=== PATIENT | male | born 1940 | race Caucasian/White ===

== ENCOUNTER 2020-04-11 04:26 | Inpatient (IN) ==
[2020-04-11] MEDS ORDERED: SODIUM CHLORIDE 0.9% 1000ML 1,000 ML IV ONE (04:39)
[2020-04-11] MEDS ORDERED: LORazepam 0.5 MG/1 ML VIAL IV STA (04:39)
[2020-04-11] MEDS ORDERED: DEXAMETHASONE SOD INJ 10 MG/ML VIAL IV ONE (04:39)
[2020-04-11] MEDS ORDERED: ACETAMINOPHEN 500 MG TAB PO STA (04:39)
--- NOTE | 2020-04-11 04:45 | Emergency Department Note ---
Impression & Plan COVID-19, Hypoxia, Acute anxiety ED Provider Note Name: DEMETRICE VO Age: 79 Sex: M Arrives Via: Ambulance Informant: Patient, EMS ED Provider: Mark Bill MD Chief Complaint: Shortness of breath Impression: Covid-19 Acute Hypoxia Acute Anxiety Medical Decision Making: A very anxious 79 yr old male with history COPD, CAD, Anxiety, HTN, DLP, GERD, CVA arrives for worsening shortness of breath overnight. Recently completed steroids for bronchitis and was doing well. Dyspneic, tachypneic on arrival. Vastly improved with Ativan IV and NC O2. He was given some IV fluids as dehydrated by examination. HR coming down and looking much better. No wheezing on exam so neb held off, though with high suspicious covid Decadron 6mg IV given early on. CXR consistent with viral inflammatory pattern. EKG Tachy though no ischemia and Trop negative. Sats easily came up and patient feeling better thus hold on CTA chest at this time. No indication for abx. COVID returned positive. Hospitalist consulted for further management. Prior Medical Record and Triage/Nursing Notes reviewed by Me Additional history obtained from chart Differentials:COVID, Reactive airway disease, pneumonia, pneumothorax, COPD, CHF, infections, cardiac ischemia, pulmonary embolism, musculoskeletal, gastrointestinal, as well as other pathologies. Vital Signs: reviewed and remarkable for hypoxia, tachy Interventions: saline lock, nss bolus 1 l IV, NC O2, Decadron 6mg IV Labs:Reviewed and remarkable for no significant abnormalities Imaging:X ray results are stated below per my interpretation: Chest: 1 view: Bilateral base infiltrative disease EKG:Per My Interpretation: Indication SHOB: Sinus tach 122 bpm, qtc 450. No Ectopy. No Ischemia. Compared to EKG 01/18/19 HR has increased Cardiac/Tele Monitoring: Cardiac Monitoring: An Order was placed for continuous cardiac monitoring. The monitor shows a rate of 108 with a sinus tach rhythm. Consults:Dr Nestor Oconnor Hospitalist Plan: Disposition: Hospitalization] Condition: Good History of Present Illness:79 yr old male arrives for evaluation of shortness of breath. Patient with long history COPD/Bronchitis issues and notes most recently having wheezing last week which resolved after a week of prednisone. Notes feeling well the last few days until this evening. Developed worsening shortness of breath throughout the evening. Notes feeling dyspnea but denies any wheezing. This is associated with fevers, chills, headache, body aches, and mild nausea. Denies vomiting abdominal pain, back pain, urinary/bowel symptoms, leg swelling, calf pain, rashes nor other symptoms. Nothing makes better nor worse. No medications prior to arrival. Arrives via EMS, was hypoxic at home and started on NC en route with improvement. ROS: See above HPI for pertinent positives & negatives. A total of 10 systems reviewed and were otherwise negative. Past Medical History:COPD, CAD, Anxiety, HTN, DLP, GERD, CVA Past Surgical History:CEA, Hernia Repair, heart cath Family History:CAD, Stroke Social History:Former smoker, lives alone, retired Home Medications:See Below Allergies:MOrphine Vitals:Blood Pressure: 172/91, Pulse 148, RR 26, T 37C, O2 88% on RA Physical Exam: GENERAL: Patient is anxious, dehydrated appearing and in mild distress. EYES: No scleral icterus, unremarkable pupils. ENT: Mucous membranes moist, no nasal congestion. NECK: No masses appreciated, nomeningismus, trachea is midline. RESPIRATORY: Tight though no wheezing, moderate dyspnea. CARDIOVASCULAR: Tachy.No murmurs, rubs, gallops appreciated. GASTROINTESTINAL: Abdomen soft, non-tender, no peritonitis.Bowel sounds positive.No masses appreciated. BACK: No midline tenderness, no CVA tenderness EXTREMITIES: Normal motion all extremities, no cyanosis, no edema. NEUROLOGIC: Alert and oriented, no acute motor or sensory deficits, no focal weakness, cranial nerves grossly intact. SKIN: No rash, no jaundice, no diaphoresis. PSYCH: Appropriate, anxious GCS: 15 ED Course: Times/Reassessments: Much improved though still requiring NC O2. Comfortable with hospitalization Mark Bill MD Past Med/Surg History Medical History (Updated 04/11/20 @ 07:56 by Hiwot Weiss DO) Aortic valve stenosis Benign hypertension Carotid artery stenosis Coronary artery disease involving coronary bypass graft Dyslipidemia Gastroesophageal reflux disease Ischemic stroke Surgical History History of carotid endarterectomy History of repair of inguinal hernia Hx of cardiac catheterization Family History Other Heart disease Stroke Social History Smoking Status: Never smoker Second Hand Exposure: No; Do You Dip or Chew Tobacco: No; Tobacco Cessation Education Requested by Patient: No Hx Alcohol Use: No Hx Substance Use: No Preferred Language: Romansh Communication Ability: Effective Feels Safe at Home: Yes Assistive Devices: None Allergies Allergies Allergy/AdvReac Type Severity Reaction Status Date / Time morphine AdvReac Severe HALLUCINATI Unverified 01/18/19 10:11 ONS Home Meds Home Medications Medication Instructions Recorded Confirmed albuterol sulfate [ProAir HFA] 2 puff INHALATION QID 01/18/19 04/11/20 aspirin 81 mg PO QAM 01/18/19 04/11/20 furosemide 20 mg PO QAM 01/18/19 04/11/20 lorazepam 0.5 mg PO BID PRN 01/18/19 04/11/20 metoprolol tartrate 25 mg PO Q12 01/18/19 04/11/20 nitroglycerin 0.4 mg SUBLINGUAL UD 01/18/19 04/11/20 omeprazole 40 mg PO BID 01/18/19 04/11/20 rosuvastatin [Crestor] 40 mg PO QAM 01/18/19 04/11/20 spironolactone 12.5 mg PO QAM 01/18/19 04/11/20 triamcinolone acetonide 1 applic TOPICAL BID 01/18/19 04/11/20 cyanocobalamin (vitamin B-12) 1,000 mcg PO DAILY 04/11/20 04/11/20 [Vitamin B-12] prednisone 40 mg PO DAILY PRN 04/11/20 04/11/20 umeclidinium-vilanterol [Anoro 1 ea INHALATION DAILY 04/11/20 04/11/20 Ellipta] Results & Data (ED) Vital Signs Vital Signs - 24 hr 04/11/20 04:22 04/11/20 04:30 04/11/20 04:31 Temperature 37 C Temperature Source Oral Pulse Rate 148 H 128 H 125 H Pulse Rate [Apical] Pulse Rate from SpO2 Sensor 129 H 124 H Pulse Rhythm Regular Pulse Strength Normal Respiratory Rate 26 H 29 H 31 H Respiratory Effort / Characteristics Non-Labored Respiratory Depth Normal Respiratory Pattern Regular Blood Pressure 172/91 H 172/91 H Blood Pressure [Right Arm] Blood Pressure Mean 118 118 Blood Pressure Mean [Right Arm] Pulse Oximetry 94 94 95 Oxygen Delivery Method Nasal Cannula Oxygen Flow Rate 2 Sepsis Recent Fever Within 48 Hours Yes Sepsis New/Unexplained Change in Mental Status No Sepsis Action Taken by Nursing Physician Notified 04/11/20 05:00 04/11/20 05:30 04/11/20 06:00 Temperature Temperature Source Pulse Rate 120 H 106 H 109 H Pulse Rate [Apical] Pulse Rate from SpO2 Sensor 119 H 107 H 110 H Pulse Rhythm Pulse Strength Respiratory Rate 28 H 41 H 37 H Respiratory Effort / Characteristics Respiratory Depth Respiratory Pattern Blood Pressure Blood Pressure [Right Arm] Blood Pressure Mean Blood Pressure Mean [Right Arm] Pulse Oximetry 95 94 96 Oxygen Delivery Method Oxygen Flow Rate Sepsis Recent Fever Within 48 Hours Sepsis New/Unexplained Change in Mental Status Sepsis Action Taken by Nursing 04/11/20 06:22 04/11/20 06:30 04/11/20 06:44 Temperature Temperature Source Pulse Rate 103 H 99 H Pulse Rate [Apical] 101 H Pulse Rate from SpO2 Sensor 102 H 100 H Pulse Rhythm Pulse Strength Respiratory Rate 24 23 26 H Respiratory Effort / Characteristics Non-Labored Spontaneous Short of Breath Respiratory Depth Normal Respiratory Pattern Regular Blood Pressure 122/59 L Blood Pressure [Right Arm] 122/59 L Blood Pressure Mean 80 Blood Pressure Mean [Right Arm] 80 Pulse Oximetry 94 92 91 Oxygen Delivery Method Room Air Oxygen Flow Rate 2 Sepsis Recent Fever Within 48 Hours Sepsis New/Unexplained Change in Mental Status Sepsis Action Taken by Nursing 04/11/20 07:00 04/11/20 07:30 Temperature Temperature Source Pulse Rate 97 H 101 H Pulse Rate [Apical] Pulse Rate from SpO2 Sensor 98 H 99 H Pulse Rhythm Pulse Strength Respiratory Rate 25 H 36 H Respiratory Effort / Characteristics Respiratory Depth Respiratory Pattern Blood Pressure Blood Pressure [Right Arm] Blood Pressure Mean Blood Pressure Mean [Right Arm] Pulse Oximetry 92 93 Oxygen Delivery Method Oxygen Flow Rate Sepsis Recent Fever Within 48 Hours Sepsis New/Unexplained Change in Mental Status Sepsis Action Taken by Nursing Laboratory Data Result diagrams: 04/11/20 05:17 04/11/20 07:17 Lab Results 04/11/20 04/11/20 04/11/20 Range/Units 05:17 05:17 05:17 WBC (4.8-10.8) K/uL RBC (4.7-6.1) M/uL Hgb (14.0-18.0) g/dL Hct (42-52) % MCV (80-100) fL MCH (25-34) pg MCHC (32-36) g/dL RDW Std Deviation (36.4-46.3) fL RDW Coeff of Stefano (11.5-14.5) % Plt Count (130-400) K/uL MPV (7.4-10.4) fL Immature Gran % (Auto) % Neut % (Auto) % Lymph % (Auto) % [place] % (Auto) % Eos % (Auto) % Baso % (Auto) % Neut # (Auto) (1.4-6.5) K/uL Lymph # (Auto) (1.2-3.4) K/uL [place] # (Auto) (0.11-0.59) K/uL Eos # (Auto) (0-0.5) K/uL Baso # (Auto) (0-0.2) K/uL Immature Gran # (Auto) (0.00-0.02) K/uL PT INR Sodium (136-145) mmol/L Potassium (3.5-5.1) mmol/L Chloride (98-107) mmol/L Carbon Dioxide (21-32) mmol/L Anion Gap (3-11) BUN (7-18) mg/dl Creatinine (0.6-1.4) mg/dl Est Cr Clr Drug Dosing ml/min Est GFR ( Amer) Est GFR (Non-Af Amer) BUN/Creatinine Ratio (10-20) Glucose (70-99) mg/dl Lactate 0.7 (0.4-2.0) mmol/L Calcium (8.5-10.1) mg/dl Magnesium (1.8-2.4) mg/dl Total Bilirubin (0.2-1) mg/dl Direct Bilirubin (0-0.2) mg/dl AST (15-37) U/L ALT (12-78) U/L Alkaline Phosphatase (45-117) U/L Troponin I (0-0.045) ng/ml C-Reactive Protein (0-0.29) mg/dl Total Protein (6.4-8.2) gm/dl Albumin (3.4-5.0) gm/dl Lipase (73-393) U/L Procalcitonin Cancelled COVID-19 Eval Order SARS-CoV-2 (PCR) (Negative) Influenza Type A (PCR) (Neg) Influenza Type B (PCR) (Neg) RSV (RT-PCR) (Neg) Blood Type Cancelled Antibody Screen Cancelled 04/11/20 04/11/20 04/11/20 Range/Units 05:17 05:17 05:17 WBC 10.29 (4.8-10.8) K/uL RBC 4.78 (4.7-6.1) M/uL Hgb 15.0 (14.0-18.0) g/dL Hct 44.2 (42-52) % MCV 92.5 (80-100) fL MCH 31.4 (25-34) pg MCHC 33.9 (32-36) g/dL RDW Std Deviation 46.3 (36.4-46.3) fL RDW Coeff of Stefano 13.6 (11.5-14.5) % Plt Count 154 (130-400) K/uL MPV 9.7 (7.4-10.4) fL Immature Gran % (Auto) 0.6 % Neut % (Auto) 79.9 % Lymph % (Auto) 9.6 % [place] % (Auto) 9.8 % Eos % (Auto) 0.0 % Baso % (Auto) 0.1 % Neut # (Auto) 8.22 H (1.4-6.5) K/uL Lymph # (Auto) 0.99 L (1.2-3.4) K/uL [place] # (Auto) 1.01 H (0.11-0.59) K/uL Eos # (Auto) 0.00 (0-0.5) K/uL Baso # (Auto) 0.01 (0-0.2) K/uL Immature Gran # (Auto) 0.06 H (0.00-0.02) K/uL PT Cancelled INR Cancelled Sodium 136 (136-145) mmol/L Potassium (3.5-5.1) mmol/L Chloride 105 (98-107) mmol/L Carbon Dioxide 27 (21-32) mmol/L Anion Gap 4.0 (3-11) BUN 12 (7-18) mg/dl Creatinine 1.03 (0.6-1.4) mg/dl Est Cr Clr Drug Dosing 58.1 ml/min Est GFR ( Amer) 80.8 Est GFR (Non-Af Amer) 69.7 BUN/Creatinine Ratio 11.2 (10-20) Glucose 87 (70-99) mg/dl Lactate (0.4-2.0) mmol/L Calcium 8.4 L (8.5-10.1) mg/dl Magnesium (1.8-2.4) mg/dl Total Bilirubin 0.6 (0.2-1) mg/dl Direct Bilirubin (0-0.2) mg/dl AST (15-37) U/L ALT 23 (12-78) U/L Alkaline Phosphatase 51 (45-117) U/L Troponin I < 0.015 (0-0.045) ng/ml C-Reactive Protein (0-0.29) mg/dl Total Protein 7.5 (6.4-8.2) gm/dl Albumin 3.3 L (3.4-5.0) gm/dl Lipase 101 (73-393) U/L Procalcitonin COVID-19 Eval Order SARS-CoV-2 (PCR) (Negative) Influenza Type A (PCR) (Neg) Influenza Type B (PCR) (Neg) RSV (RT-PCR) (Neg) Blood Type Antibody Screen 04/11/20 04/11/20 04/11/20 Range/Units 05:45 05:45 05:56 WBC (4.8-10.8) K/uL RBC (4.7-6.1) M/uL Hgb (14.0-18.0) g/dL Hct (42-52) % MCV (80-100) fL MCH (25-34) pg MCHC (32-36) g/dL RDW Std Deviation (36.4-46.3) fL RDW Coeff of Stefano (11.5-14.5) % Plt Count (130-400) K/uL MPV (7.4-10.4) fL Immature Gran % (Auto) % Neut % (Auto) % Lymph % (Auto) % [place] % (Auto) % Eos % (Auto) % Baso % (Auto) % Neut # (Auto) (1.4-6.5) K/uL Lymph # (Auto) (1.2-3.4) K/uL [place] # (Auto) (0.11-0.59) K/uL Eos # (Auto) (0-0.5) K/uL Baso # (Auto) (0-0.2) K/uL Immature Gran # (Auto) (0.00-0.02) K/uL PT INR Sodium (136-145) mmol/L Potassium (3.5-5.1) mmol/L Chloride (98-107) mmol/L Carbon Dioxide (21-32) mmol/L Anion Gap (3-11) BUN (7-18) mg/dl Creatinine (0.6-1.4) mg/dl Est Cr Clr Drug Dosing ml/min Est GFR ( Amer) Est GFR (Non-Af Amer) BUN/Creatinine Ratio (10-20) Glucose (70-99) mg/dl Lactate (0.4-2.0) mmol/L Calcium (8.5-10.1) mg/dl Magnesium (1.8-2.4) mg/dl Total Bilirubin (0.2-1) mg/dl Direct Bilirubin (0-0.2) mg/dl AST (15-37) U/L ALT (12-78) U/L Alkaline Phosphatase (45-117) U/L Troponin I (0-0.045) ng/ml C-Reactive Protein (0-0.29) mg/dl Total Protein (6.4-8.2) gm/dl Albumin (3.4-5.0) gm/dl Lipase (73-393) U/L Procalcitonin COVID-19 Eval Order CovFluRsv at [facility] SARS-CoV-2 (PCR) POSITIVE A* (Negative) Influenza Type A (PCR) Negative (Neg) Influenza Type B (PCR) Negative (Neg) RSV (RT-PCR) Negative (Neg) Blood Type A Positive Antibody Screen NEGATIVE 04/11/20 04/11/20 04/11/20 Range/Units 05:56 05:56 07:17 WBC (4.8-10.8) K/uL RBC (4.7-6.1) M/uL Hgb (14.0-18.0) g/dL Hct (42-52) % MCV (80-100) fL MCH (25-34) pg MCHC (32-36) g/dL RDW Std Deviation (36.4-46.3) fL RDW Coeff of Stefano (11.5-14.5) % Plt Count (130-400) K/uL MPV (7.4-10.4) fL Immature Gran % (Auto) % Neut % (Auto) % Lymph % (Auto) % [place] % (Auto) % Eos % (Auto) % Baso % (Auto) % Neut # (Auto) (1.4-6.5) K/uL Lymph # (Auto) (1.2-3.4) K/uL [place] # (Auto) (0.11-0.59) K/uL Eos # (Auto) (0-0.5) K/uL Baso # (Auto) (0-0.2) K/uL Immature Gran # (Auto) (0.00-0.02) K/uL PT 11.4 INR 1.1 Sodium (136-145) mmol/L Potassium 3.2 L (3.5-5.1) mmol/L Chloride (98-107) mmol/L Carbon Dioxide (21-32) mmol/L Anion Gap (3-11) BUN (7-18) mg/dl Creatinine (0.6-1.4) mg/dl Est Cr Clr Drug Dosing ml/min Est GFR ( Amer) Est GFR (Non-Af Amer) BUN/Creatinine Ratio (10-20) Glucose (70-99) mg/dl Lactate (0.4-2.0) mmol/L Calcium (8.5-10.1) mg/dl Magnesium 1.7 L (1.8-2.4) mg/dl Total Bilirubin (0.2-1) mg/dl Direct Bilirubin 0.1 (0-0.2) mg/dl AST 11 L (15-37) U/L ALT (12-78) U/L Alkaline Phosphatase (45-117) U/L Troponin I (0-0.045) ng/ml C-Reactive Protein (0-0.29) mg/dl Total Protein (6.4-8.2) gm/dl Albumin (3.4-5.0) gm/dl Lipase (73-393) U/L Procalcitonin < 0.05 COVID-19 Eval Order SARS-CoV-2 (PCR) (Negative) Influenza Type A (PCR) (Neg) Influenza Type B (PCR) (Neg) RSV (RT-PCR) (Neg) Blood Type Antibody Screen 04/11/20 Range/Units 07:17 WBC (4.8-10.8) K/uL RBC (4.7-6.1) M/uL Hgb (14.0-18.0) g/dL Hct (42-52) % MCV (80-100) fL MCH (25-34) pg MCHC (32-36) g/dL RDW Std Deviation (36.4-46.3) fL RDW Coeff of Stefano (11.5-14.5) % Plt Count (130-400) K/uL MPV (7.4-10.4) fL Immature Gran % (Auto) % Neut % (Auto) % Lymph % (Auto) % [place] % (Auto) % Eos % (Auto) % Baso % (Auto) % Neut # (Auto) (1.4-6.5) K/uL Lymph # (Auto) (1.2-3.4) K/uL [place] # (Auto) (0.11-0.59) K/uL Eos # (Auto) (0-0.5) K/uL Baso # (Auto) (0-0.2) K/uL Immature Gran # (Auto) (0.00-0.02) K/uL PT INR Sodium (136-145) mmol/L Potassium (3.5-5.1) mmol/L Chloride (98-107) mmol/L Carbon Dioxide (21-32) mmol/L Anion Gap (3-11) BUN (7-18) mg/dl Creatinine (0.6-1.4) mg/dl Est Cr Clr Drug Dosing ml/min Est GFR ( Amer) Est GFR (Non-Af Amer) BUN/Creatinine Ratio (10-20) Glucose (70-99) mg/dl Lactate (0.4-2.0) mmol/L Calcium (8.5-10.1) mg/dl Magnesium (1.8-2.4) mg/dl Total Bilirubin (0.2-1) mg/dl Direct Bilirubin (0-0.2) mg/dl AST (15-37) U/L ALT (12-78) U/L Alkaline Phosphatase (45-117) U/L Troponin I (0-0.045) ng/ml C-Reactive Protein 1.16 H (0-0.29) mg/dl Total Protein (6.4-8.2) gm/dl Albumin (3.4-5.0) gm/dl Lipase (73-393) U/L Procalcitonin COVID-19 Eval Order SARS-CoV-2 (PCR) (Negative) Influenza Type A (PCR) (Neg) Influenza Type B (PCR) (Neg) RSV (RT-PCR) (Neg) Blood Type Antibody Screen Administered Medications Magnesium Sulfate/Dextrose (Magnesium Sulfate / D5w) 1 gm in 100 mls @ 50 mls/hr IV Q2H ONE Stop: 04/11/20 12:59 Last Admin: 04/11/20 11:23 Dose: 50 mls/hr Documented by: [id number] Discontinued Medications Acetaminophen (Acetaminophen 500 Mg Tab) 1,000 mg PO NOW STA Stop: 04/11/20 04:40 Last Admin: 04/11/20 05:40 Dose: 1,000 mg Documented by: [id number] Dexamethasone (Dexamethasone Sod Inj 10 Mg/Ml Vial) 6 mg IV NOW ONE Stop: 04/11/20 04:40 Last Admin: 04/11/20 05:41 Dose: 6 mg Documented by: [id number] Lorazepam (Ativan) 0.5 mg in 1 mls @ 1 mls/min IV NOW STA Stop: 04/11/20 04:40 Last Admin: 04/11/20 05:41 Dose: 1 mls/min Documented by: [id number] Sodium Chloride (Nss 1000ml) 1,000 mls @ 999 mls/hr IV .Q1H1M ONE Stop: 04/11/20 05:39 Last Infusion: 04/11/20 06:42 Dose: 0 mls/hr Documented by: [id number] Admin: 04/11/20 05:41 Dose: 999 mls/hr Documented by: [id number] Magnesium Sulfate/Dextrose (Magnesium Sulfate / D5w) 1 gm in 100 mls @ 50 mls/hr IV Q2H ONE Stop: 04/11/20 10:59 Last Admin: 04/11/20 10:16 Dose: 50 mls/hr Documented by: [id number] Potassium Chloride (Potassium Chloride Crtab 20 Meq Tabcr) 40 meq PO NOW STA Stop: 04/11/20 09:01 Last Admin: 04/11/20 10:16 Dose: 40 meq Documented by: [id number] Discharge Plan Visit Data Chief Complaint: Shortness of Breath/Dyspnea Stated Complaint: SHORT OF BREATH ED Provider: Mark Bill Discharge Problem: COVID-19, Hypoxia, Acute anxiety Patient Disposition: Admitted As Inpatient Discharge Instructions Interventions: ED Discharge Assessment Last Done: 04/11/20 08:37
[2020-04-11 05:33] LABS: Basophils # (auto) 0.01 K/uL (0-0.2); Basophils % (auto) 0.1 %; Hematocrit (blood only) 44.2 % (42-52); Immature Granulocytes # (auto) 0.06 K/uL (0.00-0.02); Immature Granulocytes % (auto) 0.6 %; Lymphocytes # (auto) 0.99 K/uL (1.2-3.4); Lymphocytes % (auto) 9.6 %; Mean Corpuscular Hemoglobin 31.4 pg (25-34); Mean Corpuscular Hgb Conc 33.9 g/dL (32-36); Mean Corpuscular Volume 92.5 fL (80-100); Mean Platelet Volume 9.7 fL (7.4-10.4); Monocytes # (auto) 1.01 K/uL (0.11-0.59); Monocytes % (auto) 9.8 %; Neutrophils # (auto) 8.22 K/uL (1.4-6.5); Neutrophils % (auto) 79.9 %; Platelet Count 154 K/uL (130-400); RDW Coefficient of Variation 13.6 % (11.5-14.5); RDW Standard Deviation 46.3 fL (36.4-46.3); Red Blood Count 4.78 M/uL (4.7-6.1); White Blood Count 10.29 K/uL (4.8-10.8)
[2020-04-11 06:14] LABS: Alanine Aminotransferase 23 U/L (12-78); Albumin Level 3.3 gm/dl (3.4-5.0); Alkaline Phosphatase 51 U/L (45-117); BUN Creatinine Ratio 11.2 (10-20); Bilirubin,Total 0.6 mg/dl (0.2-1); Blood Urea Nitrogen 12 mg/dl (7-18); Calcium 8.4 mg/dl (8.5-10.1); Carbon Dioxide 27 mmol/L (21-32); Chloride 105 mmol/L (98-107); Creatinine Clr Calc Pharmacy 58.1 ml/min; Est GFR (African American) 80.8; Est GFR (Non-African American) 69.7; Glucose 87 mg/dl (70-99); Lipase 101 U/L (73-393); Sodium 136 mmol/L (136-145); Total Protein 7.5 gm/dl (6.4-8.2); Troponin I < 0.015 ng/ml (0-0.045)
[2020-04-11 06:24] LABS: INR 1.1 (0.9-1.1); Prothrombin Time 11.4 Seconds (9.0-12.0)
[2020-04-11 06:31] LABS: Influenza A virus by PCR Negative (Neg); Influenza B virus by PCR Negative (Neg); RSV by PCR Negative (Neg)
[2020-04-11 06:38] LABS: SARS CoV2 RNA(COVID-19) InHosp POSITIVE (Negative)
--- NOTE | 2020-04-11 07:57 | Electrocardiogram Report ---
Test Reason : Blood Pressure : / mmHG Vent. Rate : 122 BPM Atrial Rate : 122 BPM P-R Int : 158 ms QRS Dur : 080 ms QT Int : 316 ms P-R-T Axes : 068 -09 079 degrees QTc Int : 450 ms Poor data quality, interpretation may be adversely affected Sinus tachycardia Possible Septal infarct , age undetermined Nonspecific ST abnormality Abnormal ECG When compared with ECG of 18-JAN-2019 09:32, Vent. rate has increased BY 40 BPM Confirmed by Reagan Leal ([id number] on 04/11/2020 7:56:49 AM Referred By: REFERRED SELF Confirmed By:Reagan Leal
--- NOTE | 2020-04-11 08:02 | History & Physical Report ---
Date of Service April 11, 2020 Assessment & Plan (1) Pneumonia due to COVID-19 virus: Hypoxia present despite SOB improved. Appears euvolemic without crackles on exam. Not working to breathe at this time. Low threshold for diuretic, however, he appears very comfortable. For now cont with Decadron 6mg daily and will start remdesivir. I did discuss convalescent plasma with him, however, will hold off for now with the slight risk of transfusion reaction. CRP 1.16 and procal is negative. No antibiotics at this time. Patient is not septic. (2) Hypoxia: cont to supplement with oxygen as needed. (3) Alcohol use: Reports drinking 6 beers per day on average with last drink approximately two days ago. This may be playing a role in his current anxiety. AWSS scale ordered in addition to thiamine and folate daily (4) Anxiety: chronic, this is severe. Ativan prn (5) Coronary artery disease involving coronary bypass graft: chronic, stable. Denies chest pain at this time. Cont medical management of CAD including ASA, statin, BB. Followed by cardiology as outpatient. (6) Aortic valve stenosis: (7) Carotid artery stenosis: Cont current medical management. (8) DVT prophylaxis: Lovenox Full Code as discussed with patient on admission Dispo-to med/tele. I did speak with his sister, Naheed, per his request, and we reviewed the plan of care by phone. She verbalized understanding and agreement. Hiwot [facility] Present Illness Chief Complaint: chills, malaise, abnormal vitals Primary Care Provider: Piotr Wilson MD 79 yo M presented with worsening chills and malaise overnight. He also reports an elevation in heart rate to 114bpm and BP to 150s systolic which was concerning to him prompting ER evaluation. He reports feeling very worked up, describing what sounds like a panic attack at home earlier, giving him shortness of breath that was severe. He was given Ativan, which he reports improved his breathing significantly. He reports having bronchitis recently, specifically feeling the onset of wheezing, shortness of breath and coughing 1 week ago. He began his prednisone rescue pack that he has on hand for this type of thing and reports feeling better. This morning was when these other symptoms began. ROS reveals a headache that is now improved, a feeling of weakness in his stomach without diarrhea or blood in stool (he did vomit once this morning but he just finished his entire lunch without issue), he reports a temp of 100.4F. He denies any chest pain, and does report nasal congestion but no loss of taste. Allergies Allergy/AdvReac Type Severity Reaction Status Date / Time remdesivir Allergy Severe hypotension, Verified 04/12/20 15:55 diaphoretic morphine AdvReac Severe HALLUCINATI Verified 04/11/20 18:48 ONS Home Medications Medication Instructions Recorded Confirmed Type albuterol sulfate [ProAir HFA] 2 puff INHALATION QID 01/18/19 04/11/20 History aspirin 81 mg PO QAM 01/18/19 04/11/20 History furosemide 20 mg PO QAM 01/18/19 04/11/20 History lorazepam 0.5 mg PO BID PRN 01/18/19 04/11/20 History metoprolol tartrate 25 mg PO Q12 01/18/19 04/11/20 History nitroglycerin 0.4 mg SUBLINGUAL UD 01/18/19 04/11/20 History omeprazole 40 mg PO BID 01/18/19 04/11/20 History rosuvastatin [Crestor] 40 mg PO QAM 01/18/19 04/11/20 History spironolactone 12.5 mg PO QAM 01/18/19 04/11/20 History triamcinolone acetonide 1 applic TOPICAL BID 01/18/19 04/11/20 History cyanocobalamin (vitamin B-12) 1,000 mcg PO DAILY 04/11/20 04/11/20 History [Vitamin B-12] prednisone 40 mg PO DAILY PRN 04/11/20 04/11/20 History umeclidinium-vilanterol [Anoro 1 ea INHALATION DAILY 04/11/20 04/11/20 History Ellipta] Past Med/Surg History Medical History Aortic valve stenosis Benign hypertension Carotid artery stenosis Coronary artery disease involving coronary bypass graft Dyslipidemia Gastroesophageal reflux disease Ischemic stroke Surgical History History of carotid endarterectomy History of repair of inguinal hernia Hx of cardiac catheterization Family History Other Heart disease Stroke Social History Smoking Status: Former smoker Tobacco Type: Cigarettes Years Smoked: 25; Number of Years Since Quit: 5; Second Hand Exposure: No; Do You Dip or Chew Tobacco: No; Tobacco Cessation Education Requested by Patient: No Hx Alcohol Use: Yes (6 beers daily on average) Alcohol type: beer Hx Substance Use: No Preferred Language: Senegalese Communication Ability: Effective marital status: Feels Safe at Home: Yes Assistive Devices: None Review of Systems Review of Systems: All systems reviewed & are unremarkable except as noted in HPI & below Physical Exam Physical Exam: CONSTITUTIONAL: WNWD, vitals as above, generally well- appearing, slightly anxious EYES: pupils are round and equal bilaterally, normal conjunctivae, no scleral icterus ENT: external ear and nose normal, MMM RESPIRATORY: clear to auscultation bilaterally, no crackles, rales or wheezes, normal respiratory effort CARDIOVASCULAR: regular rate and rhythm, S1 and 2 heard without murmurs, gallops or rubs, no JVD, no peripheral edema GASTROINTESTINAL: soft, nontender, nondistended, no guarding MUSCULOSKELETAL: strength 5/5 throughout, head is normocephalic and atraumatic SKIN: warm and dry NEUROLOGIC: No facial palsy, no dysarthria. CN 2-12 grossly intact, no sensory deficit, normal cognition, normal speech, no gross focal deficits. PSYCHIATRIC: alert cooperative and oriented to person, place and time. Euthymic mood, makes good eye contact, language grossly intact, recent and remote memory grossly intact. Results & Data Results & Data ([facility]) Vital Signs (Past 12 Hours) Vital Signs Temp Pulse Pulse Resp BP BP Pulse Ox 04/11/20 06:22 101 H 24 122/59 L 94 04/11/20 04:22 37 C 148 H 26 H 172/91 H 94 Laboratory Results Short CBC 04/11/20 Range/Units 05:17 WBC 10.29 (4.8-10.8) K/uL Hgb 15.0 (14.0-18.0) g/dL Hct 44.2 (42-52) % Plt Count 154 (130-400) K/uL BMP 04/11/20 05:17 Sodium 136 Chloride 105 Carbon Dioxide 27 BUN 12 Creatinine 1.03 Glucose 87 Calcium 8.4 L Cardiac Enzymes 04/11/20 Range/Units 05:17 Troponin I < 0.015 (0-0.045) ng/ml Liver Function 04/11/20 Range/Units 05:17 Total Bilirubin 0.6 (0.2-1) mg/dl ALT 23 (12-78) U/L Alkaline Phosphatase 51 (45-117) U/L Albumin 3.3 L (3.4-5.0) gm/dl Diagnostic Findings [facility], [id number] XRay Report Patient: LASHAWN VOERAdmit Date: 04/11/20#: [id number]: [facility] ID:[id number]: Date: 1940[facility] Zip: [place], [place] [address]Rby: 79Location: EDSex: MRoom/Bed:Att Phy:Diagnosis: SHORT OF BREATHPri Phy: Piotr Wilson, III, MDService Date: 04/11/20Fam Phy:Interpreting Phy: Paco CernaAdmit Phy: Ordering Phy: Mark Bill M.D. cc: ~ XR chest 1V portable HISTORY: 79 years-old Male Shortness of breath acute shortness of breath COMPARISON: Chest and rib radiographs 10/04/2015, chest CT 10/19/2015. TECHNIQUE: Portable AP view of the chest FINDINGS: Cardiomediastinal and hilar silhouettes are within normal limits. Prior median sternotomy with cardiac valvular prosthesis. Mildly progressed interstitial coarsening without pneumothorax, large pleural effusion or lobar airspace consolidation. Emphysema. Degenerative changes of the shoulders and spine. IMPRESSION: Emphysema with mildly progressed reticular opacities. Findings may represent progressive fibrotic changes, pulmonary edema or interstitial pneumonitis. ACT 112: Negative or not required by law. The above report was generated using voice recognition software. It may contain grammatical, syntax or spelling errors. Electronically signed by: Jason Cerna M.D. 04/11/2020 8:04 AM Dictated: 04/11/20 0802Transcribed: 04/11/20 0802 Code Status & VTE Plan VTE Prophylaxis Plan VTE Prophylaxis will be ordered: Yes
--- NOTE | 2020-04-11 08:05 | XRay Report ---
XR chest 1V portable HISTORY: 79 years-old Male Shortness of breath acute shortness of breath COMPARISON: Chest and rib radiographs 10/04/2015, chest CT 10/19/2015. TECHNIQUE: Portable AP view of the chest FINDINGS: Cardiomediastinal and hilar silhouettes are within normal limits. Prior median sternotomy with cardia c valvular prosthesis. Mildly progressed interstitial coarsening without pneumothorax, large pleural effusion or lobar airspace consolidation. Emphysema. Degenerative changes of the shoulders and spine. IMPRESSION: Emphysema with mildly progressed reticular opacities. Findings may represent progressive fibrotic changes, pulmonary edema or interstitial pneumonitis. ACT 112: Negative or not required by law. The above report was generated using voice recognition software. It may contain grammatical, syntax o r spelling errors. Electronically signed by: Jason Cerna M.D. 04/11/2020 8:04 AM
[2020-04-11 08:15] LABS: Potassium 3.2 mmol/L (3.5-5.1)
[2020-04-11 08:20] LABS: Bilirubin Direct 0.1 mg/dl (0-0.2); Magnesium 1.7 mg/dl (1.8-2.4)
[2020-04-11] MEDS ORDERED: POTASSIUM CHLORIDE CRTAB 20 MEQ TABCR PO STA (09:00)
[2020-04-11] MEDS ORDERED: MAGNESIUM SULFATE / D5W 1 GM/100 ML BAG IV ONE ×2 (09:00→11:00)
[2020-04-11] MEDS ORDERED: ACETAMINOPHEN 325 MG TAB PO PRN (09:57)
[2020-04-11] MEDS ORDERED: ONDANSETRON INJ 2 MG/ML 2 ML VIAL IV PRN (09:57)
[2020-04-11 12:31] LABS: Appearance Urine Clear (Clear); Bilirubin Urine Negative (Negative); Blood Urine Negative (Negative); Color Urine Yellow; Glucose Urine UA 1+ (Negative); Ketones Urine Negative (Negative); Leukocyte Esterase Urine Negative (Negative); Nitrite Urine Negative (Negative); Protein Urine Negative (Negative); Urobilinogen Urine Negative (Negative); pH Urine 7.5 (4.5-7.5)
[2020-04-11] MEDS ORDERED: SODIUM CHLORIDE 0.65% NA SOLN 45 ML (OCEAN) PRN (12:49)
[2020-04-11] MEDS ORDERED: NITROGLYCERIN SL 0.4 MG/TAB TAB SL PRN (13:15)
[2020-04-11] MEDS ORDERED: REMDESIVIR 200 MG in SODIUM CHLORIDE 0.9% 210 ML IV ONE (13:30)
[2020-04-11] MEDS: ENOXAPARIN INJ 40 MG/0.4 ML SYR SQ SCH (15:09)
[2020-04-11] MEDS: FOLIC ACID 1 MG TAB PO SCH (15:10)
[2020-04-11] MEDS: THIAMINE HCL 100 MG in SYRINGE 9 ML IV SCH (15:12)
[2020-04-11] MEDS: LORazepam 0.5 MG TAB PO PRN (15:15)
[2020-04-11] MEDS ORDERED: SODIUM CHLORIDE 0.9% 10ML FLUSH IV SCH (15:30)
[2020-04-11] MEDS: ALBUTEROL HFA 8 GM INHALER INH SCH ×2 (16:15→19:08)
[2020-04-11] MEDS: LORazepam 1 MG/2 ML VIAL IV PRN (17:47)
[2020-04-11] MEDS: METOPROLOL TARTRATE 25 MG TAB PO SCH (20:11)
[2020-04-11] MEDS: PANTOprazole 40 MG TAB PO SCH (20:12)
[2020-04-12 05:40] LABS: Hematocrit (blood only) 44.2 % (42-52); Hemoglobin 14.9 g/dL (14.0-18.0); Mean Corpuscular Hemoglobin 31.2 pg (25-34); Mean Corpuscular Hgb Conc 33.7 g/dL (32-36); Mean Corpuscular Volume 92.5 fL (80-100); Mean Platelet Volume 9.7 fL (7.4-10.4); Platelet Count 124 K/uL (130-400); RDW Coefficient of Variation 13.4 % (11.5-14.5); RDW Standard Deviation 45.4 fL (36.4-46.3); Red Blood Count 4.78 M/uL (4.7-6.1); White Blood Count 9.09 K/uL (4.8-10.8)
[2020-04-12 06:46] LABS: BUN Creatinine Ratio 14.5 (10-20); C Reactive Protein 4.82 mg/dl (0-0.29); Calcium 8.2 mg/dl (8.5-10.1); Creatinine Clr Calc Pharmacy 49.1 ml/min; Est GFR (African American) 65.9; Est GFR (Non-African American) 56.8; Potassium 4.1 mmol/L (3.5-5.1)
[2020-04-12] MEDS: ALBUTEROL HFA 8 GM INHALER INH SCH ×4 (07:42→19:17)
[2020-04-12] MEDS: LORazepam 1 MG/2 ML VIAL IV PRN (08:04)
[2020-04-12] MEDS: UMECLIDINIUM/VILANTEROL 62.5/25MCG 7 PUFFS/INHALER INH SCH (08:04)
[2020-04-12] MEDS: dexAMETHasone 6 MG in SYRINGE 0 ML IV SCH (08:05)
[2020-04-12] MEDS: METOPROLOL TARTRATE 25 MG TAB PO SCH (08:05)
[2020-04-12] MEDS: SPIRONOLACTONE 12.5 MG TAB PO SCH (08:07)
[2020-04-12] MEDS: FOLIC ACID 1 MG TAB PO SCH (08:07)
[2020-04-12] MEDS: ASPIRIN 81 MG ECTAB PO SCH (08:07)
[2020-04-12] MEDS: FUROSEMIDE 20 MG TAB PO SCH (08:07)
[2020-04-12] MEDS: CYANOCOBALAMIN 500 MCG TABLET (VITAMIN B-12) PO SCH (08:07)
[2020-04-12] MEDS: ROSUVASTATIN CALCIUM 20 MG TAB PO SCH (08:08)
[2020-04-12] MEDS: PANTOprazole 40 MG TAB PO SCH ×2 (08:08→20:37)
[2020-04-12] MEDS: LORazepam 0.5 MG TAB PO PRN (10:42)
[2020-04-12] MEDS: THIAMINE HCL 100 MG in SYRINGE 9 ML IV SCH (10:42)
[2020-04-12] MEDS ORDERED: REMDESIVIR 100 MG in SODIUM CHLORIDE 0.9% 230 ML IV SCH (12:00)
[2020-04-12] MEDS: ENOXAPARIN INJ 40 MG/0.4 ML SYR SQ SCH (14:19)
[2020-04-12] MEDS: SODIUM CHLORIDE 0.9% 10ML FLUSH IV SCH (14:20)
[2020-04-12] MEDS ORDERED: SODIUM CHLORIDE 0.9% 1000ML 1,000 ML IV ONE (14:21)
[2020-04-12] MEDS ORDERED: EPINEPHrine ADULT AUTO-INJECT 0.3 MG SYR IM STA (14:21)
[2020-04-12] MEDS ORDERED: methylPREDNISolone 125 MG in SYRINGE 0 ML IV ONE (14:30)
[2020-04-12] MEDS ORDERED: FAMOTIDINE 20MG IV PUSH 20 MG/5 ML SYR IV ONE (14:30)
--- NOTE | 2020-04-12 14:45 | Hospitalist Progress Note ---
Date of Service April 12, 2020 Assessment & Plan (1) Hypersensitivity reaction: Hypersensitivity reaction due to remdesivir infusion including clinical hypotension, diaphoresis, and confusion. Some audible stridor also present. Patient improved once infusion was completed, however, out of concern for developing anaphylaxis or worsening hypersensitivity symptoms, he was administered 0.3mg epi IM immediately, followed by pepcid, additional steroids and an IVF bolus. Lasix held, Metoprolol and Ativan also were held to allow him to return to normal physiology appropriately without further delay or adverse medication effects. CXR is pending. Oxygen saturation is fine. (2) Pneumonia due to COVID-19 virus: Hypoxia persists. CRP trended up slightly. Cont decadron once daily. DC remdesivir. (3) Hypoxia: cont to supplement with oxygen as needed. (4) Alcohol use: Reports drinking 6 beers per day on average with last drink approximately two days ago. This may be playing a role in his current anxiety. AWSS scale ordered but currently holding any further ativan with recent acute HS reaction, in addition to thiamine and folate daily. If patient scores high on AWSS scale later today or if anxiety becomes severe, will have MD notified prior to giving medications. (5) Anxiety: plan as above. (6) Coronary artery disease involving coronary bypass graft: chronic, stable. Repeat EKG pending in light of recent events this afternoon. Cont medical management of CAD including ASA, statin, hold beta darion for now. Followed by cardiology as outpatient. (7) Aortic valve stenosis: (8) Carotid artery stenosis: Cont current medical management. (9) DVT prophylaxis: Lovenox Full Code as discussed with patient on admission Dispo-transfer to PCU level care with recent HS reaction with movement to ICU if patient exhibits further instability today, remain in COVID unit for the time being. will update his sister by phone of these events. Hiwot Weiss DO [facility] Admission and Anticipated Discharge Date Admission Date: April 11, 2020 Subjective 79 yo M presented w COVID pneumonia Started on remdesivir and decadron yesterday. Very anxious man with improvement in breathing initially with benzo use on admission with improvement, and he has a h/o heavy drinking (approx 6 beers daily) I evaluated the patient just after lunch and he was altered, diaphoretic, and hypotensive with a BP 80/35 on the monitor even when recycled. Nurse was at bedside with me and reported higher BPs just recently, and gave me report regarding events of the morning. Per her report and review of the record, he woke up around 0745 and was slightly flushed, tremulous, rachycardic and tachypneic with improvement after Ativan 1mg IV. He was oriented and after med administration he was able to sit up in bed and eat breakfast. At the same time (080) he was given his morning meds, Umeclidinium/Vilanterol, Dexamethasone 6mg IV, Metoprolol Tartrate 25mg PO, ASA 81mg PO, B12 1000mcg PO, Furosemide 20mg, and spironolactone 12.5mg, Folic acid 1mg, Crestor 40mg, Protonix 40mg. Around 10:40am he was given a small extra dose of lorazepam 0.5mg PO x 1 dose for some increased anxiety followed by scheduled albuterol and then his second remdesivir infusion at 12:42pm. He was getting the remdesivir infusion at the time of the hypotension, and the infusion was completed. Out of concern for possible developing anaphylaxis, he was given IM epi 0.3mg x 1, solumedrol 125mg (in addition to the steroids already given), pepcid 20 IV and a 1L bolus NSS. He was altered on reassessment with mental status improving. BP improved to around 118/52 with HR 72. He never exhibited any respiratory distress, however, I did hear audible stridor prior to administration of the epi. Temp remained normal and vitals signs remained within normal range for the next 30 minutes. IVF infusing. CXR pending. Review of Systems Review of Systems: Unobtainable due to cognitive status (confused) Physical Exam Physical Exam: CONSTITUTIONAL: WNWD, vitals as above, generally confused, diaphoretic. EYES: normal conjunctivae, no scleral icterus ENT: external ear and nose normal, MMM RESPIRATORY: normal respiratory effort, some audible stridor, very diminished breath sounds throughout lung shafer. CARDIOVASCULAR: regular rate and rhythm, S1 and 2 heard without murmurs, gallops or rubs, no JVD, no peripheral edema GASTROINTESTINAL: soft, nontender, nondistended, no guarding MUSCULOSKELETAL: generalized weakness, confused and currently unable to participate in exam. SKIN: warm and diaphoretic. NEUROLOGIC: confused, garbled speech PSYCHIATRIC: disoriented, awakens and orients to voice. Results & Data Results & Data ([facility]) Vital Signs (Past 12 Hours) Vital Signs Temp Pulse Pulse Resp BP Pulse Ox Pulse Ox 04/12/20 12:21 36.5 C 85 20 98/42 L 93 04/12/20 11:15 90 24 90 04/12/20 09:56 92 04/12/20 07:49 107 H 24 115/61 90 04/12/20 07:45 96 H 30 H 91 04/12/20 07:00 95 H 04/12/20 04:07 36.8 C 113 H 22 131/63 91 Laboratory Results Short CBC 04/12/20 Range/Units 04:57 WBC 9.09 (4.8-10.8) K/uL Hgb 14.9 (14.0-18.0) g/dL Hct 44.2 (42-52) % Plt Count 124 L (130-400) K/uL BMP 04/12/20 04:57 Sodium 135 L Potassium 4.1 D Chloride 104 Carbon Dioxide 26 BUN 18 Creatinine 1.22 Glucose 88 Calcium 8.2 L Medications Administered Current Inpatient Medications Acetaminophen (Acetaminophen 325 Mg Tab) 650 mg PO Q4H PRN PRN Reason: Pain or Fever Stop: 05/11/20 09:56 Albuterol (Albuterol Hfa 8 Gm Inhaler) 2 puffs INH QIDR [facility] Stop: 05/11/20 14:59 Last Admin: 04/12/20 11:10 Dose: 2 puffs Documented by: Aspirin (Aspirin 81 Mg Ectab) 81 mg PO QAM [facility] Stop: 05/12/20 08:59 Last Admin: 04/12/20 08:07 Dose: 81 mg Documented by: Cyanocobalamin (Cyanocobalamin 500 Mcg Tablet (Vitamin B-12)) 1,000 mcg PO DAILY [facility] Stop: 05/12/20 08:59 Last Admin: 04/12/20 08:07 Dose: 1,000 mcg Documented by: Enoxaparin Sodium (Enoxaparin Inj 40 Mg/0.4 Ml Syr) 40 mg SQ Q24H [facility] Stop: 05/11/20 13:59 Last Admin: 04/12/20 14:19 Dose: 40 mg Documented by: Folic Acid (Folic Acid 1 Mg Tab) [facility] [place] Stop: 05/11/20 13:59 Last Admin: 04/12/20 08:07 Dose: 1 mg Documented by: Furosemide (Furosemide 20 Mg Tab) [facility] [place] Stop: 05/12/20 08:59 Last Admin: 04/12/20 08:07 Dose: 20 mg Documented by: Remdesivir 100 mg/ Sodium (Chloride) 250 mls @ 250 mls/hr IV Q24H [facility]; Protocol Last Admin: 04/12/20 12:42 Dose: 250 mls/hr Documented by: Dexamethasone 6 mg/ Syringe 1.5 mls @ 1 mls/min IV DAILY@0900 [facility] Stop: 05/12/20 08:59 Last Admin: 04/12/20 08:05 Dose: 1 mls/min Documented by: Lorazepam (Ativan) 1 mg in 2 mls @ 2 mls/min IV ONE PRN; Protocol PRN Reason: EtoH Withdrawal AWSS 6-10 Stop: 05/11/20 13:16 Last Admin: 04/12/20 08:04 Dose: 2 mls/min Documented by: Thiamine HCl 100 mg/ Syringe 10 mls @ 2 mls/min IV [facility] Stop: 05/11/20 13:59 Last Admin: 04/12/20 10:42 Dose: 2 mls/min Documented by: Sodium Chloride (Nss 1000ml) 1,000 mls @ 999 mls/hr IV .Q1H1M ONE Stop: 04/12/20 15:21 Last Admin: 04/12/20 14:45 Dose: 999 mls/hr Documented by: Lorazepam (Lorazepam 0.5 Mg Tab) 0.5 mg PO BID PRN PRN Reason: Anxiety Stop: 05/11/20 13:11 Last Admin: 04/12/20 10:42 Dose: 0.5 mg Documented by: Metoprolol Tartrate (Metoprolol Tartrate 25 Mg Tab) 25 mg PO Q12 [facility] Stop: 05/11/20 20:59 Last Admin: 04/12/20 08:05 Dose: 25 mg Documented by: Nitroglycerin (Nitroglycerin Sl 0.4 Mg/Tab Tab) 0.4 mg SL UD PRN PRN Reason: CP Stop: 05/11/20 13:14 Ondansetron HCl (Ondansetron Inj 2 Mg/Ml 2 Ml Vial) 4 mg IV Q6H PRN PRN Reason: Nausea Stop: 05/11/20 09:56 Pantoprazole Sodium (Pantoprazole 40 Mg Tab) 40 mg PO BID [facility] Stop: 05/11/20 20:59 Last Admin: 04/12/20 08:08 Dose: 40 mg Documented by: Rosuvastatin Calcium (Rosuvastatin Calcium 20 Mg Tab) 40 mg PO QAM [facility] Stop: 05/12/20 08:59 Last Admin: 04/12/20 08:08 Dose: 40 mg Documented by: Sodium Chloride (Sodium Chloride 0.65% Na Soln 45 Ml ([place])) 2 sprays NA Q2H PRN PRN Reason: dry nares/congestion Stop: 05/11/20 12:48 Sodium Chloride (Sodium Chloride 0.9% 10ml Flush) 30 ml IV Q24H [facility] Stop: 04/15/20 13:01 Last Admin: 04/12/20 14:20 Dose: 30 ml Documented by: Spironolactone (Spironolactone 12.5 Mg Tab) 12.5 mg PO QAM [facility] Stop: 05/12/20 08:59 Last Admin: 04/12/20 08:07 Dose: 12.5 mg Documented by: Umeclidinium/Vilanterol (Umeclidinium/Vilanterol 62.5/25mcg 7 Puffs/Inhaler) 1 puffs INH DAILY [facility] Stop: 05/12/20 08:59 Last Admin: 04/12/20 08:04 Dose: 1 puffs Documented by:
--- NOTE | 2020-04-12 15:23 | XRay Report ---
SINGLE VIEW CHEST CLINICAL HISTORY: Hypersensitivity reaction. Covid. FINDINGS: An AP, portable, upright chest radiograph is compared to study dated 04/11/2020 and correlat ed with chest CT dated 10/19/2015. The examination is degraded by portable technique and apical lordoti c positioning. The patient is status post midline sternotomy. The heart is enlarged noting atheroscle rotic calcification of the thoracic aorta. The pulmonary vasculature is noncongested. Emphysema and c hronic interstitial thickening is similar to previous. No lobar consolidation or pleural effusion is identified. No pneumothorax is seen. The skeletal structures are osteopenic. The bony thorax is gross ly intact. IMPRESSION: 1. Cardiomegaly and emphysema. 2. No airspace consolidation or large pleural effusion is identified. 3. Interstitial thickening is unchanged. Correlate clinically for evidence of a nonspecific interstit ial pneumonitis. ACT 112: Negative or not required by law. Electronically signed by: J Luis Foreman M.D. 04/12/2020 3:21 PM
[2020-04-13 05:47] LABS: Hematocrit (blood only) 43.5 % (42-52); Hemoglobin 14.7 g/dL (14.0-18.0); Mean Corpuscular Hemoglobin 31.1 pg (25-34); Mean Corpuscular Hgb Conc 33.8 g/dL (32-36); Mean Corpuscular Volume 92.2 fL (80-100); Mean Platelet Volume 9.8 fL (7.4-10.4); Platelet Count 112 K/uL (130-400); RDW Coefficient of Variation 13.6 % (11.5-14.5); RDW Standard Deviation 46.1 fL (36.4-46.3); Red Blood Count 4.72 M/uL (4.7-6.1); White Blood Count 7.89 K/uL (4.8-10.8)
[2020-04-13 06:19] LABS: BUN Creatinine Ratio 20.8 (10-20); C Reactive Protein 4.93 mg/dl (0-0.29); Calcium 8.2 mg/dl (8.5-10.1); Creatinine Clr Calc Pharmacy 54.4 ml/min; Est GFR (African American) 74.7; Est GFR (Non-African American) 64.4
[2020-04-13] MEDS: ALBUTEROL HFA 8 GM INHALER INH SCH ×4 (07:20→19:19)
[2020-04-13] MEDS: THIAMINE HCL 100 MG in SYRINGE 9 ML IV SCH (08:12)
[2020-04-13] MEDS: dexAMETHasone 6 MG in SYRINGE 0 ML IV SCH (08:12)
[2020-04-13] MEDS: PANTOprazole 40 MG TAB PO SCH ×2 (08:13→21:28)
[2020-04-13] MEDS: ROSUVASTATIN CALCIUM 20 MG TAB PO SCH (08:14)
[2020-04-13] MEDS: UMECLIDINIUM/VILANTEROL 62.5/25MCG 7 PUFFS/INHALER INH SCH (08:14)
[2020-04-13] MEDS: CYANOCOBALAMIN 500 MCG TABLET (VITAMIN B-12) PO SCH (08:14)
[2020-04-13] MEDS: SPIRONOLACTONE 12.5 MG TAB PO SCH (08:14)
[2020-04-13] MEDS: FOLIC ACID 1 MG TAB PO SCH (08:15)
[2020-04-13] MEDS: ASPIRIN 81 MG ECTAB PO SCH (08:15)
--- NOTE | 2020-04-13 14:23 | Hospitalist Progress Note ---
Date of Service April 13, 2020 Assessment & Plan (1) Pneumonia due to COVID-19 virus: Hypoxia persists but he is improved. No worsening of pneumonia on CXR yesterday since admission. He is clinically improved and states his body aches have resolved and so has his headache. CRP trended up slightly which is likely related to the allergic reaction. Cont decadron once daily. DC remdesivir. (2) Hypoxia: cont to supplement with oxygen as needed. (3) Hypersensitivity reaction: Hypersensitivity reaction due to remdesivir infusion including clinical hypotension, diaphoresis, and confusion. Some audible stridor also present. Patient improved once infusion was completed and epi given. Clinically improved today. Will resume Lasix and metoprolol. Avoid remdesivir in the future. (4) Alcohol use: Possible withdrawal tremors vs anxiety at baseline. Lorazepam PO PRN with first dose tonight. (5) Anxiety: plan as above. (6) Coronary artery disease involving coronary bypass graft: chronic, stable. Cont medical management of CAD including ASA, statin, beta darion. Followed by cardiology as outpatient. (7) Aortic valve stenosis: (8) Carotid artery stenosis: Cont current medical management. (9) DVT prophylaxis: Lovenox Full Code as discussed with patient on admission Dispo-cont to monitor on telemetry but if stable tomorrow will plan to send to med/surg. Plan for home when off oxygen. Hiwot Weiss DO [facility] Hospitalist Admission and Anticipated Discharge Date Admission Date: April 11, 2020 Subjective cc: covid pneumonia Mr Blackwell is looking extremely well today after the events that took place yesterday He is oriented and mentating clearly and is able to recall that during his first infusion he also felt sick, similar to yesterday. He knew the epinephrine helped him yesterday and he reports feeling back to normal today He is eating and afebrile, with breathing improved Still anxious and slightly tremulous, which is intermittent per his report--he feels this may be a side effect from the steroid. Reporting some acid reflux. Review of Systems Review of Systems: All systems reviewed & are unremarkable except as noted in Subjective Physical Exam Physical Exam: CONSTITUTIONAL: WNWD, vitals as above, NAD, looks great today EYES: normal conjunctivae, no scleral icterus ENT: external ear and nose normal, MMM RESPIRATORY: normal respiratory effort, clear to auscultation except from some mild rhonchi at the right base. No wheezing heard on auscultation. CARDIOVASCULAR: regular rate and rhythm, S1 and 2 heard without murmurs, gallops or rubs, no JVD, no peripheral edema GASTROINTESTINAL: soft, nontender, nondistended, no guarding MUSCULOSKELETAL: 5/5 strength throughout, ambulatory. SKIN: warm and dry NEUROLOGIC: CN 2-12 grossly intact, no gross focal deficits. PSYCHIATRIC: alert and oriented x 3 . Results & Data Results & Data ([facility]) Vital Signs (Past 12 Hours) Vital Signs Temp Pulse Pulse Resp BP Pulse Ox Pulse Ox 04/13/20 12:02 36.4 C L 75 18 125/60 95 04/13/20 10:51 65 20 93 04/13/20 09:00 58 L 93 04/13/20 07:58 36.4 C L 78 20 102/47 L 95 04/13/20 07:20 55 L 20 94 04/13/20 03:36 36.8 C 59 L 19 106/48 L 96 Laboratory Results Short CBC 04/13/20 Range/Units 05:28 WBC 7.89 (4.8-10.8) K/uL Hgb 14.7 (14.0-18.0) g/dL Hct 43.5 (42-52) % Plt Count 112 L (130-400) K/uL BMP 04/13/20 05:28 Sodium 138 Potassium 4.0 Chloride 107 Carbon Dioxide 27 BUN 23 H Creatinine 1.10 Glucose 137 H Calcium 8.2 L Liver Function 04/13/20 Range/Units 05:28 AST 22 (15-37) U/L ALT 22 (12-78) U/L Medications Administered Current Inpatient Medications Acetaminophen (Acetaminophen 325 Mg Tab) 650 mg PO Q4H PRN PRN Reason: Pain or Fever Stop: 05/11/20 09:56 Albuterol (Albuterol Hfa 8 Gm Inhaler) 2 puffs INH QIDR [facility] Stop: 05/11/20 14:59 Last Admin: 04/13/20 10:50 Dose: 2 puffs Documented by: Aspirin (Aspirin 81 Mg Ectab) 81 mg PO QAM [facility] Stop: 05/12/20 08:59 Last Admin: 04/13/20 08:15 Dose: 81 mg Documented by: Cyanocobalamin (Cyanocobalamin 500 Mcg Tablet (Vitamin B-12)) 1,000 mcg PO DAILY [facility] Stop: 05/12/20 08:59 Last Admin: 04/13/20 08:14 Dose: 1,000 mcg Documented by: Enoxaparin Sodium (Enoxaparin Inj 40 Mg/0.4 Ml Syr) 40 mg SQ Q24H [facility] Stop: 05/11/20 13:59 Last Admin: 04/12/20 14:19 Dose: 40 mg Documented by: Folic Acid (Folic Acid 1 Mg Tab) [facility] [place]: 05/11/20 13:59 Last Admin: 04/13/20 08:15 Dose: 1 mg Documented by: Furosemide (Furosemide 20 Mg Tab) [facility] [place]: 05/12/20 08:59 Last Admin: 04/12/20 08:07 Dose: 20 mg Documented by: Dexamethasone 6 mg/ Syringe 1.5 mls @ 1 mls/min IV DAILY@0900 [facility] Stop: 05/12/20 08:59 Last Admin: 04/13/20 08:12 Dose: 1 mls/min Documented by: Lorazepam (Ativan) 1 mg in 2 mls @ 2 mls/min IV ONE PRN; Protocol PRN Reason: EtoH Withdrawal AWSS 6-10 Stop: 05/11/20 13:16 Last Admin: 04/12/20 08:04 Dose: 2 mls/min Documented by: Thiamine HCl 100 mg/ Syringe 10 mls @ 2 mls/min IV QAM [facility] Stop: 05/11/20 13:59 Last Admin: 04/13/20 08:12 Dose: 2 mls/min Documented by: Lorazepam (Lorazepam 0.5 Mg Tab) 0.5 mg PO BID PRN PRN Reason: Anxiety Stop: 05/11/20 13:11 Last Admin: 04/12/20 10:42 Dose: 0.5 mg Documented by: Metoprolol Tartrate (Metoprolol Tartrate 25 Mg Tab) 25 mg PO Q12 [facility] Stop: 05/11/20 20:59 Last Admin: 04/12/20 08:05 Dose: 25 mg Documented by: Nitroglycerin (Nitroglycerin Sl 0.4 Mg/Tab Tab) 0.4 mg SL UD PRN PRN Reason: CP Stop: 05/11/20 13:14 Ondansetron HCl (Ondansetron Inj 2 Mg/Ml 2 Ml Vial) 4 mg IV Q6H PRN PRN Reason: Nausea Stop: 05/11/20 09:56 Pantoprazole Sodium (Pantoprazole 40 Mg Tab) 40 mg PO BID [facility] Stop: 05/11/20 20:59 Last Admin: 04/13/20 08:13 Dose: 40 mg Documented by: Rosuvastatin Calcium (Rosuvastatin Calcium 20 Mg Tab) 40 mg PO QAM [facility] Stop: 05/12/20 08:59 Last Admin: 04/13/20 08:14 Dose: 40 mg Documented by: Sodium Chloride (Sodium Chloride 0.65% Na Soln 45 Ml ([place])) 2 sprays NA Q2H PRN PRN Reason: dry nares/congestion Stop: 05/11/20 12:48 Sodium Chloride (Sodium Chloride 0.9% 10ml Flush) 30 ml IV Q24H [facility] Stop: 04/15/20 13:01 Last Admin: 04/12/20 14:20 Dose: 30 ml Documented by: Spironolactone (Spironolactone 12.5 Mg Tab) 12.5 mg PO QAM [facility] Stop: 05/12/20 08:59 Last Admin: 04/13/20 08:14 Dose: 12.5 mg Documented by: Umeclidinium/Vilanterol (Umeclidinium/Vilanterol 62.5/25mcg 7 Puffs/Inhaler) 1 puffs INH DAILY [facility] Stop: 05/12/20 08:59 Last Admin: 04/13/20 08:14 Dose: 1 puffs Documented by:
[2020-04-13] MEDS: ENOXAPARIN INJ 40 MG/0.4 ML SYR SQ SCH (14:58)
[2020-04-13] MEDS: SODIUM CHLORIDE 0.9% 10ML FLUSH IV SCH (14:58)
[2020-04-13] MEDS ORDERED: LORazepam 0.5 MG TAB PO STA (18:30)
[2020-04-13] MEDS ORDERED: LORazepam 0.5 MG TAB PO PRN (18:31)
[2020-04-13] MEDS ORDERED: FAMOTIDINE 20MG IV PUSH 20 MG/5 ML SYR IV ONE (19:15)
[2020-04-13] MEDS: METOPROLOL TARTRATE 25 MG TAB PO SCH (21:29)
[2020-04-14] MEDS: ALBUTEROL HFA 8 GM INHALER INH SCH ×4 (07:25→19:32)
[2020-04-14] MEDS: UMECLIDINIUM/VILANTEROL 62.5/25MCG 7 PUFFS/INHALER INH SCH (08:10)
[2020-04-14] MEDS: FOLIC ACID 1 MG TAB PO SCH (08:11)
[2020-04-14] MEDS: THIAMINE HCL 100 MG in SYRINGE 9 ML IV SCH (08:11)
[2020-04-14] MEDS: ASPIRIN 81 MG ECTAB PO SCH (08:11)
[2020-04-14] MEDS: ROSUVASTATIN CALCIUM 20 MG TAB PO SCH (08:11)
[2020-04-14] MEDS: SPIRONOLACTONE 12.5 MG TAB PO SCH (08:11)
[2020-04-14] MEDS: FUROSEMIDE 20 MG TAB PO SCH (08:12)
[2020-04-14] MEDS: METOPROLOL TARTRATE 25 MG TAB PO SCH ×2 (08:12→21:20)
[2020-04-14] MEDS: CYANOCOBALAMIN 500 MCG TABLET (VITAMIN B-12) PO SCH (08:12)
[2020-04-14] MEDS: PANTOprazole 40 MG TAB PO SCH ×2 (08:13→20:46)
[2020-04-14] MEDS ORDERED: dexAMETHasone 6 MG in SYRINGE 0 ML PO SCH (09:00)
[2020-04-14] MEDS: ENOXAPARIN INJ 40 MG/0.4 ML SYR SQ SCH (12:54)
[2020-04-14] MEDS: SODIUM CHLORIDE 0.9% 10ML FLUSH IV SCH (12:55)
[2020-04-14] MEDS ORDERED: LORazepam 0.5 MG TAB PO STA (14:31)
--- NOTE | 2020-04-14 18:59 | Hospitalist Progress Note ---
Date of Service April 14, 2020 Assessment & Plan (1) Pneumonia due to COVID-19 virus: Hypoxia improved but present with exertion. Cramping in hands reported today is likely related to steroid use-stopping this now. Cont home diuretics and counseled him to avoid beer and excessive coffee which are both diuretics. Patient reports leg cramps at home. we also discussed the possible role crestor may be playing in this. DC recs placed on chart per his request. CRP trended up slightly which is likely related to the hypersensitivity reaction to remdesivir. (2) Hypoxia: cont to supplement with oxygen as needed. (3) Hand cramps: Ativan now, stop steroids. Avoid excessive diuretics including coffee and beer. (4) Hypersensitivity reaction: Hypersensitivity reaction due to remdesivir infusion including clinical hypotension, diaphoresis, and confusion. Some audible stridor also present. Patient improved once infusion was completed and epi given. Clinically improved and back to baseline. Cont Lasix and metoprolol. Avoid remdesivir in the future. (5) Alcohol use: Possible withdrawal tremors vs anxiety at baseline. Lorazepam PO PRN (6) Anxiety: plan as above. (7) Coronary artery disease involving coronary bypass graft: chronic, stable. Cont medical management of CAD including ASA, statin, beta darion. Followed by cardiology as outpatient. (8) Aortic valve stenosis: (9) Carotid artery stenosis: Cont current medical management. (10) DVT prophylaxis: Lovenox Full Code as discussed with patient on admission Dispo-transfer to med/surg. Likely to home in next 1-2 days, consider two step respiratory test prior to discharge. Hiwot Weiss DO [facility] Hospitalist Admission and Anticipated Discharge Date Admission Date: April 11, 2020 Subjective cc: covid pneumonia -patient reports Physical Exam Physical Exam: CONSTITUTIONAL: WNWD, vitals as above, NAD, looks great today EYES: normal conjunctivae, no scleral icterus ENT: external ear and nose normal, MMM RESPIRATORY: normal respiratory effort, clear to auscultation except from some mild rhonchi at the right base. No wheezing heard on auscultation. CARDIOVASCULAR: regular rate and rhythm, S1 and 2 heard without murmurs, gallops or rubs, no JVD, no peripheral edema GASTROINTESTINAL: soft, nontender, nondistended, no guarding MUSCULOSKELETAL: 5/5 strength throughout, ambulatory. SKIN: warm and dry NEUROLOGIC: CN 2-12 grossly intact, no gross focal deficits. PSYCHIATRIC: alert and oriented x 3 . Results & Data Results & Data ([facility]) Vital Signs (Past 12 Hours) Vital Signs Temp Pulse Pulse Pulse Resp BP Pulse Ox 04/14/20 16:33 36.4 C L 68 19 151/68 H 93 04/14/20 15:30 36.5 C 62 19 119/67 93 04/14/20 15:26 60 18 92 04/14/20 11:38 36.4 C L 68 25 H 106/58 L 90 04/14/20 11:12 62 18 91 04/14/20 09:00 70 04/14/20 07:49 36.5 C 65 25 H 120/55 L 90 04/14/20 07:26 66 18 96 Pulse Ox 04/14/20 16:33 04/14/20 15:30 04/14/20 15:26 04/14/20 11:38 04/14/20 11:12 04/14/20 09:00 92 04/14/20 07:49 04/14/20 07:26 Medications Administered Current Inpatient Medications Acetaminophen (Acetaminophen 325 Mg Tab) 650 mg PO Q4H PRN PRN Reason: Pain or Fever Stop: 05/11/20 09:56 Albuterol (Albuterol Hfa 8 Gm Inhaler) 2 puffs INH QIDR [facility] Stop: 05/11/20 14:59 Last Admin: 04/14/20 15:26 Dose: 2 puffs Documented by: Aspirin (Aspirin 81 Mg Ectab) 81 mg PO QAM [facility] Stop: 05/12/20 08:59 Last Admin: 04/14/20 08:11 Dose: 81 mg Documented by: Cyanocobalamin (Cyanocobalamin 500 Mcg Tablet (Vitamin B-12)) 1,000 mcg PO DAILY [facility] Stop: 05/12/20 08:59 Last Admin: 04/14/20 08:12 Dose: 1,000 mcg Documented by: Enoxaparin Sodium (Enoxaparin Inj 40 Mg/0.4 Ml Syr) 40 mg SQ Q24H [facility] Stop: 05/11/20 13:59 Last Admin: 04/14/20 12:54 Dose: 40 mg Documented by: Folic Acid (Folic Acid 1 Mg Tab) 1 mg PO QAM [facility] Stop: 05/11/20 13:59 Last Admin: 04/14/20 08:11 Dose: 1 mg Documented by: Furosemide (Furosemide 20 Mg Tab) [facility] [place] Stop: 05/12/20 08:59 Last Admin: 04/14/20 08:12 Dose: 20 mg Documented by: Thiamine HCl 100 mg/ Syringe 10 mls @ 2 mls/min [facility] [place] Stop: 05/11/20 13:59 Last Admin: 04/14/20 08:11 Dose: 2 mls/min Documented by: Lorazepam (Lorazepam 0.5 Mg Tab) 0.5 mg PO Q12H PRN PRN Reason: Anxiety Stop: 05/11/20 13:11 Metoprolol Tartrate (Metoprolol Tartrate 25 Mg Tab) 25 mg PO Q12 [facility] Stop: 05/11/20 20:59 Last Admin: 04/14/20 08:12 Dose: 25 mg Documented by: Nitroglycerin (Nitroglycerin Sl 0.4 Mg/Tab Tab) 0.4 mg SL UD PRN PRN Reason: CP Stop: 05/11/20 13:14 Ondansetron HCl (Ondansetron Inj 2 Mg/Ml 2 Ml Vial) 4 mg IV Q6H PRN PRN Reason: Nausea Stop: 05/11/20 09:56 Pantoprazole Sodium (Pantoprazole 40 Mg Tab) 40 mg PO BID [facility] Stop: 05/11/20 20:59 Last Admin: 04/14/20 08:13 Dose: 40 mg Documented by: Rosuvastatin Calcium (Rosuvastatin Calcium 20 Mg Tab) 40 mg PO [facility] Stop: 05/12/20 08:59 Last Admin: 04/14/20 08:11 Dose: 40 mg Documented by: Sodium Chloride (Sodium Chloride 0.65% Na Soln 45 Ml ([place])) 2 sprays NA Q2H PRN PRN Reason: dry nares/congestion Stop: 05/11/20 12:48 Sodium Chloride (Sodium Chloride 0.9% 10ml Flush) 30 ml IV Q24H [facility] Stop: 04/15/20 13:01 Last Admin: 04/14/20 12:55 Dose: Not Given Documented by: Spironolactone (Spironolactone 12.5 Mg Tab) 12.5 mg PO QAM [facility] Stop: 05/12/20 08:59 Last Admin: 04/14/20 08:11 Dose: 12.5 mg Documented by: Umeclidinium/Vilanterol (Umeclidinium/Vilanterol 62.5/25mcg 7 Puffs/Inhaler) 1 puffs INH DAILY [facility] Stop: 05/12/20 08:59 Last Admin: 04/14/20 08:10 Dose: 1 puffs Documented by:
[2020-04-15] MEDS: ALBUTEROL HFA 8 GM INHALER INH SCH ×3 (07:57→16:18)
[2020-04-15] MEDS: UMECLIDINIUM/VILANTEROL 62.5/25MCG 7 PUFFS/INHALER INH SCH (08:17)
[2020-04-15] MEDS: THIAMINE HCL 100 MG in SYRINGE 9 ML IV SCH (08:17)
[2020-04-15] MEDS: FUROSEMIDE 20 MG TAB PO SCH (08:18)
[2020-04-15] MEDS: ROSUVASTATIN CALCIUM 20 MG TAB PO SCH (08:18)
[2020-04-15] MEDS: SPIRONOLACTONE 12.5 MG TAB PO SCH (08:18)
[2020-04-15] MEDS: CYANOCOBALAMIN 500 MCG TABLET (VITAMIN B-12) PO SCH (08:19)
[2020-04-15] MEDS: FOLIC ACID 1 MG TAB PO SCH (08:19)
[2020-04-15] MEDS: PANTOprazole 40 MG TAB PO SCH (08:19)
[2020-04-15] MEDS: METOPROLOL TARTRATE 25 MG TAB PO SCH (08:20)
[2020-04-15] MEDS: ASPIRIN 81 MG ECTAB PO SCH (08:20)
[2020-04-15] MEDS: SODIUM CHLORIDE 0.9% 10ML FLUSH IV SCH (12:47)
[2020-04-15] MEDS: ENOXAPARIN INJ 40 MG/0.4 ML SYR SQ SCH (13:34)
--- NOTE | 2020-04-15 17:33 | Hospitalist Progress Note ---
Date of Service April 15, 2020 Assessment & Plan (1) Pneumonia due to COVID-19 virus: (2) Hypoxia: Hypoxia improved but present with exertion. Steroid was discontinued due to cramping in hands Remdesivir was discontinued due to hypersensitivity reaction He was wean from oxygen supplement 2 step exercise showed no oxygen supplement Saturated well on RA Clinically stable (3) Alcohol use: Possible withdrawal tremors vs anxiety at baseline. On Lorazepam PO PRN (4) Anxiety: chronic, this is severe. On Ativan prn Consider to start on a low dose SSRI for maintenance, will defer to his PCP (5) Coronary artery disease involving coronary bypass graft: chronic, stable. Continue ASA, statin, beta darion. Stable (6) Aortic valve stenosis: (7) Carotid artery stenosis: Cont current medical management. (8) DVT prophylaxis: On Lovenox CODE STATUS Full Code Disposition Will discharge home today Admission and Anticipated Discharge Date Admission Date: April 11, 2020 Subjective Pt was seen and examined for follow up of COVID 19 Lying in bed with no distress Pt said that his breathing is much better He had a 2 step done and did not require any oxygen Denies any chest pain, palpitation, SOB, dizziness and fever Physical Exam Physical Exam: General- No acute distress Head- atraumatic Eyes- PERRL, EOMI, ENT- oropharynx clear Neck- supple, no JVD Lungs- clear to auscultation Heart- regular rhythm; no murmur Abdomen- normal bowel sounds, soft, nontender Extremities- no calf tenderness Neuro- alert, oriented x 3; PERRL, EOMI; no facial palsy; no dysarthria Skin- warm & dry Results & Data Results & Data ([facility]) Vital Signs (Past 12 Hours) Vital Signs Temp Pulse Pulse Pulse Pulse Pulse Resp 04/15/20 17:23 36.7 C 62 78 18 04/15/20 16:32 78 18 04/15/20 16:29 85 79 76 04/15/20 15:21 36.7 C 72 18 04/15/20 11:39 63 16 04/15/20 08:01 67 16 04/15/20 07:01 36.5 C 60 18 04/15/20 06:23 36.4 C L 71 18 04/15/20 05:58 51 L Resp Resp Resp BP BP Pulse Ox Pulse Ox 04/15/20 17:23 147/85 H 115/58 L 90 04/15/20 16:32 90 04/15/20 16:29 18 18 18 89 L 04/15/20 15:21 115/58 L 90 04/15/20 11:39 92 04/15/20 08:01 95 04/15/20 07:01 132/69 94 04/15/20 06:23 147/85 H 96 04/15/20 05:58 94 Pulse Ox Pulse Ox 04/15/20 17:23 04/15/20 16:32 04/15/20 16:29 90 91 04/15/20 15:21 04/15/20 11:39 04/15/20 08:01 04/15/20 07:01 04/15/20 06:23 04/15/20 05:58
--- NOTE | 2020-04-17 09:37 | Discharge Summary ---
Date of Service April 15, 2020 Admission HPI Per Admitting Provider 79 yo M presented with worsening chills and malaise overnight. He also reports an elevation in heart rate to 114bpm and BP to 150s systolic which was concerning to him prompting ER evaluation. He reports feeling very worked up, describing what sounds like a panic attack at home earlier, giving him shortness of breath that was severe. He was given Ativan, which he reports improved his breathing significantly. He reports having bronchitis recently, specifically feeling the onset of wheezing, shortness of breath and coughing 1 week ago. He began his prednisone rescue pack that he has on hand for this type of thing and reports feeling better. This morning was when these other symptoms began. ROS reveals a headache that is now improved, a feeling of weakness in his stomach without diarrhea or blood in stool (he did vomit once this morning but he just finished his entire lunch without issue), he reports a temp of 100.4F. He denies any chest pain, and does report nasal congestion but no loss of taste. Admission Exam Per Admitting Provider CONSTITUTIONAL: WNWD, vitals as above, generally well-appearing, slightly anxious EYES: pupils are round and equal bilaterally, normal conjunctivae, no scleral icterus ENT: external ear and nose normal, MMM RESPIRATORY: clear to auscultation bilaterally, no crackles, rales or wheezes, normal respiratory effort CARDIOVASCULAR: regular rate and rhythm, S1 and 2 heard without murmurs, gallops or rubs, no JVD, no peripheral edema GASTROINTESTINAL: soft, nontender, nondistended, no guarding MUSCULOSKELETAL: strength 5/5 throughout, head is normocephalic and atraumatic SKIN: warm and dry NEUROLOGIC: No facial palsy, no dysarthria. CN 2-12 grossly intact, no sensory deficit, normal cognition, normal speech, no gross focal deficits. PSYCHIATRIC: alert cooperative and oriented to person, place and time. Euthymic mood, makes good eye contact, language grossly intact, recent and remote memory grossly intact. Principal Diagnosis Pneumonia due to COVID-19 virus Hypoxia Hand cramps Hypersensitivity reaction Alcohol use Anxiety Coronary artery disease involving coronary bypass graft: Aortic valve stenosis: Discharge Exam General- No acute distress Head- atraumatic Eyes- PERRL, EOMI, ENT- oropharynx clear Neck- supple, no JVD Lungs- clear to auscultation Heart- regular rhythm; no murmur Abdomen- normal bowel sounds, soft, nontender Extremities- no calf tenderness Neuro- alert, oriented x 3; PERRL, EOMI; no facial palsy; no dysarthria Skin- warm & dry Discharge Data Allergies Allergy/AdvReac Type Severity Reaction Status Date / Time remdesivir Allergy Severe hypotension, Verified 04/12/20 15:55 diaphoretic morphine AdvReac Severe HALLUCINATI Verified 04/11/20 18:48 ONS Consultations 04/11/20 09:57 Consult Case Management - Discharge Planning Routine Ordered Studies SINGLE VIEW CHEST CLINICAL HISTORY: Hypersensitivity reaction. Covid. FINDINGS: An AP, portable, upright chest radiograph is compared to study dated 04/11/2020 and correlated with chest CT dated 10/19/2015. The examination is degraded by portable technique and apical lordotic positioning. The patient is status post midline sternotomy. The heart is enlarged noting atherosclerotic calcification of the thoracic aorta. The pulmonary vasculature is noncongested. Emphysema and chronic interstitial thickening is similar to previous. No lobar consolidation or pleural effusion is identified. No pneumothorax is seen. The skeletal structures are osteopenic. The bony thorax is grossly intact. IMPRESSION: 1. Cardiomegaly and emphysema. 2. No airspace consolidation or large pleural effusion is identified. 3. Interstitial thickening is unchanged. Correlate clinically for evidence of a nonspecific interstitial pneumonitis. ACT 112: Negative or not required by law. Electronically signed by: J Luis Foreman M.D. 04/12/2020 3:21 PM Dictated: 04/12/20 1518Transcribed: 04/12/20 1518 XR chest 1V portable HISTORY: 79 years-old Male Shortness of breath acute shortness of breath COMPARISON: Chest and rib radiographs 10/04/2015, chest CT 10/19/2015. TECHNIQUE: Portable AP view of the chest FINDINGS: Cardiomediastinal and hilar silhouettes are within normal limits. Prior median sternotomy with cardiac valvular prosthesis. Mildly progressed interstitial coarsening without pneumothorax, large pleural effusion or lobar airspace consolidation. Emphysema. Degenerative changes of the shoulders and spine. IMPRESSION: Emphysema with mildly progressed reticular opacities. Findings may represent progressive fibrotic changes, pulmonary edema or interstitial pneumon itis. ACT 112: Negative or not required by law. The above report was generated using voice recognition software. It may contain grammatical, syntax or spelling errors. Electronically signed by: Jason Cerna M.D. 04/11/2020 8:04 AM Dictated: 04/11/20801Transcribed: 04/11/20801 Hospital Course (1) Pneumonia due to COVID-19 virus: (2) Hypoxia: Hypoxia improved but present with exertion. Steroid was discontinued due to cramping in hands Remdesivir was discontinued due to hypersensitivity reaction He was wean from oxygen supplement 2 step exercise showed no oxygen supplement Saturated well on RA Clinically stable (3) Alcohol use: Possible withdrawal tremors vs anxiety at baseline. On Lorazepam PO PRN (4) Anxiety: chronic, this is severe. On Ativan prn Consider to start on a low dose SSRI for maintenance, will defer to his PCP (5) Coronary artery disease involving coronary bypass graft: chronic, stable. Continue ASA, statin, beta darion. Stable (6) Aortic valve stenosis: (7) Carotid artery stenosis: Cont current medical management. (8) DVT prophylaxis: On Lovenox CODE STATUS Full Code Disposition Will discharge home today Total Time Total Time Spent Total Time Spent (In Minutes): 35 minutes Total Time Includes: Examination of the Patient, Discharge Planning, Medication Reconciliation, Communication With Other Providers and Other Discharge Plan Discharge Items Patient Disposition: Home - Home Health Services Reason For Visit: COVID PNEUMONIA Discharge Diagnosis: Pneumonia due to COVID-19 virus Hypoxia Hand cramps Hypersensitivity reaction Alcohol use Anxiety Coronary artery disease involving coronary bypass graft: Aortic valve stenosis: Activity: Resume your previous activity Non-emergency contact: Primary Care Provider Call non-emergency contact if: you have any medication questions and your temperature is above 101 Follow-up/Referrals: Piotr Wilson MD [Primary Care Provider] - Diet: Heart Healthy Addtl Attending Provider Instructions: Follow up with your primary care provider Dr. Wilson within 1 week (office will call for the appointment) Seek medical attention if shortness of breath reoccurs Fall precaution Continue to wear your mask Contact isolation for 10 days With respect to the cramping that you described at night, as we discussed in the hospital, you may want to explore the following options: 1. Reduce/stop drinking beer and coffee as these are diuretics that will dehydrate you. 2. Consider Lasix dose changes with your doctor as this is a diuretic that may dehydrate you. 3. Consider Crestor as a cause of your muscle cramps if they persist despite your behavioral changes above. Home Isolation COVID-19 Instructions The following information about Home Isolation is from the CDC Website: https://www.cdc.gov/coronavirus/2019-ncov/hcp/uuipqsjx-qxsvxyn-ssiicn.html Stay home except to get medical care People who are mildly ill with COVID-19 are able to isolate at home during their illness. You should restrict activities outside your home, except for getting medical care. Do not go to work, school, or public areas. Avoid using public transportation, ride-sharing, or taxis. Separate yourself from other people and animals in your home People: As much as possible, you should stay in a specific room and away from other people in your home. Also, you should use a separate bathroom, if available. Animals: You should restrict contact with pets and other animals while you are sick with COVID-19, just like you would around other people. Although there have not been reports of pets or other animals becoming sick with COVID-19, it is still recommended that people sick with COVID-19 limit contact with animals until more information is known about the virus. When possible, have another member of your household care for your animals while you are sick. If you are sick with COVID-19, avoid contact with your pet, including petting, snuggling, being kissed or licked, and sharing food. If you must care for your pet or be around animals while you are sick, wash your hands before and after you interact with pets and wear a face mask. Call ahead before visiting your doctor If you have a medical appointment, call the healthcare provider and tell them that you have or may have COVID-19. This will help the healthcare providers office take steps to keep other people from getting infected or exposed. Wear a face mask You should wear a face mask when you are around other people (e.g., sharing a room or vehicle) or pets and before you enter a healthcare providers office. If you are not able to wear a face mask (for example, because it causes trouble breathing), then people who live with you should not stay in the same room with you, or they should wear a face mask if they enter your room. Cover your coughs and sneezes Cover your mouth and nose with a tissue when you cough or sneeze. Throw used tissues in a lined trash can. Immediately wash your hands with soap and water for at least 20 seconds or, if soap and water are not available, clean your hands with an alcohol-based hand coil taper that contains at least 60% alcohol. Clean your hands often Wash your hands often with soap and water for at least 20 seconds, especially after blowing your nose, coughing, or sneezing; going to the bathroom; and before eating or preparing food. If soap and water are not readily available, use an alcohol-based hand coil taper with at least 60% alcohol, covering all surfaces of your hands and rubbing them together until they feel dry. Soap and water are the best option if hands are visibly dirty. Avoid touching your eyes, nose, and mouth with unwashed hands. Avoid sharing personal household items You should not share dishes, drinking glasses, cups, eating utensils, towels, or bedding with other people or pets in your home. After using these items, they should be washed thoroughly with soap and water. Clean all high-touch surfaces everyday High touch surfaces include counters, tabletops, doorknobs, bathroom fixtures, toilets, phones, keyboards, tablets, and bedside tables. Also, clean any surfaces that may have blood, stool, or body fluids on them. Use a household cleaning spray or wipe, according to the label instructions. Labels contain instructions for safe and effective use of the cleaning product including precautions you should take when applying the product, such as wearing gloves and making sure you have good ventilation during use of the product. Monitor your symptoms Seek prompt medical attention if your illness is worsening (e.g., difficulty breathing).Beforeseeking care, call your healthcare provider and tell them that you have, or are being evaluated for, COVID-19. Put on a face mask before you enter the facility. These steps will help the healthcare providers office to keep other people in the office or waiting room from getting infected or exposed. Ask your healthcare provider to call the local [facility] health department. Persons who are placed under active monitoring or facilitated self-monitoring should follow instructions provided by their local health department or occupational health professionals, as appropriate. When working with your local health department check their available hours. If you have a medical emergency and need to call 911, notify the dispatch personnel that you have, or are being evaluated for COVID-19. If possible, put on a face mask before emergency medical services arrive. Discontinuing home isolation Patients with confirmed COVID-19 should remain under home isolation precautions until the risk of secondary transmission to others is thought to be low. The decision to discontinue home isolation precautions should be made on a [id number] basis, in consultation with healthcare providers and state and local health departments. Coronavirus disease 2019 (COVID-19) is a virus that causes a respiratory illness. It is caused by a coronavirus called 2019 novel coronavirus (2019- nCoV). There are many types of coronavirus. Coronaviruses are a very common cause of bronchitis. They may sometimes cause lung infection(pneumonia). Symptoms can range from mild to severe respiratory illness. These viruses are also foundin some animals. COVID-19 was first found in people in [facility], in late 2018. In 2019, several cases of COVID-19 have been confirmed in the [place] Public health officials are working to find the source. How the virus spreads is not yet fully known. It may be spread through droplets of fluid that a person coughs or sneezes into the air. It may be spread if you touch a surface with virus on it, such as a handle or object, and then touch your mouth. What are the symptoms of COVID-19? Some people have no symptoms or mild symptoms. Symptoms may appear 2 to 14 days after contact with the virus. Symptoms can include: Fever Coughing Trouble breathing What are possible complications from COVID-19? In many cases, this virus can cause infection (pneumonia) in both lungs. In some cases, this can cause . How is COVID-19 diagnosed? Your healthcare provider will ask about your symptoms. He or she will also ask about your recent travel and contact with sick people. Testing for the virus is only done through the CDC. If yourhealthcare provider thinks you may have COVID- 19, he or she will work with your local health department and the CDC on testing. Follow all instructions from your healthcare provider. COVID-19 is diagnosed by: Nasal and throat swab. A cotton-tipped swab is wiped inside your nose or throat. This is done to check for viruses in your nasal mucus. Sputum culture. A small sample of mucus coughed from your lungs (sputum) is collected if you have a cough. It is checked for the virus. How is COVID-19 treated? There is currently no medicine to treat the virus. Treatment is done to help your body while it fights the virus. This is known as supportive care. Supportive care may include: Pain medicine. These include acetaminophen and ibuprofen. They are used to help ease pain and reduce fever. Bed rest. This helps your body fight the illness. For severe illness, you may need to stay in the hospital. Care during severe illness may include: IV (intravenous) fluids.These are given through a vein to help keep your body hydrated. Oxygen. Supplemental oxygen or ventilation with a breathing machine (ventilator) may be given. This is done to keep enough oxygen in your body. Are you at risk for COVID-19? If youve been to a place where people have been sick with this virus, you are at risk for infection. You are at risk if you: Recently traveled to an affected area Had contact with a sick person who recently traveled to this area Had contact with a person who was diagnosed with COVID-19 How can COVID-19 be prevented? There is no vaccine yet. The best prevention is to not have contact with the virus. The CDC advises that people should not travel to areas where there are COVID-19 outbreaks right now for any reason that is not urgent. To help prevent spreading the infection, wash your hands often, or use an alcohol-basedhand coil taper. If you are in an area with COVID-19: Wash your hands often. Or use an alcohol-based hand coil taper often. Only touch your eyes, nose, or mouth with clean hands. Dont have contact with people who are sick. Follow local instructions about being in public. For example, you may be told to not use public transport for a period of time. Stay away from markets that have live or animals. Wash your hands after touching any animals. Don't touch animals that may be sick. Dont share eating or drinking tools with sick people. Dont kiss someone who is sick. Clean surfaces often with disinfectant. If you were in an area with COVID-19 in the last 14 days: Call your healthcare provider. He or she can talk with local health staff to see what action may be needed. Follow all instructions from your provider. Take your temperature every morning and evening for at least 14 days. This is to check for fever. Keep a record of the readings. Keep watch for symptoms of the virus. Tell your provider right away if you have symptoms. If you were in an area with COVID-19 and have a fever or other symptoms: Dont panic. Keep in mind that other illnesses can cause similar symptoms. Stay away from work, school, and public places. Limit physical contact with family members. Don't kiss anyone or share eating or drinking utensils. Clean surfaces you touch with disinfectant. This is to help prevent the virus from spreading. Call your healthcare provider. Explain that you have been exposed to COVID-19 and have symptoms. Do this before going to any hospital. Wait for instructions. Keep in mind that healthcare staff may wear protective equipment such as masks, gowns, gloves, and eye protection. You may be put in a separate room. This is to prevent the possible virus from spreading. Tell the healthcare staff about recent travel. This includes local travel on public transport. Staff may need to find other people you have been in contact with. Follow all instructions the healthcare staff give you. If you have been diagnosed with COVID-19 Follow all instructions from your healthcare provider. Dont leave your home, except to get medical care. Call your healthcare providers office before going. They can prepare and give you instructions. This will help prevent the virus from spreading. Dont go to work, school, or public areas. Dont use public transport or taxis. Stay away from other people in your home. Have them wear face masks around you. Dont share household items or food. Wear a face mask if you can. This includes at home or in a medical facility. Cover your face with a tissue when you cough or sneeze. Throw the tissue away. Wash your hands. Wash your hands often. Caregivers should: Follow all instructions from healthcare staff. Wear a face mask and protective clothing as advised. Wash hands often. Keep track of the sick persons symptoms. Clean surfaces, fabrics, and laundry thoroughly. Keep other people away from the sick person. When to call your healthcare provider Call your healthcare provider: If youve recently traveled and have symptoms If you have been diagnosed with COVID-19 and your symptoms are worse To learn more To find out more about COVID-19, visit the CDC website at www.cdc.gov/coronavirus/2019-ncov/index.html. [employer]. [address] [place] [address], [place] [address]. All rights reserved. This information is not intended as a substitute for professional medical care. Always follow your healthcare professional's instructions. This information has been adapted from [employer] Pending Studies at Discharge: No Stand-Alone Forms: My [facility], Smoking Cessation Medications and DC Order Prescriptions: New guaifenesin 200 mg tablet 200 mg PO TID PRN (Reason: cough) 5 Days Qty: 15 RF: 0 folic acid 1 mg Tablet 1 mg PO QAM Qty: 30 RF: 0 Continued omeprazole 40 mg Capsule,Delayed Release(Dr/Ec) 40 mg PO BID RF: 0 aspirin 81 mg Tablet,Delayed Release (Dr/Ec) 81 mg PO QAM RF: 0 spironolactone 25 mg Tablet 12.5 mg PO QAM RF: 0 lorazepam 0.5 mg Tablet 0.5 mg PO BID PRN (Reason: Anxiety) RF: 0 nitroglycerin 0.4 mg Tablet, Sublingual 0.4 mg sublingual UD RF: 0 furosemide 20 mg Tablet 20 mg PO QAM RF: 0 albuterol sulfate [ProAir HFA] 90 mcg/actuation Hfa Aerosol Inhaler 2 puff INHALATION QID RF: 0 rosuvastatin [Crestor] 40 mg Tablet 40 mg PO QAM RF: 0 metoprolol tartrate 25 mg Tablet 25 mg PO Q12 RF: 0 triamcinolone acetonide 0.5 % Cream 1 applic TOPICAL BID RF: 0 Anoro Ellipta 62.5-25 mcg/actuation blister with device 1 ea INHALATION DAILY RF: 0 prednisone 20 mg Tablet 40 mg PO DAILY PRN (Reason: rescue kit) RF: 0 cyanocobalamin (vitamin B-12) [Vitamin B-12] 1,000 mcg Tablet 1,000 mcg PO DAILY RF: 0 Discharge Orders: Discharge Order (Routine); Ordered 04/15/20 Ordered By: Parish Morataya/Other Patient Handouts: Caring for Someone Who Has COVID-19 Admission Data Admit Date/Time: 04/11/20 09:57 Attending Provider: Parish Powell Admit Provider: Foss,Hiwot M. Primary Care Provider: Piotr Wilson Other Providers: Jacklyn,Home Health ; Hiwot Weiss Other Interventions: Discharge Summary Assessment (RN) Last Done: 04/15/20 17:23
== END 2020-04-15 18:02 | disposition home health service (06) | DRG 177 ==
LOC: ED 04:26 → 2E 07:42 → SUATTDRO 09:57 → 3E 04-14 14:32

== ENCOUNTER 2022-02-11 20:25 | Inpatient (IN) ==
[2022-02-11] MEDS ORDERED: cefTRIAXone SODIUM 2,000 MG/70 ML BAG IV STA (20:41)
[2022-02-11] MEDS ORDERED: methylPREDNISolone 125 MG/2 ML VIAL IV STA (20:41)
[2022-02-11] MEDS ORDERED: ALBUT/IPRATROP 3MG/0.5MG NEB 3 ML VIAL INH STA (20:41)
[2022-02-11] MEDS ORDERED: DOXYCYCLINE HYCLATE 100 MG in DEXTROSE 5% 100 ML IV STA (20:41)
[2022-02-11 20:59] LABS: Basophils # (auto) 0.05 K/uL (0-0.2); Basophils % (auto) 0.3 %; Eosinophils # (auto) 0.39 K/uL (0-0.50); Eosinophils % (auto) 2.5 %; Hematocrit (blood only) 46.9 % (40.1-51.0); Hemoglobin 15.6 g/dl (14.0-18.0); Immature Granulocytes # (auto) 0.08 K/uL (0.00-0.02); Immature Granulocytes % (auto) 0.5 %; Lymphocytes # (auto) 3.85 K/uL (1.2-3.4); Lymphocytes % (auto) 25.1 %; Mean Corpuscular Hemoglobin 30.1 pg (25.0-34.0); Mean Corpuscular Hgb Conc 33.3 g/dL (32.0-36.0); Mean Corpuscular Volume 90.4 fL (80.0-100.0); Mean Platelet Volume 8.9 fL (9.4-12.4); Monocytes # (auto) 1.56 K/uL (0.24-0.82); Monocytes % (auto) 10.2 %; Neutrophils # (auto) 9.38 K/uL (1.4-6.5); Neutrophils % (auto) 61.4 %; Platelet Count 178 K/uL (130-400); RDW Standard Deviation 42.8 fL (36.4-46.3); Red Blood Count 5.19 M/uL (4.63-6.08); White Blood Count 15.31 K/ul (4.8-10.8)
--- NOTE | 2022-02-11 21:12 | Emergency Department Note ---
Impression & Plan Dyspnea, Leukocytosis ED Provider Note INFORMANT: Patient ED PROVIDER(S): Piotr Orellana MD CHIEF COMPLAINT: Shortness of breath PLAN: Disposition: Admitted Condition: Good Outpatient prescription management: none Referral: None MEDICAL DECISION MAKING: Patient presented with worsening shortness of breath after being diagnosed with pneumonia. He had a productive cough. Patient was hypertensive and mildly tachycardic. He was afebrile. Chest x-ray ordered. Blood cultures, laboratory testing, EKG, and antibiotic treatment ordered. Patient was treated with a DuoNeb and Solu-Medrol. He was given IV Rocephin and doxycycline. The patient has a leukocytosis. Chemistry panel was unremarkable. Patient's ECG did not show any acute ischemia. Patient's chest x-ray did not reveal any obvious pneumonia. He was feeling somewhat better albeit was requiring some mild supplemental oxygen. CT of the chest was ordered. [facility] Patient was evaluated in the ER for further management. Triage Nursing notes reviewed and agree them. Vital Signs: reviewed and remarkable for hypertension and tachycardia Differential diagnosis: Reactive airway disease, pneumonia, pneumothorax, COPD, CHF, infections, cardiac ischemia, pulmonary embolism, musculoskeletal, gastrointestinal, as well as other pathologies. Diagnostics interpreted by me: ECG: Twelve-lead ECG reveals sinus tachycardia at 113 bpm. Left atrial enlargement present. Nonspecific ST abnormality. No ST elevation. Cardiac Monitoring: Cardiac monitoring ordered by me: The patient was placed on continuous cardiac monitoring and observed. It revealed a normal sinus rhythm at 120 beats per minute without ectopy or evidence of dysrhythmia. Imaging studies: Chest x-ray as noted above. CT pending. HPI: The patient is a 81 year old male who presents to the Emergency Room with complaints of shortness of breath. This started 2 weeks ago and is progressing over the last several days. The patient also notes the following associated symptoms, cough and congestion. The patient has been prescribed amoxicillin 11 days ago by PCP for relieving factors. Current pain is rated as 0/10. Patient notes breathing got worse and he felt his heart racing. He was more dyspneic and could not take it anymore. EMS was summoned. Pt denies LOC, headache, fevers, chills, diaphoresis, visual changes, neck pain, chest pain, nausea, vomiting, abdominal pain, back pain, melena, hematochezia, urinary symptoms, numbness, weakness, lymphadenopathy, rash, or other complaints. ROS: See above HPI for pertinent positives & negatives. A total of 10 systems reviewed and were otherwise negative. PAST MEDICAL HISTORY:See Below , CAD PAST SURGICAL HISTORY:See Below, CABG FAMILY HISTORY:See Below SOCIAL HISTORY:See Below, retired HOME MEDICATIONS:See Below ALLERGIES:See Below VITALS:See Below PHYSICAL EXAMINATION: GENERAL: Awake, alert, dyspneic mild-appearing, in no distress HENT: Normocephalic, atraumatic. Oropharynx unremarkable. EYES: Normal conjunctiva. Sclera non-icteric. NECK: Inspection normal. Non-tender. Supple. No nuchal rigidity. FROM. No masses. RESPIRATORY: Scattered rhonchi. No wheezes. No rales. Increased respiratory effort. CARDIAC: Borderline tachycardic rate. Normal rhythm. No murmurs. No rubs. Extremities warm and well perfused. Pulses equal. No JVD. GI: Soft, non-distended. No tenderness to palpation. No rebound or guarding. No masses. RECTAL: Deferred. MUSCULOSKELETAL: Atraumatic. Chest examination reveals no tenderness. The back is symmetrical on inspection without obvious abnormality. There is no CVA tenderness to palpation. No joint edema. LOWER EXTREMITIES: Calves are equal size bilaterally and non-tender. No edema. No discoloration. NEURO: Normal sensorium. No sensory or motor deficits noted. SKIN: No rash or jaundice noted. Piotr Orellana MD Past Med/Surg History Medical History Aortic valve stenosis Benign hypertension Carotid artery stenosis Coronary artery disease involving coronary bypass graft Dyslipidemia Gastroesophageal reflux disease Ischemic stroke Surgical History History of carotid endarterectomy History of repair of inguinal hernia Hx of cardiac catheterization Family History Other Heart disease Stroke Social History Smoking Status: Former smoker Tobacco Type: Cigarettes Second Hand Exposure: No; Hx Alcohol Use: Yes (6 beers daily on average) Alcohol type: beer Hx Substance Use: No Preferred Language: Palauan Communication Ability: Effective marital status: Feels Safe at Home: Yes Assistive Devices: Oxygen - Continuous Allergies Allergies Allergy/AdvReac Type Severity Reaction Status Date / Time remdesivir Allergy Severe hypotension, Verified 04/12/20 15:55 diaphoretic naproxen Allergy Unknown Unverified 02/11/22 22:57 morphine AdvReac Severe HALLUCINATI Verified 04/11/20 18:48 ONS Home Meds Home Medications Medication Instructions Recorded Confirmed albuterol sulfate 90 mcg/actuation 2 puff inhalation QID 01/18/19 02/11/22 aerosol inhaler (ProAir HFA) aspirin 81 mg tablet,delayed 81 mg PO QAM 01/18/19 02/11/22 release furosemide 20 mg tablet 20 mg PO QAM 01/18/19 02/11/22 metoprolol tartrate 25 mg tablet 25 mg PO Q12 01/18/19 02/11/22 nitroglycerin 0.4 mg sublingual 0.4 mg sublingual UD 01/18/19 02/11/22 tablet omeprazole 40 mg capsule,delayed 40 mg PO BID 01/18/19 02/11/22 release rosuvastatin 40 mg tablet (Crestor) 40 mg PO QAM 01/18/19 02/11/22 spironolactone 25 mg tablet 12.5 mg PO QAM 01/18/19 02/11/22 triamcinolone acetonide 0.5 % 1 applic topical BID 01/18/19 02/11/22 topical cream cyanocobalamin (vitamin B-12) 1,000 mcg PO DAILY 04/11/20 02/11/22 1,000 mcg tablet (Vitamin B-12) amoxicillin 500 mg capsule 500 mg PO TID 02/11/22 02/11/22 prednisone 10 mg tablet 0 mg PO .DAILY/UD 02/11/22 02/11/22 tiotropium bromide 2.5 2 puff inhalation QAM 02/11/22 02/11/22 mcg/actuation mist for inhalation (Spiriva Respimat) Results & Data (ED) Vital Signs Vital Signs - 24 hr 02/11/22 20:34 02/11/22 20:42 02/11/22 20:39 Temperature 36.6 C Temperature Source Oral Pulse Rate 120 H 113 H Pulse Rate from SpO2 Sensor 114 H Pulse Rhythm Regular Pulse Strength Normal Respiratory Rate 20 37 H Respiratory Effort / Characteristics Non-Labored Spontaneous Non-Labored Spontaneous Respiratory Depth Normal Normal Respiratory Pattern Regular Regular Blood Pressure 184/91 H Blood Pressure Mean 122 Blood Pressure Position Lying Pulse Oximetry 96 94 Oxygen Delivery Method Room Air Room Air Room Air Oxygen Flow Rate Sepsis Recent Fever Within 48 Hours No Sepsis New/Unexplained Change in Mental Status N/A Sepsis Action Taken by Nursing No Action Required 02/11/22 20:40 02/11/22 20:50 02/11/22 21:00 Temperature Temperature Source Pulse Rate 122 H 110 H 114 H Pulse Rate from SpO2 Sensor 111 H 113 H Pulse Rhythm Pulse Strength Respiratory Rate 27 H 37 H 23 Respiratory Effort / Characteristics Respiratory Depth Respiratory Pattern Blood Pressure Blood Pressure Mean Blood Pressure Position Pulse Oximetry 93 93 Oxygen Delivery Method Room Air Room Air Oxygen Flow Rate Sepsis Recent Fever Within 48 Hours Sepsis New/Unexplained Change in Mental Status Sepsis Action Taken by Nursing 02/11/22 21:10 02/11/22 21:20 02/11/22 21:30 Temperature Temperature Source Pulse Rate 105 H 117 H 118 H Pulse Rate from SpO2 Sensor 105 H 116 H 120 H Pulse Rhythm Pulse Strength Respiratory Rate 17 26 H 25 H Respiratory Effort / Characteristics Respiratory Depth Respiratory Pattern Blood Pressure Blood Pressure Mean Blood Pressure Position Pulse Oximetry 100 99 89 L Oxygen Delivery Method Room Air Room Air Room Air Oxygen Flow Rate Sepsis Recent Fever Within 48 Hours Sepsis New/Unexplained Change in Mental Status Sepsis Action Taken by Nursing 02/11/22 21:35 02/11/22 21:35 02/11/22 21:40 Temperature Temperature Source Pulse Rate 120 H 108 H Pulse Rate from SpO2 Sensor 121 H 107 H Pulse Rhythm Pulse Strength Respiratory Rate 34 H 15 Respiratory Effort / Characteristics Respiratory Depth Respiratory Pattern Blood Pressure 156/92 H Blood Pressure Mean 113 Blood Pressure Position Pulse Oximetry 89 L 90 Oxygen Delivery Method Room Air Nasal Cannula Oxygen Flow Rate 2 Sepsis Recent Fever Within 48 Hours Sepsis New/Unexplained Change in Mental Status Sepsis Action Taken by Nursing Laboratory Data Result diagrams: 02/11/22 20:44 02/11/22 20:44 Lab Results 02/11/22 02/11/22 02/11/22 Range/Units 20:44 20:44 20:48 WBC 15.31 H (4.8-10.8) K/ul RBC 5.19 (4.63-6.08) M/uL Hgb 15.6 (14.0-18.0) g/dl Hct 46.9 (40.1-51.0) % MCV 90.4 (80.0-100.0) fL MCH 30.1 (25.0-34.0) pg MCHC 33.3 (32.0-36.0) g/dL RDW Std Deviation 42.8 (36.4-46.3) fL RDW Coeff of Stefano 13.0 (11.5-14.5) % Plt Count 178 (130-400) K/uL MPV 8.9 L (9.4-12.4) fL Immature Gran % (Auto) 0.5 % Neut % (Auto) 61.4 % Lymph % (Auto) 25.1 % Sutton % (Auto) 10.2 % Eos % (Auto) 2.5 % Baso % (Auto) 0.3 % Neut # (Auto) 9.38 H (1.4-6.5) K/uL Lymph # (Auto) 3.85 H (1.2-3.4) K/uL Sutton # (Auto) 1.56 H (0.24-0.82) K/uL Eos # (Auto) 0.39 (0-0.50) K/uL Baso # (Auto) 0.05 (0-0.2) K/uL Immature Gran # (Auto) 0.08 H (0.00-0.02) K/uL Sodium 134 L (136-145) mmol/L Potassium 3.8 (3.5-5.1) mmol/L Chloride 99 (98-107) mmol/L Carbon Dioxide 26 (21-32) mmol/L Anion Gap 9 (3-11) BUN 14 (6-23) mg/dl Creatinine 1.15 (0.6-1.4) mg/dl Est Cr Clr Drug Dosing 50.4 ml/min Est GFR ( Amer) 69.8 ml/min Est GFR (Non-Af Amer) 60.2 ml/min BUN/Creatinine Ratio 12.2 (10-20) Glucose 89 (70-99(Fasting)) mg/dl Calcium 9.0 (8.5-10.1) mg/dl Total Bilirubin 0.6 (0.2-1.0) mg/dl AST 15 (13-39) U/L ALT 16 (7-52) U/L Alkaline Phosphatase 52 (34-104) U/L Troponin I High Sens 8.0 (0-20) pg/ml B-Natriuretic Peptide (0-100) pg/ml Total Protein 7.4 (6.0-8.3) gm/dl Albumin 4.0 (3.4-5.0) gm/dl Globulin 3.4 (2.5-4.0) gm/dl Albumin/Globulin Ratio 1.2 (0.9-2) Adenovirus (PCR) Not Detected (NotDetected) B. pertussis DNA (PCR) Not Detected (NotDetected) B.parapertussis DNA PCR Not Detected (NotDetected) C. pneumoniae DNA (PCR) Not Detected (NotDetected) Coronavirus OC43 (PCR) Not Detected (NotDetected) Coronavirus HKU1 (PCR) Not Detected (NotDetected) Coronavirus 229E (PCR) Not Detected (NotDetected) SARS-CoV-2 (PCR) Not Detected (NotDetected) Coronavirus NL63 (PCR) Not Detected (NotDetected) Human Metapneumovir PCR Not Detected (NotDetected) Influenza Type A (PCR) Not Detected (NotDetected) Influenza Type B (PCR) Not Detected (NotDetected) M. pneumoniae (PCR) Not Detected (NotDetected) Parainfluenza 1 (PCR) Not Detected (NotDetected) Parainfluenza 2 (PCR) Not Detected (NotDetected) Parainfluenza 3 (PCR) Not Detected (NotDetected) Parainfluenza 4 (PCR) Not Detected (NotDetected) RSV (PCR) Not Detected (NotDetected) Entero/Rhino (PCR) Not Detected (NotDetected) 02/11/22 Range/Units 21:21 WBC (4.8-10.8) K/ul RBC (4.63-6.08) M/uL Hgb (14.0-18.0) g/dl Hct (40.1-51.0) % MCV (80.0-100.0) fL MCH (25.0-34.0) pg MCHC (32.0-36.0) g/dL RDW Std Deviation (36.4-46.3) fL RDW Coeff of Stefano (11.5-14.5) % Plt Count (130-400) K/uL MPV (9.4-12.4) fL Immature Gran % (Auto) % Neut % (Auto) % Lymph % (Auto) % Sutton % (Auto) % Eos % (Auto) % Baso % (Auto) % Neut # (Auto) (1.4-6.5) K/uL Lymph # (Auto) (1.2-3.4) K/uL Sutton # (Auto) (0.24-0.82) K/uL Eos # (Auto) (0-0.50) K/uL Baso # (Auto) (0-0.2) K/uL Immature Gran # (Auto) (0.00-0.02) K/uL Sodium (136-145) mmol/L Potassium (3.5-5.1) mmol/L Chloride (98-107) mmol/L Carbon Dioxide (21-32) mmol/L Anion Gap (3-11) BUN (6-23) mg/dl Creatinine (0.6-1.4) mg/dl Est Cr Clr Drug Dosing ml/min Est GFR ( Amer) ml/min Est GFR (Non-Af Amer) ml/min BUN/Creatinine Ratio (10-20) Glucose (70-99(Fasting)) mg/dl Calcium (8.5-10.1) mg/dl Total Bilirubin (0.2-1.0) mg/dl AST (13-39) U/L ALT (7-52) U/L Alkaline Phosphatase (34-104) U/L Troponin I High Sens (0-20) pg/ml B-Natriuretic Peptide 36 (0-100) pg/ml Total Protein (6.0-8.3) gm/dl Albumin (3.4-5.0) gm/dl Globulin (2.5-4.0) gm/dl Albumin/Globulin Ratio (0.9-2) Adenovirus (PCR) (NotDetected) B. pertussis DNA (PCR) (NotDetected) B.parapertussis DNA PCR (NotDetected) C. pneumoniae DNA (PCR) (NotDetected) Coronavirus OC43 (PCR) (NotDetected) Coronavirus HKU1 (PCR) (NotDetected) Coronavirus 229E (PCR) (NotDetected) SARS-CoV-2 (PCR) (NotDetected) Coronavirus NL63 (PCR) (NotDetected) Human Metapneumovir PCR (NotDetected) Influenza Type A (PCR) (NotDetected) Influenza Type B (PCR) (NotDetected) M. pneumoniae (PCR) (NotDetected) Parainfluenza 1 (PCR) (NotDetected) Parainfluenza 2 (PCR) (NotDetected) Parainfluenza 3 (PCR) (NotDetected) Parainfluenza 4 (PCR) (NotDetected) RSV (PCR) (NotDetected) Entero/Rhino (PCR) (NotDetected) Administered Medications Discontinued Medications Albuterol (Albut/Ipratrop 3mg/0.5mg Neb 3 Ml Vial) 3 ml INH NOW STA Stop: 02/11/22 20:42 Last Admin: 02/11/22 21:00 Dose: 3 ml Documented By: [id number] Ceftriaxone Sodium (Rocephin) 2,000 mg in 70 mls @ 140 mls/hr IV NOW STA Stop: 02/11/22 21:10 Last Infusion: 02/11/22 21:38 Dose: 0 mls/hr Documented By: [id number] Admin: 02/11/22 21:00 Dose: 140 mls/hr Documented By: [id number] Doxycycline Hyclate 100 mg/ (Dextrose) 110 mls @ 50 mls/hr IV NOW STA Stop: 02/11/22 22:52 Last Admin: 02/11/22 21:58 Dose: 50 mls/hr Documented By: [id number] Ioversol (Optiray 320 500ml) 110 ml IV ONCE ONE Stop: 02/11/22 22:51 Last Admin: 02/11/22 22:50 Dose: 110 ml Documented By: [email or web address] Methylprednisolone (Methylprednisolone 125 Mg/2 Ml Vial) 125 mg IV NOW STA Stop: 02/11/22 20:42 Last Admin: 02/11/22 21:00 Dose: 125 mg Documented By: [id number] Imaging Data Radiologist's Impression: Chest X-Ray 02/11/22 20:41 XR chest 1V portable HISTORY: 81 years-old Male Dyspnea acute shortness of breath COMPARISON: Chest radiograph 04/12/2020 TECHNIQUE: AP view of the chest FINDINGS: The cardiomediastinal and hilar silhouettes are within normal limits. Prior median sternotomy. Emphysema. No pneumothorax, pleural effusion, airspace con solidation or overt pulmonary edema. Surgical clips of the neck. Degenerative changes of the shoulders and spine. IMPRESSION: No acute process. ACT 112: Negative or not required by law. The above report was generated using voice recognition software. It may contain grammatical, syntax or spelling errors. Electronically signed by: Paco Cerna M.D. 02/11/2022 9:33 PM Discharge Plan Visit Data Chief Complaint: Shortness of Breath/Dyspnea Stated Complaint: SHORTNESS OF BREATH/ANXIETY ED Provider: Piotr Orellana Discharge Problem: Dyspnea, Leukocytosis Forms Stand Alone Forms: [facility] [place] Prescriptions Prescriptions: No Action omeprazole 40 mg Capsule,Delayed Release(Dr/Ec) 40 mg PO BID Rx Instructions: Take 1 capsule by mouth twice a day, 30 minutes to 1 hour before breakfast and supper. aspirin 81 mg Tablet,Delayed Release (Dr/Ec) 81 mg PO QAM spironolactone 25 mg Tablet 12.5 mg PO QAM nitroglycerin 0.4 mg Tablet, Sublingual 0.4 mg sublingual UD Rx Instructions: One tablet under tongue if needed for chest pain. May repeat 3 times. If chest pain continues, call 911. furosemide 20 mg Tablet 20 mg PO QAM albuterol sulfate [ProAir HFA] 90 mcg/actuation Hfa Aerosol Inhaler 2 puff INHALATION QID Rx Instructions: ONCE FEELING BETTER, USE NEEDED. rosuvastatin [Crestor] 40 mg Tablet 40 mg PO QAM metoprolol tartrate 25 mg Tablet 25 mg PO Q12 triamcinolone acetonide 0.5 % Cream 1 applic TOPICAL BID cyanocobalamin (vitamin B-12) [Vitamin B-12] 1,000 mcg Tablet 1,000 mcg PO DAILY prednisone 10 mg tablet 0 mg PO .DAILY/UD Rx Instructions: BEGIN 01/31/22 : TAKE 5 TABS X TWO DAYS, THEN, TAKE 4 TABS X TWO DAYS, THEN, TAKE 3 TABS X TWO DAYS, THEN, TAKE 2 TABS X TWO DAYS, THEN , TAKE 1 TAB X TWO DAYS. amoxicillin 500 mg capsule 500 mg PO TID Rx Instructions: BEGIN 01/31/22 X 10 DAYS. Spiriva Respimat 2.5 mcg/actuation mist 2 puff INHALATION QAM Referrals Referrals: Piotr Wilson MD [Primary Care Provider] -
--- NOTE | 2022-02-11 21:35 | XRay Report ---
XR chest 1V portable HISTORY: 81 years-old Male Dyspnea acute shortness of breath COMPARISON: Chest radiograph 04/12/2020 TECHNIQUE: AP view of the chest FINDINGS: The cardiomediastinal and hilar silhouettes are within normal limits. Prior median sternotomy. Emphys emelina. No pneumothorax, pleural effusion, airspace consolidation or overt pulmonary edema. Surgical cli ps of the neck. Degenerative changes of the shoulders and spine. IMPRESSION: No acute process. ACT 112: Negative or not required by law. The above report was generated using voice recognition software. It may contain grammatical, syntax o r spelling errors. Electronically signed by: Paco Cerna M.D. 02/11/2022 9:33 PM
[2022-02-11 21:52] LABS: Adenovirus PCR Not Detected (NotDetected); Bordetella parapertussis PCR Not Detected (NotDetected); Bordetella pertussis PCR Not Detected (NotDetected); Chlamydia pneumoniae PCR Not Detected (NotDetected); Coronavirus 229E PCR Not Detected (NotDetected); Coronavirus CoV-2 (COVID19)PCR Not Detected (NotDetected); Coronavirus HKU1 PCR Not Detected (NotDetected); Coronavirus NL63 PCR Not Detected (NotDetected); Coronavirus OC43PCR Not Detected (NotDetected); Human Metapneumovirus PCR Not Detected (NotDetected); Influenza A PCR Not Detected (NotDetected); Influenza B PCR Not Detected (NotDetected); Mycoplasma pneumoniae PCR Not Detected (NotDetected); Parainfluenza Virus 1 PCR Not Detected (NotDetected); Parainfluenza Virus 2 PCR Not Detected (NotDetected); Parainfluenza Virus 3 PCR Not Detected (NotDetected); Parainfluenza Virus 4 PCR Not Detected (NotDetected); Respiratory Syncytial VirusPCR Not Detected (NotDetected); Rhinovirus/Enterovirus PCR Not Detected (NotDetected)
[2022-02-11 21:54] LABS: Albumin Globulin Ratio 1.2 (0.9-2); BUN Creatinine Ratio 12.2 (10-20); Bilirubin,Total 0.6 mg/dl (0.2-1.0); Creatinine Clr Calc Pharmacy 50.4 ml/min; Est GFR (African American) 69.8 ml/min; Est GFR (Non-African American) 60.2 ml/min; Globulin 3.4 gm/dl (2.5-4.0); Potassium 3.8 mmol/L (3.5-5.1); Total Protein 7.4 gm/dl (6.0-8.3)
[2022-02-11] MEDS ORDERED: OPTIRAY 320 500ml IV ONE (22:50)
--- NOTE | 2022-02-11 23:16 | CT Scan Report ---
CT angio chest PE protocol CT DOSE: 562.33 mGy.cm HISTORY: 81 years-old Male with SOB, hypoxia. Acute shortness of breath TECHNIQUE: Multiple CTA images of the chest were obtained after the intravenous administration of 110 ml Optiray. Coronal and sagittal MIPS were obtained from the axial data set and were submitted for review. All measurements were obtained according to NASCET criteria. A dose lowering technique was u tilized adhering to the principles of ALARA. COMPARISON: Chest radiograph of same day, chest CT 10/19/2015 FINDINGS: CTA: Heart is upper limits of normal in size. No pericardial effusion. Extensive coronary artery calcifica tions with prior median sternotomy and CABG. Atherosclerosis of the thoracic aorta. 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 Unremarkable pulmonary artery. No pulm onary emboli are identified. CT CHEST: No thyroid nodule identified. Borderline enlarged subcarinal and hilar lymph nodes measuring up to 10 mm appear stable and are likely benign. No pneumothorax, pleural effusion or overt pulmonary edema. Moderate pulmonary emphysema with bronchial wall thickening. Subsegmental bibasilar atelectasis. Mild bibasilar mucous plugging with scattered subsegmental tree-in-bud nodules. Decreased transverse dime nsion of the trachea (saber sheath morphology) with tracheobronchial secretions. 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 Cholelithiasis. Un remarkable soft tissues. No acute fracture. Healed chronic rib fractures are noted bilaterally. IMPRESSION: 1. No pulmonary emboli are identified. 2. Emphysema with bronchitis, tracheobronchial secretions and bibasilar mucous plugging. Correlate cl inically to exclude aspiration. 3. Subsegmental bibasilar tree-in-bud nodules are compatible with a mild infectious or inflammatory b ronchiolitis. ACT 112: Negative or not required by law. The above report was generated using voice recognition software. It may contain grammatical, syntax o r spelling errors. Electronically signed by: Paco Cerna M.D. 02/11/2022 11:14 PM
[2022-02-11 23:49] LABS: Appearance Urine Clear (Clear); Bilirubin Urine Negative (Negative); Blood Urine Negative (Negative); Color Urine Yellow; Glucose Urine UA Negative (Negative); Ketones Urine Negative (Negative); Leukocyte Esterase Urine Negative (Negative); Nitrite Urine Negative (Negative); Protein Urine Negative (Negative); Specific Gravity Urine 1.017 (1.000-1.030); Urobilinogen Urine Negative (Negative); pH Urine 6.5 (4.5-7.5)
--- NOTE | 2022-02-12 03:29 | History and Physical Report ---
DATE OF ADMISSION: 02/11/2022. CHIEF COMPLAINT: Shortness of breath. HISTORY OF PRESENT ILLNESS: This is a 81-year-old male with past medical history significant for hyperlipidemia, history of moderate COPD, history of pleural effusion in the past, history of lung nodule, history of CAD, status post CABG, hypertension, history of CVA, moderate aortic valve stenosis, GERD, BPH, history of left common carotid occlusion, status post left carotid endarterectomy in 2004 in [place], history of abdominal aortic aneurysm 3.4 cm, low back pain, presents with ongoing cough and shortness of breath. The patient says for the last 2-2.5 weeks, he was having cough with whitish phlegm and short of breath. He took his rescue prednisone couple of times, but that has not helped and also his PCP prescribed amoxicillin for pneumonia. He finished the amoxicillin a couple of days ago, but his symptoms are not getting better. He still shortness of breath and also cough is getting worse with whitish phlegm. So, he came here. Respiratory BioFire panel is negative. CT of the chest was done, there is no PE, but showed some bronchitis and bronchial secretions and bibasilar mucus plugging and correlates clinically to exclude aspiration and also subsegmental bibasilar tree-in-bud nodules compatible with mild infectious or inflammatory bronchiolitis. The patient is currently resting comfortably, saturating okay on 3 liters oxygen, has some headache, no blurred visions, no earache. Has runny nose in the morning, he thought from his sinuses, sore throat from coughing. He had chest pain when he came in, but that got resolved, he attributes it to his anxiety. No nausea or vomiting. Has abdominal pain from his coughing. Today his stool was dark but attributes to Pepto Bismol which he took last night. No burning micturition. No swelling in the legs. Ambulating okay at home. ALLERGIES: REMDESIVIR, NAPROXEN, MORPHINE. PAST MEDICAL HISTORY: As mentioned above. PAST SURGICAL HISTORY: CABG, hemorrhoidectomy, insertion of intra-aortic balloon assist device, inguinal hernia repair, thromboendarterectomy. MEDICATIONS: The patient is on albuterol 2 puffs inhalation q.i.d., aspirin 81 mg p.o. a.m., vitamin B12 1000 mcg p.o. daily, cyclobenzaprine 10 mg p.o. b.i.d. p.r.n., Lasix 20 mg p.o. daily, metoprolol tartrate 25 mg p.o. b.i.d., nitroglycerin 0.4 mg sublingual p.r.n., omeprazole 40 mg p.o. b.i.d., Crestor 40 mg p.o. daily, spironolactone 12.5 mg p.o. a.m., Spiriva Respimat 2 puffs inhalation q.a.m., triamcinolone topical b.i.d. FAMILY HISTORY: Significant for father has heart disorder; sister has heart disorder, lung disorder and migraines and osteoporosis; maternal grandmother has stroke. SOCIAL HISTORY: Former smoker, quit in 2014, smoked 1/2 pack a day for 1 yr as per epic,. Drinks about 1-3 beers every day, but did not drink for the last 2 weeks since he got sick. No drug use. REVIEW OF SYSTEMS: As per HPI. Rest of the review of systems is negative. PHYSICAL EXAMINATION: GENERAL: The patient is of moderate build, not in acute distress. VITAL SIGNS: Temperature 36.6, pulse 107, respiratory rate 23, blood pressure 146/72, oxygen 92% on 3 L. HEENT: Pupils equal, round and reactive to light. Oral mucosa moist. NECK: No JVD or neck masses. CARDIOVASCULAR: S1 and S2 heard. Regular rate and rhythm. No murmur, no gallop. RESPIRATORY SYSTEM: Normal AP diameter. No accessory muscle use. Bilateral rhonchi heard. ABDOMEN: Soft, bowel sounds present, nontender, no distention. CENTRAL NERVOUS SYSTEM: Cranial nerves II through XII grossly intact, nonfocal. EXTREMITIES: No edema, no erythema. LABORATORY DATA: WBC 15, hemoglobin 15.6, hematocrit 46.9, platelets 178. Sodium 134, potassium 3.8, chloride 99, bicarb 26, BUN 14, creatinine 1.1, serum glucose 89, calcium 9, total bilirubin 0.6, AST 15, ALT 16, alkaline phosphatase 52. Troponin I high sensitivity 8.0. BNP 36. Urinalysis negative. Respiratory BioFire panel negative. IMAGING DATA: Chest x-ray, no acute process. CT of the chest showing no pulmonary emboli, bibasilar mucus plugging, possible to exclude aspiration, subsegmental bibasilar tree-in-bud nodules are compatible with mild infectious or inflammatory bronchiolitis. EKG: Sinus tachycardia at a rate of 113, possible left atrial enlargement, nonspecific ST abnormalities. No significant change was found. ASSESSMENT AND PLAN: This is a 81-year-old male, presents with shortness of breath. 1. Shortness of breath: Most likely secondary to pneumonia and COPD exacerbation, failed outpatient treatment. We will place on IV Solu-Medrol 40 t.i.d., IV Zosyn, and IV doxycycline. Speech evaluation for possible any aspiration. Nebs around the clock and p.r.n. Continue home inhalers. Closely monitor in the [employer] tele. 2. History of coronary artery disease, status post coronary artery bypass graft: Continue his home medication of metoprolol, aspirin, Crestor. 3. History of moderate aortic stenosis: Monitor for any volume overload. Continue his home diuretics of Lasix and spironolactone. 4. Hyperlipidemia: On statin. 5. History of cerebrovascular accident: On statin and aspirin. 6. Gastroesophageal reflux disease: On omeprazole. 7. History of BPH: Monitor for any urinary retention. 8. Deep venous thrombosis prophylaxis: Lovenox. DISPOSITION: Closely monitor in the [employer] tele. PT/OT prior to discharge. Social service to help with discharge planning. Job ID: [id number] [facility]ALTHBrittany
[2022-02-12] MEDS ORDERED: POLYETHYLENE (MIRALAX) 17 GM PACK PO PRN (03:30)
[2022-02-12] MEDS ORDERED: SODIUM CHLORIDE 0.9% 1000ML 1,000 ML IV SCH (03:30)
[2022-02-12] MEDS ORDERED: NITROGLYCERIN SL 0.4 MG/TAB TAB SL PRN (03:30)
[2022-02-12] MEDS ORDERED: NITROGLYCERIN SL 0.4 MG/TAB TAB SL SCH (03:30)
[2022-02-12] MEDS ORDERED: LEVALBUTEROL HCL 1.25 MG/3 ML NEB NEB PRN (03:30)
[2022-02-12] MEDS ORDERED: ACETAMINOPHEN 325 MG TAB PO PRN (03:30)
[2022-02-12] MEDS ORDERED: ALBUTEROL HFA 8 GM INHALER INH PRN (04:24)
[2022-02-12] MEDS: PIPERACILLIN/TAZOBACTAM 3.375 GM in DEXTROSE 5% 100 ML IV SCH ×2 (04:55→12:22)
[2022-02-12] MEDS: methylPREDNISolone 40 MG in SYRINGE 0 ML IV SCH ×3 (05:01→21:46)
[2022-02-12] MEDS: CYCLOBENZAPRINE HCL 10 MG TAB PO PRN ×2 (05:05→17:54)
[2022-02-12 05:44] LABS: Basophils # (auto) 0.02 K/uL (0-0.2); Basophils % (auto) 0.2 %; Hematocrit (blood only) 45.5 % (40.1-51.0); Hemoglobin 15.4 g/dl (14.0-18.0); Immature Granulocytes # (auto) 0.04 K/uL (0.00-0.02); Immature Granulocytes % (auto) 0.3 %; Lymphocytes % (auto) 12.8 %; Mean Corpuscular Hemoglobin 29.8 pg (25.0-34.0); Mean Corpuscular Hgb Conc 33.8 g/dL (32.0-36.0); Mean Corpuscular Volume 88.2 fL (80.0-100.0); Mean Platelet Volume 9.1 fL (9.4-12.4); Monocytes # (auto) 0.14 K/uL (0.24-0.82); Monocytes % (auto) 1.2 %; Neutrophils % (auto) 85.5 %; Platelet Count 189 K/uL (130-400); RDW Standard Deviation 42.3 fL (36.4-46.3); Red Blood Count 5.16 M/uL (4.63-6.08)
[2022-02-12 06:08] LABS: BUN Creatinine Ratio 12.6 (10-20); Calcium 8.9 mg/dl (8.5-10.1); Creatinine Clr Calc Pharmacy 56.3 ml/min; Est GFR (African American) 79.7 ml/min; Est GFR (Non-African American) 68.8 ml/min; Magnesium 1.9 mg/dl (1.7-2.4)
[2022-02-12 06:10] LABS: Troponin I High Sensitivity 10.6 pg/ml (0-20)
[2022-02-12] MEDS ORDERED: ALBUTEROL HFA 8 GM INHALER INH SCH (07:00)
[2022-02-12] MEDS: LEVALBUTEROL 1.25MG/0.5ML NEB INH SCH ×4 (07:01→20:29)
[2022-02-12] MEDS: IPRATROPIUM BROMIDE NEB SOLN 0.02% 2.5 ML VIAL INH SCH ×4 (07:01→20:29)
--- NOTE | 2022-02-12 07:08 | Electrocardiogram Report ---
Test Reason : Blood Pressure : / mmHG Vent. Rate : 113 BPM Atrial Rate : 113 BPM P-R Int : 162 ms QRS Dur : 082 ms QT Int : 318 ms P-R-T Axes : 070 -06 073 degrees QTc Int : 436 ms Sinus tachycardia Possible Left atrial enlargement Nonspecific ST abnormality Abnormal ECG When compared with ECG of 11-APR-2020 04:33, No significant change was found Confirmed by Alex Jurado ([id number]) on 02/12/2022 7:07:48 AM Referred By: REFERRED SELF Confirmed By:Walt Jurado
[2022-02-12] MEDS: ENOXAPARIN INJ 40 MG/0.4 ML SYR SQ SCH (07:57)
[2022-02-12] MEDS: UMECLIDINIUM BROMIDE 62.5MCG/BLISTER 7 PUFFS/INHALER INH SCH (07:57)
[2022-02-12] MEDS: ASPIRIN 81 MG ECTAB PO SCH (07:59)
[2022-02-12] MEDS: CYANOCOBALAMIN (B-12) 500 MCG TABLET PO SCH (07:59)
[2022-02-12] MEDS: TRIAMCINOLONE ACET 0.5% CR 15 GM TUBE TOP SCH ×2 (07:59→19:58)
[2022-02-12] MEDS: ROSUVASTATIN CALCIUM 20 MG TAB PO SCH (07:59)
[2022-02-12] MEDS: PANTOprazole 40 MG TAB PO SCH ×2 (07:59→16:46)
[2022-02-12] MEDS: SPIRONOLACTONE 12.5 MG TAB PO SCH (07:59)
[2022-02-12] MEDS: METOPROLOL TARTRATE 25 MG TAB PO SCH ×2 (07:59→20:05)
[2022-02-12] MEDS: FUROSEMIDE 20 MG TAB PO SCH (08:00)
[2022-02-12] MEDS ORDERED: DOXYCYCLINE HYCLATE 100 MG in DEXTROSE 5% 100 ML IV SCH (09:00)
[2022-02-12] MEDS ORDERED: XOPENEX/ATROVENT 1.25mg/0.5MG NEB COMBO NEB SCH (09:00)
--- NOTE | 2022-02-12 11:51 | Hospitalist Progress Note ---
Date of Service February 12, 2022 Assessment & Plan (1) Hypoxia: Plan: Likely secondary to COPD exacerbation with mucous plugging. Continue IV steroids, antibiotics and home inhalers. Continue scheduled nebulized bronchodilators. Per speech evaluation the patient has an aspiration risk but was not overtly aspirating with swallowing. He continues with an easy to chew diet adding extra sauce and gravy to his meal trays. There is no evidence of overt pneumonia. Will de-escalate antibiotics and continue to monitor. (2) COPD exacerbation: Plan: Plan as above. (3) CAD (coronary artery disease): Plan: Chronic, stable. Patient had some chest pain initially but attributed to anxiety. EKG revealed lateral ST changes that were present on prior EKG. Highly sensitive troponin was trended x3 and was negative. Clinical picture is not consistent with ischemia. (4) Aortic stenosis: Plan: Moderate seen on last ech o which was Jan 2022. Monitor for any fluid overload. (5) H/O: CVA (cerebrovascular accident): Plan: chronic, stable. Cont medical management. (6) DVT prophylaxis: Plan: Lovenox Full Code Dispo-to home when improved. Hiwot Weiss DO [facility] Hospitalist Admission and Anticipated Discharge Date Admission Date: February 12, 2022 Subjective 81-year-old man with a history of COPD presents with ongoing cough and shortness of breath after failing a prednisone and amoxicillin course. Respiratory bio fire panel was negative. CT of the chest revealed no PE but revealed some bronchitis and mucous plugging. Today patient reports feeling improved. Reports feeling there is less mucous plugging. He is still on oxygen and typically not requiring oxygen supplementation at baseline. Reports some abdominal soreness from coughing excessively but this is improved. Denies any chest pain. He is eating and has no GI symptoms. Review of Systems Review of Systems: All systems reviewed negative except as indicated above. Physical Exam Physical Exam: CONSTITUTIONAL: WNWD, vitals as above, generally well- appearing, NAD EYES: normal conjunctivae, no scleral icterus ENT: external ear and nose normal, MMM NECK: trachea midline RESPIRATORY: clear to auscultation bilaterally, no crackles, rales or wheezes, normal respiratory effort CARDIOVASCULAR: regular rate and rhythm, S1 and 2 heard without murmurs, gallops or rubs, no JVD, no peripheral edema CHEST: inspection of chest was normal GASTROINTESTINAL: soft, nontender, ND, no guarding MUSCULOSKELETAL: strength 5/5 throughout, head is normocephalic and atraumatic SKIN: warm and dry NEUROLOGIC: CN 2-12 grossly intact, no sensory deficit, normal cognition, normal speech, no tremor PSYCHIATRIC: alert cooperative and oriented to person, place and time. Euthymic mood, makes good eye contact, language grossly intact, recent and remote memory grossly intact. Results & Data Results & Data ([facility]) Vital Signs (Past 12 Hours) Vital Signs Temp Pulse Pulse Resp BP BP Pulse Ox 02/12/22 11:38 87 18 98 02/12/22 07:00 02/12/22 08:15 36.3 C L 116 H 18 146/71 H 94 02/12/22 07:01 111 H 20 93 02/12/22 03:28 112 H 02/12/22 04:02 02/12/22 04:02 36.5 C 105 H 22 132/67 96 02/12/22 03:58 36.5 C 105 H 18 132/67 96 02/12/22 03:30 36.5 C 116 H 22 149/67 H 94 02/12/22 03:30 02/12/22 02:00 102 H 25 H 137/78 94 02/12/22 01:00 101 H 24 135/69 93 02/12/22 00:00 107 H 23 146/73 H 92 02/12/22 00:22 92 02/11/22 23:54 90 Pulse Ox O2 Del Method O2 Del Method O2 Flow Rate O2 Flow Rate 02/12/22 11:38 Nasal Cannula 2 02/12/22 07:00 Nasal Cannula 3 02/12/22 08:15 Nasal Cannula 2 02/12/22 07:01 Nasal Cannula 2 02/12/22 03:28 02/12/22 04:02 Nasal Cannula 3 02/12/22 04:02 Nasal Cannula 3 02/12/22 03:58 Nasal Cannula 3 02/12/22 03:30 Nasal Cannula 3 02/12/22 03:30 94 Nasal Cannula 3 02/12/22 02:00 Nasal Cannula 3 02/12/22 01:00 Nasal Cannula 3 02/12/22 00:00 Nasal Cannula 3 02/12/22 00:22 Room Air 3 02/11/22 23:54 Room Air 2 Laboratory Results Short CBC 02/11/22 02/12/22 Range/Units 20:44 05:27 WBC 15.31 H 11.70 H (4.8-10.8) K/ul Hgb 15.6 15.4 (14.0-18.0) g/dl Hct 46.9 45.5 (40.1-51.0) % Plt Count 178 189 (130-400) K/uL BMP 02/11/22 02/12/22 20:44 05:27 Sodium 134 L 136 Potassium 3.8 4.0 Chloride 99 102 Carbon Dioxide 26 26 BUN 14 13 Creatinine 1.15 1.03 Glucose 89 201 H Calcium 9.0 8.9 Liver Function 02/11/22 Range/Units 20:44 Total Bilirubin 0.6 (0.2-1.0) mg/dl AST 15 (13-39) U/L ALT 16 (7-52) U/L Alkaline Phosphatase 52 (34-104) U/L Albumin 4.0 (3.4-5.0) gm/dl Urine 02/11/22 Range/Units 23:20 Urine Color Yellow Urine Appearance Clear (Clear) Urine pH 6.5 (4.5-7.5) Ur Specific [place] 1.017 (1.000-1.030) Urine Protein Negative (Negative) Urine Glucose (UA) Negative (Negative) Medications Administered Current Inpatient Medications Acetaminophen (Acetaminophen 325 Mg Tab) 650 mg PO Q4H PRN PRN Reason: Pain or Fever Stop: 03/14/22 03:29 Last Admin: 02/12/22 07:56 Dose: 650 mg Albuterol (Albuterol Hfa 8 Gm Inhaler) 2 puffs INH QIDR PRN PRN Reason: Shortness Of Breath Or Wheezin Stop: 03/14/22 06:59 Aspirin (Aspirin 81 Mg Ectab) 81 mg PO QAM [place] Stop: 03/14/22 08:59 Last Admin: 02/12/22 07:59 Dose: 81 mg Cyanocobalamin (Cyanocobalamin (B-12) 500 Mcg Tablet) 1,000 mcg PO DAILY [place] Stop: 03/14/22 08:59 Last Admin: 02/12/22 07:59 Dose: 1,000 mcg Cyclobenzaprine HCl (Cyclobenzaprine Hcl 10 Mg Tab) 10 mg PO BID PRN PRN Reason: Spasms Stop: 12/26/22 03:29 Last Admin: 02/12/22 05:05 Dose: 10 mg Enoxaparin Sodium (Enoxaparin Inj 40 Mg/0.4 Ml Syr) 40 mg SQ Q24H [place] Stop: 03/14/22 08:59 Last Admin: 02/12/22 07:57 Dose: 40 mg Furosemide (Furosemide 20 Mg Tab) 20 mg PO QAM [place] Stop: 03/14/22 08:59 Last Admin: 02/12/22 08:00 Dose: 20 mg Guaifenesin (Guaifenesin 600 Mg Tabcr) 1,200 mg PO Q12 [place] Stop: 03/14/22 11:14 Piperacillin Sod/Tazobactam (Sod 3.375 gm/ Dextrose) 115 mls @ 28.75 mls/hr IV Q8H [facility]; Protocol Stop: 02/19/22 04:59 Last Infusion: 02/12/22 08:55 Dose: Infused Doxycycline Hyclate 100 mg/ (Dextrose) 110 mls @ 50 mls/hr IV BID@0900,1900 [facility]; Protocol Stop: 02/19/22 08:59 Last Infusion: 02/12/22 11:37 Dose: Infused Methylprednisolone 40 mg/ (Syringe) 0.64 mls @ 1.5 mls/min IV Q8H [facility] Stop: 03/14/22 05:59 Last Admin: 02/12/22 05:01 Dose: 1.5 mls/min Ipratropium [place] (Ipratropium [place] Neb Soln 0.02% 2.5 Ml Vial) 0.5 mg INH QIDR [place] Stop: 03/14/22 06:59 Last Admin: 02/12/22 11:38 Dose: 0.5 mg Levalbuterol HCl (Levalbuterol 1.25mg/0.5ml Neb) 1.25 mg INH QIDR [place] Stop: 03/14/22 06:59 Last Admin: 02/12/22 11:38 Dose: 1.25 mg Levalbuterol HCl (Levalbuterol Hcl 1.25 Mg/3 Ml Neb) 1.25 mg NEB Q2H PRN; Protocol PRN Reason: Shortness Of Breath Or Wheezing Stop: 03/14/22 03:29 Metoprolol Tartrate (Metoprolol Tartrate 25 Mg Tab) 25 mg PO Q12 [place] Stop: 03/14/22 08:59 Last Admin: 02/12/22 07:59 Dose: 25 mg Nitroglycerin (Nitroglycerin Sl 0.4 Mg/Tab Tab) 0.4 mg SL UD PRN PRN Reason: Chest Pain Stop: 03/14/22 03:29 Pantoprazole Sodium (Pantoprazole 40 Mg Tab) 40 mg PO BID@0730,1630 [facility] Stop: 03/14/22 07:29 Last Admin: 02/12/22 07:59 Dose: 40 mg Polyethylene Glycol (Polyethylene (Miralax) 17 Gm Pack) 17 gm PO DAILY PRN PRN Reason: Constipation Stop: 03/14/22 03:29 Rosuvastatin Calcium (Rosuvastatin Calcium 20 Mg Tab) 40 mg PO QAM [facility] Stop: 03/14/22 08:59 Last Admin: 02/12/22 07:59 Dose: 40 mg Spironolactone (Spironolactone 12.5 Mg Tab) 12.5 mg PO QAM [facility] Stop: 03/14/22 08:59 Last Admin: 02/12/22 07:59 Dose: 12.5 mg Triamcinolone Acetonide (Triamcinolone Acet 0.5% Cr 15 Gm Tube) 1 appln TOP BID [facility] Stop: 03/14/22 08:59 Last Admin: 02/12/22 07:59 Dose: Not Given Umeclidinium [place] (Umeclidinium [place] 62.5mcg/Blister 7 Puffs/Inhaler) 1 puffs INH QAM [facility] Stop: 03/14/22 08:59 Last Admin: 02/12/22 07:57 Dose: 1 puffs
[2022-02-12] MEDS: guaiFENesin 600 MG TABCR PO SCH ×2 (12:17→20:05)
[2022-02-12] MEDS: cefTRIAXone SODIUM 2,000 MG in DEXTROSE 5% 50 ML IV SCH (14:58)
[2022-02-13] MEDS: methylPREDNISolone 40 MG in SYRINGE 0 ML IV SCH (05:09)
[2022-02-13 06:00] LABS: Hematocrit (blood only) 44.3 % (40.1-51.0); Mean Corpuscular Hemoglobin 29.8 pg (25.0-34.0); Mean Corpuscular Hgb Conc 33.9 g/dL (32.0-36.0); Mean Corpuscular Volume 88.1 fL (80.0-100.0); Platelet Count 198 K/uL (130-400); RDW Coefficient of Variation 13.2 % (11.5-14.5); RDW Standard Deviation 42.8 fL (36.4-46.3); Red Blood Count 5.03 M/uL (4.63-6.08); White Blood Count 20.83 K/ul (4.8-10.8)
[2022-02-13 06:24] LABS: BUN Creatinine Ratio 15.7 (10-20); Calcium 9.3 mg/dl (8.5-10.1); Creatinine Clr Calc Pharmacy 53.7 ml/min; Est GFR (African American) 75.3 ml/min; Est GFR (Non-African American) 64.9 ml/min; Potassium 4.4 mmol/L (3.5-5.1)
[2022-02-13] MEDS: LEVALBUTEROL 1.25MG/0.5ML NEB INH SCH (07:20)
[2022-02-13] MEDS: IPRATROPIUM BROMIDE NEB SOLN 0.02% 2.5 ML VIAL INH SCH (07:20)
[2022-02-13] MEDS ORDERED: IPRATROPIUM BROMIDE NEB SOLN 0.02% 2.5 ML VIAL INH PRN (09:18)
[2022-02-13] MEDS ORDERED: LEVALBUTEROL 1.25MG/0.5ML NEB INH PRN (09:18)
[2022-02-13] MEDS: TRIAMCINOLONE ACET 0.5% CR 15 GM TUBE TOP SCH ×2 (09:23→20:33)
[2022-02-13] MEDS: METOPROLOL TARTRATE 25 MG TAB PO SCH ×2 (09:25→20:32)
[2022-02-13] MEDS: ASPIRIN 81 MG ECTAB PO SCH (09:26)
[2022-02-13] MEDS: guaiFENesin 600 MG TABCR PO SCH ×2 (09:26→20:33)
[2022-02-13] MEDS: SPIRONOLACTONE 12.5 MG TAB PO SCH (09:27)
[2022-02-13] MEDS: CYANOCOBALAMIN (B-12) 500 MCG TABLET PO SCH (09:27)
[2022-02-13] MEDS: PANTOprazole 40 MG TAB PO SCH ×2 (09:27→16:22)
[2022-02-13] MEDS: ROSUVASTATIN CALCIUM 20 MG TAB PO SCH (09:27)
[2022-02-13] MEDS: ENOXAPARIN INJ 40 MG/0.4 ML SYR SQ SCH (09:28)
[2022-02-13] MEDS: FUROSEMIDE 20 MG TAB PO SCH (09:28)
[2022-02-13] MEDS: UMECLIDINIUM BROMIDE 62.5MCG/BLISTER 7 PUFFS/INHALER INH SCH (09:29)
[2022-02-13] MEDS: predniSONE 20 MG TAB PO SCH (10:55)
[2022-02-13] MEDS: cefTRIAXone SODIUM 2,000 MG in DEXTROSE 5% 50 ML IV SCH (15:18)
--- NOTE | 2022-02-13 17:56 | Hospitalist Progress Note ---
Date of Service February 13, 2022 Assessment & Plan (1) Hypoxia: Plan: Likely secondary to COPD exacerbation with mucous plugging. Now hypoxia has resolved. Continue IV steroids, antibiotics and home inhalers. Continue scheduled nebulized bronchodilators. Per speech evaluation the patient has an aspiration risk but was not overtly aspirating with swallowing. He continues with an easy to chew diet adding extra sauce and gravy to his meal trays. There is no evidence of overt pneumonia. Cont prednisone and Rocephin. (2) COPD exacerbation: Plan: Plan as above. (3) CAD (coronary artery disease): Plan: Chronic, stable. Patient had some chest pain initially but attributed to anxiety. EKG revealed lateral ST changes that were present on prior EKG. Highly sensitive troponin was trended x3 and was negative. Clinical picture is not consistent with ischemia. (4) Aortic stenosis: Plan: Moderate seen on last echo which was Jan 2022. Monitor for any fluid overload. (5) H/O: CVA (cerebrovascular accident): Plan: chronic, stable. Cont medical management. (6) DVT prophylaxis: Plan: Lovenox Full Code Dispo-to home when improved. Hiwot Weiss DO [facility] Hospitalist Admission and Anticipated Discharge Date Admission Date: February 12, 2022 Subjective 81-year-old man with a history of COPD presents with ongoing cough and shortness of breath after failing a prednisone and amoxicillin course. Respiratory bio fire panel was negative. CT of the chest revealed no PE but revealed some bronchitis and mucous plugging. Continues to feel well today wheezing improved cough improved afebrile Review of Systems Review of Systems: All systems reviewed negative except as indicated above. Physical Exam Physical Exam: CONSTITUTIONAL: WNWD, vitals as above, generally well- appearing, NAD EYES: normal conjunctivae, no scleral icterus ENT: external ear and nose normal, MMM NECK: trachea midline RESPIRATORY: clear to auscultation bilaterally, no crackles, rales or wheezes, normal respiratory effort CARDIOVASCULAR: regular rate and rhythm, S1 and 2 heard without murmurs, gallops or rubs, no JVD, no peripheral edema CHEST: inspection of chest was normal GASTROINTESTINAL: soft, nontender, ND, no guarding MUSCULOSKELETAL: strength 5/5 throughout, head is normocephalic and atraumatic SKIN: warm and dry NEUROLOGIC: CN 2-12 grossly intact, no sensory deficit, normal cognition, krishna l speech, no tremor PSYCHIATRIC: alert cooperative and oriented to person, place and time. Euthymic mood, makes good eye contact, language grossly intact, recent and remote memory grossly intact. Results & Data Results & Data ([facility]) Vital Signs (Past 12 Hours) Vital Signs Temp Pulse Pulse Resp BP BP Pulse Ox 02/13/22 16:24 36.4 C L 94 H 16 151/70 H 91 02/13/22 11:36 36.3 C L 74 20 109/63 94 02/13/22 07:44 36.5 C 79 18 124/60 92 02/13/22 07:30 65 O2 Del Method 02/13/22 16:24 Room Air 02/13/22 11:36 Room Air 02/13/22 07:44 Room Air 02/13/22 07:30 Laboratory Results Short CBC 02/13/22 Range/Units 05:33 WBC 20.83 H (4.8-10.8) K/ul Hgb 15.0 (14.0-18.0) g/dl Hct 44.3 (40.1-51.0) % Plt Count 198 (130-400) K/uL BMP 02/13/22 05:33 Sodium 137 Potassium 4.4 Chloride 105 Carbon Dioxide 26 BUN 17 Creatinine 1.08 Glucose 138 H Calcium 9.3 Medications Administered Current Inpatient Medications Acetaminophen (Acetaminophen 325 Mg Tab) 650 mg PO Q4H PRN PRN Reason: Pain or Fever Stop: 03/14/22 03:29 Last Admin: 02/12/22 07:56 Dose: 650 mg Albuterol (Albuterol Hfa 8 Gm Inhaler) 2 puffs INH QIDR PRN PRN Reason: Shortness Of Breath Or Wheezin Stop: 03/14/22 06:59 Aspirin (Aspirin 81 Mg Ectab) 81 mg PO QAM [facility] Stop: 03/14/22 08:59 Last Admin: 02/13/22 09:26 Dose: 81 mg Cyanocobalamin (Cyanocobalamin (B-12) 500 Mcg Tablet) 1,000 mcg PO DAILY [facility] Stop: 03/14/22 08:59 Last Admin: 02/13/22 09:27 Dose: 1,000 mcg Cyclobenzaprine HCl (Cyclobenzaprine Hcl 10 Mg Tab) 10 mg PO BID PRN PRN Reason: Spasms Stop: 03/14/22 03:29 Last Admin: 02/12/22 17:54 Dose: 10 mg Enoxaparin Sodium (Enoxaparin Inj 40 Mg/0.4 Ml Syr) 40 mg SQ Q24H [facility] Stop: 03/14/22 08:59 Last Admin: 02/13/22 09:28 Dose: 40 mg Furosemide (Furosemide 20 Mg Tab) 20 mg PO QAM [facility] Stop: 03/14/22 08:59 Last Admin: 02/13/22 09:28 Dose: 20 mg Guaifenesin (Guaifenesin 600 Mg Tabcr) 1,200 mg PO Q12 [facility] Stop: 03/14/22 11:14 Last Admin: 02/13/22 09:26 Dose: 1,200 mg Ceftriaxone Sodium 2,000 mg/ (Dextrose) 70 mls @ 100 mls/hr IV Q24H [facility]; Protocol Stop: 02/19/22 13:59 Last Infusion: 02/13/22 15:48 Dose: Infused Ipratropium [place] (Ipratropium [place] Neb Soln 0.02% 2.5 Ml Vial) 0.5 mg INH QIDR PRN PRN Reason: SOB/wheezing Stop: 03/14/22 06:59 Levalbuterol HCl (Levalbuterol 1.25mg/0.5ml Neb) 1.25 mg INH QIDR PRN PRN Reason: SOB/wheezing Stop: 03/14/22 06:59 Metoprolol Tartrate (Metoprolol Tartrate 25 Mg Tab) 25 mg PO Q12 [facility] Stop: 03/14/22 08:59 Last Admin: 02/13/22 09:25 Dose: 25 mg Nitroglycerin (Nitroglycerin Sl 0.4 Mg/Tab Tab) 0.4 mg SL UD PRN PRN Reason: Chest Pain Stop: 03/14/22 03:29 Pantoprazole Sodium (Pantoprazole 40 Mg Tab) 40 mg PO BID@0730,1630 [facility] Stop: 03/14/22 07:29 Last Admin: 02/13/22 16:22 Dose: 40 mg Polyethylene Glycol (Polyethylene (Miralax) 17 Gm Pack) 17 gm PO DAILY PRN PRN Reason: Constipation Stop: 03/14/22 03:29 Prednisone (Prednisone 20 Mg Tab) 40 mg PO DAILY [facility] Stop: 03/15/22 09:29 Last Admin: 02/13/22 10:55 Dose: 40 mg Rosuvastatin Calcium (Rosuvastatin Calcium 20 Mg Tab) 40 mg PO QAM [facility] Stop: 03/14/22 08:59 Last Admin: 02/13/22 09:27 Dose: 40 mg Spironolactone (Spironolactone 12.5 Mg Tab) 12.5 mg PO QAM [facility] Stop: 03/14/22 08:59 Last Admin: 02/13/22 09:27 Dose: 12.5 mg Triamcinolone Acetonide (Triamcinolone Acet 0.5% Cr 15 Gm Tube) 1 appln TOP BID [facility] Stop: 03/14/22 08:59 Last Admin: 02/13/22 09:23 Dose: 1 appln Umeclidinium [place] (Umeclidinium [place] 62.5mcg/Blister 7 Puffs/Inhaler) 1 puffs INH QAM [facility] Stop: 03/14/22 08:59 Last Admin: 02/13/22 09:29 Dose: 1 puffs
[2022-02-14] MEDS: SPIRONOLACTONE 12.5 MG TAB PO SCH (07:51)
[2022-02-14] MEDS: METOPROLOL TARTRATE 25 MG TAB PO SCH (07:51)
[2022-02-14] MEDS: FUROSEMIDE 20 MG TAB PO SCH (07:51)
[2022-02-14] MEDS: guaiFENesin 600 MG TABCR PO SCH (07:51)
[2022-02-14] MEDS: ASPIRIN 81 MG ECTAB PO SCH (07:52)
[2022-02-14] MEDS: CYANOCOBALAMIN (B-12) 500 MCG TABLET PO SCH (07:53)
[2022-02-14] MEDS: predniSONE 20 MG TAB PO SCH (07:53)
[2022-02-14] MEDS: ENOXAPARIN INJ 40 MG/0.4 ML SYR SQ SCH (07:53)
[2022-02-14] MEDS: TRIAMCINOLONE ACET 0.5% CR 15 GM TUBE TOP SCH (07:53)
[2022-02-14] MEDS: ROSUVASTATIN CALCIUM 20 MG TAB PO SCH (07:53)
[2022-02-14] MEDS: PANTOprazole 40 MG TAB PO SCH (07:53)
[2022-02-14] MEDS: UMECLIDINIUM BROMIDE 62.5MCG/BLISTER 7 PUFFS/INHALER INH SCH (07:54)
[2022-02-14 10:24] LABS: Basophils # (auto) 0.01 K/uL (0-0.2); Basophils % (auto) 0.1 %; Hematocrit (blood only) 46.1 % (40.1-51.0); Hemoglobin 15.1 g/dl (14.0-18.0); Immature Granulocytes % (auto) 0.6 %; Lymphocytes # (auto) 1.29 K/uL (1.2-3.4); Lymphocytes % (auto) 7.8 %; Mean Corpuscular Hgb Conc 32.8 g/dL (32.0-36.0); Mean Corpuscular Volume 91.7 fL (80.0-100.0); Monocytes # (auto) 1.23 K/uL (0.24-0.82); Monocytes % (auto) 7.5 %; Neutrophils # (auto) 13.86 K/uL (1.4-6.5); Platelet Count 210 K/uL (130-400); RDW Coefficient of Variation 13.4 % (11.5-14.5); RDW Standard Deviation 45.4 fL (36.4-46.3); Red Blood Count 5.03 M/uL (4.63-6.08); White Blood Count 16.49 K/ul (4.8-10.8)
[2022-02-14 10:43] LABS: BUN Creatinine Ratio 17.7 (10-20); Calcium 9.1 mg/dl (8.5-10.1); Creatinine Clr Calc Pharmacy 46.7 ml/min; Est GFR (African American) 63.7 ml/min; Est GFR (Non-African American) 54.9 ml/min
--- NOTE | 2022-02-14 13:00 | Discharge Summary ---
Discharge Summary Date of Service February 14, 2022 Notes For Next Care Provider 3 additional days of Augmentin and steroids were given at discharge. Medication Changes From Visit Augmentin 875 BID x 3 days Prednisone 40mg daily x 3 days Admission HPI Per Admitting Provider HISTORY OF PRESENT ILLNESS: This is a 81-year-old male with past medical history significant for hyperlipidemia, history of moderate COPD, history of pleural effusion in the past, history of lung nodule, history of CAD, status post CABG, hypertension, history of CVA, moderate aortic valve stenosis, GERD, BPH, history of left common carotid occlusion, status post left carotid endarterectomy in 2004 in [place], history of abdominal aortic aneurysm 3.4 cm, low back pain, presents with ongoing cough and shortness of breath. The patient says for the last 2-2.5 weeks, he was having cough with whitish phlegm and short of breath. He took his rescue prednisone couple of times, but that has not helped and also his PCP prescribed amoxicillin for pneumonia. He finished the amoxicillin a couple of days ago, but his symptoms are not getting better. He still shortness of breath and also cough is getting worse with whitish phlegm. So, he came here. Respiratory BioFire panel is negative. CT of the chest was done, there is no PE, but showed some bronchitis and bronchial secretions and bibasilar mucus plugging and correlates clinically to exclude aspiration and also subsegmental bibasilar tree-in-bud nodules compatible with mild infectious or inflammatory bronchiolitis. The patient is currently resting comfortably, saturating okay on 3 liters oxygen, has some headache, no blurred visions, no earache. Has runny nose in the morning, he thought from his sinuses, sore throat from coughing. He had chest pain when he came in, but that got resolved, he attributes it to his anxiety. No nausea or vomiting. Has abdominal pain from his coughing. Today his stool was dark but attributes to Pepto Bismol which he took last night. No burning micturition. No swelling in the legs. Ambulating okay at home. Admission Exam Per Admitting Provider PHYSICAL EXAMINATION: GENERAL: The patient is of moderate build, not in acute distress. VITAL SIGNS: Temperature 36.6, pulse 107, respiratory rate 23, blood pressure 146/72, oxygen 92% on 3 L. HEENT: Pupils equal, round and reactive to light. Oral mucosa moist. NECK: No JVD or neck masses. CARDIOVASCULAR: S1 and S2 heard. Regular rate and rhythm. No murmur, no gallop. RESPIRATORY SYSTEM: Normal AP diameter. No accessory muscle use. Bilateral rhonchi heard. ABDOMEN: Soft, bowel sounds present, nontender, no distention. CENTRAL NERVOUS SYSTEM: Cranial nerves II through XII grossly intact, nonfocal. EXTREMITIES: No edema, no erythema. Principal Dx & Hospital Course #1 = Principal Diagnosis (1) Hypoxia: (2) COPD exacerbation: (3) CAD (coronary artery disease): (4) Aortic stenosis: Plan 81-year-old man with a history of COPD presents with 2-1/2 weeks of cough that was productive and not responsive to rescue course of prednisone as outpatient. He also had been prescribed amoxicillin for pneumonia outpatient and finished course prior to arrival. Respiratory bio fire panel was performed and negative. CT of the chest was performed with no evidence of PE but did show some bronchitis and bronchial secretions with bibasilar mucous plugging. There was also subsegmental bibasilar tree-in-bud nodules compatible with mild infectious or inflammatory bronchiolitis. He was placed on oxygen supplementation and started on IV Solu-Medrol, IV Zosyn and IV doxycycline. Speech pathology was consulted and saw him on 02/12. There was no overt signs or symptoms of aspiration observed on bedside swallow. There was no wet vocal quality noted. The patient is very aware of his capabilities and was already doing most of the diet modifications the speech pathologist would have suggested. He is at risk for aspiration if he develops a muscle spasm while eating or drinking however there is nothing to be done to prevent this. He did agree to have extra sauce and gravy added to his meal trays. He continued on easy to chew diet and aspiration precautions. He was given scheduled nebulized bronchodilators and wheezing continued to improve. Antibiotics and steroids were de-escalated and ultimately he came off the oxygen around 02/13. At time of discharge he remained afebrile and hemodynamically stable and breathing well at baseline of oxygen. Symptoms were significantly improved. He was sent home with close primary care follow-up recommended. Discharge Exam CONSTITUTIONAL: WNWD, vitals as above, generally well-appearing, NAD EYES: normal conjunctivae, no scleral icterus ENT: external ear and nose normal, MMM NECK: trachea midline RESPIRATORY: very scant wheezing at the base on the left, but mostly clear to auscultation, normal respiratory effort CARDIOVASCULAR: regular rate and rhythm, S1 and 2 heard without murmurs, gallops or rubs, no JVD, no peripheral edema CHEST: inspection of chest was normal GASTROINTESTINAL: soft, nontender, ND, no guarding MUSCULOSKELETAL: strength 5/5 throughout, head is normocephalic and atraumatic SKIN: warm and dry NEUROLOGIC: CN 2-12 grossly intact, no sensory deficit, normal cognition, normal speech, no tremor PSYCHIATRIC: alert cooperative and oriented to person, place and time. Euthymic mood, makes good eye contact, language grossly intact, recent and remote memory grossly intact. Updated Medication List Medication Instructions Recorded Confirmed Type albuterol sulfate 90 mcg/actuation 2 puff inhalation QID 01/18/19 02/11/22 History aerosol inhaler (ProAir HFA) aspirin 81 mg tablet,delayed 81 mg PO QAM 01/18/19 02/11/22 History release furosemide 20 mg tablet 20 mg PO QAM 01/18/19 02/11/22 History metoprolol tartrate 25 mg tablet 25 mg PO Q12 01/18/19 02/11/22 History nitroglycerin 0.4 mg sublingual 0.4 mg sublingual UD 01/18/19 02/11/22 History tablet omeprazole 40 mg capsule,delayed 40 mg PO BID 01/18/19 02/11/22 History release rosuvastatin 40 mg tablet (Crestor) 40 mg PO QAM 01/18/19 02/11/22 History spironolactone 25 mg tablet 12.5 mg PO QAM 01/18/19 02/11/22 History triamcinolone acetonide 0.5 % 1 applic topical BID 01/18/19 02/11/22 History topical cream cyanocobalamin (vitamin B-12) 1,000 mcg PO DAILY 04/11/20 02/11/22 History 1,000 mcg tablet (Vitamin B-12) cyclobenzaprine 10 mg tablet 10 mg PO BID PRN Spasms 02/11/22 02/11/22 History tiotropium bromide 2.5 2 puff inhalation QAM 02/11/22 02/11/22 History mcg/actuation mist for inhalation (Spiriva Respimat) amoxicillin 875 mg-potassium 1 tab PO BID #6 tabs 02/14/22 Rx clavulanate 125 mg tablet prednisone 20 mg tablet 40 mg PO DAILY #6 tabs 02/14/22 Rx Hospital Stay Data Consultations 02/11/22 22:12 ED Decision to Admit Stat Diagnostic Imagining Performed 02/11/22 22:09 CT angio chest PE protocol Stat Pending Results Patient Have Any Pending Studies at Discharge: No Discharge Instructions Given to Patient (Per Discharging Provider) Please take all medications as instructed on discharge list below. Please follow-up with your primary care provider at the date and time above to touch base and ensure you are still feeling well after returning home. Please continue with an additional three days of steroids (prednisone) and antibiotics (augmentin). Please continue with daily Spiriva inhaler and use albuterol only as needed for shortness of breath or wheezing. It was a pleasure taking care of you! Please call if you have any questions or problems. You can reach a [facility] hospitalist on duty at [facility] 24 hours a day by calling [phone]. Take care of yourself. Hiwot Weiss, [facility] Center[facility] Total Time Total Time Spent Total Time Spent (In Minutes): 60
[2022-02-14] MEDS: cefTRIAXone SODIUM 2,000 MG in DEXTROSE 5% 50 ML IV SCH (13:34)
== END 2022-02-14 14:19 | disposition home or self-care (01) | DRG 192 ==
LOC: ED 20:25 → 2N 02-12 01:22

== ENCOUNTER 2023-03-01 23:11 | Inpatient (IN) ==
--- NOTE | 2023-03-01 23:14 | Emergency Department Note ---
Impression & Plan Non-ST elevation UT (NSTEMI), PNA (pneumonia) ED Provider Note Provider: Kit Sabillon MD DATE OF SERVICE: 03/01/2023 CHIEF COMPLAINT: Tachycardia, chest pain HISTORY OF PRESENT ILLNESS: Patient is a 82-year-old gentleman history of CAD status post CABG, COPD, CVA, aortic valve stenosis, BPH presenting here today via ambulance from his home. Reports he had some respiratory symptoms and believes he had bronchitis and talked with his doctors office today. They given prescription for prednisone and took the first dose earlier. Utilize his albuterol nebulizer and felt golf ball inspector his face developed chest pain and an elevated heart rate. EMS noted to be hypertensive and tachycardic upon arrival. Tenderness and central chest pain resolved with administration of nitroglycerin and aspirin. EMS noted some diffuse ST depressions. Patient denies any nausea or abdominal pain. Denies any chest pain at this time. States he feels little dizzy earlier but not anymore. Denies any new leg swelling. No trauma. PAST MEDICAL HISTORY: As noted above MEDICATIONS: Reviewed home medications SOCIAL HISTORY: Former smoker, lives by himself PHYSICAL EXAM: GENERAL: alert and oriented in no acute distress on stretcher Head: normocephalic and atraumatic EYES: No injection, discharge or icterus. EOMI. NECK: Trachea midline. ENT: Mucous membranes pink and moist. LUNGS: Airway patent. No retractions. Breath sounds clear with good air entry bilaterally. HEART: Regular tachycardic rate and rhythm. No chest wall tenderness ABDOMEN: Soft and non-tender, without guarding or rebound. SKIN: Acyanotic, warm, dry, without rashes EXTREMITIES: Without tenderness with trace bilateral lower leg edema. NEUROLOGICAL: No focal deficits. No aphasia. No facial droop or slurred speech. EK bpm sinus tachycardia. Artifact but no PVC. No clear acute ST segment elevation with some diffuse inferior and lateral ST depression. QTc 468. Compared to previous from February 11, 2022, more prominent lateral ST depression today. CONTINUOUS CARDIAC MONITORING: was ordered and showed a heart rate of 90s-120s bpm in sinus tachycardia to normal sinus rhythm 1 view chest x-ray per interpretation: No significant cardiomegaly or free air. Sternal wires noted. No pneumothorax. No significant pulmonary edema with what appears to be possible development of right basilar infiltrate. Patient's laboratory studies and imaging reviewed. Differential includes Cardiac ischemia, aortic dissection, pulmonary embolism, pneumothorax, pneumonia, pericarditis, myocarditis, esophageal rupture, GERD, cholecystitis, pancreatitis, musculoskeletal, as well as other pathologies. IMPRESSION/MEDICAL DECISION MAKING: Given his rapid improvement with nitroglycerin and use of steroid and nebulizer wonder if the adrenergic effect of these medications prompted an arrhythmia and the tachycardia and his symptoms. Appears to be on metoprolol from records and with some tachycardia this time given a small bit of extra IV metoprolol. Chest x-ray and COVID test send basic blood work sent. Chest pain-free at this point but does have some EKG findings. Question little bit of demand ischemia versus ACS. Doubt dissection at this time given his resolution of pain. Benign abdomen on exam. Not hypoxic here. Low suspicion for PE given his improvement rapidly. X-ray questions may be a small amount of pneumonia. Does have a leukocytosis of 19 although did start steroids. No anemia. No significant lecture light abnormality or signs of renal dysfunction. Troponin returns elevated 148. Did already receive aspirin. Will start on heparin drip given this. Not having active chest pain will bring in for further cardiac evaluation as well as treatment of possible pneumonia. Ceftriaxone and doxycycline administered. Discussed with the hospitalist team as well as the patient was in agreement. DIAGNOSIS: NSTEMI, right lower lobe pneumonia DISPOSITION: Hospitalist will evaluate Patient was agreeable with this plan. Critical Care I have personally spent 33 minutes of critical care time in the direct management of this patient. This includes bedside care, interpretation of diagnostic studies, and testing, discussion with consultants, patient, and other required patient management activities. These 33 minutes is in excess of all separately billable procedures. Past Med/Surg History Medical History (Updated 03/02/23 @ 00:32 by Kit Sabillon M.D.) Hypoxia BPH (benign prostatic hyperplasia) H/O: CVA (cerebrovascular accident) Aortic stenosis CAD (coronary artery disease) Hypersensitivity reaction Hypoxia Anxiety Alcohol use Pneumonia due to COVID-19 virus Hypoxia COVID-19 Ischemic stroke Gastroesophageal reflux disease Dyslipidemia Coronary artery disease involving coronary bypass graft Carotid artery stenosis Benign hypertension Aortic valve stenosis Surgical History Hx of cardiac catheterization History of carotid endarterectomy History of repair of inguinal hernia Family History Other Heart disease Stroke Social History Smoking Status: Never smoker Tobacco Type: Cigarettes Second Hand Exposure: No; Do You Dip or Chew Tobacco: No; Hx Alcohol Use: Yes Alcohol type: beer Hx Substance Use: No Preferred Language: Turkmen Communication Ability: Effective Non Morse Intercept Technician Required: No Beliefs That Will Affect Care: None marital status: Current Living Situation: Alone Feels Safe at Home: Yes Assistive Devices: None Allergies Allergies Allergy/AdvReac Type Severity Reaction Status Date / Time remdesivir Allergy Severe hypotension, Verified 03/02/23 00:57 diaphoretic naproxen Allergy Unknown Unverified 03/02/23 00:57 morphine AdvReac Severe HALLUCINATI Verified 03/02/23 00:57 ONS Home Meds Home Medications Medication Instructions Recorded Confirmed albuterol sulfate 90 mcg/actuation 2 puff inhalation QID PRN 01/18/19 03/02/23 aerosol inhaler (ProAir HFA) Shortness Of Breath Or Wheezing aspirin 81 mg tablet,delayed 81 mg PO QAM 01/18/19 03/02/23 release furosemide 20 mg tablet 20 mg PO QAM 01/18/19 03/02/23 metoprolol tartrate 25 mg tablet 25 mg PO Q12 01/18/19 03/02/23 nitroglycerin 0.4 mg sublingual 0.4 mg sublingual UD 01/18/19 03/02/23 tablet omeprazole 40 mg capsule,delayed 40 mg PO DAILY 01/18/19 03/02/23 release rosuvastatin 40 mg tablet (Crestor) 40 mg PO QAM 01/18/19 03/02/23 spironolactone 25 mg tablet 12.5 mg PO QAM 01/18/19 03/02/23 triamcinolone acetonide 0.5 % 1 applic topical BID PRN flare ups 01/18/19 03/02/23 topical cream cyanocobalamin (vitamin B-12) 1,000 mcg PO DAILY 04/11/20 03/02/23 1,000 mcg tablet (Vitamin B-12) cyclobenzaprine 10 mg tablet 5 mg PO BID PRN Spasms 02/11/22 03/02/23 tiotropium bromide 2.5 2 puff inhalation QAM 02/11/22 03/02/23 mcg/actuation mist for inhalation (Spiriva Respimat) ascorbic acid (vitamin C) 500 mg 500 mg PO DAILY 03/02/23 03/02/23 tablet (Vitamin C) levalbuterol HCl 1.25 mg/3 mL 1.25 mg inhalation .Q6HR PRN 03/02/23 03/02/23 solution for nebulization Shortness Of Breath Or Wheezing levalbuterol tartrate 45 1 puff inhalation Q4 PRN Shortness 03/02/23 03/02/23 mcg/actuation aerosol inhaler Of Breath Or Wheezing (Xopenex HFA) prednisone 10 mg tablet 10 mg PO .TAPER DIRECTED 03/02/23 03/02/23 Results & Data (ED) Vital Signs Vital Signs - 24 hr 03/01/23 23:16 03/01/23 23:16 03/01/23 23:20 Temperature 36.4 C L 36.4 C L Temperature Source Oral Oral Pulse Rate 114 H Pulse Rate [Right Finger] 99 H Respiratory Rate 20 29 H Blood Pressure 154/95 H Blood Pressure [Right Arm] 157/94 H Blood Pressure Mean 114 Blood Pressure Mean [Right Arm] 115 Pulse Oximetry 92 94 Oxygen Delivery Method Room Air Room Air Room Air Sepsis Recent Fever Within 48 Hours No Sepsis New/Unexplained Change in Mental Status No Sepsis Action Taken by Nursing No Action Required 03/01/23 23:20 03/01/23 23:21 03/01/23 23:34 Temperature Temperature Source Pulse Rate 114 H 107 H Pulse Rate [Right Finger] Respiratory Rate Blood Pressure 114/88 Blood Pressure [Right Arm] Blood Pressure Mean Blood Pressure Mean [Right Arm] Pulse Oximetry 94 Oxygen Delivery Method Room Air Sepsis Recent Fever Within 48 Hours Sepsis New/Unexplained Change in Mental Status Sepsis Action Taken by Nursing 03/02/23 00:06 Temperature Temperature Source Pulse Rate 97 H Pulse Rate [Right Finger] Respiratory Rate Blood Pressure 124/73 Blood Pressure [Right Arm] Blood Pressure Mean Blood Pressure Mean [Right Arm] Pulse Oximetry Oxygen Delivery Method Sepsis Recent Fever Within 48 Hours Sepsis New/Unexplained Change in Mental Status Sepsis Action Taken by Nursing Laboratory Data 03/01/23 22:23 03/01/23 22:23 Lab Results 03/01/23 03/01/23 03/02/23 Range/Units 22:23 22:25 00:52 WBC 19.40 H (4.8-10.8) K/ul RBC 4.97 (4.70-6.10) M/uL Hgb 14.4 (14.0-18.0) g/dl Hct 43.8 (42.0-52.0) % MCV 88.1 (80.0-100.0) fL MCH 29.0 (25.0-34.0) pg MCHC 32.9 (32.0-36.0) g/dL RDW Std Deviation 45.6 (36.4-46.3) fL RDW Coeff of Stefano 14.1 (11.5-14.5) % Plt Count 268 (130-400) K/uL MPV 9.5 (9.4-12.4) fL Immature Gran % (Auto) 1.0 % Neut % (Auto) 72.4 % Lymph % (Auto) 15.9 % [place] % (Auto) 10.4 % Eos % (Auto) 0.0 % Baso % (Auto) 0.3 % Neut # (Auto) 14.06 H (1.40-6.50) K/uL Lymph # (Auto) 3.08 (1.20-3.40) K/uL [place] # (Auto) 2.01 H (0.11-0.59) K/uL Eos # (Auto) 0.00 (0.00-0.50) K/uL Baso # (Auto) 0.05 (0.00-0.20) K/uL Immature Gran # (Auto) 0.20 (0.01-0.20) K/uL PT 11.1 (9.0-12.0) Seconds INR 1.0 (0.9-1.1) Sodium 137 (136-145) mmol/L Potassium 3.6 (3.5-5.1) mmol/L Chloride 104 (98-107) mmol/L Carbon Dioxide 23 (21-32) mmol/L Anion Gap 10 (3-11) BUN 13 (6-23) mg/dl Creatinine 1.06 (0.6-1.4) mg/dl Est Cr Clr Drug Dosing 53.8 ml/min Est GFR ( Amer) 76.4 ml/min Est GFR (Non-Af Amer) 66.0 ml/min BUN/Creatinine Ratio 12.3 (10-20) Glucose 193 H (70-99(Fasting)) mg/dl Lactate 2.1 H* (0.4-2.0) mmol/L Calcium 9.2 (8.6-10.3) mg/dl Magnesium 1.7 (1.7-2.4) mg/dl Total Bilirubin 0.4 (0.2-1.0) mg/dl AST 20 (13-39) U/L ALT 13 (7-52) U/L Alkaline Phosphatase 55 (34-104) U/L Troponin I High Sens 148.3 H* (0-20) pg/ml Total Protein 7.1 (6.0-8.3) gm/dl Albumin 4.1 (3.4-5.0) gm/dl Globulin 3.0 (2.5-4.0) gm/dl Albumin/Globulin Ratio 1.4 (0.9-2) Lipase 19 (11-82) U/L TSH 0.247 L (0.300-4.500) uIu/ml Free T4 0.86 (0.61-1.60) ng/dl SARS-CoV-2, RNA, NAAT NEGATIVE (NEGATIVE) Administered Medications Heparin Sodium/Dextrose (Heparin Sodium/Dextrose) 25,000 units in 500 mls @ 18 mls/hr IV .Q24H [facility]; Protocol Stop: 04/01/23 00:44 Last Admin: 03/02/23 01:33 Dose: 900 units/hr, 18 mls/hr Documented By: ASHOK Co-signed By: LUCY Potassium Chloride/Sodium Chloride (Normal Saline W/20 Meq Kcl) 20 meq in 1,000 mls @ 60 mls/hr IV .[id number] STA; Protocol Stop: 03/02/23 17:23 Last Admin: 03/02/23 01:32 Dose: 60 mls/hr Documented By: ASHOK Discontinued Medications Doxycycline Hyclate (Doxycycline Hyclate 100 Mg Cap) 100 mg PO NOW STA Stop: 03/02/23 00:27 Last Admin: 03/02/23 01:33 Dose: 100 mg Documented By: ASHOK Heparin Sodium (Porcine) (Heparin Sod (Porcine) 1000 Unit/Ml) 1 units IV NOW ONE Stop: 03/02/23 00:43 Last Admin: 03/02/23 01:35 Dose: 4,000 units Documented By: ASHOK Co-signed By: LUCY Heparin Sodium/Dextrose (Heparin Iv Adult Wt-Based Low-Dose W/ Initial Bolus Protocol) 1 each IV NOW STA; Protocol Stop: 03/02/23 00:27 Last Admin: 03/02/23 01:35 Dose: 1 each Documented By: ASHOK Ceftriaxone Sodium (Rocephin) 2,000 mg in 50 mls @ 100 mls/hr IV NOW STA Stop: 03/02/23 00:55 Last Admin: 03/02/23 01:33 Dose: 100 mls/hr Documented By: ASHOK Metoprolol Tartrate (Metoprolol Tartrate 1 Mg/Ml Vial) 5 mg IV NOW STA Stop: 03/01/23 23:25 Last Admin: 03/01/23 23:34 Dose: 5 mg Documented By: ASHOK Discharge Plan Visit Data Chief Complaint: Chest Pain Stated Complaint: Chest Pain, Tachycardia ED Provider: Kit Sabillon Discharge Problem: Non-ST elevation [place] (NSTEMI), PNA (pneumonia) Patient Disposition: Being Evaluated by Hospitalist Forms Stand Alone Forms: My [facility] Prescriptions Prescriptions: No Action omeprazole 40 mg Capsule,Delayed Release(Dr/Ec) 40 mg PO DAILY Rx Instructions: Take 1 capsule by mouth twice a day, 30 minutes to 1 hour before breakfast and supper. aspirin 81 mg Tablet,Delayed Release (Dr/Ec) 81 mg PO QAM spironolactone 25 mg Tablet 12.5 mg PO QAM nitroglycerin 0.4 mg Tablet, Sublingual 0.4 mg sublingual UD Rx Instructions: One tablet under tongue if needed for chest pain. May repeat 3 times. If chest pain continues, call 911. furosemide 20 mg Tablet 20 mg PO QAM albuterol sulfate [ProAir HFA] 90 mcg/actuation Hfa Aerosol Inhaler 2 puff INHALATION QID PRN (Reason: Shortness Of Breath Or Wheezing) rosuvastatin [Crestor] 40 mg Tablet 40 mg PO QAM metoprolol tartrate 25 mg Tablet 25 mg PO Q12 triamcinolone acetonide 0.5 % Cream 1 applic TOPICAL BID PRN (Reason: flare ups) cyanocobalamin (vitamin B-12) [Vitamin B-12] 1,000 mcg Tablet 1,000 mcg PO DAILY prednisone 10 mg tablet 10 mg PO .TAPER DIRECTED Rx Instructions: start 03/01/2023, Take 5 tabs for 3 days, 4 tabs for 3 days, 3 tabs for 3 days , 2 tabs for 3 days, 1 tab for 3 days. levalbuterol HCl 1.25 mg/3 mL solution for nebulization 1.25 mg INHALATION .Q6HR PRN (Reason: Shortness Of Breath Or Wheezing) levalbuterol tartrate [Xopenex HFA] 45 mcg/actuation Hfa Aerosol Inhaler 1 puff INHALATION Q4 PRN (Reason: Shortness Of Breath Or Wheezing) ascorbic acid (vitamin C) [Vitamin C] 500 mg Tablet 500 mg PO DAILY Spiriva Respimat 2.5 mcg/actuation mist 2 puff INHALATION QAM cyclobenzaprine 10 mg tablet 5 mg PO BID PRN (Reason: Spasms) Referrals Referrals: Piotr Wilson MD [Primary Care Provider] - Discharge Problem: PNA (pneumonia) Qualifiers: Pneumonia type: due to unspecified organism Laterality: right
[2023-03-01] MEDS ORDERED: METOPROLOL TARTRATE 1 MG/ML VIAL IV STA (23:24)
[2023-03-01 23:55] LABS: Basophils # (auto) 0.05 K/uL (0.00-0.20); Basophils % (auto) 0.3 %; Hematocrit (blood only) 43.8 % (42.0-52.0); Hemoglobin 14.4 g/dl (14.0-18.0); Lymphocytes # (auto) 3.08 K/uL (1.20-3.40); Lymphocytes % (auto) 15.9 %; Mean Corpuscular Hgb Conc 32.9 g/dL (32.0-36.0); Mean Corpuscular Volume 88.1 fL (80.0-100.0); Mean Platelet Volume 9.5 fL (9.4-12.4); Monocytes # (auto) 2.01 K/uL (0.11-0.59); Monocytes % (auto) 10.4 %; Neutrophils # (auto) 14.06 K/uL (1.40-6.50); Neutrophils % (auto) 72.4 %; Platelet Count 268 K/uL (130-400); RDW Coefficient of Variation 14.1 % (11.5-14.5); RDW Standard Deviation 45.6 fL (36.4-46.3); Red Blood Count 4.97 M/uL (4.70-6.10)
[2023-03-02 00:06] LABS: Albumin Globulin Ratio 1.4 (0.9-2); Albumin Level 4.1 gm/dl (3.4-5.0); BUN Creatinine Ratio 12.3 (10-20); Bilirubin,Total 0.4 mg/dl (0.2-1.0); Calcium 9.2 mg/dl (8.6-10.3); Creatinine Clr Calc Pharmacy 53.8 ml/min; Est GFR (African American) 76.4 ml/min; Magnesium 1.7 mg/dl (1.7-2.4); Potassium 3.6 mmol/L (3.5-5.1); Total Protein 7.1 gm/dl (6.0-8.3)
[2023-03-02 00:21] LABS: Prothrombin Time 11.1 Seconds (9.0-12.0)
[2023-03-02 00:23] LABS: Thyroid Stimulating Hormone 0.247 uIu/ml (0.300-4.500); Troponin I High Sensitivity 148.3 pg/ml (0-20)
[2023-03-02] MEDS ORDERED: Heparin IV Adult Wt-Based Low-Dose w/ INITIAL Bolus Protocol IV STA (00:26)
[2023-03-02] MEDS ORDERED: DOXYCYCLINE HYCLATE 100 MG CAP PO STA (00:26)
[2023-03-02] MEDS ORDERED: cefTRIAXone SODIUM 2,000 MG/50 ML BAG IV STA (00:26)
[2023-03-02] MEDS ORDERED: HEPARIN SOD (PORCINE) 1000 UNIT/ML IV ONE (00:42)
[2023-03-02] MEDS ORDERED: NSS + 20MEQ KCL 20 MEQ/1,000 ML BAG IV STA (00:44)
[2023-03-02] MEDS ORDERED: HEPARIN SODIUM/DEXTROSE 25,000 UNITS/500 ML BAG IV SCH (00:45)
[2023-03-02 01:00] LABS: T4 Free Thyroxine 0.86 ng/dl (0.61-1.60)
[2023-03-02] MEDS ORDERED: AMPICILLIN/SULBACTAM SOD 3,000 MG in SODIUM CHLOR 0.9% MINI-B 100 ML IV STA (01:31)
--- NOTE | 2023-03-02 01:32 | History & Physical Report ---
Date of Service March 02, 2023 Assessment & Plan (1) Non-ST elevation [place] (NSTEMI): Plan: Chest pain similar to heart attack plus troponin elevation Possibly secondary to elevated BP and heart rate following home neb administration for COPD exacerbation hx CAD status post CABG Severe sepsis SIRS plus lactic acidosis secondary to possible aspiration pneumonitis resulting in recurrent COPD exacerbation valvular heart disease (moderate , mild AR/MR, TTE 2021) hx CVA PVD status post surgery hx AAA, stable measurement at 3.6 cm on outpatient ultrasound this year hyperlipidemia, on statin Rx GERD, stable on regimen Steroid-induced hyperglycemia likely prediabetes, hemoglobin A1c noted to be 5.8 in 2012 past tobacco abuse PCU Continue patient's home aspirin, beta-darion, statin Rx for CAD prevention Continue IV heparin initiated at the ER Follow troponin TTE, Cardiology consult re: NSTEMI N.p.o. until patient seen by cardiology in anticipation of ischemic workup CS, Unasyn followed by Augmentin Follow lactic acid response to IVF ((Guideline recommended 30 cc/kg BW fluid bolus administration over 3 hours precluded by patient's valvular heart disease.) Aspiration precautions, [employer] eval Nebs RTC (Xopenex preferred over albuterol given tachycardia noted upon arrival at the ER), prednisone course Update hemoglobin A1c DVT prophylaxis with IV heparin Full code Text document was generated using [employer] voice recognition software. It may contain grammatical or spelling errors. Kindly contact undersigned for clarification of any documentation item in question. History of Present Illness Chief Complaint: Chest pain Primary Care Provider: Piotr Wilson MD History obtained from patient and records. Medical history significant for CAD status post CABG, valvular heart disease (moderate , mild AR/MR, TTE 2021), CVA, PVD status post surgery, AAA, hypertension, hyperlipidemia, COPD, GERD, past tobacco abuse. Last confinement January 2022 for COPD exacerbation. 3 weeks ago patient noted bronchitis symptoms at home which improved with home prednisone. Yesterday, patient noted recurrent cough symptoms productive of thick sputum associated with shortness of breath. Patient admits to occasional cough/choking symptoms with water/food intake. Patient took first dose of home prednisone rescue medication. Neb treatment done at home when shortness of breath and wheezing symptoms did not respond to inhaler use. Patient later noted left-sided chest heaviness and sweatiness after breathing treatment. Symptoms somewhat similar to 'heart attack' from years ago. Patient denies fluid retention. EMS called to patient's home following PCPs advice. SBP noted to be 180s, heart rate 120s. Improved chest pain with aspirin and nitroglycerin administration. IV heparin initiated at the ER. 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 Allergies Allergy/AdvReac Type Severity Reaction Status Date / Time remdesivir Allergy Severe hypotension, Verified 03/02/23 00:57 diaphoretic naproxen Allergy Unknown Unverified 03/02/23 00:57 morphine AdvReac Severe HALLUCINATI Verified 03/02/23 00:57 ONS Home Medications Medication Instructions Recorded Confirmed Type albuterol sulfate 90 mcg/actuation 2 puff inhalation QID PRN 01/18/19 03/02/23 History aerosol inhaler (ProAir HFA) Shortness Of Breath Or Wheezing aspirin 81 mg tablet,delayed 81 mg PO QAM 01/18/19 03/02/23 History release furosemide 20 mg tablet 20 mg PO QAM 01/18/19 03/02/23 History metoprolol tartrate 25 mg tablet 25 mg PO Q12 01/18/19 03/02/23 History nitroglycerin 0.4 mg sublingual 0.4 mg sublingual UD 01/18/19 03/02/23 History tablet omeprazole 40 mg capsule,delayed 40 mg PO DAILY 01/18/19 03/02/23 History release rosuvastatin 40 mg tablet (Crestor) 40 mg PO QAM 01/18/19 03/02/23 History spironolactone 25 mg tablet 12.5 mg PO QAM 01/18/19 03/02/23 History triamcinolone acetonide 0.5 % 1 applic topical BID PRN flare ups 01/18/19 03/02/23 History topical cream cyanocobalamin (vitamin B-12) 1,000 mcg PO DAILY 04/11/20 03/02/23 History 1,000 mcg tablet (Vitamin B-12) cyclobenzaprine 10 mg tablet 5 mg PO BID PRN Spasms 02/11/22 03/02/23 History tiotropium bromide 2.5 2 puff inhalation QAM 02/11/22 03/02/23 History mcg/actuation mist for inhalation (Spiriva Respimat) ascorbic acid (vitamin C) 500 mg 500 mg PO DAILY 03/02/23 03/02/23 History tablet (Vitamin C) levalbuterol HCl 1.25 mg/3 mL 1.25 mg inhalation .Q6HR PRN 03/02/23 03/02/23 History solution for nebulization Shortness Of Breath Or Wheezing levalbuterol tartrate 45 1 puff inhalation Q4 PRN Shortness 03/02/23 03/02/23 History mcg/actuation aerosol inhaler Of Breath Or Wheezing (Xopenex HFA) prednisone 10 mg tablet 10 mg PO .TAPER DIRECTED 03/02/23 03/02/23 History Past Med/Surg History Medical History (Updated 03/02/23 @ 07:43 by KAYLA Marques) Hypoxia BPH (benign prostatic hyperplasia) H/O: CVA (cerebrovascular accident) Aortic stenosis CAD (coronary artery disease) Hypersensitivity reaction Hypoxia Anxiety Alcohol use Pneumonia due to COVID-19 virus Hypoxia COVID-19 Ischemic stroke Gastroesophageal reflux disease Dyslipidemia Coronary artery disease involving coronary bypass graft Carotid artery stenosis Benign hypertension Aortic valve stenosis Surgical History Hx of cardiac catheterization History of carotid endarterectomy History of repair of inguinal hernia Family History Other Heart disease Stroke Social History Smoking Status: Never smoker Tobacco Type: Cigarettes Second Hand Exposure: No; Do You Dip or Chew Tobacco: No; Hx Alcohol Use: Yes Alcohol type: beer Hx Substance Use: No Preferred Language: Italian Communication Ability: Effective 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 Required: No Beliefs That Will Affect Care: None marital status: Current Living Situation: Alone Other Information That Helps Us Care for You: No Feels Safe at Home: Yes Safety Concerns: Feels Safe At This Time Assistive Devices: None Review of Systems Review of Systems: As per HPI, all other systems reviewed and negative Physical Exam Physical Exam: GENERAL: Slightly anxious, minimal respiratory distress SKIN: Normal color, warm HEENT: Alopecia, bespectacled, [place] palpebral conjunctivae, no ptosis, dry buccal mucosa NECK : Supple, no tenderness CHEST : Decreased breath sounds, no tenderness HEART : RRR, systolic murmur ABDOMEN: Some distention, nontender EXTREMITIES : No LE swelling/tenderness, no other conspicuous deformities noted NEUROLOGIC : Coherent, no facial asymmetry, no other gross focality Results & Data Results & Data Vital Signs (Past 12 Hours) Vital Signs Temp Pulse Pulse Resp BP BP Pulse Ox 03/02/23 00:06 97 H 124/73 03/01/23 23:34 107 H 114/88 03/01/23 23:21 114 H 03/01/23 23:20 94 03/01/23 23:20 36.4 C L 114 H 29 H 154/95 H 94 03/01/23 23:16 36.4 C L 99 H 20 157/94 H 92 03/01/23 23:16 O2 Del Method 03/02/23 00:06 03/01/23 23:34 03/01/23 23:21 03/01/23 23:20 Room Air 03/01/23 23:20 Room Air 03/01/23 23:16 Room Air 03/01/23 23:16 Room Air Laboratory Results Laboratory Results WBC 19.40 K/ul (4.8-10.8) H 03/01/23 22: RBC 4.97 M/uL (4.70-6.10) 03/01/23 22: Hgb 14.4 g/dl (14.0-18.0) 03/01/23 22: Hct 43.8 % (42.0-52.0) 03/01/23 22: MCV 88.1 fL (80.0-100.0) 03/01/23 22: MCH 29.0 pg (25.0-34.0) 03/01/23 22: MCHC 32.9 g/dL (32.0-36.0) 03/01/23 22: RDW Std Deviation 45.6 fL (36.4-46.3) 03/01/23: RDW Coeff of Stefano 14.1 % (11.5-14.5) 03/01/23: Plt Count 268 K/uL (130-400) 03/01/23 22: MPV 9.5 fL (9.4-12.4) 03/01/23 22: Immature Gran % (Auto) 1.0 % 03/01/23 22: Neut % (Auto) 72.4 % 03/01/23 22: Lymph % (Auto) 15.9 % 03/01/23 22: [place] % (Auto) 10.4 % 03/01/23 22: Eos % (Auto) 0.0 % 03/01/23 22: Baso % (Auto) 0.3 % 03/01/23: Neut # (Auto) 14.06 K/uL (1.40-6.50) H 03/01/23: Lymph # (Auto) 3.08 K/uL (1.20-3.40) 03/01/23 22: [place] # (Auto) 2.01 K/uL (0.11-0.59) H 03/01/23 22: Eos # (Auto) 0.00 K/uL (0.00-0.50) 03/01/23 22: Baso # (Auto) 0.05 K/uL (0.00-0.20) 03/01/23 22: Immature Gran # (Auto) 0.20 K/uL (0.01-0.20) 03/01/23: PT 11.1 Seconds (9.0-12.0) 03/01/23: INR 1.0 (0.9-1.1) 03/01/23: Sodium 137 mmol/L (136-145) 03/01/23 22: Potassium 3.6 mmol/L (3.5-5.1) 03/01/23: Chloride 104 mmol/L (98-107) 03/01/23: Carbon Dioxide 23 mmol/L (21-32) 03/01/23 22: Anion Gap 10 (3-11) 03/01/23 22: BUN 13 mg/dl (6-23) 03/01/23: Creatinine 1.06 mg/dl (0.6-1.4) 03/01/23: Est Cr Clr Drug Dosing 53.8 ml/min 03/01/23 22: Est GFR ( Amer) 76.4 ml/min 03/01/23 22: Est GFR (Non-Af Amer) 66.0 ml/min 03/01/23 22: BUN/Creatinine Ratio 12.3 (10-20) 03/01/23 22: Glucose 193 mg/dl (70-99(Fasting)) H 03/01/23 22: Lactate 2.1 mmol/L (0.4-2.0) H* 03/02/23 00:52 Calcium 9.2 mg/dl (8.6-10.3) 03/01/23 22: Magnesium 1.7 mg/dl (1.7-2.4) 03/01/23: Total Bilirubin 0.4 mg/dl (0.2-1.0) 03/01/23 22: AST 20 U/L (13-39) 03/01/23 22: ALT 13 U/L (7-52) 03/01/23 22: Alkaline Phosphatase 55 U/L (34-104) 03/01/23 22: Troponin I High Sens 148.3 pg/ml (0-20) H* 03/01/23 22: Total Protein 7.1 gm/dl (6.0-8.3) 03/01/23 22: Albumin 4.1 gm/dl (3.4-5.0) 03/01/23 22: Globulin 3.0 gm/dl (2.5-4.0) 03/01/23: Albumin/Globulin Ratio 1.4 (0.9-2) 03/01/23: Lipase 19 U/L (11-82) 03/01/23 22: TSH 0.247 uIu/ml (0.300-4.500) L 03/01/23: Free T4 0.86 ng/dl (0.61-1.60) 03/01/23 22: SARS-CoV-2, RNA, NAAT NEGATIVE (NEGATIVE) 03/01/23 22:25 Diagnostic Findings Chest x-ray as per my interpretation atelectasis EKG as per my interpretation : Rate 110, sinus tachycardia, LAD, LAFB, septal infarct, ST depression anterolateral leads
[2023-03-02] MEDS ORDERED: MoRPHine SULFATE 2 MG/ML CARP IV PRN (01:39)
[2023-03-02] MEDS ORDERED: PROMETHAZINE HCL 6.25 MG in SODIUM CHLORIDE 0.9% 50 ML IV PRN (01:39)
[2023-03-02] MEDS ORDERED: oxyCODONE HCL IR 5 MG TAB (IMMEDIATE RELEASE) PO PRN (01:39)
[2023-03-02] MEDS ORDERED: LORazepam 0.5 MG TAB PO PRN (01:39)
[2023-03-02 01:53] LABS: Partial Thromboplastin Ratio 0.9; Partial Thromboplastin Time 26 Seconds (21-31)
[2023-03-02] MEDS: MAGNESIUM SULFATE / D5W 1 GM/100 ML BAG IV SCH ×2 (02:32→04:16)
[2023-03-02] MEDS ORDERED: ACETAMINOPHEN 325 MG TAB PO PRN (03:55)
[2023-03-02] MEDS ORDERED: HYDROmorphone INJ 0.5 MG/0.5 ML SYR IV PRN (05:43)
[2023-03-02 06:07] LABS: Hematocrit (blood only) 38.9 % (42.0-52.0); Hemoglobin 13.1 g/dl (14.0-18.0); Mean Corpuscular Hemoglobin 29.2 pg (25.0-34.0); Mean Corpuscular Hgb Conc 33.7 g/dL (32.0-36.0); Mean Corpuscular Volume 86.6 fL (80.0-100.0); Mean Platelet Volume 9.4 fL (9.4-12.4); Platelet Count 231 K/uL (130-400); RDW Coefficient of Variation 14.1 % (11.5-14.5); Red Blood Count 4.49 M/uL (4.70-6.10)
[2023-03-02 06:10] LABS: BUN Creatinine Ratio 12.6 (10-20); Calcium 8.6 mg/dl (8.6-10.3); Chol HDL Ratio 2.2 (0-5); Est GFR (African American) 87.3 ml/min; Est GFR (Non-African American) 75.3 ml/min; Potassium 3.6 mmol/L (3.5-5.1)
[2023-03-02 06:20] LABS: Troponin I High Sensitivity 6221.5 pg/ml (0-20)
[2023-03-02 06:40] LABS: Basophils # (auto) 0.06 K/uL (0.00-0.20); Basophils % (auto) 0.3 %; Eosinophils # (auto) 0.01 K/uL (0.00-0.50); Immature Granulocytes # (auto) 0.15 K/uL (0.01-0.20); Immature Granulocytes % (auto) 0.7 %; Lymphocytes % (auto) 26.6 %; Monocytes # (auto) 2.11 K/uL (0.11-0.59); Monocytes % (auto) 10.4 %; Neutrophils # (auto) 12.57 K/uL (1.40-6.50); Polychromasia 1+
[2023-03-02] MEDS ORDERED: XOPENEX/ATROVENT 1.25mg/0.5MG NEB COMBO NEB SCH (07:00)
--- NOTE | 2023-03-02 07:30 | Cardiology Consultation ---
Date of Consultation March 02, 2023 Assessment & Plan (1) CAD (coronary artery disease): (2) Non-ST elevation MT (NSTEMI): (3) PNA (pneumonia): (4) Aortic stenosis: Plan IMPRESSION: 82-year-old male with past medical history of coronary disease status post CABG in 2012 presented to [facility] emergency department with acute onset of chest pain and shortness of breath. EKG with more prominent ST depression in inferior and lateral leads. Troponins elevated up to 6000. Symptom resolution with aspirin and sublingual nitroglycerin. Also found to have mild right lower lobe pneumonia and started on antibiotics. PLAN: Case discussed with Dr. Walker. Please see physician attestation for further plan of care. Supervising Physician Co-Signing Physician Notes Attending Staff: Pt seen and evaluated with [facility] staff Concur with observations and plans 82 yo man presenting with chest pain + dyspnea Dx: NSTEMI * Productive cough * Possible COPD * Neb + steroid * Developed left-sided chest pain/tightness * Dyspnea + Diaphoresis * Reminiscent of previous MT * EMS activated * HTN + Tachcardia @ scene - treated with SL NTG with improvement * EKG: Lateral ST segment depressions; J point elevation in V1-V2 (leads with Q waves) * IV Heparin * WBC 20; Hb 13, plts 230, Lactate 2.1 - improved * Tn 148 - 1600 - 6200 * CXR - possible RLL PNA? - started on ABX for CAP (reviewed, infiltrate was not prominent) Cardiac HX: * CABG x 2 (CHAVARRIA to LAD , SVG to OM - 2012) * - moderate * CVA - R Carotid Occlusion, S/P Left Carotid Endarterectomy (2004) * AAA (3.4 cm) * Hyperlipidemia * Smoker (FORMER); + COPD Plans: * Plans for Coronary Angiography * Creat 0.95; Plts 231 * Continue ASA 81 mg po per day * Continue Heparin IV * Continue Lipitor 40 mg po per day * LDL 54 * Continue Lopressor 25 mg po BID * LVEF 65% (01/2022) * ECHO - results pending * SBP near goal (130 mmHg) * K+ goal 4.5-5 * KDUR 40 meq po X 1 * Mag Goal >2 * Pt is NPO Magno Walker History of Present Illness Reason for Consultation: NSTEMI Requesting Physician: Elvin hospitalist Attending Physician: Carla Scherer MD History of Present Illness 82-year-old male who initially presented to [facility] emergency department due to chest pain and shortness of breath. Yesterday morning patient was noting a worsening productive cough and shortness of breath. He took prednisone and did a neb treatment but the shortness of breath continued. He later developed a left-sided chest heaviness and became diaphoretic after the breathing treatment. EMS was summoned. On arrival blood pressure systolics were in the 180s and heart rates were elevated in the 120s. He was treated with aspirin and sublingual nitroglycerin with improvement in symptoms. In the emergency department EKG showed sinus tachycardia, [address] and T wave abnormalities in inferior lateral leads. Diffuse ST depression noted in inferior and lateral leads, more prominent than prior EKGs. IV heparin was initiated. Lab work showed a leukocytosis with a white count of 20 (possibly due to recent steroid use), hemoglobin mildly low at 13.1. Platelets 231. Electrolytes within normal limits. Renal function stable. Lactate was initially elevated at 2.1, improved to 0.8. High-sensitivity troponins increased (148.3>>1636.7>>6221.5). Questionable right lower lobe pneumonia on CXR, started on antibiotics. At home, from a cardiac standpoint, patient normally maintains on: Metoprolol tartrate 25 mg twice daily Spironolactone 12.5 mg daily Furosemide 20 mg daily Rosuvastatin 40 mg daily Aspirin 81 mg daily Last echocardiogram dated 01/2022 showed a preserved LV systolic function (55 to 59%), no wall motion abnormalities, and moderate aortic stenosis, gradient stable compared to prior echoes. Echo this admission pending. Primary outpatient associate director financial aid: Dr. Bennett Problem list: 1. Chronic coronary heart disease status post CABG x2 with CHAVARRIA to LAD SVG to the circumflex at [facility] 12/04/2012 2. Moderate aortic valve stenosis 3. 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 Asymptomatic 3.4 centimeter abdominal aortic aneurysm 5. Dyslipidemia 6. COPD, former smoker ,with history of bronchitis episodes 7. Low back pain, sciatica Allergies Allergy/AdvReac Type Severity Reaction Status Date / Time remdesivir Allergy Severe hypotension, Verified 03/02/23 00:57 diaphoretic naproxen Allergy Unknown Unverified 03/02/23 00:57 morphine AdvReac Severe HALLUCINATI Verified 03/02/23 00:57 ONS Home Medications Medication Instructions Recorded Confirmed Type albuterol sulfate 90 mcg/actuation 2 puff inhalation QID PRN 01/18/19 03/02/23 History aerosol inhaler (ProAir HFA) Shortness Of Breath Or Wheezing aspirin 81 mg tablet,delayed 81 mg PO QAM 01/18/19 03/02/23 History release furosemide 20 mg tablet 20 mg PO QAM 01/18/19 03/02/23 History metoprolol tartrate 25 mg tablet 25 mg PO Q12 01/18/19 03/02/23 History nitroglycerin 0.4 mg sublingual 0.4 mg sublingual UD 01/18/19 03/02/23 History tablet omeprazole 40 mg capsule,delayed 40 mg PO DAILY 01/18/19 03/02/23 History release rosuvastatin 40 mg tablet (Crestor) 40 mg PO QAM 01/18/19 03/02/23 History spironolactone 25 mg tablet 12.5 mg PO QAM 01/18/19 03/02/23 History triamcinolone acetonide 0.5 % 1 applic topical BID PRN flare ups 01/18/19 03/02/23 History topical cream cyanocobalamin (vitamin B-12) 1,000 mcg PO DAILY 04/11/20 03/02/23 History 1,000 mcg tablet (Vitamin B-12) cyclobenzaprine 10 mg tablet 5 mg PO BID PRN Spasms 02/11/22 03/02/23 History tiotropium bromide 2.5 2 puff inhalation QAM 02/11/22 03/02/23 History mcg/actuation mist for inhalation (Spiriva Respimat) ascorbic acid (vitamin C) 500 mg 500 mg PO DAILY 03/02/23 03/02/23 History tablet (Vitamin C) levalbuterol HCl 1.25 mg/3 mL 1.25 mg inhalation .Q6HR PRN 03/02/23 03/02/23 History solution for nebulization Shortness Of Breath Or Wheezing levalbuterol tartrate 45 1 puff inhalation Q4 PRN Shortness 03/02/23 03/02/23 History mcg/actuation aerosol inhaler Of Breath Or Wheezing (Xopenex HFA) prednisone 10 mg tablet 10 mg PO .TAPER DIRECTED 03/02/23 03/02/23 History Patient History Medical History (Updated 03/02/23 @ 07:43 by KAYLA Marques) Hypoxia BPH (benign prostatic hyperplasia) H/O: CVA (cerebrovascular accident) Aortic stenosis CAD (coronary artery disease) Hypersensitivity reaction Hypoxia Anxiety Alcohol use Pneumonia due to COVID-19 virus Hypoxia COVID-19 Ischemic stroke Gastroesophageal reflux disease Dyslipidemia Coronary artery disease involving coronary bypass graft Carotid artery stenosis Benign hypertension Aortic valve stenosis Surgical History Hx of cardiac catheterization History of carotid endarterectomy History of repair of inguinal hernia Family History Other Heart disease Stroke Social History Smoking Status: Never smoker Tobacco Type: Cigarettes Second Hand Exposure: No; Do You Dip or Chew Tobacco: No; Hx Alcohol Use: Yes Alcohol type: beer Hx Substance Use: No Preferred Language: Divehi Communication Ability: Effective Range Master Required: No Beliefs That Will Affect Care: None marital status: Current Living Situation: Alone Other Information That Helps Us Care for You: No Feels Safe at Home: Yes Safety Concerns: Feels Safe At This Time Assistive Devices: None Review of Systems Review of Systems: All systems reviewed & are unremarkable except as noted in HPI & below Physical Exam Physical Exam: Slightly overweight Left CEA Scar No elevation in JVP Sternotomy S1S2 2/6 Systolic murmur CTA B 2/2 Radial Pulse on Right 2/2 Femoral Pulse on Right - no bruit No c/c/e Warm and perfusing Results & Data Vital Signs (Past 12 Hours) Vital Signs Temp Pulse Pulse Resp BP BP Pulse Ox 03/02/23 04:22 03/02/23 04:12 144/75 H 03/02/23 03:58 36.3 C L 82 18 173/71 H 96 03/02/23 03:54 75 03/02/23 03:40 36.3 C L 82 18 173/71 H 96 03/02/23 02:30 87 26 H 128/76 96 03/02/23 02:00 88 19 135/71 95 03/02/23 01:00 95 H 17 139/81 95 03/02/23 00:31 100 H 20 136/59 L 95 03/02/23 00:06 97 H 124/73 03/02/23 00:00 100 H 28 H 99/53 L 94 03/01/23 23:34 107 H 114/88 03/01/23 23:21 114 H 03/01/23 23:20 94 03/01/23 23:20 36.4 C L 114 H 29 H 154/95 H 94 03/01/23 23:19 115 H 25 H 154/95 H 94 03/01/23 23:19 36.5 C 115 H 19 154/95 H 95 03/01/23 23:16 36.4 C L 99 H 20 157/94 H 92 03/01/23 23:16 O2 Del Method 03/02/23 04:22 Room Air 03/02/23 04:12 03/02/23 03:58 Room Air 03/02/23 03:54 03/02/23 03:40 Room Air 03/02/23 02:30 03/02/23 02:00 03/02/23 01:00 03/02/23 00:31 03/02/23 00:06 03/02/23 00:00 03/01/23 23:34 03/01/23 23:21 03/01/23 23:20 Room Air 03/01/23 23:20 Room Air 03/01/23 23:19 03/01/23 23:19 Room Air 03/01/23 23:16 Room Air 03/01/23 23:16 Room Air Laboratory Results Cardiac Enzymes 03/01/23 03/02/23 03/02/23 Range/Units 22:23 00:55 05:41 AST 20 (13-39) U/L Troponin I High Sens 148.3 H* 1636.7 H* D 6221.5 H* D (0-20) pg/ml Coagulation 03/01/23 03/02/23 Range/Units 22:23 00:55 PT 11.1 (9.0-12.0) Seconds APTT 26 (21-31) Seconds Lipids 03/02/23 Range/Units 05:41 Triglycerides 52 (0-150) mg/dl Cholesterol 119 (0-200) mg/dl HDL Cholesterol 55 mg/dl Cholesterol/HDL Ratio 2.2 (0-5) CBC 03/01/23 03/02/23 Range/Units 22:23 05:41 WBC 19.40 H 20.30 H (4.8-10.8) K/ul RBC 4.97 4.49 L (4.70-6.10) M/uL Hgb 14.4 13.1 L (14.0-18.0) g/dl Hct 43.8 38.9 L (42.0-52.0) % Plt Count 268 231 (130-400) K/uL Neut # (Auto) 14.06 H 12.57 H (1.40-6.50) K/uL Lymph # (Auto) 3.08 5.40 H (1.20-3.40) K/uL [place] # (Auto) 2.01 H 2.11 H (0.11-0.59) K/uL Eos # (Auto) 0.00 0.01 (0.00-0.50) K/uL Baso # (Auto) 0.05 0.06 (0.00-0.20) K/uL Comprehensive Metabolic Panel 03/01/23 03/02/23 Range/Units 22:23 05:41 Sodium 137 139 (136-145) mmol/L Potassium 3.6 3.6 (3.5-5.1) mmol/L Chloride 104 107 (98-107) mmol/L Carbon Dioxide 23 25 (21-32) mmol/L BUN 13 12 (6-23) mg/dl Creatinine 1.06 0.95 (0.6-1.4) mg/dl Glucose 193 H 118 H (70-99(Fasting)) mg/dl Calcium 9.2 8.6 (8.6-10.3) mg/dl AST 20 (13-39) U/L ALT 13 (7-52) U/L Alkaline Phosphatase 55 (34-104) U/L Total Protein 7.1 (6.0-8.3) gm/dl Albumin 4.1 (3.4-5.0) gm/dl Intake and Output 03/01/23 03/02/23 03/02/23 22:59 06:59 14:59 Intake Total 350 / 350 102.9 / 102.9 Output Total 900 / 900 Balance -550 / -550 102.9 / 102.9 Intake: IV 350 / 350 102.9 / 102.9 Ampicillin/Sulbactam Sod 3,000 100 / 100 mg In Sodium Chlor 0.9% Mini-B 100 ml @ 200 mls/hr IV NOW STA Rx#:[id number] Heparin Sodium/Dextrose 25,000 102.9 / 102.9 units In 500 ml @ 900 UNITS/HR 18 mls/hr IV .Q24H [facility] Rx#: [id number] Magnesium Sulfate / D5w 1 gm In 200 / 200 100 ml @ 50 mls/hr IV Q2H [facility] Rx#:[id number] cefTRIAXone SODIUM 2,000 mg In 50 / 50 50 ml @ 100 mls/hr IV NOW STA Rx#:[id number] Output: Urine 900 / 900 Other: Weight 78 kg Weight Measurement Method Built in [facility] Diagnostic Findings Outpatient Echo 01/2022 The examination is adequate to evaluate the referral indication. The qualitative LV ejection fraction is 55-59% (normal). The LV wall thickness is normal. The left ventricular wall motion is normal. The left atrium is mildly enlarged (35-41 ml/m^2). The aortic valve is moderately calcified. Moderate aortic valve stenosis is present. Mild aortic valve regurgitation is present. Mild mitral regurgitation is present. Compared to prior study dated 02/01/2021, no significant change noted. Medications Administered Current Inpatient Medications Acetaminophen (Acetaminophen 325 Mg Tab) 650 mg PO Q4H PRN PRN Reason: Pain or Fever Stop: 04/01/23 03:54 Amoxicillin/Clavulanate Potassium (Amoxicillin/Clavulanate 875 Mg Tab) 1 tab PO BIDM [facility]; Protocol Stop: 03/09/23 16:59 Aspirin (Aspirin 81 Mg Ectab) 81 mg PO QAM [facility] Stop: 04/01/23 08:59 Cyanocobalamin (Cyanocobalamin (B-12) 500 Mcg Tablet) 1,000 mcg PO DAILY [facility] Stop: 04/01/23 08:59 Hydromorphone HCl (Hydromorphone Inj 0.5 Mg/0.5 Ml Syr) 0.25 mg IV Q4H PRN PRN Reason: Pain Stop: 03/16/23 05:42 Heparin Sodium/Dextrose (Heparin Sodium/Dextrose) 25,000 units in 500 mls @ 18 mls/hr IV .Q24H [facility]; Protocol Stop: 04/01/23 00:44 Last Titration: 03/02/23 07:16 Dose: 900 units/hr, 18 mls/hr Potassium Chloride/Sodium Chloride (Normal Saline W/20 Meq Kcl) 20 meq in 1,000 mls @ 60 mls/hr IV .[id number] [facility]; Protocol Stop: 03/02/23 17:23 Last Admin: 03/02/23 01:32 Dose: 60 mls/hr Promethazine HCl 6.25 mg/ (Sodium Chloride) 50.25 mls @ 201 mls/hr IV Q6H PRN PRN Reason: Nausea And Vomiting Stop: 04/01/23 01:38 Influenza Virus Vaccine (Influenza Vaccine High-Dose (Hd-Iiv4) Pf 65+ 0.7ml Syr) 0.7 ml IM .ONCE ONE Stop: 03/02/23 09:01 Ipratropium [place] (Ipratropium [place] Neb Soln 0.02% 2.5 Ml Vial) 0.5 mg INH Q6R [facility] Stop: 04/01/23 06:59 Last Admin: 03/02/23 07:55 Dose: Not Given Levalbuterol HCl (Levalbuterol 1.25 Mg/3 Ml Neb) 1.25 mg NEB Q6R [facility] Stop: 04/01/23 06:59 Last Admin: 03/02/23 07:56 Dose: Not Given Lorazepam (Lorazepam 0.5 Mg Tab) 0.25 mg PO TID PRN PRN Reason: Anxiety Stop: 04/01/23 01:38 Metoprolol Tartrate (Metoprolol Tartrate 25 Mg Tab) 25 mg PO Q12 [facility] Stop: 04/01/23 08:59 Oxycodone HCl (Oxycodone Hcl Ir 5 Mg Tab (Immediate Release)) 5 mg PO Q4H PRN PRN Reason: Pain Stop: 03/16/23 01:38 Pantoprazole Sodium (Pantoprazole 40 Mg Tab) 40 mg PO DAILY [facility] Stop: 04/01/23 08:59 Potassium Chloride (Potassium Chloride Crtab 20 Meq Tabcr) 40 meq PO NOW STA Stop: 03/02/23 08:38 Prednisone (Prednisone 20 Mg Tab) 20 mg PO DAILY [facility] Stop: 03/06/23 08:59 Rosuvastatin Calcium (Rosuvastatin Calcium 20 Mg Tab) 40 mg PO QAM [facility] Stop: 04/01/23 08:59 Umeclidinium [place] (Umeclidinium [place] 62.5mcg/Blister 7 Puffs/Inhaler) 1 puffs INH QAM [facility] Stop: 04/01/23 08:59 (1) CAD (coronary artery disease) Associated angina: with unspecified form of angina Coronary Disease- Associated Artery/Lesion type: [place] artery [place] vs. transplanted heart: [place] heart Qualified Code(s): I25.119 - Atherosclerotic heart disease of [place] coronary artery with unspecified angina pectoris (3) PNA (pneumonia) Laterality: right Lung location: lower lobe of lung Pneumonia type: due to unspecified organism Qualified Code(s): J18.9 - Pneumonia, unspecified organism (4) Aortic stenosis Cardiac valve disease etiology: nonrheumatic Qualified Code(s): I35.0 - Nonrheumatic aortic (valve) stenosis
[2023-03-02 07:44] LABS: Estimated Average Glucose 137 mg/dl; Hemoglobin A1C 6.4 % (4.5-5.6)
[2023-03-02] MEDS: IPRATROPIUM BROMIDE NEB SOLN 0.02% 2.5 ML VIAL INH SCH ×3 (07:55→19:31)
[2023-03-02] MEDS: LEVALBUTEROL 1.25 MG/3 ML NEB NEB SCH ×3 (07:56→19:31)
[2023-03-02 08:25] LABS: ANTI-Xa, UFH(UnfractionatedHep 0.58 IU/ml (0.3-0.7)
--- NOTE | 2023-03-02 08:29 | XRay Report ---
XR chest 1V portable HISTORY: 82 years-old Male Chest pain, nonspecific COMPARISON: 02/11/2022 TECHNIQUE: AP view of the chest FINDINGS: The cardiomediastinal and hilar silhouettes are within normal limits. Prior median sternotomy. Emphys emelina. No pneumothorax, pleural effusion, airspace consolidation or overt pulmonary edema. Left upper a bdominal embolization coils. Surgical clips of the neck. Degenerative changes of the shoulders and sp ine. IMPRESSION: Emphysema without acute process. ACT 112: Negative or not required by law. The above report was generated using voice recognition software. It may contain grammatical, syntax o r spelling errors. Electronically signed by: Paco Cerna M.D. 03/02/2023 8:28 AM
[2023-03-02] MEDS ORDERED: POTASSIUM CHLORIDE CRTAB 20 MEQ TABCR PO STA (08:37)
--- NOTE | 2023-03-02 08:38 | Communication Note ---
Date of Service: March 02, 2023 Pt seen in the AM before his cath. Stated that his symptoms of pressure had resolved at that time and was feeling much better. On exam noted surgical scar on chest, notes Hx of prior "open heart surgery". Later after cath notified pt wanted to eat. For further details, see H &P from the same date.
[2023-03-02] MEDS: UMECLIDINIUM BROMIDE 62.5MCG/BLISTER 7 PUFFS/INHALER INH SCH (08:54)
[2023-03-02] MEDS: METOPROLOL TARTRATE 25 MG TAB PO SCH ×2 (08:56→20:32)
[2023-03-02] MEDS: PANTOprazole 40 MG TAB PO SCH (08:56)
[2023-03-02] MEDS: predniSONE 20 MG TAB PO SCH (08:57)
[2023-03-02] MEDS: ROSUVASTATIN CALCIUM 20 MG TAB PO SCH (08:57)
[2023-03-02] MEDS: ASPIRIN 81 MG ECTAB PO SCH (08:58)
[2023-03-02] MEDS: CYANOCOBALAMIN (B-12) 500 MCG TABLET PO SCH (08:58)
[2023-03-02] MEDS ORDERED: INFLUENZA VACCINE HIGH-DOSE (HD-IIV4) PF 65+ 0.7mL SYR IM ONE (09:00)
--- NOTE | 2023-03-02 09:06 | Electrocardiogram Report ---
Test Reason : Blood Pressure : / mmHG Vent. Rate : 110 BPM Atrial Rate : 110 BPM P-R Int : 172 ms QRS Dur : 082 ms QT Int : 346 ms P-R-T Axes : 068 003 088 degrees QTc Int : 468 ms Sinus tachycardia Left atrial enlargement Old Septal infarct Abnormal ECG When compared with ECG of 11-FEB-2022 20:30, Criteria for Septal infarct is now Present T wave inversion now evident in Anterolateral leads Confirmed by Paras Candelaria ([id number]) on 03/02/2023 9:05:40 AM Referred By: REFERRED SELF Confirmed By:Paras Candelaria
--- OUTSIDE RECORDS SUMMARY | 2023-03-02 10:58 | External Medical Summary | Summary of Care ---
Author Name Unknown Organization [facility] Address [address] [place] [address] Phone [phone] Care Team Providers Care Radiation Protection Engineer Name Role Phone Katie NEVAREZ MD, John E Primary Care Provider [phone] Reason for Visit * Reason Comments Medication Refill Encounter Details Date Type Department Care Team (Late st Contact Info) Description 01/13/2023 Refill Family Practice [facility] [address] [place] [address] Juan Mcqueen III, MD [address] [place] [address] Allergies Active Allergy Reactions Criticality Noted Date Comments Morphine And Related Nausea/vomiting,Oth er (Please comment) 12/31/2012 Hallucinations Naproxen 02/19/2019 Remdesivir 05/12/2020 Shortness of breath, hallucinations, confusion. Had to have epi-pen administered. documented as of this encounter (statuses as of 01/13/2023) Medications Medication Sig Dispensed Refills Start Date End Date Status ASPIRIN 81 MG PO TABSIndications:Car otid artery stenosis, infarct within 8 weeks 1 TABLET DAILY 30 0 06/13/2007 Active Cyanocobalamin 1000 MCG Oral Tablet (CYANOCOBALAMIN) Take 1 Tab by mouth daily. 100 Tab 3 01/23/2020 Active Spacer/Aero-Holding Chambers DeviceIndications:C OPD exacerbation (HCC) Use with inhaler. 1 Each 0 01/31/2022 Active OptiChamber [place] USE WITH INHALER 1 Each 0 01/31/2022 3 Active Triamcinolone Acetonide 0.5 % External Cream (Aristocort) Apply topically to affected area 2 times a day. 15 g 1 04/19/2022 Active Vitamin C 500 MG Oral Capsule Take 1 Tablet by mouth every evening. 0 05/09/2022 Active Zinc 50 MG Oral Capsule Take 1 Capsule by mouth in the morning. 0 05/09/2022 Active Compressor NebulizerIndication s:COPD, group C, by GOLD 2017 classification ([facility]),COPD exacerbation ([facility]) Inhale via nebulizer. Use as directed along with Tubing and mouth piece. Dx code : J44.9 and J44.1 1 Each 1 05/09/2022 Active Cyclobenzaprine HCl 10 MG Oral Tablet (Flexeril) Take 1/2 a Tablet by mouth in the morning and 1/2 a Tablet before bedtime. 40 Tablet 0 05/17/2022 Active Doxycycline Hyclate 100 MG Oral Capsule Take one capsule by mouth twice daily 20 Capsule 0 05/24/2022 Active Omeprazole 40 MG Oral Capsule Delayed Release (PriLOSEC)Indicatio ns:GERD (gastroesophageal reflux disease) TAKE ONE CAPSULE BY MOUTH EVERY DAY 30 MINUTES TO 1 HOUR BEFORE BREAKFAST 100 Capsule 3 08/03/2022 4 Active Rosuvastatin Calcium 40 MG Oral Tablet (Crestor)Indication s:Dyslipidemia, goal LDL below 70 TAKE ONE TABLET BY MOUTH EVERY DAY 100 Tablet 3 06/14/2022 4 Active Metoprolol Tartrate 25 MG Oral Tablet (Lopressor)Indicati ons:HTN, goal below 140/90 TAKE ONE TABLET BY MOUTH EVERY 12 HOURS 200 Tablet 3 11/25/2021 3 Active Furosemide 20 MG Oral Tablet (Lasix)Indications: HTN, goal below 140/90 TAKE ONE TABLET BY MOUTH DAILY 100 Tablet 3 09/26/2022 4 Active Levalbuterol Tartrate 45 MCG/ACT Inhalation Aerosol (Xopenex HFA)Indications:DIRECTOR OF 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 45 g 12 10/19/2022 Active Spiriva Respimat 2.5 MCG/ACT Inhalation Aerosol Solution (Tiotropium [place] Monohydrate) Inhale 2 Puffs by mouth in the morning. 4 g 11 10/19/2022 Active Levalbuterol HCl 1.25 MG/3ML Inhalation Nebulization SolutionIndications :COPD exacerbation (HCC) Inhale 3 mL via nebulizer every 6 hours as needed for Wheezing or Shortness of Breath. 450 mL 0 11/03/2022 Active predniSONE 10 MG Oral Tablet (Deltasone)Indicati ons:COPD exacerbation (HCC) Take 5 tabs for 3 days, 4 tabs for 3 days, 3 tabs for 3 days, 2 tabs for 3 days 1 tab for 3 days 45 Tablet 0 01/03/2023 Active Nitroglycerin 0.4 MG Sublingual Tablet Sublingual (Nitrostat)Indicati ons:Other chest pain dissolve 1 tablet under tongue if needed for chest pain. May repeat 3 times. If chest pain continues, call [phone] 25 Tablet 0 01/02/2023 Active Spironolactone 25 MG Oral Tablet (Aldactone) TAKE ONE - HALF TABLET BY MOUTH EVERY DAY 50 Tablet 2 01/13/2023 Active Spironolactone 25 MG Oral Tablet (Aldactone) TAKE ONE - HALF TABLET BY MOUTH EVERY DAY 45 Tablet 2 03/24/2022 3 Discontinue d(Refill) documented as of this encounter (statuses as of 01/13/2023) Active Problems Problem Noted Date Diagnosed Date Arterial occlusive disease 07/20/2022 Carotid stenosis, non-symptomatic, bilateral 05/2022 COPD, group C, by GOLD 2017 classification 05/02 Overview: Per COPD GOLD Classification Gastroesophageal reflux disease without esophagi tis 01/22/2020 Benign prostatic hyperplasia with urinary obstru ction 02/01/2016 Overview: ICD-10 update of inactive term AAA (abdominal aortic aneurysm) 01/06/2016 Overview: 10/08/15 ct abd and pelvis Aortic valve stenosis 01/29/2015 Incidental lung nodule 08/12/2014 Unspecified pleural effusion 08/06/2014 Atherosclerosis of hoh co ronary artery of hoh heart without angina pectoris 04/04/2013 Dyslipidemia, goal LDL below 70 01/18/2013 Aortocoronary bypass status 01/07/2013 Cerebrovascular disease, arteriosclerotic, post- stroke 09/04/2008 Overview: Added per CVA protocol #8 HTN, goal below 140/90 Overview: seems resolved documented as of this encounter (statuses as of 01/13/2023) Resolved Problems Problem Noted Date Diagnosed Date Resolved Date Anxiety state 03/02/2018 10/14/2020 COPD, moderate 03/02/2018 05/04/2022 Overview: Per COPD GOLD Classification Tobacco abuse 01/29/2015 02/01/2016 Pleural effusion 01/18/2013 08/06/2014 Left main coronary artery disease 12/09/2012 01/07/2019 Postoperative anemia due to acute blood loss 3 04/04/2013 Tobacco use disorder 11/28/2012 016 Abnormal nuclear stress test 11/21/2012 03/02/2018 Angina pectoris 11/21/2012 01/18/2013 Moderate aortic valve stenosis 11/21/2012 01/29/2015 Dyslipidemia, goal LDL below 100 11/16/2012 01/18/2013 Carotid artery stenosis with cerebral infarction over 8 weeks ago 10/16/2008 06/28/2016 Overview: Modified per acute carotid stenosis protocol #10. CVA presented then anotehr CVA during carotidendarterectomyu CAROTID STENOSIS, INFARCT OVER 8 WKS 09/04/2008 10/16/2008 Overview: Modified per acute carotid stenosis protocol #10. CVA presented then anotehr CVA during carotidendarterectomyu Carotid artery stenosis, inf arct within 8 weeks 09/04/2008 Overview: Modified per acute carotid stenosis protocol #10 Tobacco use disorder 011 documented as of this encounter (statuses as of 01/13/2023) Immunizations Name Administration Dates Next Due COVID-19 mRNA, LNP-s, No Pre serve, 2-Dose Series ([employer]) 03/16/2021,07/21/2020,06/24/2020,06/02 HIB PRP-OMP, 3 dose (Pedvax) 10/14/2015 Haemophilius B (HIB), unspecified 10/14/2015 Meningococcal Conjugate Vacc ine (Menactra/Menveo) 10/14/2015 Meningococcal MCV4P Conjugat e Vaccine (Menactra) 10/14/2015 Pneumococcal Conjugate Vacc, 13 Valent (Prevnar) 10/14/2015 Pneumococcal Polysaccharide PPV23 (Pneumovax) 12/13/2012 SEASONAL INFLUENZA, PF, 6 M & Above, IM , (FLULAVAL or FLUZONE) 11/29/2017,01/17/2017 Season Influenza, Quad, PF, Adjuvanted, 65+ Yrs, IM (FLUAD) 12/09/2019 Seasonal Influenza, Quadriva lent Hd (Fluzone Hd) 01/26/2021 Seasonal Influenza, Quadriva lent, No Preserve, IM 02/01/2016 Seasonal Influenza, Split, I IV3, With Preserve, Inj 01/24/2014,12/13/2012,12/08/2010,04/06,12/23/2008 Seasonal Influenza, Trivalen t, Adjuvanted, 65+ yrs 01/17/2019 TDAP (age 10 and older)(Boostrix) 11/13/2012 Zoster Vaccine Recombinant (Shingrix) 08/20/2020 ,05/15/2020 documented as of this encounter Social History Tobacco Use Types Packs/Day Years Used Date Smoking Tobacco: Former Cigarettes 0.5 1 Q uit: 09/04/2014 Smokeless Tobacco: Former Alcohol Use Standard Drinks/Week Comments Yes 23 (1 standard drink = 0.6 oz pu re alcohol) daily 3 beers PHQ-2 Answer Date Recorded PHQ Adult Total Score 3 02/19/2021 Sex and Gender Information Value Date Recorded Sex Assigned at Not on file Gender Identity Not on file Sexual Orientation Not on file Job Start Date Occupation Industry Not on file Not on file Not on file documented as of this encounter Functional Status Functional Status Response Date of Assess ment Are you deaf or do you have serious difficulty h earing? No 10/08/2015 Are you blind or do you have serious difficulty seeing, even when wearing glasses? Yes 10/08/2015 Do you have serious difficul ty walking or climbing stairs? (5 years old or older) No 10/08/2015 Do you have difficulty dress ing or bathing? (5 years old or older) No 10/08/2015 Because of a physical, menta l, or emotional condition, do you have difficulty doing errands alone such as visiting a doctor s office or shopping? (15 years old or older) No 10/08/19 16 Cognitive Status Response Date of Assessm ent Because of a physical, menta l, or emotional condition, do you have serious difficulty concentrating, remembering, or making decisions? (5 years old or older No 10/08/2015 documented as of this encounter Miscellaneous Notes * Telephone Encounter - Jess Foster [facility] - 01/13/2023 9:18 AM EDTSigned Prescriptions: Disp Refills Spironolactone 25 MG Oral Tablet ([place]act[place]*50 Tab*2 Sig: TAKE ONE - HALF TABLET BY MOUTH EVERY DAYAuthorizing Provider: JUAN MCQUEEN III User: JESS FOSTER documented in this encounter Plan of Treatment Upcoming Encounters Date Type Department Care Team (Late st Contact Info) Description 01/18/2023 9:30 AM EDT Cardiac Studies Cardiac Studies, [facility] [address] [place] [id number] 02/03/2023 9:30 AM EST Office Visit Cardiology, [facility] [address] [place] [address] Osmin Bennett DO [address] [place] [address] 05/17/2023 10:00 AM EST Office Visit Family Practice [facility] [address] [place] [address] Juan Mcqueen III, MD [address] [place] [address] Health Maintenance Due Date Last Done Comments Alpha-1 Antitrypsin 1958 Depression Screening 02/19/2022 02/19/2021 DTaP,Tdap,and Td Vaccines (2 - Td or Tdap) 11/13/2022 11/13/2012 COVID-19 Vaccine ( - season) 2022 03/16/2021, 07/21/2020, 06/24/2020, Additional history exists Influenza Vaccine (FLU shot) (#1) 2022 01/26/2021, 12/09/2019, 01/17/2019, Additional history exists GFR 05/25/2023 05/24/2022, 09/18, 10/14/2020, Additional history exists O2 ASSESSMENT COMPLETED IN PAST YEAR FOR COPD 08/04/2023 08/03/2022 Albumin/Creatinine Ratio 10/14/2024 10/14/2021 MENINGOCOCCAL (MENACTRA/MENVEO) Aged Out 10/14/2015, 10/14/2015 No longer eligibl e based on patient's age to complete this topic Pneumococcal Vaccine: 65+ Years Completed 10/14/2015, 12/13/2012 Zoster Vaccines Completed 08/20/2020, 05/15/2020 GARDASIL-HPV IMMUNIZATION SERIES Aged Out No longer eligible based on patient's age to complete this topic Hepatitis B Aged Out No longer eligi ble based on patient's age to complete this topic documented as of this encounter Medical Devices Implanted Type Area Chancery Clerk Device Identifier Shelf Expiration Date Model / Serial / Lot Graft Marker Coronary - [id number] Implanted:Qty: 1 on 12/04/2012 at OR [facility] N/A: Aorta VM CARDIO VASCULAR 12/16/2014 [id number] / / [id number] [employer] Micronester Embolization Coil Implanted:Qty: 2 on 10/09/2015 by Diego Muir MD at RADIOLOGY [facility] 08/03/2020 [employer] MICRONESTER EMBOLIZATION COIL / [id number] / [id number] Description:[employer] Roberto roNester Embolization Coil [id number] documented as of this encounter Advance Directives Latest Code Status on File Code Status Date Activated Date Inactivated Comments Full Code 10/08/2015 11:08 PM 10/14/2015 9:01 PM Question Answer Comments Discussion of Advance Direct josiah occurred with: Not Discussed Does the patient have a Living Will? No Does the patient have Health Care Power of Tabulating Supervisor? No Code Status History Code Status Date Activated Date Inactivated Comments Full Code 12/04/2012 8:03 PM 12/09/2012 6:57 PM This order reflects the patients wishes and were consensually agreed upon. Full Code 11/28/2012 8:36 PM 12/04/2012 8:01 PM This order reflects the patients wishes and were consensually agreed upon. Question Answer Comments Discussion of Advance Directives occurred with: Patient Does the patient have a Living Will? No Does the patient have Health Care Power of Tabulating Supervisor? No Care Teams Radiation Protection Engineer Relationship Specialty Start Date End Date Shelby GERI, Juan Agarwal MD [address] [place] [address] PCP - General Family Medicine 12/04/17 documented as of this encounter
--- OUTSIDE RECORDS SUMMARY | 2023-03-02 10:58 | External Medical Summary | Summary of Care ---
Author Name Unknown Organization [facility] Address [address] [place] [address] Phone [phone] Care Team Providers Care Internet Network Specialist Name Role Phone Katie NEVAREZ MD, John E Primary Care Provider [phone] Reason for Visit * Reason Onset Date Comments Medication Refill 10/06/2022 Encounter Details Date Type Department Care Team Description 10/06/2022 Refill Family [facility] [address] [place] [address] Juan Mcqueen III, MD 200 [facility] [place] [address] COPD exacerbation (HCC) Allergies Active Allergy Reactions Severity Noted Date Comments Morphine And Related Nausea/vomiting,Oth er (Please comment) 12/31/2012 Hallucinations Naproxen 02/19/2019 Remdesivir 05/12/2020 Shortness of breath, hallucinations, confusion. Had to have epi-pen administered. documented as of this encounter (statuses as of 11/03/2022) Medications Medication Sig Dispensed Refills Start Date End Date Status ASPIRIN 81 MG PO TABSIndications:Ca rotid artery stenosis, infarct within 8 weeks 1 TABLET DAILY 30 0 8 Active Cyanocobalamin 1000 MCG Oral Tablet (CYANOCOBALAMIN) Take 1 Tab by mouth daily. 100 Tab 3 0 Active Nitroglycerin 0.4 MG Sublingual Tablet Sublingual (Nitrostat)Indicat ions:Other chest pain One tablet under tongue if needed for chest pain. May repeat 3 times. If chest pain continues, call 911 10 Tab 2 1 Active Spacer/Aero-Holdin g Chambers DeviceIndications: COPD exacerbation (HCC) Use with inhaler. 1 Each 0 2 Active OptiChamber [place] USE WITH INHALER 1 Each 0 2 02/01/20 23 Active Triamcinolone Acetonide 0.5 % External Cream (Aristocort) Apply topically to affected area 2 times a day. 15 g 1 3 Active Vitamin C 500 MG Oral Capsule Take 1 Tablet by mouth every evening. 0 3 Active Zinc 50 MG Oral Capsule Take 1 Capsule by mouth in the morning. 0 3 Active Compressor NebulizerIndicatio ns:COPD, group C, by GOLD 2017 classification (HCC),COPD exacerbation (HCC) Inhale via nebulizer. Use as directed along with Tubing and mouth piece. Dx code : J44.9 and J44.1 1 Each 1 3 Active Cyclobenzaprine HCl 10 MG Oral Tablet (Flexeril) Take 1/2 a Tablet by mouth in the morning and 1/2 a Tablet before bedtime. 40 Tablet 0 3 Active Doxycycline Hyclate 100 MG Oral Capsule Take one capsule by mouth twice daily 20 Capsule 0 3 Active Omeprazole 40 MG Oral Capsule Delayed Release (PriLOSEC)Indicati ons:GERD (gastroesophageal reflux disease) TAKE ONE CAPSULE BY MOUTH EVERY DAY 30 MINUTES TO 1 HOUR BEFORE BREAKFAST 100 Capsule 3 3 08/03/19 24 Active Rosuvastatin Calcium 40 MG Oral Tablet (Crestor)Indicatio ns:Dyslipidemia, goal LDL below 70 TAKE ONE TABLET BY MOUTH EVERY DAY 100 Tablet 3 3 06/14/19 24 Active Spironolactone 25 MG Oral Tablet (Aldactone) TAKE ONE - HALF TABLET BY MOUTH EVERY DAY 45 Tablet 2 3 03/24/19 24 Active Metoprolol Tartrate 25 MG Oral Tablet (Lopressor)Indicat ions:HTN, goal below 140/90 TAKE ONE TABLET BY MOUTH EVERY 12 HOURS 200 Tablet 3 2 01/27/20 23 Active Furosemide 20 MG Oral Tablet (Lasix)Indications :HTN, goal below 140/90 TAKE ONE TABLET BY MOUTH DAILY 100 Tablet 3 3 09/26/19 24 Active Levalbuterol HCl 1.25 MG/3ML Inhalation Nebulization SolutionIndication s:COPD exacerbation (HCC) Inhale 3 mL via nebulizer every 6 hours as needed for Wheezing or Shortness of Breath. 450 mL 0 3 Active Levalbuterol Tartrate 45 MCG/ACT Inhalation Aerosol (Xopenex Hfa)Indications:[place] PD exacerbation (HCC) Inhale 1 Puff by mouth every 4 hours as needed for Wheezing. 15 g 12 2 10/20/19 23 Discontinued(Ref ill) Stiolto Respimat 2.5-2.5 MCG/ACT Inhalation Aerosol Solution (Tiotropium-Olodat kaden) Inhale 2 Puffs by mouth in the morning. 4 g 6 3 10/20/19 23 Discontinued Levalbuterol HCl 1.25 MG/3ML Inhalation Nebulization SolutionIndication s:COPD exacerbation (HCC) Inhale 3 mL via nebulizer every 6 hours as needed for Wheezing or Shortness of Breath. 100 mL 5 3 10/07/19 23 Discontinued(Ref ill) Tiotropium [place] Monohydrate 2.5 MCG/ACT Inhalation Aerosol Solution (Spiriva Respimat)Indicatio ns:COPD exacerbation (HCC) INHALE 2 PUFFS BY MOUTH DAILY IN THE MORNING 12 g 3 2 10/20/19 23 Discontinued Levalbuterol HCl 1.25 MG/3ML Inhalation Nebulization SolutionIndication s:COPD exacerbation (HCC) Inhale 3 mL via nebulizer every 6 hours as needed for Wheezing or Shortness of Breath. 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 02/01/2016 Overview: ICD-10 update of inactive term AAA (abdominal aortic aneurysm) 01/06/20 16 Overview: 10/08/15 ct abd and pelvis Aortic valve stenosis 01/29/2015 Incidental lung nodule 08/12/2014 Unspecified pleural effusion 08/06/2014 Atherosclerosis of [place] co ronary artery of [place] heart without angina pectoris 04/04/2013 Dyslipidemia, goal LDL below 70 01/19/20 13 Aortocoronary bypass status 01/07/2013 Cerebrovascular disease, arterioscleroti c, post-stroke 09/04/2008 Overview: Added per CVA protocol #8 HTN, goal below 140/90 Overview: seems resolved documented as of this encounter (statuses as of 11/03/2022) Resolved Problems Problem Noted Date Resolved Date Anxiety state 03/02/2018 10/14/2020 COPD, moderate 03/02/2018 05/04/2022 Overview: Per COPD GOLD Classification Tobacco abuse 01/29/2015 02/01/2016 Pleural effusion 01/18/2013 08/06/2014 Left main coronary artery disease 12/09/2012 01/07/2019 Postoperative anemia due to acute blood loss 04/04/2013 Tobacco use disorder 11/28/2012 02/01/2016 Abnormal nuclear stress test 11/21/2012 Angina pectoris 11/21/2012 01/18/2013 Moderate aortic valve stenosis 11/21/2012 1 03/31/2014 Dyslipidemia, goal LDL below 100 11/16/2012 01/18/2013 Carotid artery stenosis with cerebral infarction over 8 weeks ago 10/16/2008 06/28/2016 Overview: Modified per acute carotid stenosis protocol #10. CVA presented then anotehr CVA during carotidendarterectomyu CAROTID STENOSIS, INFARCT OVER 8 WKS 09/04/2008 10/16/2008 Overview: Modified per acute carotid stenosis protocol #10. CVA presented then anotehr CVA during carotidendarterectomyu Carotid artery stenosis, infarct within 8 weeks 09/04/2008 Overview: Modified per acute carotid stenosis protocol #10 Tobacco use disorder 08/18/2010 documented as of this encounter (statuses as of 11/03/2022) Immunizations Name Administration Dates Next Due COVID-19 mRNA, LNP-s, No Pre serve, 2-Dose Series (Pfizer) 03/16/2021,07/21/2020,06/24/2020,06/02 HIB 3 dose (Pedvax) 10/14/2015 Haemophilus B (HIB) 10/14/2015 Meningococcal Conjugate Vacc ine (Menactra/Menveo) 10/14/2015 Meningococcal MCV4P Conjugat e Vaccine (Menactra) 10/14/2015 Pneumococcal Conjugate Vacc, 13 Valent (Prevnar) 10/14/2015 Pneumococcal Polysaccharide PPV23 (Pneumovax) 12/13/2012 Seasonal Influenza, Quadriva lent Hd (Fluzone Hd) 01/26/2021 Seasonal Influenza, Quadriva lent, No Preserve, 6 Mons & Above, IM 11/29/2017,01/17/2017 Seasonal Influenza, Quadriva lent, No Preserve, Adjuvanted, 65+ Yrs, IM 12/09/2019 Seasonal Influenza, Quadriva lent, No Preserve, IM [...] oz pu re alcohol) daily 3 beers Sex Assigned at Date Recorded Not on file Job Start Date Occupation [...] encounter Miscellaneous Notes * Telephone Encounter - John Kumar RP - 11/03/2022 1:38 PM EDTSigned Prescriptions: Disp Refills Levalbuterol HCl 1.25 MG/3ML Inhalation Ne*450 mL 0 Sig: Inhale 3 mL via nebulizer every 6 hours as needed for Wheezing or Shortness of Breath.Authorizing Provider:JUAN MCQUEEN III User: JOHN KUMAR * Addendum Note - John Kumar RPh - 11/03/2022 1:38 PM EDTAddended by: JOHN KUMAR on: 11/03/2022 01:38 PM Modules accepted: Orders * Telephone Encounter - John Kumar RP - 11/03/2022 1:27 PM EDT Per adherence tracker patient only uses 1 box every other month. Reissued balance of refills on current medication order(s) as a 90 day script. Thank You, John Jose R, Pharm-D Clinical Pharmacist [facility] ([facility]) (Formerly Telepharmacy) [phone] 11/03/2022, 1:37 PM * Addendum Note - JOSEFINA Xiong - 11/03/2022 1:15 PM EDTAddended by: SOPHY WHITING on: 11/03/2022 01:15 PM Modules accepted: Orders * Telephone Encounter - JOSEFINA Xiong - 11/03/2022 1:14 PM EDT Pharmacy is requesting a 90-day supply, pre-edited RXs as such. Please review and approve if appropriate. Pending Prescriptions: Disp Refills Levalbuterol HCl 1.25 MG/3ML Inhalation N*1080 mL1 Sig: Inhale 3 mL via nebulizer every 6 hours as needed for Wheezing or Shortness of Breath. Signed Prescriptions: Disp Refills Levalbuterol HCl 1.25 MG/3ML Inhalation Ne*100 mL 5 Sig: Inhale 3 mL via nebulizer every 6 hours as needed for Wheezing or Shortness of Breath. Authorizing Provider: JUAN MCQUEEN III Ordering User: ARAMIS VINSON Last Visit: 06/01/2022 (in office), 04/21/2020 (telemedicine) 05/17/2023 If no future appointments scheduled, and last appointment is greater than a year ago, please schedule patient for an appointment Last date the medication was ordered: 10/07 Patient Phone Numbers Labs: Lab Results Component Value Date/Time CREAT 1.2 05/24/2022 09:34 AM CREAT 1.03 04/11/2020 12:00 AM CREAT 1.1 01/22/2020 10:57 AM POTASSIUM 4.2 05/24/2022 09:34 AM POTASSIUM 3.2 (A) 04/11/2020 12:00 AM POTASSIUM 4.2 01/22/2020 10:57 AM TSH 0.90 11/01/2021 01:10 PM TSH 2.00 12/02/2012 05:53 AM LDLCALC 85 05/24/2022 09:34 AM LDLCALC 93 02/02/2016 09:09 AM LDLDIRECT 77 10/14/2021 10:58 AM LDLDIRECT 59 01/22/2020 10:57 AM ALT 17 05/24/2022 09:34 AM ALT 12 02/02/2016 09:09 AM HGBA1C 5.8 11/29/2012 12:43 PM * [facility] 2:22 PM EDTSigned Prescriptions: Disp Refills Levalbuterol HCl 1.25 MG/3ML Inhalation Ne*100 mL 5 Sig: Inhale 3 mL via nebulizer every 6 hours as needed for Wheezing or Shortness of Breath. Authorizing Provider: JUAN MCQUEEN III User: ARAMIS VINSON * Telephone Encounter - [place] Doe [facility] [place]/06/2022 11:27 AM EDT Did you pend patient's preferred pharmacy and medication before forwarding?yes [facility] Pending Prescriptions: Disp Refills Levalbuterol HCl 1.25 MG/3ML Inhalation N*100 mL 5 Sig: Inhale 3 mL via nebulizer every 6 hours as needed for Wheezing or Shortness of Breath. Last Visit: 06/01/2022 (in office), 04/21/2020 (telemedicine) Next Visit: 10/19/2022 If no future appointments scheduled, and last appointment is greater than a year ago, please schedule patient for a follow-up appointment Last date the medication was ordered: 05/24/22 Is this request for a controlled substance?No Urine Drug Screen: Results for orders placed or performed during the hospital encounter of 10/08/15 TOX SCREEN, URINE, W/ CONFIRMATION Result Value Amphetamine NEGATIVE Barbiturates NEGATIVE Benzodiazepines NEGATIVE Cannabinoids NEGATIVE Cocaine Metabolite NEGATIVE Morphine / Codeine NEGATIVE METHADONE METABOLITE NEGATIVE OXYCODONE POSITIVE (A) TOX COMMENT THE ABOVE SCREENING RESULTS ARE PRESUMPTIVE AND CAN ONLY BE USED FOR MEDICAL PURPOSES. POSITIVE RESULTS REFLEX TO CONFIRMATORY TESTING. Cutoff Concentration Patient Phone Numbers Labs: Lab Results Component Value Date/Time CREAT 1.2 05/24/2022 09:34 AM CREAT 1.03 04/11/2020 12:00 AM CREAT 1.1 01/22/2020 10:57 AM POTASSIUM 4.2 05/24/2022 09:34 AM POTASSIUM 3.2 (A) 04/11/2020 12:00 AM POTASSIUM 4.2 01/22/2020 10:57 AM TSH 0.90 11/01/2021 01:10 PM TSH 2.00 12/02/2012 05:53 AM LDLCALC 85 05/24/2022 09:34 AM LDLCALC 93 02/02/2016 09:09 AM LDLDIRECT 77 10/14/2021 10:58 AM LDLDIRECT 59 01/22/2020 10:57 AM ALT 17 05/24/2022 09:34 AM ALT 12 02/02/2016 09:09 AM HGBA1C 5.8 11/29/2012 12:43 PM documented in this encounter Plan of Treatment Upcoming Encounters Date Type Specialty Care Team Description 01/18/2023 Cardiac Studies Cardiac Studies 02/03/2023 Office Visit Cardiology Osmin Bennett, [address] [place] [address] 05/17/2023 Office Visit Family Medicine [facility]Juan [facility] [address] [facility] [address] Health Maintenance Due Date Last Done Comments Alpha-1 Antitrypsin 1958 COVID-19 Vaccine (5 - Pfizer series) 05/11/2021 03/16/2021, 07/21/2020, 06/24/2020, Additional history exists Depression Screening, Annual for Pts 12 and Over 02/19/2022 02/19/2021 DTaP,Tdap,and Td Vaccines (2 - Td or Tdap) 11/13/2022 11/13/2012 Influenza Vaccine (FLU shot) (#1) 2022 01/26/2021, [...] this encounter Medical Devices Implanted Type Area Wet Pan Mixer Device Identifier Shelf Expiration Date Model / Serial / Lot Graft Marker Coronary - [id number] Implanted:Qty: 1 on 12/04/2012 [place] [facility] [place]A: Aorta VM CARDIO VASCULAR 12/16/2014 [id number] / / [id number] [employer] Micronester Embolization Coil Implanted:Qty: 2 on 10/09/2015 by Diego Muir MD at [place] [facility] [place] 08/03/2020 [employer] MICRONESTER EMBOLIZATION COIL / [id number] Description:[employer] Roberto roNester Embolization Coil [id number] documented as of this encounter Visit Diagnoses Diagnosis COPD exacerbation (HCC) Obstructive chronic bronchitis with exacerbation documented in this encounter Advance Directives Latest Code Status on File Code Status Date Activated Date Inactivated Comments Full Code 10/08/2015 11:08 PM 10/14/2015 9:01 PM Question Answer Comments Discussion of Advance Direct josiah occurred with: Not Discussed Does the patient have a Living Will? No Does the patient have Health Care Power of Plumbing Foreman? No Code Status History Code Status Date [...] the patient have Health Care Power of Plumbing Foreman? No Care Teams Internet Network Specialist Relationship Specialty Start Date End Date Juan Mcqueen III, MD [address] [facility] [place] [address] PCP - General Family Medicine 12/04/17 documented as of this encounter
--- OUTSIDE RECORDS SUMMARY | 2023-03-02 10:58 | External Medical Summary | Summary of Care ---
Author Name Unknown Organization [facility] Address [address] [place] [address] Phone [phone] Care Team Providers Care Tire Trimmer Hand Name Role Phone Katie NEVAREZ MD, John E Primary Care Provider [phone] Reason for Visit * Reason Comments Medication Refill Encounter Details Date Type Department Care Team (Late st Contact Info) Description 03/01/2023 Refill Family Practice [facility] [address] [place] [address] Piotr Wilson III, MD [address] [place] [address] COPD exacerbation (HCC) Allergies Active Allergy Reactions Criticality Noted Date Comments Morphine And Related Nausea/vomiting,Oth er (Please comment) 12/31/2012 Hallucinations Naproxen 02/19/2019 Remdesivir 05/12/2020 Shortness of breath, hallucinations, confusion. Had to have epi-pen administered. documented as of this encounter (statuses as of 03/01/2023) Medications Medication Sig Dispensed Refills Start Date End Date Status ASPIRIN 81 MG PO TABSIndications:Car otid artery stenosis, infarct within 8 weeks 1 TABLET DAILY 30 0 06/13/2007 Active Cyanocobalamin 1000 MCG Oral Tablet (CYANOCOBALAMIN) Take 1 Tab by mouth daily. 100 Tab 3 01/23/2020 Active Spacer/Aero-Holding Chambers DeviceIndications:C OPD exacerbation (HCC) Use with inhaler. 1 Each 0 01/31/2022 Active Triamcinolone Acetonide 0.5 % External Cream (Aristocort) Apply topically to affected area 2 times a day. 15 g 1 04/19/2022 Active Vitamin C 500 MG Oral Capsule Take 1 Tablet by mouth every evening. 0 05/09/2022 Active Zinc 50 MG Oral Capsule Take 1 Capsule by mouth in the morning. 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 45 g 12 10/19/2022 Active Spiriva Respimat 2.5 MCG/ACT Inhalation Aerosol Solution (Tiotropium [place] Monohydrate) Inhale 2 Puffs by mouth in the morning. 4 g 11 10/19/2022 Active Levalbuterol HCl 1.25 MG/3ML Inhalation Nebulization SolutionIndications :COPD exacerbation (HCC) Inhale 3 mL via nebulizer every 6 hours as needed for Wheezing or Shortness of Breath. 450 mL 0 11/03/2022 Active Nitroglycerin 0.4 MG Sublingual Tablet Sublingual (Nitrostat)Indicati ons:Other chest pain dissolve 1 tablet under tongue if needed for chest pain. May repeat 3 times. If chest pain continues, call [phone] Tablet 0 01/02/2023 Active Spironolactone 25 MG Oral Tablet (Aldactone) TAKE ONE - HALF TABLET BY MOUTH EVERY DAY 50 Tablet 2 01/13/2023 Active Metoprolol Tartrate 25 MG Oral Tablet (Lopressor)Indicati ons:HTN, goal below 140/90 TAKE ONE TABLET BY MOUTH EVERY 12 HOURS 200 Tablet 3 01/18/2023 4 Active predniSONE 10 MG Oral Tablet (Deltasone)Indicati ons:COPD exacerbation (HCC) Take 5 tablets by mouth for 3 days, 4 tabs for 3 days, 3 tabs for 3 days, 2 tabs for 3 days 1 tab for 3 days 45 Tablet 3 03/01/2023 Active predniSONE 10 MG Oral Tablet (Deltasone)Indicati ons:COPD exacerbation (HCC) Take 5 tabs for 3 days, 4 tabs for 3 days, 3 tabs for 3 days, 2 tabs for 3 days 1 tab for 3 days 45 Tablet 0 01/03/2023 3 Discontinue d(Refill) documented as of this encounter (statuses as of 03/01/2023) Active Problems Problem Noted Date Diagnosed Date [...] 08/12/2014 Unspecified pleural effusion 08/06/2014 Atherosclerosis of [place] co ronary artery of [place] heart without angina pectoris 04/04/2013 Dyslipidemia, goal LDL below 70 01/18/2013 Aortocoronary bypass status 01/07/2013 Cerebrovascular disease, arteriosclerotic, post- stroke 09/04/2008 Overview: Added per CVA protocol #8 HTN, goal below 140/90 Overview: seems resolved documented as of this encounter (statuses as of 03/01/2023) Resolved Problems Problem Noted Date Diagnosed Date [...] as of this encounter (statuses as of 03/01/2023) Immunizations Name Administration Dates Next Due COVID-19 mRNA, LNP-s, No Pre serve, 2-Dose Series (Pfizer) 03/16/2021,07/21/2020,06/24/2020,06/02 HIB PRP-OMP, 3 dose (Pedvax) 10/14/2015 Haemophilius B (HIB), unspecified 10/14/2015 Meningococcal Conjugate Vacc ine (Menactra/Menveo) 10/14/2015 Meningococcal MCV4P Conjugat e Vaccine (Menactra) 10/14/2015 Pneumococcal Conjugate Vacc, 13 Valent (Prevnar) 10/14/2015 Pneumococcal Polysaccharide PPV23 (Pneumovax) 12/13/2012 Season Influenza, Quad, PF, Adjuvanted, 65+ Yrs, IM (FLUAD) 12/09/2019 Seasonal Influenza, PF, 6 M & above, IM , (FluLaval or Fluzone) 11/29/2017,01/17/2017 Seasonal Influenza, Quadriva lent Hd (Fluzone Hd) [...] or making decisions? (5 years old or older) No 10/08/2015 documented as of this encounter Miscellaneous Notes * Telephone Encounter - Lexis Veliz PA-C - 03/01/2023 2:13 PM ESTSigned Prescriptions: Disp Refills predniSONE 10 MG Oral Tablet (Deltasone) 45 Tab*3 Sig: Take 5 tabs for 3 days, 4 tabs for 3 days, 3 tabs for 3 days, 2 tabs for 3 days 1 tab for 3 daysAuthorizing Provider: LEXIS VELIZ * Telephone Encounter - Lexis Veliz PA-C - 03/01/2023 2:13 PM ESTSigned Prescriptions: Disp Refills predniSONE 10 MG Oral Tablet (Deltasone) 45 Tab*3 Sig: Take 5 tabs for 3 days, 4 tabs for 3 days, 3 tabs for 3 days, 2 tabs for 3 days 1 tab for 3 daysAuthorizing Provider: LEXIS VELIZ * Telephone Encounter - Lexis Veliz PA-C - 03/01/2023 2:13 PM ESTSigned Prescriptions: Disp Refills predniSONE 10 MG Oral Tablet (Deltasone) 45 Tab*3 Sig: Take 5 tabs for 3 days, 4 tabs for 3 days, 3 tabs for 3 days, 2 tabs for 3 days 1 tab for 3 days Authorizing Provider: LEXIS VELIZ * Telephone Encounter - Charlene Prakash [facility] - 03/01/2023 2:13 PM EST Pending Prescriptions: Disp Refills predniSONE 10 MG Oral Tablet (Deltasone) 45 Tab*3 Sig: Take 5 tabs for 3 days, 4 tabs for 3 days, 3 tabs for 3 days, 2 tabs for 3 days 1 tab for 3 days * Telephone Encounter - Corinna Oliva CPhT - 03/01/2023 12:07 PM EST Patient calling to check on status of Prednisone 10 MG. Caller can be reached at [phone]. Thank you, Corinna Oliva, Sewer Pipe Sorter I Centralized Clinical Pharmacy Services (Formerly Telepharmacy) 03/01/2023, 12:07 PM * Telephone Encounter - Jeanette Abraham CMA - 03/01/2023 9:53 AM ESTPending Prescriptions: Disp Refills predniSONE 10 MG Oral Tablet (Deltasone) 45 Tab*0 Sig: Take 5 tabs for 3 days, 4 tabs for 3 days, 3 tabs for 3 days, 2 tabs for 3 days 1 tab for 3 days * Telephone Encounter - Kristen Hicks LPN - 03/01/2023 9:39 AM ESTPending Prescriptions: Disp Refills predniSONE 10 MG Oral Tablet (Deltasone) 45 Tab*0 Sig: Take 5 tabs for 3 days, 4 tabs for 3 days, 3 tabs for 3 days, 2 tabs for 3 days 1 tab for 3 days * Telephone Encounter - Mini Beyer, manager sharepoint - 03/01/2023 9:12 AM EST Pt requesting HIGH PRIORITY due to pt needs to start this medicine. Pt is using neb every 6 hours for his wheezing Pt wants to know if he can take 2 tablets of mucinex as his mucus if thick Pt has a history of bronchitis Did you pend patient's preferred pharmacy and medication before forwarding?yes Pharmacy: [facility] Pending Prescriptions: Disp Refills predniSONE 10 MG Oral Tablet (Deltasone) 45 Tab*0 Sig: Take 5 tabs for 3 days, 4 tabs for 3 days, 3 tabs for 3 days, 2 tabs for 3 days 1 tab for 3 days Last Visit: 10/19/2022 (in office), 04/21/2020 (telemedicine) Next Visit: 05/17/2023 If no future appointments scheduled, and last appointment is greater than a year ago, please schedule patient for a follow-up appointment Last date the medication was ordered: 01/03/2023 Is this request for a controlled substance?No [...] CONFIRMATORY TESTING. Cutoff Concentration Patient Phone Numbers [employer] [phone] Labs: Lab Results Component Value Date/Time CREAT [...] Care Team (Late st Contact Info) Description 03/14/2023 8:30 AM EST Cardiac Studies Cardiac Studies, [facility] [address] [place] [address] 03/24/2023 8:30 AM EST Office Visit Cardiology, [facility] [address] [place] [address] Osmin Bennett, [address] [place] [address] 05/17/2023 10:00 AM EST Office Visit Family Practice [facility] Suzanne Rizzo [address] [place] [address] Piotr Wilson III, MD [address] [facility] [place] [address] Health Maintenance Due Date Last Done Comments Alpha-1 Antitrypsin 1958 Depression Screening 02/19/2022 02/19/2021 DTaP,Tdap,and Td Vaccines (2 - Td or Tdap) 11/13/2022 11/13/2012 COVID-19 Vaccine (2022- season) 2022 03/16/2021, 07/21/2020, 06/24/2020, Additional history [...] this encounter Medical Devices Implanted Type Area Roller Shop Utility Worker Device Identifier Shelf Expiration Date Model / Serial / Lot Graft Marker Coronary - [id number] [place]ed:[place] 1 [place] 12[place]04/[place] [facility] [place]A: Aorta VM CARDIO VASCULAR 12/16/2014 [id number] / / [id number] [employer] Micronester Embolization Coil Implanted:Qty: 2 on 10/09/2015 [place] Muir [place] [facility] [place] ALMA ARMSTRONGA L MICRONESTER EMBOLIZATION COIL / [id number] Description:[employer] Roberto roNester Embolization Coil [id number] documented as of this encounter Visit Diagnoses [...] the patient have Health Care Power of Field Services Manager? No Code Status History Code Status Date [...] the patient have Health Care Power of Field Services Manager? No Care Teams Tire Trimmer Hand Relationship Specialty Start Date End Date Piotr Wilson III, MD [address] [facility] [place] [address] PCP - General Family Medicine 12/04/17 documented as of this encounter
--- OUTSIDE RECORDS SUMMARY | 2023-03-02 10:58 | External Medical Summary | Summary of Care ---
Author Name Unknown Organization [facility] Address [address] [facility] [place] [address] Phone [phone] Care Team Providers Care Correctional Maintenance Technician Name Role Phone Katie NEVAREZ MD, Piotr Agarwal Primary Care Provider [phone] Reason for Referral * Precert (Within 10 days (routine)) - Authorized Specialty Diagnoses / Procedures Referred By John bernabe Referred To Contact Cardiac Studies Diagnoses Nonrheumatic aortic valve stenosis Procedures ECHO, COMPLETE (2D), TRANS-THORACIC Osmin Bennett DO [address] [place] [address] Referral ID Status Reason Start Date Expiration Date V isits Requested Visits Authorized [id number] Authorized Precert 01/18/2023 999 999 Reason for Visit * Reason Onset Date Comments Order Request 01/17/2023 Encounter Details Date Type Department Care Team (Late st Contact Info) Description 01/17/2023 Telephone Cardiology, [facility] [address] [place] [address] Osmin Bennett DO [address] [place] [address] Order Request Allergies Active Allergy Reactions Criticality Noted Date Comments Morphine And Related Nausea/vomiting,Oth er (Please comment) 12/31/2012 Hallucinations Naproxen 02/19/2019 Remdesivir 05/12/2020 Shortness of breath, hallucinations, confusion. Had to have epi-pen administered. documented as of this encounter (statuses as of 01/20/2023) Medications Medication Sig Dispensed Refills Start Date End Date Status ASPIRIN 81 MG PO TABSIndications:Pro tid artery stenosis, infarct within 8 weeks 1 TABLET DAILY 30 0 06/13/2007 Active Cyanocobalamin 1000 MCG Oral Tablet (CYANOCOBALAMIN) Take 1 Tab by mouth daily. 100 Tab 3 01/23/2020 Active Spacer/Aero-Holding Chambers DeviceIndications:[place] PD exacerbation (HCC) Use with inhaler. 1 Each 0 01/31/2022 Active OptiChamber [place] USE WITH INHALER 1 Each 0 01/31/2022 01/31/2023 Active Triamcinolone Acetonide 0.5 % External Cream (Aristocort) Apply topically to affected area 2 times a day. 15 g 1 04/19/2022 Active Vitamin C 500 MG Oral Capsule Take 1 Tablet by mouth every evening. 0 05/09/2022 Active Zinc 50 MG Oral Capsule Take 1 Capsule by mouth in the morning. 0 05/09/2022 Active Compressor NebulizerIndications :COPD, group C, by GOLD 2017 classification ([facility]),COPD exacerbation ([facility]) Inhale via nebulizer. Use as directed along [...] Omeprazole 40 MG Oral Capsule Delayed Release (PriLOSEC)Indication s:GERD (gastroesophageal reflux disease) TAKE ONE CAPSULE BY MOUTH EVERY DAY 30 MINUTES TO 1 HOUR BEFORE BREAKFAST 100 Capsule 3 08/03/2022 08/03/2023 Active Rosuvastatin Calcium 40 MG Oral Tablet (Crestor)Indications :Dyslipidemia, goal LDL below 70 TAKE ONE TABLET BY MOUTH EVERY DAY 100 Tablet 3 06/14/2022 06/14/2023 Active Furosemide 20 MG Oral Tablet (Lasix)Indications:H TN, goal below 140/90 TAKE ONE TABLET BY MOUTH DAILY 100 Tablet 3 09/26/2022 09/26/2023 Active Levalbuterol Tartrate 45 MCG/ACT Inhalation Aerosol (Xopenex HFA)Indications:COPD exacerbation (HCC) Inhale 1 Puff by mouth every 4 hours as needed for Wheezing. 45 g 12 10/19/2022 Active Spiriva Respimat 2.5 MCG/ACT Inhalation Aerosol Solution (Tiotropium [place] Monohydrate) Inhale 2 Puffs by mouth in the morning. 4 g 11 10/19/2022 Active Levalbuterol HCl 1.25 MG/3ML Inhalation Nebulization SolutionIndications: COPD exacerbation (HCC) Inhale 3 mL via nebulizer every 6 hours as needed for Wheezing or Shortness of Breath. 450 mL 0 11/03/2022 Active predniSONE 10 MG Oral Tablet (Deltasone)Indicatio ns:COPD exacerbation (HCC) Take 5 tabs for 3 days, 4 tabs for 3 days, 3 tabs for 3 days, 2 tabs for 3 days 1 tab for 3 days 45 Tablet 0 01/03/2023 Active Nitroglycerin 0.4 MG Sublingual Tablet Sublingual (Nitrostat)Indicatio ns:Other chest pain dissolve 1 tablet under tongue if needed for chest pain. May repeat 3 times. If chest pain continues, call 911 25 Tablet 0 01/02/2023 Active Spironolactone 25 MG Oral Tablet (Aldactone) TAKE ONE - HALF TABLET BY MOUTH EVERY DAY 50 Tablet 2 01/13/2023 Active documented as of this encounter (statuses as of 01/20/2023) Active Problems Problem Noted Date Diagnosed Date [...] 08/12/2014 Unspecified pleural effusion 08/06/2014 Atherosclerosis of [place] co ronary artery of [place] heart without angina pectoris 04/04/2013 Dyslipidemia, goal LDL below 70 01/18/2013 Aortocoronary bypass status 01/07/2013 Cerebrovascular disease, arteriosclerotic, post- stroke 09/04/2008 Overview: Added per CVA protocol #8 HTN, goal below 140/90 Overview: seems resolved documented as of this encounter (statuses as of 01/20/2023) Resolved Problems Problem Noted Date Diagnosed Date [...] as of this encounter (statuses as of 01/20/2023) Immunizations Name Administration Dates Next Due COVID-19 mRNA, LNP-s, No Pre serve, 2-Dose Series (Polantis) 03/16/2021,07/21/2020,06/24/2020,06/02 HIB PRP-OMP, 3 dose (Pedvax) 10/14/2015 [...] encounter Miscellaneous Notes * Telephone Encounter - Yadira Avelar OSA - 01/20/2023 9:14 AM EDT Pt rescheduled for 03/22/23. * Telephone Encounter - Osmin Bennett DO - 01/17/2023 4:48 PM EDT No order for echocardiogram provided. Scheduling, please help patient rescheduled for after he recovers from his current flu virus. Osmin Bennett DO * Telephone Encounter - Annmarie Doe OSA - 01/17/2023 11:19 AM EDT Patient called in today he has the flu and was scheduled to have ECHO tomorrow 01/18 and needed to reschedule next available was for 03/14 patient is currently scheduled for. A new order needs placed due to being after expiring date. Please advise Thank you DEX Bur[place]on documented in this encounter Plan of Treatment Upcoming Encounters Date Type Department Care Team (Late st Contact Info) Description 03/14/2023 8:30 AM EST Cardiac Studies Cardiac Studies, [facility] [address] [facility] [place] [address] 03/22/2023 10:00 AM EST Office Visit Cardiology, [facility] [address] [place] [address] Osmin Bennett DO [address] [place] [address] 05/17/2023 10:00 AM EST Office Visit Family Practice [facility] [address] [facility] [place] [address] Piotr Wilson III, MD [address] [facility] [place] [address] Scheduled Orders Name Type Priority Associated Diagnoses Orde r Schedule ECHO, COMPLETE (2D), TRANS-THORACIC Echocardiology Routine Nonrheumatic aortic valve stenosis Expected: 01/18/2023 (Approximate), Expires: 01/18/2024 Health Maintenance Due Date Last Done Comments [...] this encounter Medical Devices Implanted Type Area Truck Terminal Manager Device Identifier Shelf Expiration Date Model / Serial / Lot Graft Marker Coronary - [id number] [place] [facility] [place] Aorta VM CARDIO VASCULAR 12/16/2014 [id number] / / [id number] [employer] Micronester Embolization Coil Implanted:Qty: 2 on 10/09/2015 [place] Mu[place] [facility] [place] [employer] MEDICA L MICRONESTER EMBOLIZATION COIL / [id number] / [id number] Description:[employer] Roberto roNester Embolization Coil [id number] documented as of this encounter Visit Diagnoses Diagnosis Nonrheumatic aortic valve stenosis- Primary Aortic valve disorders documented in this encounter Advance Directives Latest Code Status on File Code Status Date Activated Date Inactivated Comments Full Code 10/08/2015 11:08 PM 10/14/2015 9:01 PM Question Answer Comments Discussion of Advance Direct josiah occurred with: Not Discussed Does the patient have a Living Will? No Does the patient have Health Care Power of Filtering Machine Tender? No Code Status History Code Status Date [...] the patient have Health Care Power of Filtering Machine Tender? No Care Teams Correctional Maintenance Technician Relationship Specialty Start Date End Date Piotr Wilson III, MD [address] [facility] [place] [address] PCP - General Family Medicine 12/04/17 documented as of this encounter
--- OUTSIDE RECORDS SUMMARY | 2023-03-02 10:58 | External Medical Summary | Summary of Care ---
Author Name Unknown Organization [facility] Address [address] [place] [address] Phone [phone] Care Team Providers Care Rock Lather Name Role Phone Katie NEVAREZ MD, John E Primary Care Provider [phone] Encounter Details Date Type Department Care Team Description 01/02/2023 Telephone Family [facility] [place] [address] [place] [address] Piotr Wilson III, MD [address] [facility] [place] [address] Allergies Active Allergy Reactions Severity Noted Date Comments Morphine And Related Nausea/vomiting,Oth er (Please comment) 12/31/2012 Hallucinations Naproxen 02/19/2019 Remdesivir 05/12/2020 Shortness of breath, hallucinations, confusion. Had to have epi-pen administered. documented as of this encounter (statuses as of 01/02/2023) Medications Medication Sig Dispensed Refills Start Date [...] DAY 100 Tablet 3 06/14/2022 4 Active Spironolactone 25 MG Oral Tablet (Aldactone) TAKE ONE - HALF TABLET BY MOUTH EVERY DAY 45 Tablet 2 03/24/2022 4 Active Metoprolol Tartrate 25 MG Oral Tablet (Lopressor)Indicati ons:HTN, goal below 140/90 TAKE ONE TABLET BY MOUTH EVERY 12 HOURS 200 Tablet 3 11/25/2021 3 Active Furosemide 20 MG Oral Tablet (Lasix)Indications: HTN, goal below 140/90 TAKE ONE TABLET BY MOUTH DAILY 100 Tablet 3 09/26/2022 4 Active Levalbuterol Tartrate 45 MCG/ACT Inhalation Aerosol (Xopenex HFA)Indications: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 45 g 12 10/19/2022 Active Spiriva Respimat 2.5 MCG/ACT Inhalation Aerosol Solution (Tiotropium [place] Monohydrate) Inhale 2 Puffs by mouth in [...] call 911 25 Tablet 0 01/02/2023 Active Nitroglycerin 0.4 MG Sublingual Tablet Sublingual (Nitrostat)Indicati ons:Other chest pain One tablet under tongue if needed for chest pain. May repeat 3 times. If chest pain continues, call 911 10 Tab 2 05/13/2020 Discontinue d(Refill) documented as of this encounter (statuses as of 01/02/2023) Active Problems Problem Noted Date Arterial occlusive [...] 08/12/2014 Unspecified pleural effusion 08/06/2014 Atherosclerosis of [place] co ronary artery of [place] heart without angina pectoris 04/04/2013 Dyslipidemia, goal LDL below 70 01/19/20 13 Aortocoronary bypass status 01/07/2013 Cerebrovascular disease, arterioscleroti c, post-stroke 09/04/2008 Overview: Added per CVA protocol #8 HTN, goal below 140/90 Overview: seems resolved documented as of this encounter (statuses as of 01/02/2023) Resolved Problems Problem Noted Date Resolved Date [...] as of this encounter (statuses as of 01/02/2023) Immunizations Name Administration Dates Next Due COVID-19 [...] No 10/08/2015 documented as of this encounter Plan of Treatment Upcoming Encounters Date Type Specialty Care Team Description 01/18/2023 Cardiac Studies Cardiac Studies 02/03/2023 Office Visit Cardiology Osmin Bennett, DO [address] [place] [address] 05/17/2023 Office Visit Family Medicine Piotr Wilson III, MD [address] [facility] [place] [address] Health Maintenance Due Date Last Done Comments [...] this encounter Medical Devices Implanted Type Area Power Screwdriver Operator Device Identifier Shelf Expiration Date Model / Serial / Lot Graft Marker Coronary - [id number] [place]planted:Q[place] 1 [place] 12[place]04[place] [facility] [place] Aorta VM CARDIO VASCULAR 12/16/2014 [id number] / / [id number] [employer] Micronester Embolization Coil Implanted:Qty: 2 on 10/09/2015 by [place] Muir [place] [facility] [place] [employer] L MICRONESTER EMBOLIZATION COIL / [id number] / [id number] Description:[employer] Roberto roNester Embolization Coil [id number] documented as of this encounter Visit Diagnoses Diagnosis Other chest pain documented in this encounter Advance Directives Latest Code Status on File Code Status Date Activated Date Inactivated Comments Full Code 10/08/2015 11:08 PM 10/14/2015 9:01 PM Question Answer Comments Discussion of Advance Direct josiah occurred with: Not Discussed Does the patient have a Living Will? No Does the patient have Health Care Power of Manager Field? No Code Status History Code Status Date [...] the patient have Health Care Power of Manager Field? No Care Teams Rock Lather Relationship Specialty Start Date End Date Piotr Wilson III, MD [address] [place] [address] PCP - General Family Medicine 12/04/17 documented as of this encounter
--- OUTSIDE RECORDS SUMMARY | 2023-03-02 10:58 | External Medical Summary | Summary of Care ---
Author Name Unknown Organization [facility] Address [address] [place] [address] Phone [phone] Care Team Providers Care Skiver Blockers Name Role Phone Katie NEVAREZ MD, John E Primary Care Provider [phone] Reason for Visit * Reason Comments Medication Refill Encounter Details Date Type Department Care Team (Late st Contact Info) Description 01/18/2023 Refill Family Practice [facility] 200 [facility] [place] [address] Juan Mcqueen III, MD [address] [place] [address] HTN, goal below 140/90 Allergies Active Allergy Reactions Criticality Noted Date Comments Morphine And Related Nausea/vomiting,Oth er (Please comment) 12/31/2012 Hallucinations Naproxen 02/19/2019 Remdesivir 05/12/2020 Shortness of breath, hallucinations, confusion. Had to have epi-pen administered. 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 45 g 12 10/19/2022 Active Spiriva Respimat 2.5 MCG/ACT Inhalation Aerosol Solution (Tiotropium [place] Monohydrate) Inhale 2 Puffs by mouth in [...] HOURS 200 Tablet 3 01/18/2023 4 Active Metoprolol Tartrate 25 MG Oral Tablet (Lopressor)Indicati ons:HTN, goal below 140/90 TAKE ONE TABLET BY MOUTH EVERY 12 HOURS 200 Tablet 3 11/25/2021 3 Discontinue d(Refill) documented as of this encounter (statuses as of 01/18/2023) Active Problems Problem Noted Date Diagnosed Date [...] 08/12/2014 Unspecified pleural effusion 08/06/2014 Atherosclerosis of [place] co ronary artery of [place] heart without angina pectoris 04/04/2013 Dyslipidemia, goal LDL below 70 01/18/2013 Aortocoronary bypass status 01/07/2013 Cerebrovascular disease, arteriosclerotic, post- stroke 09/04/2008 Overview: Added per CVA protocol #8 HTN, goal below 140/90 Overview: seems resolved documented as of this encounter (statuses as of 01/18/2023) Resolved Problems Problem Noted Date Diagnosed Date [...] as of this encounter (statuses as of 01/18/2023) Immunizations Name Administration Dates Next Due COVID-19 mRNA, LNP-s, No Pre serve, 2-Dose Series (Everyday.me) 03/16/2021,07/21/2020,06/24/2020,06/02 HIB PRP-OMP, 3 dose (Pedvax) 10/14/2015 [...] encounter Miscellaneous Notes * Telephone Encounter - Chari Crum RP - 01/18/2023 2:29 PM EDTSigned Prescriptions: Disp Refills Metoprolol Tartrate 25 MG Oral Tablet (Lop*200 Ta*3 Sig: TAKE ONE TABLET BY MOUTH EVERY 12 HOURSAuthorizing Provider: JUAN MCQUEEN III User: CHARI CRUM documented in this encounter Plan of Treatment Upcoming Encounters Date Type Department Care Team (Late st Contact Info) Description 03/14/2023 8:30 AM EST Cardiac Studies Cardiac Studies, [facility] [address] [place] [address] 03/22/2023 10:00 AM EST Telemedicine Cardiology, [facility] [address] [facility] [place] [address] Osmin Bennett DO [address] [place] [address] 05/17/2023 10:00 AM EST Office Visit Family Practice [facility] [address] [facility] [place] [address] Juan Mcqueen III, MD [address] [facility] [place] [address] Health Maintenance Due Date Last Done Comments [...] this encounter Medical Devices Implanted Type Area Tube Winder Device Identifier Shelf Expiration Date Model / Serial / Lot Graft Marker Coronary - [id number] Implanted:Qty: 1 on 12/04/2012 [place] [facility] [place]A: Aorta VM CARDIO VASCULAR 12/16/2014 [id number] / / [id number] [employer] Micronester Embolization Coil Implanted:Qty: 2 on 10/09/2015 by Diego Muir MD at [place] [facility] [place]2020 [employer] MICRONESTER EMBOLIZATION COIL / [id number] / [id number] Description:[employer] Roberto roNester Embolization Coil [id number] documented as of this encounter Visit Diagnoses Diagnosis HTN, goal below 140/90 Unspecified essential hypertension documented in this encounter Advance Directives Latest Code Status on File Code Status Date Activated Date Inactivated Comments Full Code 10/08/2015 11:08 PM 10/14/2015 9:01 PM Question Answer Comments Discussion of Advance Direct josiah occurred with: Not Discussed Does the patient have a Living Will? No Does the patient have Health Care Power of Rug Setter [place]? No Code Status History Code Status Date [...] the patient have Health Care Power of Rug Setter [place]? No Care Teams Skiver Blockers Relationship Specialty Start Date End Date Juan Mcqueen III, MD [address] [place] [address] PCP - General Family Medicine 12/04/17 documented as of this encounter
--- OUTSIDE RECORDS SUMMARY | 2023-03-02 10:58 | External Medical Summary | Summary of Care ---
Author Name Unknown Organization [facility] Address [address] [place] [address] Phone [phone] Care Team Providers Care Rn Family Practice Name Role Phone Katie NEVAREZ MD, John E Primary Care Provider [phone] Reason for Visit * Reason Comments Medication Refill Encounter Details Date Type Department Care Team Description 01/02/2023 Refill Family Practice [facility] [place] [address] [place] [address] Juan Mcqueen III, MD [address] [place] [address] COPD exacerbation (HCC) Allergies Active Allergy Reactions Severity Noted Date Comments Morphine And Related Nausea/vomiting,Oth er (Please comment) 12/31/2012 Hallucinations Naproxen 02/19/2019 Remdesivir 05/12/2020 Shortness of breath, hallucinations, confusion. Had to have epi-pen administered. documented as of this encounter (statuses as of 01/03/2023) Medications Medication Sig Dispensed Refills Start Date [...] :COPD, group C, by GOLD 2017 classification (HCC),COPD [...] DAY 100 Tablet 3 06/14/2022 06/14/2023 Active Spironolactone 25 MG Oral Tablet (Aldactone) TAKE ONE - HALF TABLET BY MOUTH EVERY DAY 45 Tablet 2 03/24/2022 03/24/2023 Active Metoprolol Tartrate 25 MG Oral Tablet (Lopressor)Indicatio ns:HTN, goal below 140/90 TAKE ONE TABLET BY MOUTH EVERY 12 HOURS 200 Tablet 3 11/25/2021 01/26/2023 Active Furosemide 20 MG Oral Tablet (Lasix)Indications:H TN, goal below 140/90 TAKE ONE TABLET BY MOUTH DAILY 100 Tablet 3 09/26/2022 09/26/2023 Active Levalbuterol Tartrate 45 MCG/ACT Inhalation Aerosol (Xopenex HFA)Indications:COPD exacerbation (HCC) Inhale 1 Puff by mouth every 4 hours as needed for Wheezing. 45 g 12 10/19/2022 Active Spiriva Respimat 2.5 MCG/ACT Inhalation Aerosol Solution (Tiotropium [employer] Monohydrate) Inhale 2 Puffs by mouth in [...] call 911 25 Tablet 0 01/02/2023 Active documented as of this encounter (statuses as of 01/03/2023) Active Problems Problem Noted Date Arterial occlusive [...] 08/12/2014 Unspecified pleural effusion 08/06/2014 Atherosclerosis of [place] co ronary artery of [place] heart without angina pectoris 04/04/2013 Dyslipidemia, goal LDL below 70 01/19/20 13 Aortocoronary bypass status 01/07/2013 Cerebrovascular disease, arterioscleroti c, post-stroke 09/04/2008 Overview: Added per CVA protocol #8 HTN, goal below 140/90 Overview: seems resolved documented as of this encounter (statuses as of 01/03/2023) Resolved Problems Problem Noted Date Resolved Date [...] as of this encounter (statuses as of 01/03/2023) Immunizations Name Administration Dates Next Due COVID-19 [...] encounter Miscellaneous Notes * Telephone Encounter - Juan Mcqueen III, MD - 01/03/2023 9:03 AM EDTSigned Prescriptions: Disp Refills predniSONE 10 MG Oral Tablet (Deltasone) 45 Tab*0 Sig: Take 5 tabs for 3 days, 4 tabs for 3 days, 3 tabs for 3 days, 2 tabs for 3 days 1 tab for 3 days Authorizing Provider: JUAN MCQUEEN III * Telephone Encounter - Meron Rain LPN - 01/03/2023 8:09 AM EDTPending Prescriptions: Disp Refills predniSONE 10 MG Oral Tablet (Deltasone) 45 Tab*0 Sig: Take 5 tabs for 3 days, 4 tabs for 3 days, 3 tabs for 3 days, 2 tabs for 3 days 1 tab for 3 days * Telephone Encounter - Meron Rain LPN - 01/03/2023 8:08 AM EDT Pending Prescriptions: Disp Refills predniSONE 10 MG Oral Tablet (Deltasone) 45 Tab*0 Sig: Take 5 tabs for 3 days, 4 tabs for 3 days, 3 tabs for 3 days, 2 tabs for 3 days 1 tab for 3 days Last Visit: 10/19/2022 (in office), 04/21/2020 (telemedicine) Next Visit: 05/17/2023 Last date the medication was ordered: 05/10/22 Patient Active Problem List Diagnosis Code HTN, goal below 140/90 I10 Cerebrovascular disease, arteriosclerotic, post-stroke I67.2, Z86.73 Aortocoronary bypass status Z95.1 Dyslipidemia, goal LDL below 70 E78.5 Atherosclerosis of [place] coronary artery of [place] heart without angina pectoris I25.10 Unspecified pleural effusion J90 Incidental lung nodule R91.1 Aortic valve stenosis I35.0 AAA (abdominal aortic aneurysm) ([facility]) I71.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 N40.1, N13.8 Gastroesophageal reflux disease without esophagitis K21.9 COPD, group C, by GOLD 2017 classification ([facility]) J44.9 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 Carotid stenosis, non-symptomatic, bilateral I65.23 Labs: Lab Results Component Value Date/Time CREATININE - [facility] 1.2 05/24/2022 09:34 AM CREATININE - [facility] 1.1 01/22/2020 10:57 AM CREATININE, RANDOM URINE - [facility] 53 10/14/2021 11:00 AM CREATININE-OUTSIDE LAB 1.03 04/11/2020 12:00 AM Lab Results Component Value Date/Time POTASSIUM - [facility] 4.2 05/24/2022 09:34 AM POTASSIUM - [facility] 4.2 01/22/2020 10:57 AM POTASSIUM POCT - [facility] 4.0 12/04/2012 07:13 PM POTASSIUM, WHOLE BLOOD - [facility] 3.7 12/05/2012 02:20 AM POTASSIUM-OUTSIDE LAB 3.2 (A) 04/11/2020 12:00 AM Lab Results Component Value Date/Time TSH - [facility] 0.90 11/01/2021 01:10 PM TSH - [facility] 2.00 12/02/2012 05:53 AM Lab Results Component Value Date/Time LDL CHOLESTEROL (CALCULATED) - [facility] 85 05/24/2022 09:34 AM LDL CHOLESTEROL (CALCULATED) - [facility] 93 02/02/2016 09:09 AM LDL CHOLESTEROL (CALCULATED) - [facility] 79 01/22/2014 09:00 AM LDL CHOLESTEROL (DIRECT MEASURE) - [facility] 77 10/14/2021 10:58 AM LDL CHOLESTEROL (DIRECT MEASURE) - [facility] 59 01/22/2020 10:57 AM LDL CHOLESTEROL (DIRECT MEASURE) - [facility] 60 01/10/2019 09:23 AM Lab Results Component Value Date/Time ALT - [facility] 17 05/24/2022 09:34 AM ALT - [facility] 12 02/02/2016 09:09 AM ALT-OUTSIDE LAB 64 10/19/2015 12:00 AM Hemoglobin AIC Results: Lab Results Component Value Date/Time HEMOGLOBIN A1C - [facility] 5.8 11/29/2012 12:43 PM HEMOGLOBIN A1C - [facility] 6.0 11/28/2012 08:59 PM documented in this encounter Plan of Treatment Upcoming Encounters Date Type Specialty Care Team Description 01/18/2023 Cardiac Studies Cardiac Studies 02/03/2023 Office Visit Cardiology Osmin Bennett, DO [address] [place] [address] 05/17/2023 Office Visit [facility] [place] [facility] [address] Health Maintenance Due Date Last Done Comments [...] this encounter Medical Devices Implanted Type Area Sprinkler Fitter Helper Device Identifier Shelf Expiration Date Model / Serial / Lot Graft Marker Coronary - [id number] Implanted:Qty: 1 on 12/04/2012 at OR [facility] [place] N/A: Aorta VM CARDIO VASCULAR 12/16/2014 [id number] / / [id number] [employer] Micronester Embolization Coil Implanted:Qty: 2 on 10/09/2015 by Diego Muir MD at RADIOLOGY [facility] [place] 08/03/2020 [employer] MICRONESTER EMBOLIZATION COIL / [id number] / [id number] Description:[employer] Roberto roNester Embolization Coil [id number] documented as of this encounter Visit Diagnoses [...] the patient have Health Care Power of Insurance Processor? No Code Status History Code Status Date [...] the patient have Health Care Power of Insurance Processor? No Care Teams Rn Family Practice Relationship Specialty Start Date End Date Juan Mcqueen III, MD [address] [facility] [place] [address] PCP - General Family Medicine 12/04/17 documented as of this encounter
--- OUTSIDE RECORDS SUMMARY | 2023-03-02 10:59 | External Medical Summary | Summary of Care ---
Author Name Unknown Organization [facility] Address [address] [place] [address] Phone [phone] Care Team Providers Care Drywall Taper Name Role Phone Katie NEVAREZ MD, John E Primary Care Provider [phone] Reason for Visit * Reason Onset Date Comments Medication Pre-auth 05/17/2022 Cyclobenzapr ine HCl 10 MG Oral Tablet (Flexeril) Encounter Details Date Type Department Care Team Description 05/17/2022 Telephone [facility] [address] [place] [address] Piotr Wilson III, MD [address] [place] [address] Medication Pre-auth (Cyclobenzaprine HCl 1... Allergies Active Allergy Reactions Severity Noted Date Comments Morphine And Related Nausea/vomiting,Oth er (Please comment) 12/31/2012 Hallucinations Naproxen 02/19/2019 Remdesivir 05/12/2020 Shortness of breath, hallucinations, confusion. Had to have epi-pen administered. documented as of this encounter (statuses as of 09/09/2022) Medications Medication Sig Dispensed Refills Start Date End Date Status ASPIRIN 81 MG PO TABSIndications:Carot id artery stenosis, infarct within 8 weeks 1 TABLET DAILY 30 0 06/13/2007 Active Cyanocobalamin 1000 MCG Oral Tablet (CYANOCOBALAMIN) Take 1 Tab by mouth daily. 100 Tab 3 01/23/2020 Active Nitroglycerin 0.4 MG Sublingual Tablet Sublingual (Nitrostat)Indication s:Other chest pain One tablet under tongue if needed for chest pain. May repeat 3 times. 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 1 Each 0 01/31/2022 Active Spiriva Respimat 2.5 MCG/ACT Inhalation Aerosol Solution (Tiotropium [place] Monohydrate)Indicatio ns:COPD exacerbation (HCC) Inhale 2 Puffs by mouth in the morning. 12 g 3 02/18/2022 Active OptiChamber [place] USE WITH INHALER 1 Each 0 01/31/2022 01/31/2023 Active Levalbuterol Tartrate 45 MCG/ACT Inhalation Aerosol (Xopenex Hfa)Indications:COPD exacerbation (HCC) Inhale 1 Puff by mouth every 4 hours as needed for Wheezing. 15 g 12 02/21/2022 Active Spironolactone 25 MG Oral Tablet (Aldactone) TAKE 1/2 TABLET BY MOUTH ONCE DAILY 45 Tablet 2 03/24/2022 Active Triamcinolone Acetonide 0.5 % External Cream (Aristocort) Apply topically to affected area 2 times a day. 15 g 1 04/19/2022 Active Vitamin C 500 MG Oral Capsule Take 1 Tablet by mouth every evening. 0 05/09/2022 Active Zinc 50 MG Oral Capsule Take 1 Capsule by mouth in the morning. 0 05/09/2022 Active Compressor NebulizerIndications: COPD, group C, by GOLD 2017 classification ([facility]),COPD exacerbation (HCC) Inhale via nebulizer. Use as directed along with Tubing and mouth piece. Dx code : J44.9 and J44.1 1 Each 1 05/09/2022 Active Cyclobenzaprine HCl 10 MG Oral Tablet (Flexeril) Take 1/2 a Tablet by mouth in the morning and 1/2 a Tablet before bedtime. 40 Tablet 0 05/17/2022 Active documented as of this encounter (statuses as of 09/09/2022) Active Problems Problem Noted Date Arterial occlusive [...] 08/12/2014 Unspecified pleural effusion 08/06/2014 Atherosclerosis of [place] co ronary artery of [place] heart without angina pectoris 04/04/2013 Dyslipidemia, goal LDL below 70 01/19/20 13 Aortocoronary bypass status 01/07/2013 Cerebrovascular disease, arterioscleroti c, post-stroke 09/04/2008 Overview: Added per CVA protocol #8 HTN, goal below 140/90 Overview: seems resolved documented as of this encounter (statuses as of 09/09/2022) Resolved Problems Problem Noted Date Resolved Date [...] as of this encounter (statuses as of 09/09/2022) Immunizations Name Administration Dates Next Due COVID-19 [...] encounter Miscellaneous Notes * Telephone Encounter - JOSEFINA Steward - 05/17/2022 10:52 AM EST Patients insurance would like to inform the office that Cyclobenzaprine HCl 10 MG Oral Tablet (Flexeril) is not requiring review because Medication is on formulary and does not require review. Pharmacy processed on 05/17/2022 and future claims approve. Thank you, Shelia Denis CPhT [facility] [place] [facility] 05/17/2022,10:52 AM documented in this encounter Plan of Treatment Upcoming Encounters Date Type Specialty Care Team Description 10/19/2022 Office Visit Family Medicine [place] III, Piotr Agarwal MD [address] [facility] [place] [address] 10/19/2022 Procedure Only Endoscopy Fanny Castaneda, DO [address] [place] [address] 01/18/2023 Cardiac Studies Cardiac Studies 02/03/2023 Office Visit Cardiology Osmin Bennett, DO [address] [place] [address] Health Maintenance Due Date Last Done Comments Alpha-1 Antitrypsin 1958 COVID-19 Vaccine (5 - Pfizer series) 05/11/2021 03/16/2021, 07/21/2020, 06/24/2020, Additional history exists Depression Screening, Annual for Pts 12 and Over 02/19/2022 02/19/2021 DTaP,Tdap,and Td Vaccines (2 - Td or Tdap) 11/13/2022 11/13/2012 Influenza Vaccine (FLU shot) (Season Ended) 2022 01/26/2021, 12/09/2019, 01/17/2019, Additional history exists GFR 05/25/2023 05/24/2022, 09/18, 10/14/2020, Additional history exists AAA MONITORING; CT OR US YEARLY 06/24/2023 06/23/2022, 06/14/2021, 06/10/2020, Additional history exists AAA ULTRASOUND YEARLY 06/24/2023 06/23/2022 , 06/14/2021, 06/10/2020, Additional history exists O2 ASSESSMENT COMPLETED IN PAST YEAR FOR COPD 08/04/2023 08/03/2022 Albumin/Creatinine Ratio 10/14/2024 10/14/2021 Hepatitis C Screening Completed 07/02/2008 MENINGOCOCCAL (MENACTRA/MENVEO) Aged Out 10/14/2015, 10/14/2015 No [...] this encounter Medical Devices Implanted Type Area Chip Bin Conveyor Tender Device Identifier Shelf Expiration Date Model / Serial / Lot Graft Marker Coronary - [id number] [place]planted:Q[place] 1 [place] 12[place]04[place] [facility] [place]A: Aorta VM CARDIO VASCULAR 12/16/2014 [id number] / / [id number] [employer] Micronester Embolization Coil Implanted:Qty: 2 on 10/09/2015 [place] Muir [place] [facility] [place]/03/2020 [employer] MICRONESTER EMBOLIZATION COIL / [id number] / [id number] Description:[employer] Roberto roNester Embolization Coil [id number] documented as of this encounter Additional Health Concerns Infection Onset Date Last Indicated Resolved Time Human Metapneumovirus 05/09/2022 05/09/20222022 12:20 AM EDT documented as of this encounter Advance Directives Latest Code Status on File Code Status Date Activated Date Inactivated Comments Full Code 10/08/2015 11:08 PM 10/14/2015 9:01 PM Question Answer Comments Discussion of Advance Direct josiah occurred with: Not Discussed Does the patient have a Living Will? No Does the patient have Health Care Power of Typewriter Aligner? No Code Status History Code Status Date [...] the patient have Health Care Power of Typewriter Aligner? No Care Teams Drywall Taper Relationship Specialty Start Date End Date Piotr Wilson III, MD [address] [place] [address] PCP - General Family Medicine 12/04/17 documented as of this encounter
--- OUTSIDE RECORDS SUMMARY | 2023-03-02 10:59 | External Medical Summary | Summary of Care ---
Author Name Unknown Organization [facility] Address [address] [place] [address] Phone [phone] Care Team Providers Care Grain Inspector Name Role Phone Katie NEVAREZ MD, Piotr Agarwal Primary Care Provider [phone] Reason for Visit * Reason Comments Re-Check Encounter Details Date Type Department Care Team Description 10/19/2022 Office Visit Family [facility] [place] [address] [facility] [place] [address] Piotr Wilson III, MD [address] [facility] [place] [address] COPD, group C, by GOLD 2017 classification ([facility])*; HTN, goal below 140/90; Cerebrovascular disease, arteriosclerotic, post-stroke; COPD exacerbation ([facility]) Allergies Active Allergy Reactions Severity Noted Date Comments Morphine And Related Nausea/vomiting,Oth er (Please comment) 12/31/2012 Hallucinations Naproxen 02/19/2019 Remdesivir 05/12/2020 Shortness of breath, hallucinations, confusion. Had to have epi-pen administered. documented as of this encounter (statuses as of 10/19/2022) Medications Medication Sig Dispensed Refills Start Date [...] ns:COPD, group C, by GOLD 2017 classification ([facility]),COPD exacerbation (HCC) Inhale via nebulizer. Use as [...] Shortness of Breath. 100 mL 5 3 Active Spiriva Respimat 2.5 MCG/ACT Inhalation Aerosol Solution (Tiotropium [place] Monohydrate) Inhale 2 Puffs by mouth in the morning. 4 g 11 3 Active Levalbuterol Tartrate 45 MCG/ACT Inhalation Aerosol (Xopenex HFA)Indications:CO PD exacerbation (HCC) Inhale 1 Puff by mouth every 4 hours as needed for Wheezing. 45 g 12 3 Active Levalbuterol Tartrate 45 MCG/ACT Inhalation Aerosol (Xopenex Hfa)Indications:CO PD exacerbation (HCC) Inhale 1 Puff by mouth every 4 hours as needed for Wheezing. 15 g 12 2 10/20/19 23 Discontinued(Ref ill) Stiolto Respimat 2.5-2.5 MCG/ACT Inhalation Aerosol Solution (Tiotropium-Olodat kaden) Inhale 2 Puffs by mouth in the morning. 4 g 6 3 10/20/19 23 Discontinued Tiotropium [place] Monohydrate 2.5 MCG/ACT Inhalation Aerosol Solution (Spiriva Respimat)Indicatio ns:COPD exacerbation (HCC) INHALE 2 PUFFS BY MOUTH DAILY IN THE MORNING 12 g 3 2 10/20/19 23 Discontinued documented as of this encounter (statuses as of 10/19/2022) Active Problems Problem Noted Date Arterial occlusive [...] 08/12/2014 Unspecified pleural effusion 08/06/2014 Atherosclerosis of [place] co ronary artery of [place] heart without angina pectoris 04/04/2013 Dyslipidemia, goal LDL below 70 01/19/20 13 Aortocoronary bypass status 01/07/2013 Cerebrovascular disease, arterioscleroti c, post-stroke 09/04/2008 Overview: Added per CVA protocol #8 HTN, goal below 140/90 Overview: seems resolved documented as of this encounter (statuses as of 10/19/2022) Resolved Problems Problem Noted Date Resolved Date [...] as of this encounter (statuses as of 10/19/2022) Immunizations Name Administration Dates Next Due COVID-19 [...] 1 Q uit: 09/04/2014 Smokeless Tobacco: Former Tobacco Cessation:Counseling Given: Not Answered Alcohol Use Standard Drinks/Week Comments Yes 21 (1 standard drink = 0.6 oz pu re alcohol) daily 3 beers Sex Assigned at Date Recorded Not on file Job Start Date Occupation Industry Not on file Not on file Not on file documented as of this encounter Last Filed Vital Signs Vital Sign Reading Time Taken Comments Blood Pressure 113/50 10/19/2022 9:35 AM EDT Pulse 60 10/19/2022 9:35 AM EDT Temperature 35.7 C (96.2 F) 10/19/2022 9:35 AM ED T Respiratory Rate 16 10/19/2022 9:35 AM EDT Oxygen Saturation - - Inhaled Oxygen Concentration - - Weight 76.7 kg (169 lb) 10/19/2022 9:35 AM EDT Height - - Body Mass Index 26.06 08/03/2022 8:35 AM EDT documented in this encounter Functional Status Functional Status Response [...] No 10/08/2015 documented as of this encounter Progress Notes * Piotr Wilson III, MD - 10/19/2022 10:11 AM EDT Subjective: Sim Bain is a 82 year old male. Chief Complaint Patient presents with Re-Check HPI: Follow-up COPD hypertension aortic aneurysm had ultrasound aorta 3.6 cm back in the spring currently up at [facility] a lot his sister has a brain tumor ultimately he feels after rehab he will be taking care of her had issues with Stiolto is back on Spiriva needs Xopenex inhalers from mail order pharmacy no bleeding urine or bowels does have some swelling of his right lower extremity but better on compression stockings no current fever or chills PMH: Patient Active Problem List Diagnosis Code HTN, goal below 140/90 I10 Cerebrovascular disease, arteriosclerotic, post-stroke I67.2, Z86.73 Aortocoronary bypass status Z95.1 Dyslipidemia, goal LDL below 70 E78.5 Atherosclerosis of [place] coronary artery of [place] heart without angina pectoris I25.10 Unspecified pleural effusion J90 Incidental lung nodule R91.1 Aortic valve stenosis I35.0 AAA (abdominal aortic aneurysm) ([facility]) I71.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 N40.1, N13.8 Gastroesophageal reflux disease without esophagitis K21.9 COPD, group C, by GOLD 2017 classification ([facility]) J44.9 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 Carotid stenosis, non-symptomatic, bilateral I65.23 Current Outpatient Medications Medication Sig Dispense Refill ASPIRIN 81 MG PO TABS 1 TABLET DAILY 30 0 Cyanocobalamin 1000 MCG Oral Tablet (CYANOCOBALAMIN) Take 1 Tab by mouth daily. 100 Tab 3 Nitroglycerin 0.4 MG Sublingual Tablet Sublingual (Nitrostat) One tablet under tongue if neededfor chest pain. May repeat 3 times. If chest pain continues, call 911 10 Tab 2 Spacer/Aero-Holding Chambers Device Use with inhaler. 1 Each 0 OptiChamber K[place] USE WITH INHALER 1 Each 0 Triamcinolone Acetonide 0.5 % External Cream (Aristocort) Apply topically to affected area 2 times a day. 15 g 1 Vitamin C 500 MG Oral Capsule Take 1 Tablet by mouth every evening. Zinc 50 MG Oral Capsule Take 1 Capsule by mouth in the morning. Compressor Nebulizer Inhale via nebulizer. Use as directed along with Tubing and mouth piece. Dx code : J44.9 and J44.1 1 Each 1 Cyclobenzaprine HCl 10 MG Oral Tablet (Flexeril) Take 1/2 a Tablet by mouth in the morning and 1/2 a Tablet before bedtime. 40 Tablet 0 Doxycycline Hyclate 100 MG Oral Capsule Take one capsule by mouth twice daily 20 Capsule 0 Omeprazole 40 MG Oral Capsule Delayed Release (PriLOSEC) TAKE ONE CAPSULE BY MOUTH EVERY DAY 30MINUTES TO 1 HOUR BEFORE BREAKFAST 100 Capsule 3 Rosuvastatin Calcium 40 MG Oral Tablet (Crestor) TAKE ONE TABLET BY MOUTH EVERY DAY 100 Tablet 3 Spironolactone 25 MG Oral Tablet (Aldactone) TAKE ONE - HALF TABLET BY MOUTH EVERY DAY 45 Tablet 2 Metoprolol Tartrate 25 MG Oral Tablet (Lopressor) TAKE ONE TABLET BY MOUTH EVERY 12 HOURS 200 Tablet 3 Furosemide 20 MG Oral Tablet (Lasix) TAKE ONE TABLET BY MOUTH DAILY 100 Tablet 3 Levalbuterol HCl 1.25 MG/3ML Inhalation Nebulization Solution Inhale 3 mL via nebulizer every 6hours as needed for Wheezing or Shortness of Breath. 100 mL 5 Spiriva Respimat 2.5 MCG/ACT Inhalation Aerosol Solution (Tiotropium [place] Monohydrate) Inhale 2 Puffs by mouth in the morning. 4 g 11 Levalbuterol Tartrate 45 MCG/ACT Inhalation Aerosol (Xopenex HFA) Inhale 1 Puff by mouth every 4 hours as needed for Wheezing. 45 g 12 No current facility-administered medications for this visit. Review of patient's allergies indicates: Allergen Reactions Morphine And Related Nausea/vomiting and Other (Please comment) Hallucinations Naproxen Remdesivir Shortness of breath, hallucinations, confusion. Had to have epi-pen administered. Past Medical History: Diagnosis Date Carotid artery stenosis, infarct within 8 weeks 2004 CVA presented then another CVA during carotid endarterectomyu Cerebrovascular event, ill-defined, within last 8 weeks 2004 Coronary atherosclerosis of [place] coronary artery 50% of one vessel. Esophageal reflux GERD (gastroesophageal reflux disease) 11/28/2012 HTN, goal below 140/90 seems resolved Left main coronary artery disease 12/09/2012 Sprain and strain of other specified sites of shoulder and upper arm Past Surgical History: Procedure Laterality Date CABG, ARTERIAL, SINGLE 12/04/2012 CORONARY ARTERY BYPASS GRAFT USING ARTERY 1 GRAFT performed by Hola Powell MD at OR [facility] HEMORRHOIDECTOMY,EXTERNAL, 2 + COLUMNS Hemorrhoidectomy INSERT IA PERCUT DEVICE 12/04/2012 INSERT INTRA AORTIC BALLOON ASSIST DEVICE PERCUTANEOUS performed by Osmin Castillo MD at CARDIAC LABS [facility] REPAIR INITIAL INGUINAL HERNIA REDUCIBLE AGE 5 OR MORE Inguianl hernia Repair, age 5+ yr THROMBOENDARECTOMY W/PATCH,NECK INCISION 2004 Objective: The patient is a 82 year old male BP 113/50 | Pulse 60 | Temp 35.7 C (96.2 F) | Resp 16 | Wt 76.7 kg (169 lb) | BMI 26.06 kg/m | BSA 1.91 m General: alert, healthy and no distress Eye Exam: PERRLA, extraocular movements intact, conjunctiva are pink and non- injected, sclera clear Oropharynx: no exudate, no erythema, lips, buccal mucosa, and tongue normal and mucous membranes are moist Heart: regular rate & rhythm, no murmur and no gallops Lungs: lungs clear to auscultation, no rhonchi rales rubs wheezes Extremities: no edema, no clubbing, no cyanosis ASSESSMENT: J44.9 COPD, group C, by GOLD 2017 classification ([facility]) (primary encounter diagnosis) I10 HTN, goal below 140/90 I67.2,Z86.73 Cerebrovascular disease, arteriosclerotic, post-stroke J44.1 COPD exacerbation ([facility]) PLAN: Refill Xopenex inhalers continue other meds call if problems last comprehensive CBC lipids reviewed Follow up in 6 month(s). Piotr Wilson III, MD documented in this encounter Plan of Treatment Upcoming Encounters Date Type Specialty Care Team Description 01/18/2023 Cardiac Studies Cardiac Studies 02/03/2023 Office Visit Cardiology Osmin Bennett DO [address] [place] [address] 05/17/2023 Office Visit Family Medicine Piotr Wilson III, MD [address] [facility] [place] [address] Health Maintenance Due Date Last Done Comments [...] this encounter Medical Devices Implanted Type Area Solar Photovoltaic Crew Lead Device Identifier Shelf Expiration Date Model / Serial / Lot Graft Marker Coronary - [id number] Implanted:Qty: 1 on 12/04/[address] [facility] N/A: Aorta VM CARDIO VASCULAR 12/16/2014 [id number] / / [id number] [employer] Micronester Embolization Coil Implanted:Qty: 2 on 10/09/2015 by Dieog Muir MD at RADIOLOGY [facility] 08/03/2020 [employer] MEDICA L MICRONESTER EMBOLIZATION COIL / [id number] / [id number] Description:[employer] Roberto roNester Embolization Coil [id number] documented as of this encounter Visit Diagnoses Diagnosis COPD, group C, by GOLD 2017 classification (HCC)- Primary HTN, goal below 140/90 Unspecified essential hypertension Cerebrovascular disease, arteriosclerotic, post-stroke Cerebral atherosclerosis COPD exacerbation (HCC) Obstructive chronic bronchitis with exacerbation documented in this encounter Advance Directives Latest Code Status on File Code Status Date Activated Date Inactivated Comments Full Code 10/08/2015 11:08 PM 10/14/2015 9:01 PM Question Answer Comments Discussion of Advance Direct josiah occurred with: Not Discussed Does the patient have a Living Will? No Does the patient have Health Care Power of Sql Database Programmer? No Code Status History Code Status Date [...] the patient have Health Care Power of Sql Database Programmer? No Care Teams Grain Inspector Relationship Specialty Start Date End Date Platte III, Piotr E, MD [address] [facility] [place] [address] PCP - General Family Medicine 12/04/17 documented as of this encounter"
--- OUTSIDE RECORDS SUMMARY | 2023-03-02 10:59 | External Medical Summary | Summary of Care ---
Author Name Unknown Organization [facility] Address [address] [place] [address] Phone [phone] Care Team Providers Care Portable Track Line Marker Name Role Phone Katie NEVAREZ MD, John E Primary Care Provider [phone] Reason for Visit * Reason Onset Date Comments Medication Refill 10/06/2022 Encounter Details Date Type Department Care Team Description 10/06/2022 Refill Family [facility] [address] [place] [address] Juan Mcqueen III, MD [address] [place] [address] COPD exacerbation (HCC) Allergies Active Allergy Reactions [...] of Breath. 100 mL 5 3 Active Levalbuterol Tartrate 45 MCG/ACT Inhalation [...] 5 3 10/07/19 23 Discontinued(Ref ill) Tiotropium [place] Monohydrate 2.5 MCG/ACT Inhalation Aerosol Solution (Spiriva [...] 08/12/2014 Unspecified pleural effusion 08/06/2014 Atherosclerosis of [place] co ronary artery of knik heart without angina pectoris 04/04/2013 Dyslipidemia, goal [...] mRNA, LNP-s, No Pre serve, 2-Dose Series (Xuba) 03/16/2021,07/21/2020,06/24/2020,06/02 HIB 3 dose (Pedvax) 10/14/2015 Haemophilus [...] as of this encounter Miscellaneous Notes * Addendum Note - JOSEFINA Xiong - [...] 12:43 PM * Telephone Encounter - Aramis Vinson [facility] - 10/07/2022 2:22 PM EDTSigned Prescriptions: Disp Refills Levalbuterol HCl 1.25 MG/3ML Inhalation Ne*100 mL 5 Sig: Inhale 3 mL via nebulizer every 6 hours as needed for Wheezing or Shortness of Breath. Authorizing Provider: JUAN MCQUEEN III Ordering User: ARAMIS VINSON * Telephone Encounter - Cinthya Doe [facility] - 10/06/2022 11:27 AM EDT Did you pend patient's preferred pharmacy and medication before forwarding?yes Pharmacy: [facility] Pending Prescriptions: Disp Refills [...] Osmin Bennett, [address] [place] [address] 05/17/2023 Office Visit Family Medicine Nolan IIIJuan MD [address] [place] [address] Health Maintenance Due Date Last Done Comments [...] this encounter Medical Devices Implanted Type Area Php Developer Device Identifier Shelf Expiration Date Model / Serial / Lot Graft Marker Coronary - [id number] Implanted:Qty: 1 on 12/04/2012 at OR [facility] N/A: Aorta VM CARDIO VASCULAR 12/16/2014 [id number] / / [id number] [employer] Medical Micronester Embolization Coil Implanted:Qty: 2 on 10/09/2015 by Diego Muir MD at RADIOLOGY [facility] 08/03/2020 [employer] MED[employer] MICRONESTER EMBOLIZATION COIL / [id number] / [id number] Description:[employer] Roberto roNester Embolization Coil [id number] documented as of this encounter Visit Diagnoses [...] the patient have Health Care Power of Grey Inspector? No Code Status History Code Status Date [...] the patient have Health Care Power of Grey Inspector? No Care Teams Portable Track Line Marker Relationship Specialty Start Date End Date Juan Mcqueen III, MD [address] [place] [address] PCP - General Family Medicine 12/04/17 documented as of this encounter
--- OUTSIDE RECORDS SUMMARY | 2023-03-02 10:59 | External Medical Summary | Summary of Care ---
Author Name Unknown Organization [facility] Address [address] [place] [address] Phone [phone] Care Team Providers Care Stitcher Set Up Operator Automatic Name Role Phone Katie NEVAREZ MD, Piotr Agarwal Primary Care Provider [phone] Reason for Visit * Reason Comments Medication Refill Encounter Details Date Type Department Care Team Description 09/25/2022 Refill Cardiology, [facility] [address] [place], [place] [id number] Almas Richards, Marvin Blanca, HTN, goal below 140/90 Allergies Active Allergy Reactions Severity Noted Date Comments Morphine And Related Nausea/vomiting,Oth er (Please comment) 12/31/2012 Hallucinations Naproxen 02/19/2019 Remdesivir 05/12/2020 Shortness of breath, hallucinations, confusion. Had to have epi-pen administered. documented as of this encounter (statuses as of 09/26/2022) Medications Medication Sig Dispensed Refills Start Date End Date Status ASPIRIN 81 MG PO TABSIndications:Pro tid artery stenosis, infarct within 8 weeks 1 TABLET DAILY 30 0 06/13/2007 Active Cyanocobalamin 1000 MCG Oral Tablet (CYANOCOBALAMIN) Take 1 Tab by mouth daily. 100 Tab 3 01/23/2020 Active Nitroglycerin 0.4 MG Sublingual Tablet Sublingual (Nitrostat)Indicatio ns:Other chest pain One tablet under tongue if needed for chest pain. May repeat 3 times. If chest pain continues, call 911 10 Tab 2 05/13/2020 Active Spacer/Aero-Holding Chambers DeviceIndications:CO PD exacerbation (HCC) Use with inhaler. 1 Each 0 01/31/2022 Active OptiChamber [place] USE WITH INHALER 1 Each 0 01/31/2022 3 Active Levalbuterol Tartrate 45 MCG/ACT Inhalation Aerosol (Xopenex Hfa)Indications:COPD exacerbation (HCC) Inhale 1 Puff by mouth every 4 hours as needed for Wheezing. 15 g 12 02/21/2022 Active Triamcinolone Acetonide 0.5 % External Cream [...] twice daily 20 Capsule 0 05/24/2022 Active Additional Information Patient not taking.Reported on 07/20/2022 Stiolto Respimat 2.5-2.5 MCG/ACT Inhalation Aerosol Solution (Tiotropium-Olodater ol) Inhale 2 Puffs by mouth in the morning. 4 g 6 05/24/2022 Active Additional Information Patient not taking.Reported on 07/20/2022 Levalbuterol HCl 1.25 MG/3ML Inhalation Nebulization SolutionIndications: COPD exacerbation (HCC) Inhale 3 mL via nebulizer every 6 hours as needed for Wheezing or Shortness of Breath. 100 mL 5 05/24/2022 Active Omeprazole 40 MG Oral Capsule [...] DAY 45 Tablet 2 03/24/2022 4 Active Tiotropium [place] Monohydrate 2.5 MCG/ACT Inhalation Aerosol Solution (Spiriva Respimat)Indications :COPD exacerbation (HCC) INHALE 2 PUFFS BY MOUTH DAILY IN THE MORNING 12 g 3 02/18/2022 3 Active Metoprolol Tartrate 25 MG Oral Tablet (Lopressor)Indicatio ns:HTN, goal below 140/90 TAKE ONE TABLET BY MOUTH EVERY 12 HOURS 200 Tablet 3 11/25/2021 3 Active Furosemide 20 MG Oral Tablet (Lasix)Indications:H TN, goal below 140/90 TAKE ONE TABLET BY MOUTH DAILY 100 Tablet 3 09/26/2022 4 Active documented as of this encounter (statuses as of 09/26/2022) Active Problems Problem Noted Date Arterial occlusive [...] 08/12/2014 Unspecified pleural effusion 08/06/2014 Atherosclerosis of [place] co ronary artery of [place] heart without angina pectoris 04/04/2013 Dyslipidemia, goal LDL below 70 01/19/20 13 Aortocoronary bypass status 01/07/2013 Cerebrovascular disease, arterioscleroti c, post-stroke 09/04/2008 Overview: Added per CVA protocol #8 HTN, goal below 140/90 Overview: seems resolved documented as of this encounter (statuses as of 09/26/2022) Resolved Problems Problem Noted Date Resolved Date [...] as of this encounter (statuses as of 09/26/2022) Immunizations Name Administration Dates Next Due COVID-19 [...] encounter Miscellaneous Notes * Telephone Encounter - Yasmin Moore DO - 09/26/2022 12:56 PM EDTSigned Prescriptions: Disp Refills Furosemide 20 MG Oral Tablet (Lasix) 100 Ta*3 Sig: TAKE ONE TABLET BY MOUTH DAILY Authorizing Provider: YASMIN MOORE * Telephone Encounter - Danielle Bobby CMA - 09/26/2022 8:58 AM EDTPending Prescriptions: Disp Refills Furosemide 20 MG Oral Tablet (Lasix) 100 Ta*3 Sig: TAKE ONE TABLET BY MOUTH DAILY * Telephone Encounter - Danielle Bobby CMA - 09/26/2022 8:57 AM EDT Did you pend patient's preferred pharmacy and medication before forwarding?yes Pharmacy: [facility] Pending Prescriptions: Disp Refills Furosemide 20 MG Oral Tablet (Lasix) 100 Ta*3 Sig: TAKE ONE TABLET BY MOUTH DAILY Last Visit: 01/24/2022 (in office), 02/26/2020 (telemedicine) Next Visit: 02/03/2023 If no future appointments scheduled, and last appointment is greater than a year ago, please schedule patient for a follow-up appointment Last date the medication was ordered: Is this request for a controlled substance?No [...] Team Description 10/19/2022 Office Visit Family Medicine KatiePiotr moon III, MD [address] [place] [address] 10/19/2022 Procedure Only Endoscopy Fanny Castaneda, DO [address] [place] [address] 01/18/2023 Cardiac Studies Cardiac Studies 02/03/2023 Office Visit Cardiology Yasmin Moore, DO [address] [place] [address] Health Maintenance Due Date Last Done Comments [...] this encounter Medical Devices Implanted Type Area Reed Dipper Device Identifier Shelf Expiration Date Model / Serial / Lot Graft Marker Coronary - [id number] Implanted:Qty[place] 1 on 12/04/2012 [place] [facility] [place]A: Aorta VM CARDIO VASCULAR 12/16/2014 [id number] / / [id number] [employer] Micronester Embolization Coil Implanted:Qty: 2 on 10/09/2015 by Diego Muir [place] [facility] [place]/03/2020 [employer] MEDICA L MICRONESTER EMBOLIZATION COIL / [id number] / [id number] Description:[employer] Roberto roNester Embolization Coil [id number] documented as of this encounter Visit Diagnoses [...] the patient have Health Care Power of Fried Cake Maker? No Code Status History Code Status Date [...] the patient have Health Care Power of Fried Cake Maker? No Care Teams Stitcher Set Up Operator Automatic Relationship Specialty Start Date End Date Piotr Wilson III, MD [address] [place] [address], [place] [address] PCP - General Family Medicine 12/04/17 documented as of this encounter
--- OUTSIDE RECORDS SUMMARY | 2023-03-02 10:59 | External Medical Summary | Summary of Care ---
Author Name Unknown Organization [facility] Address [address] [place] [address] Phone [phone] Care Team Providers Care Rug Dyer Helper Name Role Phone Katie NEVAREZ MD, John E Primary Care Provider [phone] Reason for Visit * Reason Onset Date Comments Medication Refill 10/06/2022 Encounter Details Date Type Department Care Team Description 10/06/2022 Refill Family [facility] [address] [facility] [place] [address] Juan Mcqueen III, MD [address] [place] [address] COPD exacerbation (HCC) Allergies Active Allergy Reactions Severity Noted Date Comments Morphine And Related Nausea/vomiting,Oth er (Please comment) 12/31/2012 Hallucinations Naproxen 02/19/2019 Remdesivir 05/12/2020 Shortness of breath, hallucinations, confusion. Had to have epi-pen administered. documented as of this encounter (statuses as of 10/10/2022) Medications Medication Sig Dispensed Refills Start Date [...] 10 Tab 2 05/13/2020 Active Spacer/Aero-Holding Chambers DeviceIndications:C OPD exacerbation (HCC) Use with inhaler. 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 4 g 6 05/24/2022 Active Additional Information Patient not taking.Reported on 07/20/2022 Omeprazole 40 MG Oral Capsule Delayed Release (PriLOSEC)Indicatio ns:GERD (gastroesophageal reflux disease) TAKE ONE CAPSULE BY MOUTH EVERY DAY 30 MINUTES TO 1 HOUR BEFORE BREAKFAST 100 Capsule 3 08/03/2022 08/03/19 24 Active Rosuvastatin Calcium 40 MG Oral Tablet (Crestor)Indication s:Dyslipidemia, goal LDL below 70 TAKE ONE TABLET BY MOUTH EVERY DAY 100 Tablet 3 06/14/2022 06/14/19 24 Active Spironolactone 25 MG Oral Tablet (Aldactone) TAKE ONE - HALF TABLET BY MOUTH EVERY DAY 45 Tablet 2 03/24/2022 03/24/19 24 Active Tiotropium [place] Monohydrate 2.5 MCG/ACT Inhalation Aerosol Solution (Spiriva Respimat)Indication s:COPD exacerbation (HCC) INHALE 2 PUFFS BY MOUTH DAILY IN THE MORNING 12 g 3 02/18/2022 02/19/20 23 Active Metoprolol Tartrate 25 MG Oral Tablet (Lopressor)Indicati ons:HTN, goal below 140/90 TAKE ONE TABLET BY MOUTH EVERY 12 HOURS 200 Tablet 3 11/25/2021 01/07/20 23 Active Furosemide 20 MG Oral Tablet (Lasix)Indications: HTN, goal below 140/90 TAKE ONE TABLET BY MOUTH DAILY 100 Tablet 3 09/26/2022 09/26/19 24 Active Levalbuterol HCl 1.25 MG/3ML Inhalation Nebulization SolutionIndications :COPD exacerbation (HCC) Inhale 3 mL via nebulizer every 6 hours as needed for Wheezing or Shortness of Breath. 100 mL 5 10/07/2022 Active Levalbuterol HCl 1.25 MG/3ML Inhalation Nebulization SolutionIndications :COPD exacerbation (HCC) Inhale 3 mL via nebulizer every 6 hours as needed for Wheezing or Shortness of Breath. 100 mL 5 05/24/2022 10/07/19 23 Discontinu ed(Refill) documented as of this encounter (statuses as of 10/10/2022) Active Problems Problem Noted Date Arterial occlusive [...] 08/12/2014 Unspecified pleural effusion 08/06/2014 Atherosclerosis of [place] ronary artery of [place] heart without angina pectoris 04/04/2013 Dyslipidemia, goal LDL below 70 01/19/20 13 Aortocoronary bypass status 01/07/2013 Cerebrovascular disease, arterioscleroti c, post-stroke 09/04/2008 Overview: Added per CVA protocol #8 HTN, goal below 140/90 Overview: seems resolved documented as of this encounter (statuses as of 10/10/2022) Resolved Problems Problem Noted Date Resolved Date [...] as of this encounter (statuses as of 10/10/2022) Immunizations Name Administration Dates Next Due COVID-19 mRNA, LNP-s, No Pre serve, 2-Dose Series ([place]) 03/16/2021,07/21/2020,06/24/2020,06/02 HIB 3 dose (Pedvax) 10/14/2015 Haemophilus [...] encounter Miscellaneous Notes * Telephone Encounter - Aramis Vinson [facility] - 10/07/2022 2:22 PM EDTSigned Prescriptions: Disp Refills Levalbuterol HCl 1.25 MG/3ML Inhalation Ne*100 mL 5 Sig: Inhale 3 mL via nebulizer every 6 hours as needed for Wheezing or Shortness of Breath. Authorizing Provider: JUAN MCQUEEN III User: ARAMIS VINSON * Telephone Encounter - Cinthya Doe [facility] - 10/06/2022 11:27 AM EDT Did you pend patient's preferred pharmacy and medication before forwarding?yes Pharmacy: [facility] Pending Prescriptions: Disp Refills [...] Team Description 10/19/2022 Office Visit Family Medicine [facility] [address] [facility] [address] 01/18/2023 Cardiac Studies Cardiac Studies 02/03/2023 Office Visit Cardiology Osmin Bennett, DO [address] [place] [address] Health Maintenance Due Date Last Done Comments [...] this encounter Medical Devices Implanted Type Area Photograph Developer Device Identifier Shelf Expiration Date Model / Serial / Lot Graft Marker Coronary - [id number] Implanted:Qty: 1 on 12/04/2012 at [place] [facility] [place] N/A: Aorta VM CARDIO VASCULAR 12/16/2014 [id number] / / [id number] [employer] Micronester Embolization Coil Implanted:Qty: 2 on 10/09/2015 by Diego Muir MD at RADIOLOGY [facility] [place] 08/03/2020 [employer] MICRONESTER EMBOLIZATION COIL / [id number] / [id number] Description:DataEmail Group Medical Roberto roNester Embolization Coil [id number] documented as of this encounter Visit Diagnoses [...] the patient have Health Care Power of Child Care Development Specialist? No Code Status History Code Status Date [...] the patient have Health Care Power of Child Care Development Specialist? No Care Teams Rug Dyer Helper Relationship Specialty Start Date End Date Juan Mcqueen III, MD [address] [place] [id number] PCP - General Family Medicine 12/04/17 documented as of this encounter
[2023-03-02] MEDS ORDERED: niCARdipine HCL INJ 2.5 MG/ML 10 ML AMP ONE (12:58)
[2023-03-02] MEDS ORDERED: HEPARIN (PORCINE) 1000 UNIT/ML 10 ML (CATH LAB USE ONLY) ONE (12:58)
[2023-03-02] MEDS ORDERED: fentaNYL citrate PF 100 MCG/2 ML VIAL ONE (12:58)
[2023-03-02] MEDS ORDERED: NITROGLYCERIN/D5W 100MCG/ML 20ML SYR ONE (12:59)
[2023-03-02] MEDS ORDERED: MIDAZOLAM HCL 1 MG/ML 2ML VIAL ONE (12:59)
[2023-03-02] MEDS ORDERED: diphenhydrAMINE 50 MG/ML VIAL ONE (13:07)
[2023-03-02] MEDS ORDERED: OPTIRAY 350 ONE (13:25)
--- NOTE | 2023-03-02 13:46 | Pre Anesthesia Assessment ---
Date of Service March 02, 2023 Pre Sedation Assessment Vital Signs Temp Pulse Pulse Resp BP BP Pulse Ox 03/02/23 13:35 64 18 137/62 97 03/02/23 12:41 65 18 152/63 H 96 03/02/23 11:21 36.6 C 58 L 18 107/50 L 93 03/02/23 08:31 70 03/02/23 08:24 36.9 C 70 19 130/66 93 03/02/23 04:22 03/02/23 04:12 144/75 H 03/02/23 03:58 36.3 C L 82 18 173/71 H 96 03/02/23 03:54 75 03/02/23 03:40 36.3 C L 82 18 173/71 H 96 03/02/23 02:30 87 26 H 128/76 96 03/02/23 02:00 88 19 135/71 95 03/02/23 01:00 95 H 17 139/81 95 03/02/23 00:31 100 H 20 136/59 L 95 03/02/23 00:06 97 H 124/73 03/02/23 00:00 100 H 28 H 99/53 L 94 03/01/23 23:34 107 H 114/88 03/01/23 23:21 114 H 03/01/23 23:20 94 03/01/23 23:20 36.4 C L 114 H 29 H 154/95 H 94 03/01/23 23:19 115 H 25 H 154/95 H 94 03/01/23 23:19 36.5 C 115 H 19 154/95 H 95 03/01/23 23:16 36.4 C L 99 H 20 157/94 H 92 03/01/23 23:16 O2 Del Method 03/02/23 13:35 Room Air 03/02/23 12:41 Room Air 03/02/23 11:21 Room Air 03/02/23 08:31 03/02/23 08:24 Room Air 03/02/23 04:22 Room Air 03/02/23 04:12 03/02/23 03:58 Room Air 03/02/23 03:54 03/02/23 03:40 Room Air 03/02/23 02:30 03/02/23 02:00 03/02/23 01:00 03/02/23 00:31 03/02/23 00:06 03/02/23 00:00 03/01/23 23:34 03/01/23 23:21 03/01/23 23:20 Room Air 03/01/23 23:20 Room Air 03/01/23 23:19 03/01/23 23:19 Room Air 03/01/23 23:16 Room Air 03/01/23 23:16 Room Air Cardiovascular Additional Comments: Regular rate and rhythm, harsh grade 3 out of 6 systolic murmur, S4 gallop no edema Respiratory normal respiratory effort, lungs clear to auscultation (Fair air movement) Pre-Sedation Airway Assessment Smoking Status: Never smoker Mallampati 3 ASA 3 Notes The planned sedation has been discussed with the patient. Informed Consent was obtained. I have identified the patient, determined the appropriateness of sedation and have assessed the patient immediately prior to the procedure. All medicine(s) and interventions are by my order.
--- NOTE | 2023-03-02 13:49 | Post Anesthesia Assessment ---
Date of Service March 02, 2023 Post Sedation Assessment Vital Signs Temp Pulse Pulse Resp BP BP Pulse Ox 03/02/23 13:35 64 18 137/62 97 03/02/23 12:41 65 18 152/63 H 96 03/02/23 11:21 36.6 C 58 L 18 107/50 L 93 03/02/23 08:31 70 03/02/23 08:24 36.9 C 70 19 130/66 93 03/02/23 04:22 03/02/23 04:12 144/75 H 03/02/23 03:58 36.3 C L 82 18 173/71 H 96 03/02/23 03:54 75 03/02/23 03:40 36.3 C L 82 18 173/71 H 96 03/02/23 02:30 87 26 H 128/76 96 03/02/23 02:00 88 19 135/71 95 03/02/23 01:00 95 H 17 139/81 95 03/02/23 00:31 100 H 20 136/59 L 95 03/02/23 00:06 97 H 124/73 03/02/23 00:00 100 H 28 H 99/53 L 94 03/01/23 23:34 107 H 114/88 03/01/23 23:21 114 H 03/01/23 23:20 94 03/01/23 23:20 36.4 C L 114 H 29 H 154/95 H 94 03/01/23 23:19 115 H 25 H 154/95 H 94 03/01/23 23:19 36.5 C 115 H 19 154/95 H 95 03/01/23 23:16 36.4 C L 99 H 20 157/94 H 92 03/01/23 23:16 O2 Del Method 03/02/23 13:35 Room Air 03/02/23 12:41 Room Air 03/02/23 11:21 Room Air 03/02/23 08:31 03/02/23 08:24 Room Air 03/02/23 04:22 Room Air 03/02/23 04:12 03/02/23 03:58 Room Air 03/02/23 03:54 03/02/23 03:40 Room Air 03/02/23 02:30 03/02/23 02:00 03/02/23 01:00 03/02/23 00:31 03/02/23 00:06 03/02/23 00:00 03/01/23 23:34 03/01/23 23:21 03/01/23 23:20 Room Air 03/01/23 23:20 Room Air 03/01/23 23:19 03/01/23 23:19 Room Air 03/01/23 23:16 Room Air 03/01/23 23:16 Room Air Recovery Score Activity: Moves 4 extremities Respiration: Deep Breath/Cough Circulation: +/-20% PreAnes Value Consciousness: Fully Awake Oxygen Saturation: > 92% On Room Air Post Anesthesia Score: 10 Discharge Sedation Level of Care: Fast Track Phase II Post Sedation Plan On clinical assessment, the patient appears to have tolerated the sedation without complications. Patient is recovering as anticipated. Patient will continue to be monitored by nursing and may be discharged when sedation discharge criteria are met per below protocol. Upon Completions of procedure up to 15 minutes continue every 5 minute vital signs and the P.A.R. score; then discharge to a Phase I or Fast Track to Phase II per the following guidelines: * Discharge Patient to appropriate Phase II area if PAR is 8 or greater or return to pre- procedure baseline. The post - procedure orders will be as directed. * If PAR score is less than 8 or not return to pre-procedure baseline then patient will follow Phase I monitoring till PAR is reached for Phase II. The Phase I may be done in procedure room or may call to secure a Phase I area. * If naloxone or flumazenil are used for reversal, hold in Phase I for continued monitoring from when last reversal dose was given for a minimum of 60 minutes or longer pending the nurse and/or physician discretion of patient condition before discharge to Phase II. Please call the Sedation Physician to re-evaluate and complete post-note for discharge to Phase II area. Do NOT discharge from procedure sedation or Phase 1 until post- sedation evaluation note is complete by procedure /sedation MD Sedation Discharge Instructions to be given to the patient at discharge to home. [facility] Procedure Codes (Charges) Indication for Procedure Indication for procedure: Non-ST elevation MA History of CABG Sedation/Anesthesia Procedure 1: Sedation/Anesthesia: 03775 Mod Sedation by the same physician;Init15 Min Child Age 5 & Up (Initial 15 minutes, start 1308) Total Sedation Time (minutes): 23 Procedure 2: Sedation/Anesthesia: 40685 Mod Sedation by the same physician; Ea [id number] Minutes (Additional 8 min, stop 1331) Total Sedation Time (minutes): 23
--- NOTE | 2023-03-02 14:21 | Cardiac Catheterization ---
[facility] Data: Engineering Drafter Cardiac Status Clinical evaluation leading to the procedure CAD Presenation: Non STEMI Anginal Classification: CCS III Heart Failure: No Cardiogenic Shock within 24 Hours: No Cardiac Arrest within 24 Hours: No Coronary Anatomy Dominant: Right Left Main (% Stenosis): Mid (100%) LAD (% Stenosis): Proximal (50 to 60%), Mid (50 to 60%) and Distal (40 to 50%) D1 (% Stenosis): Normal Circumflex (% Stenosis): Ostial (70%), Proximal (Mild), Mid (40 to 50%) and Distal (Mild) OM1 (% Stenosis): Normal OM2 (% Stenosis): Normal L PL1 (% Stenosis): Normal RCA (% Stenosis): Proximal (100%) R PDA (% Stenosis): Normal (Fills left to right collaterals) R PL1 (% Stenosis): Normal (Fills left to right collaterals) Ramus (% Stenosis): Normal Grafts - LAD (%): Normal Grafts - Circumflex (%): Normal Diagnostic Physicians Name: Osmin Singleton MD, PhD Closure Device Percutaneous Entry Location: Femoral Closure Device: Angio-Seal Recommendations: Medical Therapy and/or Counseling Cardiac Cath Procedure Full Procedure Date March 02, 2023 Pre-Procedure Diagnosis Pre-Procedure Diagnosis: Non STEMI AUC Score AUC Score: 07 Post-Procedure Diagnosis Post-Procedure Diagnosis: Severe CAD Procedure(s) Performed Procedure(s) Performed: Coronary Angiography, Ultrasound Guided Vascular Access and Bypass Graft Angiography Belt Cutter Osmni Singleton MD, PhD Estimated Blood Loss Estimated Blood Loss: 5 mL Medication(s) Medication(s): Diphenhydramine, Fentanyl, Lidocaine 1% and Versed Summary of Findings Brief description: Patient was brought to the cardiac catheterization suite where he was shaved and prepped in a sterile fashion. Sedated using IV Versed, Benadryl, and fentanyl. Soft tissues of the right groin were anesthetized using 10 mL of 1% Xylocaine. Using ultrasound for guidance (image saved), the right femoral artery was accessed and a 5 [place] femoral artery sheath was placed. All catheters were advanced and exchanged over a 0.035 J-tip wire. Left coronary angiography in orthogonal views with a 5 [place] JL 4 diagnostic catheter. Right coronary angiography in orthogonal views with a 5 [place] JR4 diagnostic catheter. SVG graft angiography was performed with a 5 [place] JR4 diagnostic catheter. PORSCHE graft angiography was performed with a 5 [place] JR4 diagnostic catheter. Diagnostic catheters were removed. Limited right femoral artery angiography was performed to evaluate for closure. Findings were favorable, therefore, the right femoral artery sheath was exchanged for a 6 [place] Angio-Seal closure device. This was deployed in the recommended fashion. We obtained immediate hemostasis and the patient remained hemodynamically stable. He was returned to the recovery area. This ended the case. Coronary and bypass graft angiography: [id number]. 100% occluded in the mid to distal vessel. GJT-[id number]-[id number] and probably dominant. 100% occluded in the proximal to mid v essel. There are several small RV marginal branches and some faint collateralization to the inferior myocardium as well as branching to the atria. [place]RIA to LAD graft-large caliber and widely patent graft. Distal anastomosis on the early distal LAD. Provides antegrade flow to the distal LAD and septal branches. This vessel has diffuse mild disease with up to 40 to 50% focal stenosis. The graft also provides retrograde flow up the mid and proximal LAD. There are several large septal branches and a diagonal branch at the same level where there is proximal competitive flow. The proximal and mid LAD have diffuse moderate disease with 50 to 60% stenosis. SVG to OM graft-this is a large caliber and widely patent graft. Distal anastomosis on the proximal OM 2 branch. Provides antegrade flow down the OM 2 which itself is large and branching. It has no more than mild luminal irregularities. There is retrograde flow into the AV groove circumflex providing significant flow to the entire circumflex, a small OM1, a large PLB, a very large atrial branch which collateralizes to the distal RCA and its RPDA and RPL B. There is additional flow to the most proximal portion of the circumflex which has a 70% focal stenosis but does allow flow into a large ramus branch. The ramus has mild luminal irregularities and there is some competitive flow into what is probably the proximal LAD. The [place] mid AV groove circumflex has diffuse disease of up to 50% stenosis. Summary: 1. Widely patent prior grafts. 2. Severe chenega vessel coronary disease as described. Disease is unchanged on direct comparison with prior catheterization except the left main is now 100% occluded. This does not appear new/acute. 3. There are no lesions suitable/appropriate for PCI. 4. 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 Hemodynamics Rest Ao:: 116/65 mmHg Final Ao: 114/75 mmHg LV: Not performed Recommendations Recommendations: Medical Therapy and/or Counseling Radiation Exposure (mGy) 465 mGy, fluoroscopy time 3.6 minutes Contrast (mls) 80 mL Anesthesia 2 mg Versed, 50 mcg fentanyl, and 25 mg Benadryl IV. Start 1308, end 1331 Procedural Complication(s) None Disposition Recovery Room\PACU I attest to the content of the Intraoperative Record and any orders documented therein. Any exceptions are noted below. [facility] [place] Card Cath Procedure Codes Cardiac Catheterization Procedure 1: Cardiovascular Cath Procedures: 14161 Coronaries and Grafts/IM (venous & atrial) Therapeutic Services & Ancillary Procedure 1: Cardiovascular Tx and Anc Procedures: 98427 Ultrasonic Guidance Vascular Access Moderate Sedation Procedure 1: Sedation/Anesthesia: 97663 Mod Sedation by the same physician;Init15 Min Child Age 5 & Up (Initial 15 min, start 1308) Procedure 2: Sedation/Anesthesia: 79039 Mod Sedation by the same physician; Ea [id number] Minutes (Additional 8 min, end 1331) PG Care Time/CCT Total # of Minutes Spent Total Time Spent with Patient: Total time spent is greater than 50% in coordination of care (as documented) at patient's floor/unit and/or counseling patient:
[2023-03-02] MEDS: AMOXICILLIN/CLAVULANATE 875 MG TAB PO SCH (16:13)
[2023-03-03] MEDS: LEVALBUTEROL 1.25 MG/3 ML NEB NEB SCH ×2 (01:24→07:27)
[2023-03-03] MEDS: IPRATROPIUM BROMIDE NEB SOLN 0.02% 2.5 ML VIAL INH SCH ×2 (01:24→07:27)
[2023-03-03 06:36] LABS: Hematocrit (blood only) 40.8 % (42.0-52.0); Hemoglobin 13.4 g/dl (14.0-18.0); Mean Corpuscular Hemoglobin 29.3 pg (25.0-34.0); Mean Corpuscular Hgb Conc 32.8 g/dL (32.0-36.0); Mean Corpuscular Volume 89.1 fL (80.0-100.0); Mean Platelet Volume 9.4 fL (9.4-12.4); Platelet Count 193 K/uL (130-400); RDW Coefficient of Variation 14.6 % (11.5-14.5); RDW Standard Deviation 47.4 fL (36.4-46.3); Red Blood Count 4.58 M/uL (4.70-6.10); White Blood Count 14.28 K/ul (4.8-10.8)
[2023-03-03 07:10] LABS: Albumin Globulin Ratio 1.4 (0.9-2); Albumin Level 3.5 gm/dl (3.4-5.0); BUN Creatinine Ratio 12.4 (10-20); Bilirubin,Total 0.3 mg/dl (0.2-1.0); Calcium 8.7 mg/dl (8.6-10.3); Est GFR (African American) 93.6 ml/min; Est GFR (Non-African American) 80.8 ml/min; Globulin 2.5 gm/dl (2.5-4.0); Magnesium 2.1 mg/dl (1.7-2.4); Phosphorus 3.5 mg/dl (2.5-4.9); Potassium 4.1 mmol/L (3.5-5.1)
[2023-03-03 07:14] LABS: Basophils # (auto) 0.08 K/uL (0.00-0.20); Basophils % (auto) 0.6 %; Eosinophils # (auto) 0.09 K/uL (0.00-0.50); Eosinophils % (auto) 0.6 %; Immature Granulocytes # (auto) 0.08 K/uL (0.01-0.20); Immature Granulocytes % (auto) 0.6 %; Lymphocytes # (auto) 4.97 K/uL (1.20-3.40); Lymphocytes % (auto) 34.8 %; Monocytes # (auto) 1.16 K/uL (0.11-0.59); Monocytes % (auto) 8.1 %; Neutrophils % (auto) 55.3 %
[2023-03-03] MEDS: METOPROLOL TARTRATE 25 MG TAB PO SCH ×2 (08:15→20:00)
[2023-03-03] MEDS: AMOXICILLIN/CLAVULANATE 875 MG TAB PO SCH ×2 (08:15→15:45)
[2023-03-03] MEDS: ASPIRIN 81 MG ECTAB PO SCH (08:16)
[2023-03-03] MEDS: CYANOCOBALAMIN (B-12) 500 MCG TABLET PO SCH (08:16)
[2023-03-03] MEDS: PANTOprazole 40 MG TAB PO SCH (08:17)
[2023-03-03] MEDS: predniSONE 20 MG TAB PO SCH (08:17)
[2023-03-03] MEDS: UMECLIDINIUM BROMIDE 62.5MCG/BLISTER 7 PUFFS/INHALER INH SCH (08:17)
[2023-03-03] MEDS: ROSUVASTATIN CALCIUM 20 MG TAB PO SCH (08:26)
--- NOTE | 2023-03-03 08:35 | Cardiology Progress Note ---
Date of Service March 03, 2023 Assessment & Plan (1) CAD (coronary artery disease): (2) Non-ST elevation [place] (NSTEMI): (3) PNA (pneumonia): (4) Aortic stenosis: Plan IMPRESSION: 82-year-old male with past medical history of coronary disease status post CABG in 2013 presented to [facility] emergency department with acute onset of chest pain and shortness of breath. EKG with more prominent ST depression in inferior and lateral leads. Troponins elevated up to 6000. Symptom resolution with aspirin and sublingual nitroglycerin. Also found to have mild right lower lobe pneumonia and started on antibiotics. Underwent cardiac catheterization yesterday showing widely patent grafts and known severe [place] artery disease, no new or acute findings, and no lesions appropriate/suitable for PCI. PLAN: CAD/NSTEMI: - S/P cardiac catheterization as noted above with no suitable or appropriate lesions for PCI. -Result of O2 demand in the setting of acute respiratory distress and newly diagnosed pneumonia. -right groin cath site is clean/dry/intact, no signs of swelling or ecchymosis. Positive pulse motor sensation of right lower extremity. -Encourage ambulation today. -Continue GDMT with ASA 81mg PO Daily, metoprolol tartrate 25mg PO BID, and Crestor 40mg Daily -Recommend hospital discharge follow up within one month with cardiology team. -Primary crnp: Dr. Bennett. Pneumonia: -Continued management per primary team with Augmentin, prednisone as per current regimen as well as nebulizers PRN Aortic Stenosis: -Echocardiogram noted above showing moderate to moderately severe Aortic stenosis with mild insufficiency as well as moderate mitral regurgitation. -Plan for repeat echo OP at discretion of the cardiology team yearly, sooner if worsening symptoms. Case discussed with Dr. Bennett, further recommendations pending his assessment. I spent a total of 30 minutes on the date of service in preparation, delivery, documentation of the care provided to the patient excluding any time spent in the performance of separately billed services. Admission and Anticipated Discharge Date Admission Date: March 02, 2023 Supervising Physician Co-Signing Physician Notes Supervising Physician Attestation: I have personally performed a history and physical examination on the patient. I agree with the STRAIGHTENER HAND's findings and plan as documented with the following additions. Subjective: Patient feeling improved. No chest pain. Less cough. Sinus rhythm in the 90s noted on telemetry Exam: CV: regular rhythm, 1/6 SM Pulm: lungs clear Data: EKG this am reveals SR, lateral ST depression noted on 03/01/23 has resolved. TTecho: low normal LVEF, at least moderate Assessment and Plan: COPD exacerbation vs pneumonia NSTEMI due to supply demand mismatch in the setting of stable chronic severe CAD Moderate aortic stenosis -Continue ASA, metoprolol, rosuvastatin. -Course of Augmentin and prednisone. Keep outpt echo visit for follow up of as outpatient. Stable for discharge from cardio perspenctive once swallow study , aspiration evaluation completed. DVT prophylaxis: [] I spent a total of 20 minutes on the date of service in preparation, delivery, and documentation of the care provided to this patient, excluding any time spent in the performance of separately billed services. Osmin Bennett, Subjective HPI: 03/02/23: 82-year-old male who initially presented to [facility] emergency department due to chest pain and shortness of breath. Yesterday morning patient was noting a worsening productive cough and shortness of breath. He took prednisone and did a neb treatment but the shortness of breath continued. He later developed a left-sided chest heaviness and became diaphoretic after the breathing treatment. EMS was summoned. On arrival blood pressure systolics were in the 180s and heart rates were elevated in the 120s. He was treated with aspirin and sublingual nitroglycerin with improvement in symptoms. In the emergency department EKG showed sinus tachycardia, [address] and T wave abnormalities in inferior lateral leads. Diffuse ST depression noted in inferior and lateral leads, more prominent than prior EKGs. IV heparin was initiated. Lab work showed a leukocytosis with a white count of 20 (possibly due to recent steroid use), hemoglobin mildly low at 13.1. Platelets 231. Electrolytes within normal limits. Renal function stable. Lactate was initially elevated at 2.1, improved to 0.8. High-sensitivity troponins increased (148.3>>1636.7>>62 21.5). Questionable right lower lobe pneumonia on CXR, started on antibiotics. 03/03/2023: Patient underwent cardiac catheterization yesterday with Dr. Osmin Singleton for findings consistent with NSTEMI. Cardiac cath demonstrates widely patent prior grafts, known severe [place] vessel disease. Disease unchanged on direct comparison with prior cath except Left Main is now 100% occluded. Not new or acute. No lesions appropriate for PCI. Patient is feeling well today, resting comfortably in bed. Denies any chest pain, pressure, palpitations or shortness of breath. Cath site, right groin. Denies any pain, tenderness or bruising. Tele: Sinus rhythm 50's to 60's. BP at target 115/65 Tolerating PO intake, but is scheduled for swallowing study due to repeat pneumonia to exclude aspiration. Review of Systems Review of Systems: All systems reviewed & are unremarkable except as noted in HPI & below Physical Exam Constitutional: WD/WN, vitals as above well developed and well nourished; no acute distress Neck: normal visual inspection and trachea midline Respiratory: normal respiratory effort, lungs clear to auscultation Auscu ltation: lungs clear to auscultation bilaterally Cardiovascular: Rate/Rhythm: regular rate and regular rhythm Heart Sounds: normal S1, normal S2 and + murmur (+3/6 systolic) Vessels: dorsalis pedis pulses present Extremities: normal capillary refill Skin: no rashes, warm and dry (right groin site clean/dry/intact, non tender No ecchymosis) Psychiatric: A+Ox3, euthymic affect Results & Data Vital Signs (Past 12 Hours) Vital Signs Temp Pulse Resp BP Pulse Ox O2 Del Method 03/03/23 05:12 36.3 C L 67 16 135/61 94 Room Air 03/03/23 01:24 62 18 94 Room Air 03/02/23 22:58 36.5 C 62 16 130/54 L 94 Room Air Laboratory Results Cardiac Enzymes 03/03/23 Range/Units 06:16 AST 24 (13-39) U/L CBC 03/03/23 Range/Units 06:16 WBC 14.28 H (4.8-10.8) K/ul RBC 4.58 L (4.70-6.10) M/uL Hgb 13.4 L (14.0-18.0) g/dl Hct 40.8 L (42.0-52.0) % Plt Count 193 (130-400) K/uL Neut # (Auto) 7.90 H (1.40-6.50) K/uL Lymph # (Auto) 4.97 H (1.20-3.40) K/uL [place] # (Auto) 1.16 H (0.11-0.59) K/uL Eos # (Auto) 0.09 (0.00-0.50) K/uL Baso # (Auto) 0.08 (0.00-0.20) K/uL Comprehensive Metabolic Panel 03/03/23 Range/Units 06:16 Sodium 140 (136-145) mmol/L Potassium 4.1 (3.5-5.1) mmol/L Chloride 108 H (98-107) mmol/L Carbon Dioxide 26 (21-32) mmol/L BUN 11 (6-23) mg/dl Creatinine 0.89 (0.6-1.4) mg/dl Glucose 94 (70-99(Fasting)) mg/dl Calcium 8.7 (8.6-10.3) mg/dl AST 24 (13-39) U/L ALT 12 (7-52) U/L Alkaline Phosphatase 43 (34-104) U/L Total Protein 6.0 (6.0-8.3) gm/dl Albumin 3.5 (3.4-5.0) gm/dl Intake and Output 03/02/23 03/03/23 03/03/23 22:59 06:59 14:59 Intake Total 1178 / 1663.0 250 / 1663.0 Output Total 1100 / 2452 1 / 2452 Balance 78 / -789.0 249 / -789.0 Intake: IV 878 / 1113.0 Nss + 20Meq KCl 20 meq In 1,000 878 / 878 ml @ 60 mls/hr IV .[id number] STA Rx#:[id number] Oral 300 / 550 250 / 550 Output: Urine 1100 / 2450 # Bowel Movements 1 / 2 Other: # Unmeasured Voids 1 Weight 75.3 kg Weight Measurement Method Built in [facility] Diagnostic Findings Cardiac catheterization 03/02/2023: Coronary and bypass graft angiography: [id number]. 100% occluded in the mid to distal vessel. [id number] and probably dominant. 100% occluded in the proximal to mid vessel. There are several small RV marginal branches and some faint collateralization to the inferior myocardium as well as branching to the atria. [place] to LAD graft-large caliber and widely patent graft. Distal anastomosis on the early distal LAD. Provides antegrade flow to the distal LAD and septal branches. This vessel has diffuse mild disease with up to 40 to 50% focal stenosis. The graft also provides retrograde flow up the mid and proximal LAD. There are several large septal branches and a diagonal branch at the same level where there is proximal competitive flow. The proximal and mid LAD have diffuse moderate disease with 50 to 60% stenosis. SVG to OM graft-this is a large caliber and widely patent graft. Distal anastomosis on the proximal OM 2 branch. Provides antegrade flow down the OM 2 which itself is large and branching. It has no more than mild luminal irregularities. There is retrograde flow into the AV groove circumflex providing significant flow to the entire circumflex, a small OM1, a large PLB, a very large atrial branch which collateralizes to the distal RCA and its RPDA and RPL B. There is additional flow to the most proximal portion of the circumflex which has a 70% focal stenosis but does allow flow into a large ramus branch. The ramus has mild luminal irregularities and there is some competitive flow into what is probably the proximal LAD. The [place] mid AV groove circumflex has diffuse disease of up to 50% stenosis. Summary: 1. Widely patent prior grafts. 2. Severe [place] vessel coronary disease as described. Disease is unchanged on direct comparison with prior catheterization except the left main is now 100% occluded. This does not appear new/acute. 3. There are no lesions suitable/appropriate for PCI. 4. Continue guideline directed medical therapy for secondary prevention of coronary disease per primary crnp. Echocardiogram 03/02/2023 LVEF 50-55% Left atrium mildly dilated. Right atrium normal in size. Left ventricle normal in size Right ventricular systolic function is normal Aortic valve heavily calcified, moderate to moderately severe and mild aortic insufficiency Moderate Mitral regurgitation. (1) CAD (coronary artery disease) Associated angina: with unspecified form of angina Coronary Disease- Associated Artery/Lesion type: [place] artery [place] vs. transplanted heart: [place] heart Qualified Code(s): I25.119 - Atherosclerotic heart disease of [place] coronary artery with unspecified angina pectoris (3) PNA (pneumonia) Laterality: right Lung location: lower lobe of lung Pneumonia type: due to unspecified organism Qualified Code(s): J18.9 - Pneumonia, unspecified organism (4) Aortic stenosis Cardiac valve disease etiology: nonrheumatic Qualified Code(s): I35.0 - Nonrheumatic aortic (valve) stenosis
[2023-03-03] MEDS ORDERED: LEVALBUTEROL 1.25 MG/3 ML NEB NEB PRN (08:44)
[2023-03-03] MEDS ORDERED: IPRATROPIUM BROMIDE NEB SOLN 0.02% 2.5 ML VIAL INH PRN (08:44)
[2023-03-03] MEDS ORDERED: NYSTATIN SUSP 500,000 U/5 ML UDC PO STA (10:28)
--- NOTE | 2023-03-03 10:30 | Hospitalist Progress Note ---
Date of Service March 03, 2023 Assessment & Plan (1) Non-ST elevation [place] (NSTEMI): Plan: Chest pain similar to heart attack plus troponin elevation Possibly secondary to elevated BP and heart rate following home neb administration for COPD exacerbation hx CAD status post CABG Severe sepsis SIRS plus lactic acidosis secondary to possible aspiration pneumonitis resulting in recurrent COPD exacerbation valvular heart disease (moderate , mild AR/MR, TTE 2021) hx CVA PVD status post surgery hx AAA, stable measurement at 3.6 cm on outpatient ultrasound this year hyperlipidemia, on statin Rx GERD, stable on regimen Steroid-induced hyperglycemia likely prediabetes, hemoglobin A1c noted to be 5.8 in 2012 past tobacco abuse PCU Continue patient's home aspirin, beta-darion, statin Rx for CAD prevention Continue IV heparin initiated at the ER Follow troponin TTE, Cardiology consult re: NSTEMI N.p.o. until patient seen by cardiology in anticipation of ischemic workup CS, Unasyn followed by Augmentin Follow lactic acid response to IVF ((Guideline recommended 30 cc/kg BW fluid bolus administration over 3 hours precluded by patient's valvular heart disease.) Aspiration precautions, FIELD SUPERVISOR eval Nebs RTC (Xopenex preferred over albuterol given tachycardia noted upon arrival at the ER), prednisone course Update hemoglobin A1c DVT prophylaxis with IV heparin Full code Text document was generated using [employer] voice recognition software. It may contain grammatical or spelling errors. Kindly contact undersigned for clarification of any documentation item in question. Admission and Anticipated Discharge Date Admission Date: March 02, 2023 Results & Data Results & Data Vital Signs (Past 12 Hours) Vital Signs Temp Pulse Resp BP Pulse Ox O2 Del Method 03/03/23 09:50 Room Air 03/03/23 09:07 36.3 C L 74 20 115/65 96 Room Air 03/03/23 05:12 36.3 C L 67 16 135/61 94 Room Air 03/03/23 01:24 62 18 94 Room Air 03/02/23 22:58 36.5 C 62 16 130/54 L 94 Room Air
[2023-03-03] MEDS ORDERED: ACETAMINOPHEN 325 MG TAB PO PRN (11:00)
--- NOTE | 2023-03-03 14:00 | Fluoroscopy Report ---
VIDEO SWALLOW STUDY CLINICAL HISTORY: Aspiration. COMPARISON STUDY: No priors. Fluoroscopy time: 2.08 minutes. Ka,r: 11.1 mGy FINDINGS: Fluoroscopic guidance was provided to the Department of speech pathology in performing a vi simon swallow study. The patient consumed barium-impregnated pudding, cracker with paste, nectar thick liquids, and thin barium while the swallowing mechanism was observed in real-time. Pharyngeal penetra tion was seen with thin barium. No aspiration was identified with any of the sampled textures. Vallec ular retention was noted with a more solid textures. Surgical clips project over the neck. IMPRESSION: 1. Pharyngeal penetration is seen with thin barium. 2. No aspiration was seen with any of the sampled textures. 3. See dedicated speech pathology report for detailed findings and recommendations. Dictated: 03/03/2023 12:48 PM Transcribed: 03/03/2023 1:00 PM Neftali [id number] [email or web address] Electronically signed by: J Luis Foreman M.D. 03/03/2023 1:59 PM
--- NOTE | 2023-03-03 14:59 | Electrocardiogram Report ---
Test Reason : Blood Pressure : / mmHG Vent. Rate : 054 BPM Atrial Rate : 054 BPM P-R Int : 156 ms QRS Dur : 082 ms QT Int : 456 ms P-R-T Axes : 058 005 047 degrees QTc Int : 432 ms Sinus bradycardia Septal infarct (cited on or before 01-MAR-2023) Abnormal ECG When compared with ECG of 01-MAR-2023 23:16, Vent. rate has decreased BY 56 BPM Confirmed by Tre Brown ([id number]) on 03/03/2023 2:59:19 PM Referred By: REFERRED SELF Confirmed By:Tre Brown
--- NOTE | 2023-03-03 15:14 | Discharge Summary ---
Discharge Summary Date of Service March 03, 2023 Notes For Next Care Provider Please ensure follow up with cardiology, especially for echo for Please ensure resolution of bronchitic symptoms Medication Changes From Visit Nystatin suspension for thrush Augmentin 875mg x 9 more days Prednisone 20mg daily for 3 more days Admission HPI Per Admitting Provider History obtained from patient and records. Medical history significant for CAD status post CABG, valvular heart disease (moderate , mild AR/MR, TTE 2021), CVA, PVD status post surgery, AAA, hypertension, hyperlipidemia, COPD, GERD, past tobacco abuse. Last confinement January 2022 for COPD exacerbation. 3 weeks ago patient noted bronchitis symptoms at home which improved with home p rednisone. Yesterday, patient noted recurrent cough symptoms productive of thick sputum associated with shortness of breath. Patient admits to occasional cough/choking symptoms with water/food intake. Patient took first dose of home prednisone rescue medication. Neb treatment done at home when shortness of breath and wheezing symptoms did not respond to inhaler use. Patient later noted left-sided chest heaviness and sweatiness after breathing treatment. Symptoms somewhat similar to 'heart attack' from years ago. Patient denies fluid retention. EMS called to patient's home following PCPs advice. SBP noted to be 180s, heart rate 120s. Improved chest pain with aspirin and nitroglycerin administration. IV heparin initiated at the ER. 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 Admission Exam Per Admitting Provider GENERAL: Slightly anxious, minimal respiratory distress SKIN: Normal color, warm HEENT: Alopecia, bespectacled, [place] palpebral conjunctivae, no ptosis, dry buccal mucosa NECK : Supple, no tenderness CHEST : Decreased breath sounds, no tenderness HEART : RRR, systolic murmur ABDOMEN: Some distention, nontender EXTREMITIES : No LE swelling/tenderness, no other conspicuous deformities noted NEUROLOGIC : Coherent, no facial asymmetry, no other gross focality Principal Dx & Hospital Course #1 = Principal Diagnosis Plan Pt is an 82yoM with PMHx significant for CAD s/p CABG, valvular heart disease (moderate , mild AR/MR, TTE 2021), CVA, PVD s/p surgery, AAA, HTN, HLD, COPD, GERD, past tobacco abuse admitted with NSTEMI and complicated bronchitis. NSTEMI Presented with chest pain and hs-troponin elevation, 148.3-->1636.7-->6221.5 s/p cardiac cath on 03/02- no lesions noted for PCI hx CAD status post CABG Per cardiology, continue patient's home aspirin 81mg, metoprolol tartrate 25mg BID, rosuvastatin 40mg Cardiology follow up for echo for as well Complicated bronchitis Pt with chest xray showing emphysema Question of aspiration pneumonitis, seen by speech therapy -noted cricopharyngeal bar, discharge instructions given to pt by speech Treated with Augmentin and prednisone, scheduled nebulizer treatments PCP follow up to ensure resolution of bronchitic symptoms Thrush Noted on 03/03 Prescribed oral nystatin suspension for treatment PCP follow up Prediabetes Hgba1c of 6.4 this admission PCP follow up Discharge Exam General: Alert, oriented. No acute distress Skin: No noted rashes or bruises Psych: Appropriate mood and affect Neuro: No gross deficits HEENT: NC/AT Chest: noted surgical scar CV: RRR Resp: no increased effort of breathing Abdomen: Soft, nontender, nondistended. Extremities: No edema in lower extremities bilaterally. Updated Medication List Medication Instructions Recorded Confirmed Type albuterol sulfate 90 mcg/actuation 2 puff inhalation QID PRN 01/18/19 03/02/23 History aerosol inhaler (ProAir HFA) Shortness Of Breath Or Wheezing aspirin 81 mg tablet,delayed 81 mg PO QAM 01/18/19 03/02/23 History release furosemide 20 mg tablet 20 mg PO QAM 01/18/19 03/02/23 History metoprolol tartrate 25 mg tablet 25 mg PO Q12 01/18/19 03/02/23 History omeprazole 40 mg capsule,delayed 40 mg PO DAILY 01/18/19 03/02/23 History release rosuvastatin 40 mg tablet (Crestor) 40 mg PO QAM 01/18/19 03/02/23 History spironolactone 25 mg tablet 12.5 mg PO QAM 01/18/19 03/02/23 History triamcinolone acetonide 0.5 % 1 applic topical BID PRN flare ups 01/18/19 03/02/23 History topical cream cyanocobalamin (vitamin B-12) 1,000 mcg PO DAILY 04/11/20 03/02/23 History 1,000 mcg tablet (Vitamin B-12) cyclobenzaprine 10 mg tablet 5 mg PO BID PRN Spasms 02/11/22 03/02/23 History tiotropium bromide 2.5 2 puff inhalation QAM 02/11/22 03/02/23 History mcg/actuation mist for inhalation (Spiriva Respimat) ascorbic acid (vitamin C) 500 mg 500 mg PO DAILY 03/02/23 03/02/23 History tablet (Vitamin C) levalbuterol HCl 1.25 mg/3 mL 1.25 mg inhalation .Q6HR PRN 03/02/23 03/02/23 History solution for nebulization Shortness Of Breath Or Wheezing levalbuterol tartrate 45 1 puff inhalation Q4 PRN Shortness 03/02/23 03/02/23 History mcg/actuation aerosol inhaler Of Breath Or Wheezing (Xopenex HFA) amoxicillin 875 mg-potassium 1 tab PO BIDM #18 tabs 03/03/23 Rx clavulanate 125 mg tablet nystatin 100,000 unit/mL oral 5 ml PO QID #70 mL 03/03/23 Rx suspension prednisone 20 mg tablet 20 mg PO DAILY #3 tabs 03/03/23 Rx nitroglycerin 0.4 mg/hr 1 patch transdermal QAM #30 ea 03/04/23 Rx transdermal 24 hour patch (Nitro-Dur) Hospital Stay Data Consultations 03/02/23 00:33 ED Decision to Admit Stat 03/02/23 03:55 Consult Cardiology Routine 03/02/23 09:20 Consult Cardiac Catheterization Routine Procedures Performed Operation Date: 03/02/23 11:30 Actual Procedures s Cineradiography w/Routine Exam - Osmin Singleton MD, PhD s Ultrasound Vascular Access - Osmin Singleton MD, PhD p Cath, Cors with Grafts (no LV) - Osmin Singleton MD, PhD Diagnostic Imagining Performed 03/02/23 12:58 CL Cath Imgs for PACS use only Routine 03/03/23 11:00 Fluoro video [FL video swallow] Routine Chest X-Ray 03/01/23 23:23 XR chest 1V portable HISTORY: 82 years-old Male Chest pain, nonspecific COMPARISON: 02/11/2022 TECHNIQUE: AP view of the chest FINDINGS: The cardiomediastinal and hilar silhouettes are within normal limits. Prior median sternotomy. Emphysema. No pneumothorax, pleural effusion, airspace consolidation or overt pulmonary edema. Left upper abdominal embolization coils. Surgical clips of the neck. Degenerative changes of the shoulders and spine. IMPRESSION: Emphysema without acute process. ACT 112: Negative or not required by law. The above report was generated using voice recognition software. It may contain grammatical, syntax or spelling errors. Electronically signed by: Paco Cerna M.D. 03/02/2023 8:28 AM Videofluoroscopic Swallow 03/03/23 11:00 VIDEO SWALLOW STUDY CLINICAL HISTORY: Aspiration. COMPARISON STUDY: No priors. Fluoroscopy time: 2.08 minutes. Ka,r: 11.1 mGy FINDINGS: Fluoroscopic guidance was provided to the Department of speech pathology in performing a video swallow study. The patient consumed barium- impregnated pudding, cracker with paste, nectar thick liquids, and thin barium while the swallowing mechanism was observed in real-time. Pharyngeal penetration was seen with thin barium. No aspiration was identified with any of the sampled textures. Vallecular retention was noted with a more solid textures. Surgical clips project over the neck. IMPRESSION: 1. Pharyngeal penetration is seen with thin barium. 2. No aspiration was seen with any of the sampled textures. 3. See dedicated speech pathology report for detailed findings and recommendations. Dictated: 03/03/2023 12:48 PM Transcribed: 03/03/2023 1:00 PM Neftali [id number] [email or web address] Electronically signed by: J Luis Foreman M.D. 03/03/2023 1:59 PM Pending Results Patient Have Any Pending Studies at Discharge: No Discharge Instructions Given to Patient (Per Discharging Provider) Mr. Bain, You were seen by cardiology and they determined that you did have a heart attack. You had a procedure done that did not really show a definite cause. Cardiology is asking that you continue with your home metoprolol tartrate 25mg twice a day, rosuvastatin 40mg daily, aspirin 81mg. They also advise that you use a nitro patch daily. Please put the patch on in the morning and TAKE OFF AT BEDTIME. Please stop taking your home as needed sublingual nitroglycerin while you are using the nitroglycerin patch. Cardiology asks that you keep follow up as scheduled, including followup for your aortic stenosis. You also appeared to have a complicated bronchitis that we are treating with the antibiotic Augmentin for 9 more days and prednisone for 3 more days. Continue to use your home inhalers as prescribed. Please keep close follow up with your primary care provider after discharge. You were also seen by Speech Therapy and they have put in recommendations for you as well. We are discharging you with Nystatin oral medication to help your sore throat and the thrush noted on exam. Please take as prescribed. Please do not hesitate to come back to the emergency room should your symptoms return or worsen. It was a pleasure taking care of you while you were here! Total Time Total Time Spent Total Time Spent (In Minutes): > 30 minutes
--- NOTE | 2023-03-03 16:04 | Communication Note ---
Date of Service: March 03, 2023 Pt seen in acute assessment,had chest pain consistent with angina while walking in hallway. Symptoms resolved with bed rest. EKG with no ischemic changes. BP was elevated. Plan: Cancel discharge. Start nitro patch,place now, off at bedtime. On again in am.
--- NOTE | 2023-03-03 16:12 | Hospitalist Progress Note ---
Date of Service March 03, 2023 Assessment & Plan (1) Non-ST elevation NC (NSTEMI): (2) Thrush: (3) Complicated bronchitis: Plan Pt is an 82yoM with PMHx significant for CAD s/p CABG, valvular heart disease (moderate , mild AR/MR, TTE 2021), CVA, PVD s/p surgery, AAA, HTN, HLD, COPD, GERD, past tobacco abuse admitted with NSTEMI and complicated bronchitis. NSTEMI Presented with chest pain and hs-troponin elevation, 148.3-->1636.7-->6221.5 s/p cardiac cath on 03/02- no lesions noted for PCI hx CAD status post CABG Per cardiology, continue patient's home aspirin 81mg, metoprolol tartrate 25mg BID, rosuvastatin 40mg Cardiology follow up for echo for as well after discharge On 03/03- pt getting ready for discharge when he had chest pain again while walking the halls, also hypertensive. Seen by cardiology once more, recommending that d/c be canceled, nitro patch. Complicated bronchitis Pt with chest xray showing emphysema Question of aspiration pneumonitis Was seen by speech therapy -noted cricopharyngeal bar, discharge instructions given to pt by speech Treated with Augmentin and prednisone, scheduled and prn nebulizer treatments PCP follow up to ensure resolution of bronchitic symptoms after dsicharge Thrush Noted on 03/03 Prescribed oral nystatin suspension for treatment PCP follow up Prediabetes Hgba1c of 6.4 this admission PCP follow up CODE STATUS: Full code DVT prophylaxis: Lovenox SQ Diet: HH/DMII Dispo: d/c canceled for further monitoring/evaluation by cardiology Admission and Anticipated Discharge Date Admission Date: March 02, 2023 Subjective Pt was seen in the AM. Stated that he had a sore throat and caffeine withdrawal headache. Otherwise denied acute concerns. Was getting ready to be discharged when he started having chest pain once more. Cardiology was contacted and advised to discontinue discharge. Review of Systems Review of Systems: All systems reviewed & are unremarkable except as noted in Subjective Physical Exam Physical Exam: General: Alert, oriented. No acute distress Skin: No noted rashes or bruises Psych: Appropriate mood and affect Neuro: No gross deficits HEENT: NC/AT, noted white lesions in posterior oropharynx Chest: noted surgical scar CV: RRR Resp: no increased effort of breathing Abdomen: Soft, nontender, nondistended. Extremities: No edema in lower extremities bilaterally. Results & Data Results & Data Vital Signs (Past 12 Hours) Vital Signs Temp Pulse Pulse Resp BP Pulse Ox O2 Del Method 03/03/23 15:21 36.7 C 75 18 189/68 H 97 Room Air 03/03/23 12:19 36.5 C 67 20 140/66 98 Room Air 03/03/23 10:00 36.3 C L 90 20 134/71 97 Room Air 03/03/23 09:50 Room Air 03/03/23 09:07 36.3 C L 74 20 115/65 96 Room Air 03/03/23 07:15 51 L 03/03/23 05:12 36.3 C L 67 16 135/61 94 Room Air
[2023-03-03] MEDS ORDERED: NITROGLYCERIN 0.4 MG/HR PATCH TD ONE (16:26)
[2023-03-03] MEDS ORDERED: ENOXAPARIN INJ 40 MG/0.4 ML SYR SQ SCH (17:00)
[2023-03-03] MEDS: NYSTATIN SUSP 500,000 U/5 ML UDC PO SCH ×2 (17:37→20:00)
[2023-03-04 05:42] LABS: Hematocrit (blood only) 42.2 % (42.0-52.0); Hemoglobin 13.7 g/dl (14.0-18.0); Mean Corpuscular Hemoglobin 28.9 pg (25.0-34.0); Mean Corpuscular Hgb Conc 32.5 g/dL (32.0-36.0); Mean Platelet Volume 9.5 fL (9.4-12.4); Platelet Count 212 K/uL (130-400); RDW Coefficient of Variation 14.4 % (11.5-14.5); RDW Standard Deviation 46.9 fL (36.4-46.3); Red Blood Count 4.74 M/uL (4.70-6.10); White Blood Count 15.09 K/ul (4.8-10.8)
[2023-03-04 05:59] LABS: Albumin Globulin Ratio 1.4 (0.9-2); Albumin Level 3.5 gm/dl (3.4-5.0); BUN Creatinine Ratio 11.9 (10-20); Bilirubin,Total 0.4 mg/dl (0.2-1.0); Calcium 8.9 mg/dl (8.6-10.3); Creatinine Clr Calc Pharmacy 56.4 ml/min; Est GFR (Non-African American) 69.9 ml/min; Globulin 2.5 gm/dl (2.5-4.0); Phosphorus 3.9 mg/dl (2.5-4.9); Potassium 4.1 mmol/L (3.5-5.1)
[2023-03-04 07:24] LABS: Basophils % (auto) 0.7 %; Eosinophils # (auto) 0.11 K/uL (0.00-0.50); Eosinophils % (auto) 0.7 %; Immature Granulocytes # (auto) 0.09 K/uL (0.01-0.20); Immature Granulocytes % (auto) 0.6 %; Lymphocytes # (auto) 5.95 K/uL (1.20-3.40); Lymphocytes % (auto) 39.4 %; Monocytes # (auto) 1.39 K/uL (0.11-0.59); Monocytes % (auto) 9.2 %; Neutrophils # (auto) 7.45 K/uL (1.40-6.50); Neutrophils % (auto) 49.4 %
--- NOTE | 2023-03-04 08:16 | Electrocardiogram Report ---
Test Reason : Blood Pressure : / mmHG Vent. Rate : 069 BPM Atrial Rate : 069 BPM P-R Int : 156 ms QRS Dur : 082 ms QT Int : 422 ms P-R-T Axes : 072 037 078 degrees QTc Int : 452 ms Normal sinus rhythm Septal infarct (cited on or before 01-MAR-2023) Abnormal ECG When compared with ECG of 03-MAR-2023 05:08, No significant change was found Confirmed by Tre Brown ([id number]) on 03/04/2023 8:15:56 AM Referred By: REFERRED SELF Confirmed By:Tre Brown
[2023-03-04] MEDS: METOPROLOL TARTRATE 25 MG TAB PO SCH (08:25)
[2023-03-04] MEDS: PANTOprazole 40 MG TAB PO SCH (08:26)
[2023-03-04] MEDS: predniSONE 20 MG TAB PO SCH (08:26)
[2023-03-04] MEDS: NYSTATIN SUSP 500,000 U/5 ML UDC PO SCH (08:26)
[2023-03-04] MEDS: AMOXICILLIN/CLAVULANATE 875 MG TAB PO SCH (08:26)
[2023-03-04] MEDS: ROSUVASTATIN CALCIUM 20 MG TAB PO SCH (08:26)
[2023-03-04] MEDS: ASPIRIN 81 MG ECTAB PO SCH (08:26)
[2023-03-04] MEDS: CYANOCOBALAMIN (B-12) 500 MCG TABLET PO SCH (08:27)
[2023-03-04] MEDS: UMECLIDINIUM BROMIDE 62.5MCG/BLISTER 7 PUFFS/INHALER INH SCH (08:27)
[2023-03-04] MEDS ORDERED: NITROGLYCERIN 0.4 MG/HR PATCH TD ONE (09:00)
[2023-03-04] MEDS ORDERED: NITROGLYCERIN 0.4 MG/HR PATCH TD SCH (09:00)
--- NOTE | 2023-03-04 12:09 | Cardiology Progress Note ---
"Date of Service March 04, 2023 Assessment & Plan (1) CAD (coronary artery disease): (2) Non-ST elevation NC (NSTEMI): (3) PNA (pneumonia): (4) Aortic stenosis: Plan IMPRESSION: 82-year-old male with past medical history of coronary disease status post CABG in 2012 presented to [facility] emergency department with acute onset of chest pain and shortness of breath. EKG with more prominent ST depression in inferior and lateral leads. Troponins elevated up to 6000. Symptom resolution with aspirin and sublingual nitroglycerin. Also found to have mild right lower lobe pneumonia and started on antibiotics. Underwent cardiac catheterization showing widely patent grafts and known severe [place] artery disease, no new or acute findings, and no lesions appropriate/suitable for PCI. PLAN: CAD/NSTEMI: - S/P cardiac catheterization as noted above with no suitable or appropriate lesions for PCI. -Result of O2 demand in the setting of acute respiratory distress and newly diagnosed pneumonia. -right groin cath site is clean/dry/intact, no signs of swelling or ecchymosis. Positive pulse motor sensation of right lower extremity. -Encourage ambulation today. -Continue GDMT with ASA 81mg PO Daily, metoprolol tartrate 25mg PO BID, and Crestor 40mg Daily -Recommend hospital discharge follow up within one month with cardiology team. -Primary edge inker heels: Dr. Bennett. -continue NitroPatch qday; no longer having exertional angina Pneumonia: -Continued management per primary team with Augmentin, prednisone as per current regimen as well as nebulizers PRN Aortic Stenosis: -Echocardiogram noted above showing moderate to moderately severe Aortic stenosis with mild insufficiency as well as moderate mitral regurgitation. -Plan for repeat echo OP at discretion of the cardiology team yearly, sooner if worsening symptoms. I spent a total of 55 minutes on the date of service in preparation, delivery, documentation of the care provided to the patient excluding any time spent in the performance of separately billed services. Admission and Anticipated Discharge Date Admission Date: March 02, 2023 Subjective No acute events overnight. No chest pain. Able to ambulate the hallways 4x today pain free Has nitro patch No N/V/PARTIDA; afebrile. No PND or orthopnea Review of Systems Review of Systems: A comprehensive review of systems is otherwise negative unless noted above. Physical Exam Physical Exam: Slightly overweight Left CEA Scar No elevation in JVP Sternotomy S1S2 2/6 Systolic murmur CTA B 2/2 Radial Pulse on Right 2/2 Femoral Pulse on Right - no bruit No c/c/e Warm and perfusing Constitutional: WD/WN, vitals as above well developed and well nourished; no acute distress Neck: normal visual inspection and trachea midline Respiratory: normal respiratory effort, lungs clear to auscultation Auscultation: lungs clear to auscultation bilaterally Cardiovascular: Rate/Rhythm: regular rate and regular rhythm Heart Sounds: normal S1, normal S2 and + murmur (+3/6 systolic) Vessels: dorsalis pedis pulses present Extremities: normal capillary refill Skin: no rashes, warm and dry (right groin site clean/dry/intact, non tender No ecchymosis) Psychiatric: A+Ox3, euthymic affect Results & Data Vital Signs (Past 12 Hours) Vital Signs Temp Pulse Pulse Resp BP Pulse Ox O2 Del Method 03/04/23 09:16 36.3 C L 82 17 124/66 94 Room Air 03/04/23 09:00 Room Air 03/04/23 07:58 56 L 03/04/23 03:36 36.5 C 63 16 107/64 94 Room Air 03/04/23 00:07 36.3 C L 82 18 105/61 91 Room Air Laboratory Results Na | 140 | | 136-145 mmol/L | K | 4.1 | | 3.5-5.1 mmol/L | Cl | 107 | | 98-107 mmol/L | CO2 | 27 | | 21-32 mmol/L | Gap | 6 | | 3-11 | BUN | 12 | | 6-23 mg/dl | Creat | 1.01 | | 0.6-1.4 mg/dl | Creat Calc PHA | 56.4 | | ml/min | | Est. Creatinine Clearance (Mod Cockcroft-Gault) for pharmacy | dosing purposes. EGFR AA | 81.0 | | ml/min | | Units: ml/min per 1.73 meters squared | | The estimated GFR (CKD-EPI equation) has not been validated | for inpatient settings and may not be an accurate reflection | of renal function in critically ill patients or those with | rapidly changing renal function (e.g. MURRAY). EGFR JAVI | 69.9 | | ml/min | | Units: ml/min per 1.73 meters squared | | The estimated GFR (CKD-EPI equation) has not been validated | for inpatient settings and may not be an accurate reflection | of renal function in critically ill patients or those with | rapidly changing renal function (e.g. MURRAY). BUN Creat Ratio | 11.9 | | 10-20 | Glu | 78 | | 70-99(Fasting) mg/dl | Ca | 8.9 | | 8.6-10.3 mg/dl | Phos | 3.9 | | 2.5-4.9 mg/dl | MG | 2.0 | | 1.7-2.4 mg/dl | Total Bilirubin | 0.4 | | 0.2-1.0 mg/dl | AST | 18 | | 13-39 U/L | Alt | 12 | | 7-52 U/L | TP | 6.0 | | 6.0-8.3 gm/dl | Alb | 3.5 | | 3.4-5.0 gm/dl | Globulin | 2.5 | | 2.5-4.0 gm/dl | A/G Ratio | 1.4 | | 0.9-2 | Alk Phos | 42 | | 34-104 U/L | (1) CAD (coronary artery disease) Coronary Disease-Associated Artery/Lesion type: [place] artery [place] vs. transplanted heart: [place] heart Associated angina: with unspecified form of angina Qualified Code(s): I25.119 - Atherosclerotic heart disease of [place] coronary artery with unspecified angina pectoris (3) PNA (pneumonia) Laterality: right Lung location: lower lobe of lung Pneumonia type: due to unspecified organism Qualified Code(s): J18.9 - Pneumonia, unspecified organism (4) Aortic stenosis Cardiac valve disease etiology: nonrheumatic Qualified Code(s): I35.0 - Nonrheumatic aortic (valve) stenosis"
--- NOTE | 2023-03-04 13:57 | Discharge Summary ---
Discharge Summary Date of Service March 04, 2023 Notes For Next Care Provider Please ensure follow up with cardiology, especially for echo for Please ensure resolution of bronchitic symptoms Medication Changes From Visit Nystatin suspension for thrush Augmentin 875mg x 9 more days Prednisone 20mg daily for 3 more days Nitroglycerin 0.4mg patch TD qAM- remove at bedtime daily Admission HPI Per Admitting Provider History obtained from patient and records. Medical history significant for CAD status post CABG, valvular heart disease (moderate , mild AR/MR, TTE 2021), CVA, PVD status post surgery, AAA, hypertension, hyperlipidemia, COPD, GERD, past tobacco abuse. Last confinement January 2022 for COPD exacerbation. 3 weeks ago patient noted bronchitis symptoms at home which improved with home prednisone. Yesterday, patient noted recurrent cough symptoms productive of thick sputum associated with shortness of breath. Patient admits to occasional cough/choking symptoms with water/food intake. Patient took first dose of home prednisone rescue medication. Neb treatment done at home when shortness of breath and wheezing symptoms did not respond to inhaler use. Patient later noted left-sided chest heaviness and sweatiness after breathing treatment. Symptoms somewhat similar to 'heart attack' from years ago. Patient denies fluid retention. EMS called to patient's home following PCPs advice. SBP noted to be 180s, heart rate 120s. Improved chest pain with aspirin and nitroglycerin administration. IV heparin initiated at the ER. 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 Admission Exam Per Admitting Provider GENERAL: Slightly anxious, minimal respiratory distress SKIN: Normal color, warm HEENT: Alopecia, bespectacled, [place] palpebral conjunctivae, no ptosis, dry buccal mucosa NECK : Supple, no tenderness CHEST : Decreased breath sounds, no tenderness HEART : RRR, systolic murmur ABDOMEN: Some distention, nontender EXTREMITIES : No LE swelling/tenderness, no other conspicuous deformities noted NEUROLOGIC : Coherent, no facial asymmetry, no other gross focality Principal Dx & Hospital Course #1 = Principal Diagnosis (1) Non-ST elevation MT (NSTEMI): (2) Thrush: (3) Complicated bronchitis: Plan Pt is an 82yoM with PMHx significant for CAD s/p CABG, valvular heart disease (moderate , mild AR/MR, TTE 2021), CVA, PVD s/p surgery, AAA, HTN, HLD, COPD, GERD, past tobacco abuse admitted with NSTEMI and complicated bronchitis. NSTEMI Presented with chest pain and hs-troponin elevation, 148.3-->1636.7-->6221.5 s/p cardiac cath on 03/02- no lesions noted for PCI hx CAD status post CABG Per cardiology, continue patient's home aspirin 81mg, metoprolol tartrate 25mg BID, rosuvastatin 40mg Cardiology follow up for echo for as well Pt was originally supposed to be discharged on the when he started having chest pressure and tightness after walking the halls of the hospital. EKG was obtained and pt was noted to be hypertensive. Nitro patch was placed and pt was monitored overnight. Cardiology recommended discharge the next day with a daily nitro patch for use. Close Cardiology and PCP follow up. Cardiology recs for discharge: "Continue GDMT with ASA 81mg PO Daily, metoprolol tartrate 25mg PO BID, and Crestor 40mg Daily Recommend hospital discharge follow up within one month with cardiology team. Primary clinical review specialist: Dr. Bennett. continue NitroPatch qday; no longer having exertional angina" Aortic Stenosis: -Echocardiogram noted above showing moderate to moderately severe Aortic stenosis with mild insufficiency as well as moderate mitral regurgitation. -Plan for repeat echo OP at discretion of the cardiology team yearly, sooner if worsening symptoms." Complicated bronchitis Pt with chest xray showing emphysema Question of aspiration pneumonitis, seen by speech therapy -noted cricopharyngeal bar, discharge instructions given to pt by speech Treated with Augmentin and prednisone, scheduled nebulizer treatments PCP follow up to ensure resolution of bronchitic symptoms Thrush Noted on 03/03 Prescribed oral nystatin suspension for treatment PCP follow up Prediabetes Hgba1c of 6.4 this admission PCP follow up Discharge Exam General: Alert, oriented. No acute distress Skin: No noted rashes or bruises Psych: Appropriate mood and affect Neuro: No gross deficits HEENT: NC/AT, noted white lesions in posterior oropharynx Chest: noted surgical scar CV: RRR Resp: no increased effort of breathing Abdomen: Soft, nontender, nondistended. Extremities: No edema in lower extremities bilaterally. Updated Medication List Medication Instructions Recorded Confirmed Type albuterol sulfate 90 mcg/actuation 2 puff inhalation QID PRN 01/18/19 03/02/23 History aerosol inhaler (ProAir HFA) Shortness Of Breath Or Wheezing aspirin 81 mg tablet,delayed 81 mg PO QAM 01/18/19 03/02/23 History release furosemide 20 mg tablet 20 mg PO QAM 01/18/19 03/02/23 History metoprolol tartrate 25 mg tablet 25 mg PO Q12 01/18/19 03/02/23 History omeprazole 40 mg capsule,delayed 40 mg PO DAILY 01/18/19 03/02/23 History release rosuvastatin 40 mg tablet (Crestor) 40 mg PO QAM 01/18/19 03/02/23 History spironolactone 25 mg tablet 12.5 mg PO QAM 01/18/19 03/02/23 History triamcinolone acetonide 0.5 % 1 applic topical BID PRN flare ups 01/18/19 03/02/23 History topical cream cyanocobalamin (vitamin B-12) 1,000 mcg PO DAILY 04/11/20 03/02/23 History 1,000 mcg tablet (Vitamin B-12) cyclobenzaprine 10 mg tablet 5 mg PO BID PRN Spasms 02/11/22 03/02/23 History tiotropium bromide 2.5 2 puff inhalation QAM 02/11/22 03/02/23 History mcg/actuation mist for inhalation (Spiriva Respimat) ascorbic acid (vitamin C) 500 mg 500 mg PO DAILY 03/02/23 03/02/23 History tablet (Vitamin C) levalbuterol HCl 1.25 mg/3 mL 1.25 mg inhalation .Q6HR PRN 03/02/23 03/02/23 History solution for nebulization Shortness Of Breath Or Wheezing levalbuterol tartrate 45 1 puff inhalation Q4 PRN Shortness 03/02/23 03/02/23 History mcg/actuation aerosol inhaler Of Breath Or Wheezing (Xopenex HFA) amoxicillin 875 mg-potassium 1 tab PO BIDM #18 tabs 03/03/23 Rx clavulanate 125 mg tablet nystatin 100,000 unit/mL oral 5 ml PO QID #70 mL 03/03/23 Rx suspension prednisone 20 mg tablet 20 mg PO DAILY #3 tabs 03/03/23 Rx nitroglycerin 0.4 mg/hr 1 patch transdermal DAILY #30 ea 03/04/23 Rx transdermal 24 hour patch (Nitro-Dur) Hospital Stay Data Consultations 03/02/23 00:33 ED Decision to Admit Stat 03/02/23 03:55 Consult Cardiology Routine 03/02/23 09:20 Consult Cardiac Catheterization Routine Procedures Performed Operation Date: 03/02/23 11:30 Actual Procedures s Cineradiography w/Routine Exam - Osmin Singleton MD, PhD s Ultrasound Vascular Access - Osmin Singleton MD, PhD p Cath, Cors with Grafts (no LV) - Osmin Singleton MD, PhD Diagnostic Imagining Performed 03/02/23 12:58 CL Cath Imgs for PACS use only Routine 03/03/23 11:00 Fluoro video [FL video swallow] Routine Chest X-Ray 03/01/23 23:23 XR chest 1V portable HISTORY: 82 years-old Male Chest pain, nonspecific COMPARISON: 02/11/2022 TECHNIQUE: AP view of the chest FINDINGS: The cardiomediastinal and hilar silhouettes are within normal limits. Prior median sternotomy. Emphysema. No pneumothorax, pleural effusion, airspace consolidation or overt pulmonary edema. Left upper abdominal embolization coils. Surgical clips of the neck. Degenerative changes of the shoulders and spine. IMPRESSION: Emphysema without acute process. ACT 112: Negative or not required by law. The above report was generated using voice recognition software. It may contain grammatical, syntax or spelling errors. Electronically signed by: Paco Cerna M.D. 03/02/2023 8:28 AM Videofluoroscopic Swallow 03/03/23 11:00 VIDEO SWALLOW STUDY CLINICAL HISTORY: Aspiration. COMPARISON STUDY: No priors. Fluoroscopy time: 2.08 minutes. stacey Vargas: 11.1 mGy FINDINGS: Fluoroscopic guidance was provided to the Department of speech pathology in performing a video swallow study. The patient consumed barium- impregnated pudding, cracker with paste, nectar thick liquids, and thin barium while the swallowing mechanism was observed in real-time. Pharyngeal penetration was seen with thin barium. No aspiration was identified with any of the sampled textures. Vallecular retention was noted with a more solid textures. Surgical clips project over the neck. IMPRESSION: 1. Pharyngeal penetration is seen with thin barium. 2. No aspiration was seen with any of the sampled textures. 3. See dedicated speech pathology report for detailed findings and re commendations. Dictated: 03/03/2023 12:48 PM Transcribed: 03/03/2023 1:00 PM Neftali [id number] [email or web address] Electronically signed by: J Luis Foreman M.D. 03/03/2023 1:59 PM Pending Results Patient Have Any Pending Studies at Discharge: No Discharge Instructions Given to Patient (Per Discharging Provider) Mr. Bain, You were seen by cardiology and they determined that you did have a heart attack. You had a procedure done that did not really show a definite cause. Cardiology is asking that you continue with your home metoprolol tartrate 25mg twice a day, rosuvastatin 40mg daily, aspirin 81mg. They also advise that you use a nitro patch daily. Please put the patch on in the morning and TAKE OFF AT BEDTIME. Please stop taking your home as needed sublingual nitroglycerin while you are using the nitroglycerin patch. Cardiology asks that you keep follow up as scheduled, including followup for your aortic stenosis. You also appeared to have a complicated bronchitis that we are treating with the antibiotic Augmentin for 9 more days and prednisone for 3 more days. Continue to use your home inhalers as prescribed. Please keep close follow up with your primary care provider after discharge. You were also seen by Speech Therapy and they have put in recommendations for you as well. We are discharging you with Nystatin oral medication to help your sore throat and the thrush noted on exam. Please take as prescribed. Please do not hesitate to come back to the emergency room should your symptoms return or worsen. It was a pleasure taking care of you while you were here! Total Time Total Time Spent Total Time Spent (In Minutes): > 30 minutes
--- NOTE | 2023-03-05 22:53 | Electrocardiogram Report ---
Test Reason : Blood Pressure : / mmHG Vent. Rate : 058 BPM Atrial Rate : 058 BPM P-R Int : 156 ms QRS Dur : 084 ms QT Int : 448 ms P-R-T Axes : 066 000 053 degrees QTc Int : 439 ms Sinus bradycardia Septal infarct (cited on or before 01-MAR-2023) Abnormal ECG When compared with ECG of 03-MAR-2023 15:33, No significant change was found Confirmed by Reagan Leal ([id number]) on 03/05/2023 10:53:10 PM Referred By: REFERRED SELF Confirmed By:Reagan Leal
--- NOTE | 2023-03-22 07:19 | Coding Query ---
To promote full compliance with coding requirements relating to patient care, provider participation is requested in all cases of analyst programmer uncertainty. Please assist us with the question(s) below: Coding Question(s): The diagnosis(es) below was documented in the (analyst programmer fill out source document ie H&P, progress notes, etc.) then subsequently fell off all further documentation. Please indicate if it is still a possible diagnosis or ruled out. Physician's Response(s): SEPSIS ( x ) Diagnosed and POA ( ) Diagnosed and not POA ( ) Ruled out ( ) Other (please specify) MTDD
== END 2023-03-04 15:43 | disposition home or self-care (01) | DRG 280 ==
LOC: ED 23:11 → 4W 03-02 01:37
PROC: CLB.CCG (2023-03-02 11:30)

== ENCOUNTER 2023-06-23 00:48 | Inpatient (IN) ==
--- NOTE | 2023-06-23 01:09 | Emergency Department Note ---
Impression & Plan Cholecystitis, Leukocytosis, Acute epigastric pain ED Provider Note NAME: DEMETRICE VO AGE: 82 SEX: M : 1940 ARRIVES VIA: Ambulance INFORMANT: Patient ED PROVIDER(S): Jose Mitchell MD CHIEF COMPLAINT: Abdominal pain PLAN: Disposition: Admit MEDICAL DECISION MAKING: The patient is a pleasant 82-year-old gentleman with a past medical history of CAD with h/o NSTEMI 02/2023, COPD, hypertension, hyperlipidemia, GERD who presents emergency department for evaluation of acute onset worsening epigastric pain with nausea and vomiting tonight in the setting of having several symptoms that began last night and have persisted despite taking Pepto-Bismol several times. He reports he did move his bowels today and was somewhat higher due to taking Pepto-Bismol and notes that his stool was black but only after taking Pepto-Bismol. He reports some mild shortness of breath and does feel some wheezing which was consistent with a COPD he feels. Otherwise denies any fevers, cough, congestion, urinary symptoms. On evaluation the patient is uncomfortable no acute distress, afebrile with respiratory rate in the upper 30s in the setting of his discomfort and blood pressure 150s/60s. He is O2 saturation is 94% on room air. He appears clinically dry. He has mild epigastric tenderness without guarding or rebound. He has mild wheeze of bilateral lung shafer. EKG without overt acute ischemia. CXR negative for acute cardiopulmonary process per my personal preliminary review/interpretation. WBC 20.3 K, with out to neutrophilia or left shift, nonspecific. H/H complaints within normal limits. Chemistry without metabolic acidosis. Magnesium 1.6 electrolytes otherwise unremarkable. LFTs with AST of 135, nonspecific with normal total bilirubin, ALT and alk phos. Positive troponin 7.1, within normal limits. Lipase not elevated. Procalcitonin is not elevated. CT a with dissection protocol for the chest abdomen pelvis performed. No PE or acute aortic pathology is identified. Note is made of cholelithiasis with mild pericholecystic fat stranding raising the concern for possible acute cholecystitis. Patient did feel some initial improvement following IV fluid hydration, IV APAP, fentanyl, Zofran. However pain did return and abdomen still with mild tenderness in the epigastrium though no guarding or rebound. Patient agrees to plan for admission for further management. Gallbladder ultrasound ordered for further characterization of the patient's suspected cholecystitis. Blood cultures obtained and IV Zosyn initiated. Case was reviewed with general surgery Samson MCCALL with general surgery, Dr. Brooks. Appreciate consultation recommendations. Recommends admission to medicine service for further management including cardiac clearance for possible surgical intervention. Agrees with antibiotics. Surgery will continue to consult. [facility] for [facility]. Further management per admitting team. Triage Nursing notes reviewed and agree them. Prior/external medical records reviewed Vital Signs: reviewed Differential diagnosis: Appendicitis, testicular torsion, infections, diverticulitis, UTI, obstruction, mesenteric ischemia, aortic pathology, inflammatory bowel disease, renal colic, PUD, pancreatitis, biliary pathology, hernia, volvulus, constipation, as well as other pathologies. ER treatment provided: See below. Diagnostics interpreted by me: ECG: Sinus rhythm first-degree block, 87 bpm, LVH with repolarization abnormality, no overt ST elevation, QTc 462, QRS 88. Cardiac Monitoring: An order for continuous cardiac monitoring was placed and demonstrated Sinus rhythm first-degree block, 87 bpm, no ectopy. Laboratory studies: See below Imaging studies: See below Consultation(s): Samson MCCALL with general surgery, Dr. Brooks Case was discussed with Dr. Yousse[facility] who will evaluate the patient for admission. HPI: The patient is a pleasant 82-year-old gentleman with a past medical history of COPD, hypertension, hyperlipidemia, GERD who presents emergency department for evaluation of acute onset worsening epigastric pain with nausea and vomiting tonight in the setting of having several symptoms that began last night and have persisted despite taking Pepto-Bismol several times. He reports he did move his bowels today and was somewhat higher due to taking Pepto-Bismol and notes that his stool was black but only after taking Pepto-Bismol. He reports some mild shortness of breath and does feel some wheezing which was consistent with a COPD he feels. Otherwise denies any fevers, cough, congestion, urinary symptoms. ROS: See above HPI for pertinent positives & negatives. A total of 10 systems reviewed and were otherwise negative. VITALS:See Below PHYSICAL EXAMINATION: GENERAL: Awake, alert, uncomfortable-appearing, in no distress HENT: Normocephalic, atraumatic. Oropharynx with dry mucous membranes and otherwise unremarkable. EYES: Normal conjunctiva. Sclera non-icteric. NECK: Supple. No nuchal rigidity. FROM. No JVD. RESPIRATORY: Clear to auscultation. CARDIAC: Regular rate, normal rhythm. Extremities warm and well perfused. Pulses equal. ABDOMEN: Soft, non-distended. Mild epigastric tenderness to palpation. No rebound or guarding. No masses. RECTAL: Deferred. MUSCULOSKELETAL: Chest examination reveals no tenderness. The back is symmetrical on inspection without obvious abnormality. There is no CVA tenderness to palpation. No joint edema. LOWER EXTREMITIES: Calves are equal size bilaterally and non-tender. No edema. No discoloration. NEURO: Normal sensorium. No sensory or motor deficits noted. SKIN: No rash or jaundice noted. Jose Mitchell MD Past Med/Surg History Medical History Hypoxia BPH (benign prostatic hyperplasia) H/O: CVA (cerebrovascular accident) Aortic stenosis CAD (coronary artery disease) Hypersensitivity reaction Hypoxia Anxiety Alcohol use Pneumonia due to COVID-19 virus Hypoxia COVID-19 Ischemic stroke Gastroesophageal reflux disease Dyslipidemia Coronary artery disease involving coronary bypass graft Carotid artery stenosis Benign hypertension Aortic valve stenosis Surgical History Hx of cardiac catheterization History of carotid endarterectomy History of repair of inguinal hernia Family History Other Heart disease Stroke Social History Smoking Status: Former smoker Tobacco Type: Cigarettes Second Hand Exposure: No; Do You Dip or Chew Tobacco: No; Hx Alcohol Use: Yes Alcohol type: beer Hx Substance Use: No Preferred Language: Egyptian Communication Ability: Effective 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 Equipment Required: No Beliefs That Will Affect Care: None marital status: Current Living Situation: Alone Feels Safe at Home: Yes Assistive Devices: None Allergies Allergies Allergy/AdvReac Type Severity Reaction Status Date / Time remdesivir Allergy Severe hypotension, Verified 03/02/23 00:57 diaphoretic naproxen Allergy Unknown Unverified 03/02/23 00:57 morphine AdvReac Severe HALLUCINATI Verified 03/02/23 00:57 ONS Home Meds Home Medications Medication Instructions Recorded Confirmed albuterol sulfate 90 mcg/actuation 2 puff inhalation Q6 PRN Shortness 01/18/19 06/23/23 aerosol inhaler (ProAir HFA) Of Breath Or Wheezing aspirin 81 mg tablet,delayed 81 mg PO QAM 01/18/19 06/23/23 release furosemide 20 mg tablet 20 mg PO QAM 01/18/19 06/23/23 metoprolol tartrate 25 mg tablet 25 mg PO Q12 01/18/19 06/23/23 omeprazole 40 mg capsule,delayed 40 mg PO DAILYBB 01/18/19 06/23/23 release rosuvastatin 40 mg tablet (Crestor) 40 mg PO QAM 01/18/19 06/23/23 spironolactone 25 mg tablet 12.5 mg PO QAM 01/18/19 06/23/23 triamcinolone acetonide 0.5 % 1 applic topical BID PRN flare ups 01/18/19 06/23/23 topical cream cyanocobalamin (vitamin B-12) 1,000 mcg PO DAILY 04/11/20 06/23/23 1,000 mcg tablet (Vitamin B-12) cyclobenzaprine 10 mg tablet 5 mg PO BID Spasms 02/11/22 06/23/23 tiotropium bromide 2.5 2 puff inhalation QAM 02/11/22 06/23/23 mcg/actuation mist for inhalation (Spiriva Respimat) ascorbic acid (vitamin C) 500 mg 500 mg PO QPM 03/02/23 06/23/23 tablet (Vitamin C) levalbuterol HCl 1.25 mg/3 mL 1.25 mg inhalation .Q6HR PRN 03/02/23 06/23/23 solution for nebulization Shortness Of Breath Or Wheezing levalbuterol tartrate 45 1 puff inhalation Q4 PRN Shortness 03/02/23 06/23/23 mcg/actuation aerosol inhaler Of Breath Or Wheezing (Xopenex HFA) lorazepam 0.5 mg tablet 0.5 mg PO TID PRN Anxiety 06/23/23 06/23/23 nitroglycerin 0.4 mg sublingual 0.4 mg sublingual .Q 5 MIN PRN 06/23/23 06/23/23 tablet Chest Pain zinc acetate 50 mg (zinc) capsule 50 mg PO QAM 06/23/23 06/23/23 Results & Data (ED) Vital Signs Vital Signs - 24 hr 06/23/23 00:43 06/23/23 00:52 06/23/23 00:56 Temperature 36.6 C Temperature Source Oral Pulse Rate 90 89 Pulse Rate [Right Finger] Respiratory Rate 38 H Blood Pressure 154/64 H Blood Pressure [Right Arm] Blood Pressure Mean 94 Blood Pressure Mean [Right Arm] Pulse Oximetry 97 94 Oxygen Delivery Method Room Air Room Air Oxygen Flow Rate Sepsis Recent Fever Within 48 Hours No Sepsis New/Unexplained Change in Mental Status N/A Sepsis Action Taken by Nursing No Action Required 06/23/23 01:07 06/23/23 02:07 06/23/23 04:13 Temperature 36.6 C Temperature Source Oral Pulse Rate 89 Pulse Rate [Right Finger] 88 100 H Respiratory Rate 25 H 24 24 Blood Pressure Blood Pressure [Right Arm] 127/86 144/60 H Blood Pressure Mean Blood Pressure Mean [Right Arm] 99 88 Pulse Oximetry 98 100 96 Oxygen Delivery Method Room Air Room Air Nasal Cannula Oxygen Flow Rate 2 Sepsis Recent Fever Within 48 Hours Sepsis New/Unexplained Change in Mental Status Sepsis Action Taken by Nursing Laboratory Data 06/23/23 05:50 06/23/23 05:50 Lab Results 06/23/23 06/23/23 06/23/23 Range/Units 00:55 02:20 04:25 WBC 20.39 H (4.8-10.8) K/ul RBC 5.06 (4.70-6.10) M/uL Hgb 14.8 (14.0-18.0) g/dl Hct 44.1 (42.0-52.0) % MCV 87.2 (80.0-100.0) fL MCH 29.2 (25.0-34.0) pg MCHC 33.6 (32.0-36.0) g/dL RDW Std Deviation 46.9 H (36.4-46.3) fL RDW Coeff of Stefano 14.6 H (11.5-14.5) % Plt Count 157 (130-400) K/uL MPV 10.5 (9.4-12.4) fL Neutrophils % (Manual) 30 % Lymphocytes % (Manual) 25 % Reactive Lymphs % (Man) 29 % Monocytes % (Manual) 14 % Eosinophils % (Manual) 2 % Neutrophils # (Manual) 6.12 (1.40-6.50) K/uL Total Absolute Neuts 6.12 (1.4-6.5) K/uL Lymphocytes # (Manual) 5.10 H (1.2-3.4) K/uL Reactive Lymphs # 5.91 K/uL Total Abs Lymphocytes 11.01 H (1.2-3.4) K/uL Monocytes # (Manual) 2.85 H (0.11-0.59) K/uL Eosinophils # (Manual) 0.41 (0-0.50) K/uL RBC Morphology Unremarkable PT 11.4 (9.0-12.0) Seconds INR 1.0 (0.9-1.1) Sodium 137 (136-145) mmol/L Potassium TNP 3.8 Chloride 100 (98-107) mmol/L Carbon Dioxide 29 (21-32) mmol/L Anion Gap 8 (3-11) BUN 11 (6-23) mg/dl Creatinine 1.19 (0.6-1.4) mg/dl Est Cr Clr Drug Dosing 47.9 ml/min Est GFR ( Amer) 66.5 ml/min Est GFR (Non-Af Amer) 57.3 ml/min BUN/Creatinine Ratio 9.2 L (10-20) Glucose 106 H (70-99(Fasting)) mg/dl Lactate 1.6 (0.4-2.0) mmol/L Calcium 9.2 (8.6-10.3) mg/dl Magnesium 1.6 L (1.7-2.4) mg/dl Total Bilirubin 0.6 (0.2-1.0) mg/dl AST TNP 135 H ALT 20 (7-52) U/L Alkaline Phosphatase 66 (34-104) U/L Troponin I High Sens 7.1 (0-20) pg/ml Total Protein 7.9 (6.0-8.3) gm/dl Albumin 4.2 (3.4-5.0) gm/dl Globulin 3.7 (2.5-4.0) gm/dl Albumin/Globulin Ratio 1.1 (0.9-2) Lipase 28 (11-82) U/L Procalcitonin 0.05 (0-0.5) ng/ml Administered Medications Potassium Chloride/Sodium Chloride (Normal Saline W/20 Meq Kcl) 20 meq in 1,000 mls @ 50 mls/hr IV .Q20H STA; Protocol Stop: 06/24/23 00:29 Last Admin: 06/23/23 04:46 Dose: 50 mls/hr Documented By: ASHOK Magnesium Sulfate/Dextrose (Magnesium Sulfate / D5w) 1 gm in 100 mls @ 50 mls/hr IV Q2H MAYITO Stop: 06/23/23 08:59 Last Admin: 06/23/23 07:48 Dose: 50 mls/hr Documented By: Infusion: 06/23/23 07:47 Dose: Infused Documented By: Admin: 06/23/23 05:40 Dose: 50 mls/hr Documented By: ASHOK Levalbuterol HCl (Levalbuterol 1.25 Mg/3 Ml Neb) 1.25 mg NEB Q4H PRN PRN Reason: sob wheeze Stop: 07/23/23 04:57 Last Admin: 06/23/23 05:58 Dose: 1.25 mg Documented By: AMIE Pantoprazole Sodium (Pantoprazole 40 Mg Tab) 40 mg PO DAILYBB [facility] Stop: 07/23/23 06:29 Last Admin: 06/23/23 06:26 Dose: 40 mg Documented By: ASHOK Discontinued Medications Albuterol (Albut/Ipratrop 3mg/0.5mg Neb 3 Ml Vial) 3 ml NEB NOW STA; Protocol Stop: 06/23/23 01:16 Last Admin: 06/23/23 01:58 Dose: 3 ml Documented By: ASHOK Fentanyl Citrate (Fentanyl Citrate Pf 100 Mcg/2 Ml Vial) 25 mcg IV NOW STA Stop: 06/23/23 01:16 Last Admin: 06/23/23 01:34 Dose: 25 mcg Documented By: ASHOK Fentanyl Citrate (Fentanyl Citrate Pf 100 Mcg/2 Ml Vial) 25 mcg IV NOW STA Stop: 06/23/23 03:38 Last Admin: 06/23/23 03:47 Dose: 25 mcg Documented By: ASHOK Sodium Chloride (Nss) 500 mls @ 999 mls/hr IV .Q31M ONE Stop: 06/23/23 01:45 Last Infusion: 06/23/23 03:59 Dose: Infused Documented By: Admin: 06/23/23 01:58 Dose: 999 mls/hr Documented By: ASHOK Famotidine (Pepcid 20mg Iv Push) 20 mg in 5 mls @ 2.5 mls/min IV NOW STA Stop: 06/23/23 01:16 Last Admin: 06/23/23 01:37 Dose: 2.5 mls/min Documented By: ASHOK Sodium Chloride (Nss) 500 mls @ 125 mls/hr IV .Q4H MAYITO Stop: 07/23/23 03:44 Last Infusion: 06/23/23 04:56 Dose: Infused Documented By: Admin: 06/23/23 03:51 Dose: 125 mls/hr Documented By: ASHOK Piperacillin Sod/Tazobactam Sod (Zosyn) 4.5 gm in 100 mls @ 200 mls/hr IV NOW ONE; Protocol Stop: 06/23/23 04:44 Last Infusion: 06/23/23 06:06 Dose: Infused Documented By: Admin: 06/23/23 04:48 Dose: 200 mls/hr Documented By: ASHOK Thiamine HCl 100 mg/ Syringe 10 mls @ 2 mls/min IV NOW STA Stop: 06/23/23 05:09 Last Admin: 06/23/23 05:39 Dose: 2 mls/min Documented By: ASHOK Ioversol (Optiray 320 125ml) 125 ml IV ONCE ONE Stop: 06/23/23 01:33 Last Admin: 06/23/23 01:33 Dose: 118 ml Documented By: FRANCES Ipratropium Busby (Ipratropium Busby Neb Soln 0.02% 0.5mg/2.5ml Vial) 0.5 mg INH NOW STA Stop: 06/23/23 04:53 Last Admin: 06/23/23 05:58 Dose: 0.5 mg Documented By: AMIE Levalbuterol HCl (Levalbuterol 1.25mg/0.5ml Neb) 1.25 mg NEB NOW STA; Protocol Stop: 06/23/23 04:53 Last Admin: 06/23/23 05:58 Dose: Not Given Documented By: AMIE Metoprolol Tartrate (Metoprolol Tartrate 25 Mg Tab) 25 mg PO NOW STA Stop: 06/23/23 04:55 Last Admin: 06/23/23 05:38 Dose: 25 mg Documented By: ASHOK Ondansetron HCl (Ondansetron Inj 2 Mg/Ml 2 Ml Vial) 4 mg IV NOW STA Stop: 06/23/23 01:16 Last Admin: 06/23/23 01:37 Dose: 4 mg Documented By: ASHOK Imaging Data Radiologist's Impression: Chest X-Ray 06/23/23 01:07 SINGLE VIEW CHEST CLINICAL HISTORY: Atypical chest pain FINDINGS: 2 AP, portable, upright chest radiographs are compared to study dated 03/01/2023 and correlated with chest CT performed the same day 06/23/2023. The patient is status post midline sternotomy. The heart is enlarged noting atherosclerotic calcification of the thoracic aorta. The pulmonary vasculature is noncongested. Enlargement of the central pulmonary arteries suggests pulmonary artery hypertension. Advanced emphysema and chronic interstitial thickening is similar to previous. There is bibasilar scarring/atelectasis. No airspace consolidation or large pleural effusion is identified. No pneumothorax is seen. The skeletal structures are osteopenic. There are chronic/healed left- sided rib fractures. Arthritic change is noted in the shoulders. Coils are again seen projecting over the left upper quadrant of the abdomen. Postoperative change is also seen in the left neck. IMPRESSION: Cardiomegaly and emphysema with no acute cardiopulmonary abnormality identified. ACT 112: Negative or not required by law. Electronically signed by: J Luis Foreman M.D. 06/23/2023 8:12 AM Abdomen/Pelvis CTA 06/23/23 01:15 Exam(s): CTA ABDOMEN + PELVIS With Contrast IV Amt: 118 ML OPTIRAY 320 EXAM: CT Angiography Abdomen and Pelvis Without and With Intravenous Contrast CLINICAL HISTORY: Reason for exam: cp/abd pain, HTN. TECHNIQUE: Axial computed tomographic angiography images of the abdomen and pelvis without and with intravenous contrast. CTDI is 50.85 mGy and DLP is 2162. 1 mGy-cm. Automated exposure control was utilized for the study. A dose lowering technique was utilized adhering to the principles of ALARA. MIP reconstructed images were created and reviewed. CONTRAST: Patient received 118 ML OPTIRAY 320 of IV contrast COMPARISON: CT abdomen/pelvis on 01/18/2019 FINDINGS: VASCULATURE: Aorta: Atherosclerotic changes of the vasculature. Distal abdominal aortic aneurysm measuring 3.4 cm in diameter. No aortic dissection. Celiac trunk and mesenteric arteries: No acute findings. No occlusion or significant stenosis. Renal arteries: No acute findings. No occlusion or significant stenosis. Iliac arteries: No acute findings. No occlusion or significant stenosis. Lung bases: Lower lung atelectasis. ABDOMEN: Liver: Unremarkable. No mass. Gallbladder and bile ducts: Cholelithiasis. Mild pericholecystic fat stranding raises concern for acute cholecystitis. No ductal dilation. Pancreas: Unremarkable. No ductal dilation. No mass. 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 Borderline size of the spleen. Adrenals: Unremarkable. No mass. Kidneys and ureters: Unremarkable. No hydronephrosis or obstructing stone. Stomach and bowel: Evaluation of the stomach is limited by underdistention. Diverticulosis without evidence of diverticulitis. No small bowel obstruction. PELVIS: Appendix: Normal appendix. Bladder: Unremarkable. No stones. No mass. Reproductive: Unremarkable as visualized. ABDOMEN and PELVIS: Intraperitoneal space: Phleboliths in the pelvis. No significant fluid collection. No free air. Bones/joints: Old left-sided rib fracture deformities. Degenerative changes of the spine. No dislocation. Soft tissues: Small fat-containing umbilical hernia. Lymph nodes: Unremarkable. No enlarged lymph nodes. IMPRESSION: 1. Cholelithiasis. Mild pericholecystic fat stranding raises concern for acute cholecystitis. 2. Atherosclerotic changes of the vasculature. Distal abdominal aortic aneurysm measuring 3.4 cm in diameter. No aortic dissection. Electronically signed by: Annette Xiao M.D. 06/23/23 03:26 AM Chest CTA 06/23/23 01:15 Exam(s): CTA CHEST W/WO Contrast IV Amt: 118 ML OPTIRAY 320 EXAM: CT Angiography Chest Without and With Intravenous Contrast CLINICAL HISTORY: Reason for exam: cp/abd pain, HTN. TECHNIQUE: Axial computed tomographic angiography images of the chest without and with intravenous contrast. CTDI is 50.85 mGy and DLP is 2162.1 mGy-cm. Automated exposure control was utilized for the study. A dose lowering technique was utilized adhering to the principles of ALARA. MIP reconstructed images were created and reviewed. CONTRAST: Patient received 118 ML OPTIRAY 320 of IV contrast COMPARISON: CT chest on 02/11/2022 FINDINGS: Pulmonary arteries: Unremarkable. No pulmonary embolus identified. Aorta: Atherosclerotic changes of the aorta. No aortic aneurysm or dissection. Lungs: Emphysematous changes. Mild dependent atelectasis bilaterally. No focal consolidation. Pleural space: Unremarkable. No significant effusion. No pneumothorax. Heart: Median sternotomy and CABG changes. Coronary artery, aortic valve, and mitral annular calcifications. No cardiomegaly. No significant pericardial effusion. No evidence of RV dysfunction. Bones/joints: Degenerative changes of the spine. No acute fracture. No dislocation. Soft tissues: Unremarkable. Lymph nodes: Unremarkable. No enlarged lymph nodes. Other findings: Please see accompanying CT abdomen/pelvis for further details. IMPRESSION: 1. No pulmonary embolus identified. 2. Atherosclerotic changes of the aorta. No aortic aneurysm or dissection. 3. Emphysematous changes. No focal consolidation. Electronically signed by: Annette Xiao M.D. 06/23/23 03:20 AM Discharge Plan Visit Data Chief Complaint: Chest Pain Stated Complaint: Chest Pain, Abdominal Pain ED Provider: Jose Mitchell Discharge Problem: Cholecystitis, Leukocytosis, Acute epigastric pain Discharge Instructions Interventions: ED Discharge Assessment Last Done: 06/23/23 05:53 Discharge Problem: Leukocytosis Qualifiers: Leukocytosis type: unspecified Qualified Code(s): D72.829 - Elevated white blood cell count, unspecified
[2023-06-23 01:31] LABS: Hematocrit (blood only) 44.1 % (42.0-52.0); Hemoglobin 14.8 g/dl (14.0-18.0); Mean Corpuscular Hemoglobin 29.2 pg (25.0-34.0); Mean Corpuscular Hgb Conc 33.6 g/dL (32.0-36.0); Mean Corpuscular Volume 87.2 fL (80.0-100.0); Mean Platelet Volume 10.5 fL (9.4-12.4); Platelet Count 157 K/uL (130-400); RDW Coefficient of Variation 14.6 % (11.5-14.5); RDW Standard Deviation 46.9 fL (36.4-46.3); Red Blood Count 5.06 M/uL (4.70-6.10); White Blood Count 20.39 K/ul (4.8-10.8)
[2023-06-23] MEDS: OPTIRAY 320 125ml IV ONE (01:33)
[2023-06-23] MEDS: fentaNYL citrate PF 100 MCG/2 ML VIAL IV STA ×2 (01:34→03:47)
[2023-06-23] MEDS: FAMOTIDINE 20MG IV PUSH 20 MG/5 ML SYR IV STA (01:37)
[2023-06-23] MEDS: ONDANSETRON INJ 2 MG/ML 2 ML VIAL IV STA (01:37)
[2023-06-23 01:41] LABS: Alanine Aminotransferase 20 U/L (7-52); Albumin Globulin Ratio 1.1 (0.9-2); Albumin Level 4.2 gm/dl (3.4-5.0); Alkaline Phosphatase 66 U/L (34-104); Anion Gap 8 (3-11); BUN Creatinine Ratio 9.2 (10-20); Bilirubin,Total 0.6 mg/dl (0.2-1.0); Blood Urea Nitrogen 11 mg/dl (6-23); Calcium 9.2 mg/dl (8.6-10.3); Carbon Dioxide 29 mmol/L (21-32); Chloride 100 mmol/L (98-107); Creatinine Clr Calc Pharmacy 47.9 ml/min; Est GFR (African American) 66.5 ml/min; Est GFR (Non-African American) 57.3 ml/min; Globulin 3.7 gm/dl (2.5-4.0); Glucose 106 mg/dl (70-99(Fasting)); Lipase 28 U/L (11-82); Sodium 137 mmol/L (136-145); Total Protein 7.9 gm/dl (6.0-8.3)
[2023-06-23 01:45] LABS: Troponin I High Sensitivity 7.1 pg/ml (0-20)
[2023-06-23 01:58] LABS: Prothrombin Time 11.4 Seconds (9.0-12.0)
[2023-06-23] MEDS: ALBUT/IPRATROP 3MG/0.5MG NEB 3 ML VIAL NEB STA (01:58)
[2023-06-23] MEDS: SODIUM CHLORIDE 0.9% 500 ML IV ONE (01:58)
[2023-06-23 02:52] LABS: Potassium 3.8 mmol/L (3.5-5.1)
[2023-06-23 03:04] LABS: ALC (manual) 11.01 K/uL (1.2-3.4); ANC (manual) 6.12 K/uL (1.4-6.5); Eosinophils # (manual) 0.41 K/uL (0-0.50); Eosinophils % (manual) 2 %; Lymphocytes % (manual) 25 %; Monocytes # (manual) 2.85 K/uL (0.11-0.59); Monocytes % (manual) 14 %; Neutrophils # (manual) 6.12 K/uL (1.40-6.50); Neutrophils % (manual) 30 %; RBC Morphology Unremarkable; Reactive Lymphocytes # (manual) 5.91 K/uL; Reactive Lymphocytes % (manual) 29 %
--- NOTE | 2023-06-23 03:21 | CT Scan Report ---
Exam(s): CTA CHEST W/WO Contrast IV Amt: 118 ML OPTIRAY 320 EXAM: CT Angiography Chest Without and With Intravenous Contrast CLINICAL HISTORY: Reason for exam: cp/abd pain, HTN. TECHNIQUE: Axial computed tomographic angiography images of the chest without and with intravenous contrast. CTDI is 50.85 mGy and DLP is 2162.1 mGy-cm. Automated exposure control was utilized for the study. A dose lowering technique was utilized adhering to the principles of ALARA. MIP reconstructed images were created and reviewed. CONTRAST: Patient received 118 ML OPTIRAY 320 of IV contrast COMPARISON: CT chest on 02/11/2022 FINDINGS: Pulmonary arteries: Unremarkable. No pulmonary embolus identified. Aorta: Atherosclerotic changes of the aorta. No aortic aneurysm or dissection. Lungs: Emphysematous changes. Mild dependent atelectasis bilaterally. No focal consolidation. Pleural space: Unremarkable. No significant effusion. No pneumothorax. Heart: Median sternotomy and CABG changes. Coronary artery, aortic valve, and mitral annular calcifications. No cardiomegaly. No significant pericardial effusion. No evidence of RV dysfunction. Bones/joints: Degenerative changes of the spine. No acute fracture. No dislocation. Soft tissues: Unremarkable. Lymph nodes: Unremarkable. No enlarged lymph nodes. Other findings: Please see accompanying CT abdomen/pelvis for further details. IMPRESSION: 1. No pulmonary embolus identified. 2. Atherosclerotic changes of the aorta. No aortic aneurysm or dissection. 3. Emphysematous changes. No focal consolidation. Electronically signed by: Annette Xiao M.D. 06/23/23 03:20 AM
--- NOTE | 2023-06-23 03:27 | CT Scan Report ---
Exam(s): CTA ABDOMEN + PELVIS With Contrast IV Amt: 118 ML OPTIRAY 320 EXAM: CT Angiography Abdomen and Pelvis Without and With Intravenous Contrast CLINICAL HISTORY: Reason for exam: cp/abd pain, HTN. TECHNIQUE: Axial computed tomographic angiography images of the abdomen and pelvis without and with intravenous contrast. CTDI is 50.85 mGy and DLP is 2162. 1 mGy-cm. Automated exposure control was utilized for the study. A dose lowering technique was utilized adhering to the principles of ALARA. MIP reconstructed images were created and reviewed. CONTRAST: Patient received 118 ML OPTIRAY 320 of IV contrast COMPARISON: CT abdomen/pelvis on 01/18/2019 FINDINGS: VASCULATURE: Aorta: Atherosclerotic changes of the vasculature. Distal abdominal aortic aneurysm measuring 3.4 cm in diameter. No aortic dissection. Celiac trunk and mesenteric arteries: No acute findings. No occlusion or significant stenosis. Renal arteries: No acute findings. No occlusion or significant stenosis. Iliac arteries: No acute findings. No occlusion or significant stenosis. Lung bases: Lower lung atelectasis. ABDOMEN: Liver: Unremarkable. No mass. Gallbladder and bile ducts: Cholelithiasis. Mild pericholecystic fat stranding raises concern for acute cholecystitis. No ductal dilation. Pancreas: Unremarkable. No ductal dilation. No mass. 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 Borderline size of the spleen. Adrenals: Unremarkable. No mass. Kidneys and ureters: Unremarkable. No hydronephrosis or obstructing stone. Stomach and bowel: Evaluation of the stomach is limited by underdistention. Diverticulosis without evidence of diverticulitis. No small bowel obstruction. PELVIS: Appendix: Normal appendix. Bladder: Unremarkable. No stones. No mass. Reproductive: Unremarkable as visualized. ABDOMEN and PELVIS: Intraperitoneal space: Phleboliths in the pelvis. No significant fluid collection. No free air. Bones/joints: Old left-sided rib fracture deformities. Degenerative changes of the spine. No dislocation. Soft tissues: Small fat-containing umbilical hernia. Lymph nodes: Unremarkable. No enlarged lymph nodes. IMPRESSION: 1. Cholelithiasis. Mild pericholecystic fat stranding raises concern for acute cholecystitis. 2. Atherosclerotic changes of the vasculature. Distal abdominal aortic aneurysm measuring 3.4 cm in diameter. No aortic dissection. Electronically signed by: Annette Xiao M.D. 06/23/23 03:26 AM
[2023-06-23] MEDS: SODIUM CHLORIDE 0.9% 500 ML IV SCH (03:51)
[2023-06-23] MEDS ORDERED: PIPERACILLIN/TAZOBACTAM 4.5 GM in DEXTROSE 5% MINI-B 100 ML IV ONE (03:56)
--- NOTE | 2023-06-23 04:28 | Surgery Consultation ---
<Statement entered by Natalie Brooks DO - 06/23/23 11:38> This case was discussed with the surgical PA. I have seen and examined this patient. Due to his recent FL and extensive cardiac history, percutaneous cholecystostomy tube will be inserted in radiology. Recommend cholecystectomy after 3 months and when the patient's cardiac risk decreases as per his car diologist. Date of Consultation June 23, 2023 Assessment & Plan (1) Cholecystitis: I discussed with the treating clinician in the emergency department and due to the patient's presentation he is having the patient mated to the medical service. From surgical perspective we recommend the following: Would recommend maintaining the patient on n.p.o. status Provide IV fluid for hydration Provide analgesics Provide antiemetics Initiate antibioticsthe treating physician notes he will be initiating Zosyn Would recommend repeating LFTs the morning of 06/23/2023 (I have placed this order) There is concern for cholecystitis on the patient's CT scan but this is not definitely ascertained on this study, therefore the treating emergency room physician has ordered a gallbladder ultrasound and we will follow for the results of this Due to the patient's known cardiovascular disease and the fact that he suffered a non-STEMI in February 2023 (only approximately 3 months ago) it would be beneficial to ensure that the patient's presenting symptomatology is also not cardiac related. If the patient is found to have acute cholecystitis he will require cardiology evaluation prior to undergoing any surgical interventionbased on his cardiovascular assessment by his cardiology team a determination will have to be made if the patient can undergo cholecystectomy if he is indeed found to have acute cholecystitis or if a less invasive means of treatment will need to be entertained Would recommend utilizing only SCDs for DVT prevention, no chemical means until it is ascertained whether or not the patient will require any surgical/procedural intervention History of Present Illness Reason for Consultation: Abdominal pain History of Present Illness This is an 82-year-old male who presented to the emergency department secondary to epigastric abdominal pain. Patient notes that this pain began approximately 24 hours ago and he described as reflux related pain. He notes over the ensuing 24 hours he ultimately developed abdominal pain greatest in the right upper quadrant of his abdomen and to a lesser degree the epigastric area. He notes that the pain did radiate into his chest somewhat. He did not report any palliative or provocative factors. The patient does not report any postprandial pain over the past several weeks to months. Patient also reports associated nausea and vomiting but denies any fevers, shakes, or chills. Concerning prior abdominal surgeries the patient has had bilateral inguinal herniorrhaphies. Since arrival to the emergency department the patient has had labs and imaging which I independent reviewed. Chest x-ray showed emphysematous changes consistent with the patient's diagnosis of COPD. There not appear to be any discrete evidence of pneumonia. Patient underwent a CT scan of the chest that showed no evidence of pulmonary emboli. There is no evidence of aortic dissection. A CT scan of the gallbladder showed the patient had mild pericholecystic fat stranding as well as gallstones raising concern for Charlene cystitis. There is no ductal dilatation. Patient was also noted to have a distal abdominal aortic aneurysm measuring 3.4 cm. Labs include a CBC were white blood cell count was elevated at 20.3. Hemoglobin and hematocrit as well as the platelet count were normal. Chemistry profile shows sodium and potassium along with the BUN and creatinine were normal. The patient was noted to have an elevated AST at 135 but the remainder of his LFTs (total bilirubin, ALT, alkaline phosphatase) were all nonelevated and within the normal range. Lipase was not elevated. It is noteworthy to mention that the patient does have a significant history of cardiovascular disease. He has had coronary artery bypass grafting at [facility] in 2012. He is also noted to have moderate aortic stenosis. The patient's most recent echocardiogram available for my review was from 03/02/2023this study showed the patient had a 50 to 55% ejection fraction with moderate to severe aortic stenosis and mild aortic insufficiency. The patient also was noted to have moderate mitral regurgitation on the study. Patient also adds that he was hospitalized in February 2023 at which time he suffered a non- ST segment elevation myocardial infarction. The patient did undergo cardiac catheterization where the patient's bypass grafts were noted to be patent.. At this time there are no lesions suitable for percutaneous intervention. This condition was treated medically. It is noteworthy to add, that the patient re ports that the pain he was experiencing today was dissimilar to what he experienced when he suffered his heart attack. Finally, review of patient's cardiac medications reveal dual antiplatelet the patient takes is aspirin. At the time of my interview the patient was in no distress but continued to have abdominal pain. Allergies Allergy/AdvReac Type Severity Reaction Status Date / Time remdesivir Allergy Severe hypotension, Verified 03/02/23 00:57 diaphoretic naproxen Allergy Unknown Unverified 03/02/23 00:57 morphine AdvReac Severe HALLUCINATI Verified 03/02/23 00:57 ONS Home Medications Medication Instructions Recorded Confirmed Type albuterol sulfate 90 mcg/actuation 2 puff inhalation Q6 PRN Shortness 01/18/19 06/23/23 History aerosol inhaler (ProAir HFA) Of Breath Or Wheezing aspirin 81 mg tablet,delayed 81 mg PO QAM 01/18/19 06/23/23 History release furosemide 20 mg tablet 20 mg PO QAM 01/18/19 06/23/23 History metoprolol tartrate 25 mg tablet 25 mg PO Q12 01/18/19 06/23/23 History omeprazole 40 mg capsule,delayed 40 mg PO DAILYBB 01/18/19 06/23/23 History release rosuvastatin 40 mg tablet (Crestor) 40 mg PO QAM 01/18/19 06/23/23 History spironolactone 25 mg tablet 12.5 mg PO QAM 01/18/19 06/23/23 History triamcinolone acetonide 0.5 % 1 applic topical BID PRN flare ups 01/18/19 06/23/23 History topical cream cyanocobalamin (vitamin B-12) 1,000 mcg PO DAILY 04/11/20 06/23/23 History 1,000 mcg tablet (Vitamin B-12) cyclobenzaprine 10 mg tablet 5 mg PO BID Spasms 02/11/22 06/23/23 History tiotropium bromide 2.5 2 puff inhalation QAM 02/11/22 06/23/23 History mcg/actuation mist for inhalation (Spiriva Respimat) ascorbic acid (vitamin C) 500 mg 500 mg PO QPM 03/02/23 06/23/23 History tablet (Vitamin C) levalbuterol HCl 1.25 mg/3 mL 1.25 mg inhalation .Q6HR PRN 03/02/23 06/23/23 History solution for nebulization Shortness Of Breath Or Wheezing levalbuterol tartrate 45 1 puff inhalation Q4 PRN Shortness 03/02/23 06/23/23 History mcg/actuation aerosol inhaler Of Breath Or Wheezing (Xopenex HFA) lorazepam 0.5 mg tablet 0.5 mg PO TID PRN Anxiety 06/23/23 06/23/23 History nitroglycerin 0.4 mg sublingual 0.4 mg sublingual .Q 5 MIN PRN 06/23/23 06/23/23 History tablet Chest Pain zinc acetate 50 mg (zinc) capsule 50 mg PO QAM 06/23/23 06/23/23 History Patient History Medical History Hypoxia BPH (benign prostatic hyperplasia) H/O: CVA (cerebrovascular accident) Aortic stenosis CAD (coronary artery disease) Hypersensitivity reaction Hypoxia Anxiety Alcohol use Pneumonia due to COVID-19 virus Hypoxia COVID-19 Ischemic stroke Gastroesophageal reflux disease Dyslipidemia Coronary artery disease involving coronary bypass graft Carotid artery stenosis Benign hypertension Aortic valve stenosis Surgical History Hx of cardiac catheterization History of carotid endarterectomy History of repair of inguinal hernia Family History Other Heart disease Stroke Social History Smoking Status: Former smoker Tobacco Type: Cigarettes Second Hand Exposure: No; Do You Dip or Chew Tobacco: No; Hx Alcohol Use: Yes Alcohol type: beer Hx Substance Use: No Preferred Language: Grenadian Communication Ability: Effective Neurology Hospitalist Required: No Beliefs That Will Affect Care: None marital status: Current Living Situation: Alone Feels Safe at Home: Yes Assistive Devices: None Review of Systems Constitutional: no fever and no chills Eyes: + corrective lenses Ear, Nose, Mouth, Throat: no ear pain Respiratory: + dyspnea on exertion (Chronic/stable); no cough Gastrointestinal: as per Subjective / HPI Genitourinary: no dysuria Musculoskeletal: no back pain Integumentary: no rash Neurologic: no localized weakness Physical Exam Physical Exam: A well-healed median sternotomy incision was noted Constitutional: WD/WN, vitals as above Eyes: sclerae not anicteric Wears glasses ENMT: Ears: no hearing impairment and no external ear abnormality Mouth: no oropharynx abnormality Neck: trachea midline Respiratory: normal respiratory effort; no respiratory distress and no labored breathing No audible wheezing noted Cardiovascular: Rate/Rhythm: regular rate, regular rhythm and + tachycardic Gastrointestinal (Abdomen): Abdomen is noted to have mild distention. Bowel sounds are present. There is no rebound tenderness or guarding but patient did have generalized pain with palpation which appear to be greatest in the right upper quadrant and epigastric areas. Musculoskeletal: No calf tenderness Skin: no rashes Neurologic: moves all extremities Psychiatric: A+Ox3, euthymic affect Results & Data Vital Signs (Past 12 Hours) Vital Signs Temp Pulse Pulse Resp BP BP Pulse Ox 06/23/23 04:13 100 H 24 144/60 H 96 06/23/23 02:07 36.6 C 88 24 127/86 100 06/23/23 01:07 89 25 H 98 06/23/23 00:56 36.6 C 89 38 H 154/64 H 94 06/23/23 00:52 90 06/23/23 00:43 97 O2 Del Method O2 Flow Rate 06/23/23 04:13 Nasal Cannula 2 06/23/23 02:07 Room Air 06/23/23 01:07 Room Air 06/23/23 00:56 Room Air 06/23/23 00:52 06/23/23 00:43 Room Air PG Care Time/CCT Total # of Minutes Spent Total Time Spent with Patient: Total time spent is greater than 50% in coordination of care (as documented) at patient's floor/unit and/or counseling patient: Coding Level of Care Code 24657 INT INP/OBS CARE 3/75MIN Diagnoses Cholecystitis K81.9
[2023-06-23] MEDS: NSS + 20MEQ KCL 20 MEQ/1,000 ML BAG IV STA (04:46)
[2023-06-23] MEDS: PIPERACILLIN/TAZOBACTAM 4.5 GM/100 ML BAG IV ONE (04:48)
[2023-06-23 04:50] LABS: Magnesium 1.6 mg/dl (1.7-2.4)
--- NOTE | 2023-06-23 04:52 | History & Physical Report ---
Date of Service June 23, 2023 Assessment & Plan (1) Sepsis: Plan: Secondary to possible cholecystitis Hypertension, elevated secondary to discomfort and anxiety CAD status post CABG/stent valvular heart disease (moderate , mild MR, TTE 2022) hx CVA, PVD status post surgery hyperlipidemia on statin Rx COPD, baseline wheezing symptoms as per patient Prediabetes, hemoglobin A1c of 6.4 last February, Possible alcohol abuse past tobacco abuse Medical telemetry CS, Zosyn Cautious IV hydration given history of valvular heart disease General surgery consult Re: Possible cholecystitis (Patient already seen at the ER by provider who recommends antibiotic Rx, gallbladder ultrasound, n.p.o. status, and preop cardiac eval in light of patient's cardiac history.) UMESH S at risk protocol, DT precautions DVT prophylaxis SCDs Re: Possible surgery Recommend pharmacologic anticoagulation with Lovenox 40 mg subcutaneous daily once bleeding risk is deemed to be minimal/negligible on General Surgery follow- up evaluation Full code Text document was generated using [employer] voice recognition software. It may contain grammatical or spelling errors. Kindly contact undersigned for clarification of any documentation item in question. History of Present Illness Chief Complaint: Epigastric pain Primary Care Provider: Piotr Wilson MD History obtained from patient and records. Medical history significant for CAD status post CABG/stent, valvular heart disease (moderate , mild MR, TTE 2022), CVA, PVD status post surgery, AAA, hypertension, hyperlipidemia, COPD, GERD, past tobacco abuse. Last confinement February 2023 for NSTEMI. Medical management recommended. 2 days ago patient noted achy epigastric pain somewhat burning not related to food intake. No fever, no chills, Usual SOB and cough symptoms from COPD as per patient. Patient woke up last night with worsening epigastric discomfort associated with nausea and emesis. IV Zosyn administered at the ER. 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 Allergies Allergy/AdvReac Type Severity Reaction Status Date / Time remdesivir Allergy Severe hypotension, Verified 03/02/23 00:57 diaphoretic naproxen Allergy Unknown Unverified 03/02/23 00:57 morphine AdvReac Severe HALLUCINATI Verified 03/02/23 00:57 ONS Home Medications Medication Instructions Recorded Confirmed Type albuterol sulfate 90 mcg/actuation 2 puff inhalation Q6 PRN Shortness 01/18/19 06/23/23 History aerosol inhaler (ProAir HFA) Of Breath Or Wheezing aspirin 81 mg tablet,delayed 81 mg PO QAM 01/18/19 06/23/23 History release furosemide 20 mg tablet 20 mg PO QAM 01/18/19 06/23/23 History metoprolol tartrate 25 mg tablet 25 mg PO Q12 01/18/19 06/23/23 History omeprazole 40 mg capsule,delayed 40 mg PO DAILYBB 01/18/19 06/23/23 History release rosuvastatin 40 mg tablet (Crestor) 40 mg PO QAM 01/18/19 06/23/23 History spironolactone 25 mg tablet 12.5 mg PO QAM 01/18/19 06/23/23 History triamcinolone acetonide 0.5 % 1 applic topical BID PRN flare ups 01/18/19 06/23/23 History topical cream cyanocobalamin (vitamin B-12) 1,000 mcg PO DAILY 04/11/20 06/23/23 History 1,000 mcg tablet (Vitamin B-12) cyclobenzaprine 10 mg tablet 5 mg PO BID Spasms 02/11/22 06/23/23 History tiotropium bromide 2.5 2 puff inhalation QAM 02/11/22 06/23/23 History mcg/actuation mist for inhalation (Spiriva Respimat) ascorbic acid (vitamin C) 500 mg 500 mg PO QPM 03/02/23 06/23/23 History tablet (Vitamin C) levalbuterol HCl 1.25 mg/3 mL 1.25 mg inhalation .Q6HR PRN 03/02/23 06/23/23 History solution for nebulization Shortness Of Breath Or Wheezing levalbuterol tartrate 45 1 puff inhalation Q4 PRN Shortness 03/02/23 06/23/23 History mcg/actuation aerosol inhaler Of Breath Or Wheezing (Xopenex HFA) lorazepam 0.5 mg tablet 0.5 mg PO TID PRN Anxiety 06/23/23 06/23/23 History nitroglycerin 0.4 mg sublingual 0.4 mg sublingual .Q 5 MIN PRN 06/23/23 06/23/23 History tablet Chest Pain zinc acetate 50 mg (zinc) capsule 50 mg PO QAM 06/23/23 06/23/23 History Past Med/Surg History Medical History Hypoxia BPH (benign prostatic hyperplasia) H/O: CVA (cerebrovascular accident) Aortic stenosis CAD (coronary artery disease) Hypersensitivity reaction Hypoxia Anxiety Alcohol use Pneumonia due to COVID-19 virus Hypoxia COVID-19 Ischemic stroke Gastroesophageal reflux disease Dyslipidemia Coronary artery disease involving coronary bypass graft Carotid artery stenosis Benign hypertension Aortic valve stenosis Surgical History Hx of cardiac catheterization History of carotid endarterectomy History of repair of inguinal hernia Family History Other Heart disease Stroke Social History Smoking Status: Unknown if ever smoked Tobacco Type: Cigarettes Second Hand Exposure: No; Do You Dip or Chew Tobacco: No; Tobacco Cessation Education Requested by Patient: No Hx Alcohol Use: Yes Alcohol type: beer Hx Substance Use: No Preferred Language: Kyrgyz Communication Ability: Effective Swatch Folder Required: No Beliefs That Will Affect Care: None marital status: Current Living Situation: Alone Other Information That Helps Us Care for You: No Feels Safe at Home: Yes Assistive Devices: Denture - Upper, Denture - Lower and Glasses Review of Systems Review of Systems: As per HPI, all other systems reviewed and negative Physical Exam Physical Exam: GENERAL: Slightly anxious, pleasant, no respiratory distress SKIN: Normal color, warm HEENT: alopecia, bespectacled, pink palpebral conjunctivae, no ptosis, dry buccal mucosa NECK : Supple, no tenderness CHEST : Decreased breath sounds, expiratory wheezes, no tenderness HEART : Tachycardic, systolic murmur ABDOMEN: Some distention, right upper quadrant tenderness EXTREMITIES : No LE swelling/tenderness, no other conspicuous deformities noted NEUROLOGIC : Coherent, no facial asymmetry, no other gross focality Results & Data Results & Data Vital Signs (Past 12 Hours) Vital Signs Temp Pulse Pulse Resp BP BP Pulse Ox 06/23/23 04:13 100 H 24 144/60 H 96 06/23/23 02:07 36.6 C 88 24 127/86 100 06/23/23 01:07 89 25 H 98 06/23/23 00:56 36.6 C 89 38 H 154/64 H 94 06/23/23 00:52 90 06/23/23 00:43 97 O2 Del Method O2 Flow Rate 06/23/23 04:13 Nasal Cannula 2 06/23/23 02:07 Room Air 06/23/23 01:07 Room Air 06/23/23 00:56 Room Air 06/23/23 00:52 06/23/23 00:43 Room Air Laboratory Results Laboratory Results WBC 20.39 K/ul (4.8-10.8) H 06/23/23 00:55 RBC 5.06 M/uL (4.70-6.10) 06/23/23 00:55 Hgb 14.8 g/dl (14.0-18.0) 06/23/23 00:55 Hct 44.1 % (42.0-52.0) 06/23/23 00:55 MCV 87.2 fL (80.0-100.0) 06/23/23 00:55 MCH 29.2 pg (25.0-34.0) 06/23/23 00:55 MCHC 33.6 g/dL (32.0-36.0) 06/23/23 00:55 RDW Std Deviation 46.9 fL (36.4-46.3) H 06/23/23 00:55 RDW Coeff of Stefano 14.6 % (11.5-14.5) H 06/23/23 00:55 Plt Count 157 K/uL (130-400) 06/23/23 00:55 MPV 10.5 fL (9.4-12.4) 06/23/23 00:55 Neutrophils % (Manual) 30 % 06/23/23 00:55 Lymphocytes % (Manual) 25 % 06/23/23 00:55 Reactive Lymphs % (Man) 29 % 06/23/23 00:55 Monocytes % (Manual) 14 % 06/23/23 00:55 Eosinophils % (Manual) 2 % 06/23/23 00:55 Neutrophils # (Manual) 6.12 K/uL (1.40-6.50) 06/23/23 00:55 Total Absolute Neuts 6.12 K/uL (1.4-6.5) 06/23/23 00:55 Lymphocytes # (Manual) 5.10 K/uL (1.2-3.4) H 06/23/23 00:55 Reactive Lymphs # 5.91 K/uL 06/23/23 00:55 Total Abs Lymphocytes 11.01 K/uL (1.2-3.4) H 06/23/23 00:55 Monocytes # (Manual) 2.85 K/uL (0.11-0.59) H 06/23/23 00:55 Eosinophils # (Manual) 0.41 K/uL (0-0.50) 06/23/23 00:55 RBC Morphology Unremarkable 06/23/23 00:55 PT 11.4 Seconds (9.0-12.0) 06/23/23 00:55 INR 1.0 (0.9-1.1) 06/23/23 00:55 Sodium 137 mmol/L (136-145) 06/23/23 00:55 Potassium 3.8 mmol/L (3.5-5.1) 06/23/23 02:20 Chloride 100 mmol/L (98-107) 06/23/23 00:55 Carbon Dioxide 29 mmol/L (21-32) 06/23/23 00:55 Anion Gap 8 (3-11) 06/23/23 00:55 BUN 11 mg/dl (6-23) 06/23/23 00:55 Creatinine 1.19 mg/dl (0.6-1.4) 06/23/23 00:55 Est Cr Clr Drug Dosing 47.9 ml/min 06/23/23 00:55 Est GFR ( Amer) 66.5 ml/min 06/23/23 00:55 Est GFR (Non-Af Amer) 57.3 ml/min 06/23/23 00:55 BUN/Creatinine Ratio 9.2 (10-20) L 06/23/23 00:55 Glucose 106 mg/dl (70-99(Fasting)) H 06/23/23 00:55 Lactate 1.6 mmol/L (0.4-2.0) 06/23/23 04:25 Calcium 9.2 mg/dl (8.6-10.3) 06/23/23 00:55 Magnesium 1.6 mg/dl (1.7-2.4) L 06/23/23 02:20 Total Bilirubin 0.6 mg/dl (0.2-1.0) 06/23/23 00:55 AST 135 U/L (13-39) H 06/23/23 02:20 ALT 20 U/L (7-52) 06/23/23 00:55 Alkaline Phosphatase 66 U/L (34-104) 06/23/23 00:55 Troponin I High Sens 7.1 pg/ml (0-20) 06/23/23 00:55 Total Protein 7.9 gm/dl (6.0-8.3) 06/23/23 00:55 Albumin 4.2 gm/dl (3.4-5.0) 06/23/23 00:55 Globulin 3.7 gm/dl (2.5-4.0) 06/23/23 00:55 Albumin/Globulin Ratio 1.1 (0.9-2) 06/23/23 00:55 Lipase 28 U/L (11-82) 06/23/23 00:55 Procalcitonin 0.05 ng/ml (0-0.5) 06/23/23 02:20 Impressions Abdomen/Pelvis CTA 06/23/23 01:15 Exam(s): CTA ABDOMEN + PELVIS With Contrast IV Amt: 118 ML OPTIRAY 320 EXAM: CT Angiography Abdomen and Pelvis Without and With Intravenous Contrast CLINICAL HISTORY: Reason for exam: cp/abd pain, HTN. TECHNIQUE: Axial computed tomographic angiography images of the abdomen and pelvis without and with intravenous contrast. CTDI is 50.85 mGy and DLP is 2162. 1 mGy-cm. Automated exposure control was utilized for the study. A dose lowering technique was utilized adhering to the principles of ALARA. MIP reconstructed images were created and reviewed. CONTRAST: Patient received 118 ML OPTIRAY 320 of IV contrast COMPARISON: CT abdomen/pelvis on 01/18/2019 FINDINGS: VASCULATURE: Aorta: Atherosclerotic changes of the vasculature. Distal abdominal aortic aneurysm measuring 3.4 cm in diameter. No aortic dissection. Celiac trunk and mesenteric arteries: No acute findings. No occlusion or significant stenosis. Renal arteries: No acute findings. No occlusion or significant stenosis. Iliac arteries: No acute findings. No occlusion or significant stenosis. Lung bases: Lower lung atelectasis. ABDOMEN: Liver: Unremarkable. No mass. Gallbladder and bile ducts: Cholelithiasis. Mild pericholecystic fat stranding raises concern for acute cholecystitis. No ductal dilation. Pancreas: Unremarkable. No ductal dilation. No mass. 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 Borderline size of the spleen. Adrenals: Unremarkable. No mass. Kidneys and ureters: Unremarkable. No hydronephrosis or obstructing stone. Stomach and bowel: Evaluation of the stomach is limited by underdistention. Diverticulosis without evidence of diverticulitis. No small bowel obstruction. PELVIS: Appendix: Normal appendix. Bladder: Unremarkable. No stones. No mass. Reproductive: Unremarkable as visualized. ABDOMEN and PELVIS: Intraperitoneal space: Phleboliths in the pelvis. No significant fluid collection. No free air. Bones/joints: Old left-sided rib fracture deformities. Degenerative changes of the spine. No dislocation. Soft tissues: Small fat-containing umbilical hernia. Lymph nodes: Unremarkable. No enlarged lymph nodes. IMPRESSION: 1. Cholelithiasis. Mild pericholecystic fat stranding raises concern for acute cholecystitis. 2. Atherosclerotic changes of the vasculature. Distal abdominal aortic aneurysm measuring 3.4 cm in diameter. No aortic dissection. Electronically signed by: Annette Xiao M.D. 06/23/23 03:26 AM Chest CTA 06/23/23 01:15 Exam(s): CTA CHEST W/WO Contrast IV Amt: 118 ML OPTIRAY 320 EXAM: CT Angiography Chest Without and With Intravenous Contrast CLINICAL HISTORY: Reason for exam: cp/abd pain, HTN. TECHNIQUE: Axial computed tomographic angiography images of the chest without and with intravenous contrast. CTDI is 50.85 mGy and DLP is 2162.1 mGy-cm. Automated exposure control was utilized for the study. A dose lowering technique was utilized adhering to the principles of ALARA. MIP reconstructed images were created and reviewed. CONTRAST: Patient received 118 ML OPTIRAY 320 of IV contrast COMPARISON: CT chest on 02/11/2022 FINDINGS: Pulmonary arteries: Unremarkable. No pulmonary embolus identified. Aorta: Atherosclerotic changes of the aorta. No aortic aneurysm or dissection. Lungs: Emphysematous changes. Mild dependent atelectasis bilaterally. No focal consolidation. Pleural space: Unremarkable. No significant effusion. No pneumothorax. Heart: Median sternotomy and CABG changes. Coronary artery, aortic valve, and mitral annular calcifications. No cardiomegaly. No significant pericardial effusion. No evidence of RV dysfunction. Bones/joints: Degenerative changes of the spine. No acute fracture. No dislocation. Soft tissues: Unremarkable. Lymph nodes: Unremarkable. No enlarged lymph nodes. Other findings: Please see accompanying CT abdomen/pelvis for further details. IMPRESSION: 1. No pulmonary embolus identified. 2. Atherosclerotic changes of the aorta. No aortic aneurysm or dissection. 3. Emphysematous changes. No focal consolidation. Electronically signed by: Annette Xiao M.D. 06/23/23 03:20 AM Diagnostic Findings EKG as per my interpretation : Rate 85, NSR, normal axis, LVH, septal infarct, ST depression lateral leads
[2023-06-23] MEDS ORDERED: LORazepam 1 MG in SYRINGE 0.5 ML IV PRN (05:04)
[2023-06-23] MEDS: METOPROLOL TARTRATE 25 MG TAB PO STA (05:38)
[2023-06-23] MEDS: THIAMINE HCL 100 MG in SYRINGE 9 ML IV STA (05:39)
[2023-06-23] MEDS: MAGNESIUM SULFATE / D5W 1 GM/100 ML BAG IV SCH (05:40)
[2023-06-23] MEDS: LEVALBUTEROL 1.25 MG/3 ML NEB NEB PRN (05:58)
[2023-06-23] MEDS: LEVALBUTEROL 1.25MG/0.5ML NEB NEB STA (05:58)
[2023-06-23] MEDS: IPRATROPIUM BROMIDE NEB SOLN 0.02% 0.5MG/2.5ML VIAL INH STA (05:58)
[2023-06-23 06:19] LABS: Basophils # (auto) 0.02 K/uL (0.00-0.20); Basophils % (auto) 0.2 %; Hematocrit (blood only) 39.7 % (42.0-52.0); Hemoglobin 13.4 g/dl (14.0-18.0); Immature Granulocytes # (auto) 0.03 K/uL (0.01-0.20); Immature Granulocytes % (auto) 0.2 %; Lymphocytes # (auto) 2.09 K/uL (1.20-3.40); Lymphocytes % (auto) 16.8 %; Mean Corpuscular Hemoglobin 28.8 pg (25.0-34.0); Mean Corpuscular Hgb Conc 33.8 g/dL (32.0-36.0); Mean Corpuscular Volume 85.4 fL (80.0-100.0); Mean Platelet Volume 9.9 fL (9.4-12.4); Monocytes # (auto) 1.53 K/uL (0.11-0.59); Monocytes % (auto) 12.3 %; Neutrophils # (auto) 8.76 K/uL (1.40-6.50); Neutrophils % (auto) 70.5 %; Platelet Count 128 K/uL (130-400); RDW Coefficient of Variation 14.6 % (11.5-14.5); RDW Standard Deviation 45.8 fL (36.4-46.3); Red Blood Count 4.65 M/uL (4.70-6.10); White Blood Count 12.43 K/ul (4.8-10.8)
[2023-06-23] MEDS: PANTOprazole 40 MG TAB PO SCH (06:26)
[2023-06-23 06:40] LABS: Albumin Globulin Ratio 1.2 (0.9-2); Albumin Level 3.7 gm/dl (3.4-5.0); BUN Creatinine Ratio 9.9 (10-20); Bilirubin,Total 1.6 mg/dl (0.2-1.0); Calcium 8.5 mg/dl (8.6-10.3); Creatinine Clr Calc Pharmacy 56.4 ml/min; Est GFR (Non-African American) 69.9 ml/min; Potassium 3.8 mmol/L (3.5-5.1); Total Protein 6.7 gm/dl (6.0-8.3)
--- NOTE | 2023-06-23 07:56 | Hospitalist Progress Note ---
Date of Service June 23, 2023 Assessment & Plan (1) Sepsis: Plan: Sepsis Acute cholecystitis Transaminitis Cholelithiasis --CT ABD:Cholelithiasis. Mild pericholecystic fat stranding raises concern for acute cholecystitis. Atherosclerotic changes of the vasculature. Distal abdominal aortic aneurysm measuring 3.4 cm in diameter. No aortic dissection. --Gall Bladder USD:Findings suggestive of acute cholecystitis. Mild dilatation of the common bile duct. This could be correlated with obstructive liver function tests. --S/P ultrasound-guided gallbladder catheter placement by IR on 06/23/2023 --Blood cultures pending --Continue IV Zosyn, IV fluids --Bowel rest, pain control --Appreciate surgery input --Given persistent abdominal pain, will repeat CT abdomen today --Monitor LFTs Hypomagnesemia Replete electrolytes as needed Monitor Abdominal aortic aneurysm CT as above Monitor Left hydrocele -Scrotal ultrasound: No acute sonographic abnormality is seen involving the testes or scrotum.. Moderate to large left-sided hydrocele. Follow-up as outpatient Hyperlipidemia Hold statin due to transaminitis Resume statin as able Hypertension BP elevated likely situational secondary to pain Continue metoprolol Monitor BP CAD S/P CABG/stent Valvular heart disease (moderate , mild MR, TTE 2022) Monitor volume status closely Continue aspirin, metoprolol Resume statin as able Appreciate cardiology input H/O CVA, PVD S/P surgery Continue aspirin Resume statin as able COPD Continue home inhalers Monitor Prediabetes Last HbA1c 6.4 Possible alcohol abuse Past tobacco abuse Continue thiamine, folic acid Monitor for withdrawal DVT Px: SCDs for now Code Status Full code Admission and Anticipated Discharge Date Admission Date: June 23, 2023 Subjective Patient is seen and examined at bedside States having abdominal pain associated with nausea and vomiting Discussed with surgery, cardiology and IR today Denies any chest pain, dyspnea Anxious during my encounter No other complaints Review of Systems Review of Systems: All systems reviewed & are unremarkable except as noted in Subjective Physical Exam Physical Exam: Physical Exam: Vitals signs as noted above General Appearance:Moderately built and nourished, mild distress Head: normocephalic, Atraumatic Eyes: normal inspection, EOMI Neck: supple, Trachea midline Respiratory/Chest: Normal breath sounds, CTA, No accessory muscle use Cardiovascular: S1, S2, + murmur,+Tachycardia Abdomen/GI:Soft, +diffuse tender, +voluntary guarding, Bowel sounds present Extremities/Musculoskeletal:normal inspection, no edema Neurologic/Psych:AAOX3, grossly no focal neurological deficits Skin: normal color, warm Results & Data Results & Data Vital Signs (Past 12 Hours) Vital Signs Temp Pulse Pulse Resp BP BP Pulse Ox 06/23/23 07:09 95 H 06/23/23 06:38 99 H 22 115/63 93 06/23/23 05:58 99 H 18 93 06/23/23 05:43 100 H 06/23/23 04:13 100 H 24 144/60 H 96 06/23/23 02:07 36.6 C 88 24 127/86 100 06/23/23 01:07 89 25 H 98 06/23/23 00:56 36.6 C 89 38 H 154/64 H 94 06/23/23 00:52 90 06/23/23 00:43 97 O2 Del Method O2 Flow Rate 06/23/23 07:09 06/23/23 06:38 Room Air 06/23/23 05:58 Nasal Cannula 3 06/23/23 05:43 06/23/23 04:13 Nasal Cannula 2 06/23/23 02:07 Room Air 06/23/23 01:07 Room Air 06/23/23 00:56 Room Air 06/23/23 00:52 06/23/23 00:43 Room Air Laboratory Results Short CBC 06/23/23 06/23/23 Range/Units 00:55 05:50 WBC 20.39 H 12.43 H (4.8-10.8) K/ul Hgb 14.8 13.4 L (14.0-18.0) g/dl Hct 44.1 39.7 L (42.0-52.0) % Plt Count 157 128 L (130-400) K/uL BMP 06/23/23 06/23/23 06/23/23 00:55 02:20 05:50 Sodium 137 136 Potassium TNP 3.8 3.8 Chloride 100 104 Carbon Dioxide 29 24 BUN 11 10 Creatinine 1.19 1.01 Glucose 106 H 138 H Calcium 9.2 8.5 L Liver Function 06/23/23 06/23/23 06/23/23 Range/Units 00:55 02:20 05:50 Total Bilirubin 0.6 1.6 H D (0.2-1.0) mg/dl AST TNP 135 H 438 H ALT 20 174 H (7-52) U/L Alkaline Phosphatase 66 169 H D (34-104) U/L Albumin 4.2 3.7 (3.4-5.0) gm/dl
--- NOTE | 2023-06-23 08:13 | XRay Report ---
SINGLE VIEW CHEST CLINICAL HISTORY: Atypical chest pain FINDINGS: 2 AP, portable, upright chest radiographs are compared to study dated 03/01/2023 and correl ated with chest CT performed the same day 06/23/2023. The patient is status post midline sternotomy. Th e heart is enlarged noting atherosclerotic calcification of the thoracic aorta. The pulmonary vascula ture is noncongested. Enlargement of the central pulmonary arteries suggests pulmonary artery hyperte nsion. Advanced emphysema and chronic interstitial thickening is similar to previous. There is bibasi lar scarring/atelectasis. No airspace consolidation or large pleural effusion is identified. No pneum othorax is seen. The skeletal structures are osteopenic. There are chronic/healed left-sided rib frac tures. Arthritic change is noted in the shoulders. Coils are again seen projecting over the left uppe r quadrant of the abdomen. Postoperative change is also seen in the left neck. IMPRESSION: Cardiomegaly and emphysema with no acute cardiopulmonary abnormality identified. ACT 112: Negative or not required by law. Electronically signed by: J Luis Foreman M.D. 06/23/2023 8:12 AM
--- NOTE | 2023-06-23 09:04 | Ultrasound Report ---
ULTRASOUND TESTES AND SCROTUM CLINICAL HISTORY: Scrotal edema COMPARISON STUDY: No priors. TECHNIQUE: Real-time, grayscale, and color Doppler sonography of the testes and scrotum is performed. Images are reviewed in the transverse and longitudinal planes. FINDINGS: The testes are normal in size and heterogeneous in echotexture. The right testis measures 4.4 x 2.6 x 2.5 cm and the left testis measures 4.8 x 3.2 x 3.5 cm. No intratesticular mass is seen. Tubular ect cory of the rete testis is seen on the left. Testicular blood flow is normal and symmetric. Normal Do ppler waveforms are identified in both testes. The epididymal heads are normal as visualized. There is a moderate to large and minimally complex left-sided hydrocele which measures up to 7.3 cm. No hydrocele is seen on the right and no varicocele is identified. IMPRESSION: 1. No acute sonographic abnormality is seen involving the testes or scrotum. 2. Moderate to large left-sided hydrocele. ACT 112: Negative or not required by law. Electronically signed by: J Luis Foreman M.D. 06/23/2023 9:03 AM
--- NOTE | 2023-06-23 09:04 | Ultrasound Report ---
US gallbladder CLINICAL HISTORY: Abdominal pain, nausea and vomiting. COMPARISON STUDY: CTA of the abdomen and pelvis June 23, 2023. FINDINGS: Multiple gallstones within the gallbladder are noted. There is sludge within the gallbladde r. The wall is moderately thickened, measuring 7 mm in thickness. The wall appears edematous. Sonogra phic Sheriff sign was elicited. There is slight dilatation of the common bile duct, measuring 8 mm in caliber. No pancreatic abnormalities identified by sonography. There are no hepatic lesions. There is no right hydronephrosis. IMPRESSION: 1. Findings suggestive of acute cholecystitis. 2. Mild dilatation of the common bile duct. This could be correlated with obstructive liver function tests. ACT 112: Negative or not required by law. Electronically signed by: Santiago Kirk M.D. 06/23/2023 9:03 AM
--- NOTE | 2023-06-23 09:07 | Cardiology Consultation ---
Date of Consultation June 23, 2023 Assessment & Plan (1) Preop cardiovascular exam: (2) Moderate aortic stenosis: (3) Chronic coronary artery disease: (4) Hypertension: (5) Carotid disease, bilateral: (6) Dyslipidemia, goal LDL below 70: (7) Abdominal aortic aneurysm (AAA) 35 to 39 mm in diameter: Plan In terms of preop risk assessment, per [facility] Criteria, patient was counseled that he would be placed at a moderate risk (less than 6.6%)for any adverse perioperative cardiovascular events associated with cholecystectomy surgery. Patient is on a good medication regimen and no other cardiac testing or interventions would further lower that risk.Patient states he understands and is accepting ofthat risk and wishes to proceed with surgery. -Continue aspirin without interruption. Take Metoprolol Tartrate the morning of surgery. -Caution with afterload reduction given his moderate aortic stenosis. Case discussed with Dr. Bennett I spent a total of 60 minutes on the date of service in preparation, delivery, and documentation of the care provided to this patient, excluding any time spent in the performance of separately billed services. KAYLA Samaniego Department of Cardiology, [facility] This chart was completed in part utilizing Speech Voice Recognition Software. Grammatical errors, random word insertions, pronoun errors, and incomplete sentences are an occasional consequence of this system due to software limitations, ambient noise, and hardware issues. Any formal questions or concerns about the content, text, or information contained within the body of this dictation should be directly addressed to the provider for clarification. Supervising Physician Co-Signing Physician Notes Attending attestation: Case reviewed with the advanced practitioner. I have personally performed a history and physical examination on the patient. I have reviewed the advanced practitioner's documentation on the date of service referenced in note, and I agree with, and take responsibility for the plan of care. Subjective: Cardiology consulted for preoperative assessment. Patient seen just after 12:00 p.m. in the emergency department room B5 where he remains a telemetry hold. Patient has already undergone percutaneous cholecystostomy tube drainage prior to my arrival. Patient well-known to the undersigned as I been caring for him since he had undergone his initial coronary bypass surgery which was performed in 2012. In February, he presented with chest discomfort and a mild troponin elevation with findings consistent with a non-STEMI. He underwent cardiac catheterization yesterday showing widely patent grafts and known severe inaja artery disease, no new or acute findings, and no lesions appropriate/suitable for PCI. Echocardiogram performed as an inpatient February, and repeated as an outpatient shortly thereafter revealed normal ejection fraction and moderate to borderline severe aortic stenosis. Exam: General: Ill in appearance Cardiovascular: Regular rhythm, tachycardic, 2/6 systolic murmur, no edema Abdomen: Diffuse tenderness, drainage tube in place with no surrounding erythema or drainage outside of the catheter. Data: EKG performed 06/23/2023 at 12:56 AM revealed sinus rhythm at 87 bpm with first- degree AV block. Subtle ST segment depression noted in inferior lateral leads slightly more prominent compared to February,. High sensitive troponin 7.1 x 1 measurement. Summary gallbladder ultrasound 06/23/2023: Multiple gallstones within the gallbladder are noted. There is sludge within the gallbladder. The wall is moderately thickened, measuring 7 mm in thickness. The wall appears edematous. Sonographic Sheriff sign was elicited. There is slight dilatation of the common bile duct, measuring 8 mm in caliber. No pancreatic abnormalities identified by sonography. There are no hepatic lesions. There is no right hydronephrosis. Impression/ Plan: 1. Cholecystitis 2. History of chronic coronary heart disease, remote CABG 2012, non-STEMI February, with findings of severe inaja vessel coronary heart disease and patent grafts 3. Moderate to borderline severe aortic stenosis -With regards to the patient's cardiovascular risk from a preoperative evaluation standpoint, I would be more concerned about his underlying aortic stenosis than his underlying coronary heart disease. At the time of my assessment he still has abdominal discomfort status post percutaneous drainage. Patient does have a past history of anxiety. Will be cautious with regards to his analgesics in the setting of risk of low blood pressure and hemodynamic effects of aortic stenosis. -If patient's abdominal symptoms do not improve with percutaneous drainage, I do think that cholecystectomy is still a reasonable option for him however caution would have to be pursued with regards to sedation plan. -Case discussed with Dr. Mendoza for the purpose of coordination of care. I spent a total of 30 minutes coordinating, documenting, and providing care for this patient excluding time spent in the performance of separately billed services or time spent by another provider. Osmin Bennett DO History of Present Illness Reason for Consultation: Preop Cardiovascular Examination Requesting Physician: Srinivas Mendoza MD Attending Physician: Dr. 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 Symptoms persisted despite taking Pepto-Bismol. CT showed concern for cholecystitis. Gallbladder ultrasound confirms acute cholecystitis. Patient was evaluated by the surgical team. They are requesting cardiac preop clearance in case of surgical intervention. This morning he received gall bladder drain in IR. States his pain was instantly relieved once this was placed. He is resting in bed comfortably wearing 3LNC. Does not require supplemental oxygen at home. He lives by himself and is able to complete all ADLs independently. Denies abnormal bleeding. Denies any known complications with anesthesia. Allergies Allergy/AdvReac Type Severity Reaction Status Date / Time remdesivir Allergy Severe hypotension, Verified 03/02/23 00:57 diaphoretic naproxen Allergy Unknown Unverified 03/02/23 00:57 morphine AdvReac Severe HALLUCINATI Verified 03/02/23 00:57 ONS Home Medications Medication Instructions Recorded Confirmed Type albuterol sulfate 90 mcg/actuation 2 puff inhalation Q6 PRN Shortness 01/18/19 06/23/23 History aerosol inhaler (ProAir HFA) Of Breath Or Wheezing aspirin 81 mg tablet,delayed 81 mg PO QAM 01/18/19 06/23/23 History release furosemide 20 mg tablet 20 mg PO QAM 01/18/19 06/23/23 History metoprolol tartrate 25 mg tablet 25 mg PO Q12 01/18/19 06/23/23 History omeprazole 40 mg capsule,delayed 40 mg PO DAILYBB 01/18/19 06/23/23 History release rosuvastatin 40 mg tablet (Crestor) 40 mg PO QAM 01/18/19 06/23/23 History spironolactone 25 mg tablet 12.5 mg PO QAM 01/18/19 06/23/23 History triamcinolone acetonide 0.5 % 1 applic topical BID PRN flare ups 01/18/19 06/23/23 History topical cream cyanocobalamin (vitamin B-12) 1,000 mcg PO DAILY 04/11/20 06/23/23 History 1,000 mcg tablet (Vitamin B-12) cyclobenzaprine 10 mg tablet 5 mg PO BID Spasms 02/11/22 06/23/23 History tiotropium bromide 2.5 2 puff inhalation QAM 02/11/22 06/23/23 History mcg/actuation mist for inhalation (Spiriva Respimat) ascorbic acid (vitamin C) 500 mg 500 mg PO QPM 03/02/23 06/23/23 History tablet (Vitamin C) levalbuterol HCl 1.25 mg/3 mL 1.25 mg inhalation .Q6HR PRN 03/02/23 06/23/23 History solution for nebulization Shortness Of Breath Or Wheezing levalbuterol tartrate 45 1 puff inhalation Q4 PRN Shortness 03/02/23 06/23/23 History mcg/actuation aerosol inhaler Of Breath Or Wheezing (Xopenex HFA) lorazepam 0.5 mg tablet 0.5 mg PO TID PRN Anxiety 06/23/23 06/23/23 History nitroglycerin 0.4 mg sublingual 0.4 mg sublingual .Q 5 MIN PRN 06/23/23 06/23/23 History tablet Chest Pain zinc acetate 50 mg (zinc) capsule 50 mg PO QAM 06/23/23 06/23/23 History Patient History Medical History Hypoxia BPH (benign prostatic hyperplasia) H/O: CVA (cerebrovascular accident) Aortic stenosis CAD (coronary artery disease) Hypersensitivity reaction Hypoxia Anxiety Alcohol use Pneumonia due to COVID-19 virus Hypoxia COVID-19 Ischemic stroke Gastroesophageal reflux disease Dyslipidemia Coronary artery disease involving coronary bypass graft Carotid artery stenosis Benign hypertension Aortic valve stenosis Surgical History Hx of cardiac catheterization History of carotid endarterectomy History of repair of inguinal hernia Family History Other Heart disease Stroke Social History Smoking Status: Unknown if ever smoked Tobacco Type: Cigarettes Second Hand Exposure: No; Do You Dip or Chew Tobacco: No; Tobacco Cessation Education Requested by Patient: No Hx Alcohol Use: Yes Alcohol type: beer Hx Substance Use: No Preferred Language: Citizen Of [place] Communication Ability: Effective Price Checker Required: No Beliefs That Will Affect Care: None marital status: Current Living Situation: Alone Other Information That Helps Us Care for You: No Feels Safe at Home: Yes Assistive Devices: Denture - Upper, Denture - Lower and Glasses Review of Systems Review of Systems: All systems reviewed & are unremarkable except as noted in HPI & below Physical Exam Constitutional: WD/WN, vitals as above Eyes: PERRL, conjunctivae normal, anicteric sclerae Respiratory: normal respiratory effort, lungs clear to auscultation on 3LNC Cardiovascular: Rate/Rhythm: regular rate and regular rhythm Heart Sounds: normal S1, normal S2 and + murmur Vessels: no JVD Extremities: no edema Musculoskeletal: no cyanosis or clubbing, extremities motor strength 5/5 Neurologic: PERRL, EOMI, accommodation nl, no face palsy, no dysarthria Psychiatric: A+Ox3, euthymic affect Results & Data Vital Signs (Past 12 Hours) Vital Signs Temp Pulse Pulse Resp BP BP Pulse Ox 06/23/23 07:09 95 H 06/23/23 06:38 99 H 22 115/63 93 06/23/23 05:58 99 H 18 93 06/23/23 05:43 100 H 06/23/23 04:13 100 H 24 144/60 H 96 06/23/23 02:07 36.6 C 88 24 127/86 100 06/23/23 01:07 89 25 H 98 06/23/23 00:56 36.6 C 89 38 H 154/64 H 94 06/23/23 00:52 90 06/23/23 00:43 97 O2 Del Method O2 Flow Rate 06/23/23 07:09 06/23/23 06:38 Room Air 06/23/23 05:58 Nasal Cannula 3 06/23/23 05:43 06/23/23 04:13 Nasal Cannula 2 06/23/23 02:07 Room Air 06/23/23 01:07 Room Air 06/23/23 00:56 Room Air 06/23/23 00:52 06/23/23 00:43 Room Air Laboratory Results Cardiac Enzymes 06/23/23 06/23/23 06/23/23 Range/Units 00:55 02:20 05:50 AST TNP 135 H 438 H Troponin I High Sens 7.1 (0-20) pg/ml Coagulation 06/23/23 Range/Units 00:55 PT 11.4 (9.0-12.0) Seconds CBC 06/23/23 06/23/23 Range/Units 00:55 05:50 WBC 20.39 H 12.43 H (4.8-10.8) K/ul RBC 5.06 4.65 L (4.70-6.10) M/uL Hgb 14.8 13.4 L (14.0-18.0) g/dl Hct 44.1 39.7 L (42.0-52.0) % Plt Count 157 128 L (130-400) K/uL Neut # (Auto) 8.76 H (1.40-6.50) K/uL Lymph # (Auto) 2.09 (1.20-3.40) K/uL [place] # (Auto) 1.53 H (0.11-0.59) K/uL Eos # (Auto) 0.00 (0.00-0.50) K/uL Baso # (Auto) 0.02 (0.00-0.20) K/uL Comprehensive Metabolic Panel 06/23/23 06/23/23 06/23/23 Range/Units 00:55 02:20 05:50 Sodium 137 136 (136-145) mmol/L Potassium TNP 3.8 3.8 Chloride 100 104 (98-107) mmol/L Carbon Dioxide 29 24 (21-32) mmol/L BUN 11 10 (6-23) mg/dl Creatinine 1.19 1.01 (0.6-1.4) mg/dl Glucose 106 H 138 H (70-99(Fasting)) mg/dl Calcium 9.2 8.5 L (8.6-10.3) mg/dl AST TNP 135 H 438 H ALT 20 174 H (7-52) U/L Alkaline Phosphatase 66 169 H D (34-104) U/L Total Protein 7.9 6.7 (6.0-8.3) gm/dl Albumin 4.2 3.7 (3.4-5.0) gm/dl Intake and Output 06/22/23 06/23/23 06/23/23 22:59 06:59 14:59 Intake Total 700 / 700 100 / 100 Balance 700 / 700 100 / 100 Intake: IV 700 / 700 100 / 100 Magnesium Sulfate / D5w 1 gm In 100 / 100 100 ml @ 50 mls/hr IV Q2H [facility] Rx#:[id number] Piperacillin/Tazobactam 4.5 gm 100 / 100 In 100 ml @ 200 mls/hr IV NOW ONE Rx#:[id number] Sodium Chloride 0.9% 500 ml @ 600 / 600 125 mls/hr IV .Q4H [facility] Rx#: [id number] Other: Weight 76.1 kg Weight Measurement Method Built in [facility] Diagnostic Findings Telemetry Reviewed 06/23/23 EKG 06/23/23 NSR 1 AV Block 87 bpm Gallbladder US 06/23/23 IMPRESSION: 1. Findings suggestive of acute cholecystitis. 2. Mild dilatation of the common bile duct. This could be correlated with obstr uctive liver function tests. Chest X-Ray 06/23/23 01:07 IMPRESSION: Cardiomegaly and emphysema with no acute cardiopulmonary abnormality identified. Abdomen/Pelvis CTA 06/23/23 01:15 IMPRESSION: 1. Cholelithiasis. Mild pericholecystic fat stranding raises concern for acute cholecystitis. 2. Atherosclerotic changes of the vasculature. Distal abdominal aortic aneurysm measuring 3.4 cm in diameter. No aortic dissection. Chest CTA 06/23/23 01:15 IMPRESSION: 1. No pulmonary embolus identified. 2. Atherosclerotic changes of the aorta. No aortic aneurysm or dissection. 3. Emphysematous changes. No focal consolidation. Echo 03/14/23: The left ventricular cavity size is normal. The LV wall thickness is mildly increased (concentric). The left ventricular wall motion is normal. The qualitative LV ejection fraction is 60-64% (normal). The aortic valve has three leaflets. The aortic valve is moderately calcified. Moderate aortic valve stenosis is present. There is mild mitral annular calcification. Mild mitral regurgitation is present. Compared to last available study changes are noted as follows: Aortic valve velocities have increased slightly but aortic stenosis remains moderate (4) Hypertension Hypertension type: primary hypertension Qualified Code(s): I10 - Essential (primary) hypertension (5) Carotid disease, bilateral Carotid artery disease type: unspecified Qualified Code(s): I77.9 - Disorder of arteries and arterioles, unspecified
[2023-06-23] MEDS: HYDROmorphone INJ 0.5 MG/0.5 ML SYR IV PRN ×2 (09:08→14:22)
[2023-06-23] MEDS: ASPIRIN 81 MG ECTAB PO SCH (09:09)
[2023-06-23] MEDS: FOLIC ACID 1 MG TAB PO SCH (09:10)
[2023-06-23] MEDS: MULTIVITAMIN TAB PO SCH (09:10)
[2023-06-23] MEDS: CYCLOBENZAPRINE HCL 5 MG TAB PO SCH (09:11)
[2023-06-23] MEDS: UMECLIDINIUM BROMIDE 62.5MCG/BLISTER 7 PUFFS/INHALER INH SCH (09:12)
[2023-06-23] MEDS: ROSUVASTATIN CALCIUM 20 MG TAB PO SCH (09:13)
[2023-06-23] MEDS: fentaNYL citrate PF 100 MCG/2 ML VIAL ONE (09:45)
[2023-06-23] MEDS: oxyCODONE HCL IR 5 MG TAB (IMMEDIATE RELEASE) PO PRN ×2 (11:23→21:47)
[2023-06-23] MEDS: PIPERACILLIN/TAZOBACTAM 4.5 GM in DEXTROSE 5% MINI-B 100 ML IV SCH (12:19)
--- OUTSIDE RECORDS SUMMARY | 2023-06-23 13:01 | External Medical Summary | Summary of Care ---
Author Name Unknown Organization [facility] Address [address] [place] [address] Phone [phone] Care Team Providers Care Slasher Machine Operator Name Role Phone Katie NEVAREZ MD, Piotr Agarwal Primary Care Provider [phone] Reason for Referral * Evaluate & Treat - Unlimited Visits (Within 10 days (routine)) - Authorized Specialty Diagnoses / Procedures Referred By Contac t Referred To Contact Dermatology Diagnoses Psoriasis Piotr Wilson III, MD [address] [facility] [place] [address] Referral ID Status Reason Start Date Expiration Date Visits Requested Visits Authorized [id number] Authorized Specialty Services Required 05/17/[phone] Question Answer Referral Priority Within 10 days (routine) Where should this [facility] be scheduled? [facility] Are you referring the patient for Mohs Surgery and have a current positive skin cancer biopsy result? 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 Had to have epi-pen administered. documented as of this encounter (statuses as of 05/20/2023) Medications Medication Sig Dispensed Refills Start Date End Date Status ASPIRIN 81 MG PO TABSIndications:Car otid artery stenosis, infarct within 8 weeks 1 TABLET DAILY 30 0 06/13/2007 Active Cyanocobalamin 1000 MCG Oral Tablet (CYANOCOBALAMIN) Take 1 Tab by mouth daily. 100 Tab 3 01/23/2020 Active Spacer/Aero-Holding Chambers DeviceIndications:C OPD exacerbation (HCC) Use with inhaler. 1 Each 0 01/31/2022 Active Vitamin C 500 MG Oral Capsule Take 1 Tablet by mouth every evening. 0 05/09/2022 Active Zinc 50 MG Oral Capsule Take 1 Capsule by mouth in the morning. 0 05/09/2022 Active Compressor NebulizerIndication s:COPD, group C, by GOLD 2017 classification ([facility]),COPD exacerbation (HCC) Inhale via nebulizer. Use as directed along with Tubing and mouth piece. Dx code : J44.9 and J44.1 1 Each 1 05/09/2022 Active Cyclobenzaprine HCl 10 MG Oral Tablet (Flexeril) Take 1/2 a Tablet by mouth in the morning and 1/2 a Tablet before bedtime. 40 Tablet 0 05/17/2022 Active Omeprazole 40 MG Oral Capsule Delayed [...] Levalbuterol Tartrate 45 MCG/ACT Inhalation Aerosol (Xopenex HFA)Indications:ASPARAGUS CUTTER D exacerbation (HCC) Inhale 1 Puff by mouth every 4 hours as needed for Wheezing. 45 g 12 10/19/2022 Active Spiriva Respimat 2.5 MCG/ACT Inhalation Aerosol Solution (Tiotropium [place] Monohydrate) Inhale 2 Puffs by mouth in [...] EVERY 12 HOURS 200 Tablet 3 01/18/2023 Active Nystatin 960178 UNIT/ML Mouth/Throat Suspension take 5 mL orally four times daily; swish and swallow for 7 days 70 mL 0 03/04/2023 Active Albuterol Sulfate HFA 108 (90 Base) MCG/ACT Inhalation Aerosol Solution Inhale 2 Puffs by mouth every 6 hours as needed. 0 Active guaiFENesin ER 600 MG Oral Tablet Extended Release 12 Hour (Mucinex) Take 1 Tablet by mouth as needed for Cough. 0 Active Nystatin 972268 UNIT/ML Mouth/Throat Suspension Take 5 mL by mouth in the morning and 5 mL at noon and 5 mL in the evening and 5 mL before bedtime. swish and swallow 5 mL by mouth four times daily for 7 days. 70 mL 0 05/17/2023 Active Triamcinolone Acetonide 0.5 % External Cream (Aristocort) Apply topically to affected area 2 times a day. 15 g 1 05/17/2023 Active LORazepam 0.5 MG Oral Tablet (Ativan)Indications :Anxiety state take 1 tablet by mouth 3 times a day as needed for anxiety 40 Tablet 0 05/17/2023 Active OptiChamber [place] USE WITH INHALER 1 Each 0 01/31/2022 4 Triamcinolone Acetonide 0.5 % External Cream (Aristocort) Apply topically to affected area 2 times a day. 15 g 1 04/19/2022 4 Discontinue d(Refill) Nystatin 510899 UNIT/ML Mouth/Throat Suspension swish and swallow 5 mL by mouth four times daily for 7 days 70 mL 0 03/03/2023 4 Discontinue d(Refill) Abrysvo 120 MCG/0.5ML Intramuscular Solution Reconstituted (RSV Pre-Fusion F A&B Vac Rcmb) Inject 0.5 mL into a large muscle once for 1 dose. 1 Each 0 05/17/2023 4 documented as of this encounter (statuses as of 05/20/2023) Active Problems Problem Noted Date Diagnosed Date Chronic obstructive pulmonar y disease with (acute) exacerbation 05/17/2023 Atherosclerosis of [place] co ronary artery with stable angina pectoris 05/17/2023 Hx of myocardial infarction 05/17/2023 Arterial occlusive disease 07/20/2022 Carotid stenosis, non-symptomatic, [...] lung nodule 08/12/2014 Unspecified pleural effusion 08/06/2014 Dyslipidemia, goal LDL below 70 01/18/2013 Aortocoronary bypass status 01/07/2013 Cerebrovascular disease, arteriosclerotic, post- stroke 09/04/2008 Overview: Added per CVA protocol #8 HTN, goal below 140/90 Overview: seems resolved documented as of this encounter (statuses as of 05/20/2023) Resolved Problems Problem Noted Date Diagnosed Date Resolved Date Anxiety state 03/02/2018 10/14/2020 COPD, moderate 03/02/2018 05/04/2022 Overview: Per COPD GOLD Classification Tobacco abuse 01/29/2015 02/01/2016 Atherosclerosis of [place] co ronary artery of [place] heart without angina pectoris 04/04/2013 Pleural effusion 01/18/2013 08/06/2014 Left main coronary [...] as of this encounter (statuses as of 05/20/2023) Immunizations Name Administration Dates Next Due COVID-19 mRNA, LNP-s, No Pre serve, 2-Dose Series (Pfizer) 03/16/2021,07/21/2020,06/24/2020,06/02 HIB PRP-OMP, 3 dose (Pedvax) 10/14/2015 Haemophilius B (HIB), unspecified 10/14/2015 Meningococcal Conjugate Vacc ine (Menactra/Menveo) 10/14/2015 Meningococcal MCV4P Conjugat e Vaccine (Menactra) 10/14/2015 Pneumococcal Conjugate Vacc, 13 Valent (Prevnar) 10/14/2015 Pneumococcal Polysaccharide PPV23 (Pneumovax) 12/13/2012 RSV Vac., Bivalent, Perfusio n F, Pf,0.5 Ml (Abrysvo) 05/17/2023 Season Influenza, Quad, PF, Adjuvanted, 65+ Yrs, IM (FLUAD) 12/09/2019 Seasonal Influenza, PF, 6 M & above, IM , (FluLaval or Fluzone) 11/29/2017,01/17/2017 Seasonal Influenza, Quadriva lent Hd (Fluzone Hd) 03/10/2023,01/26/2021 Seasonal Influenza, Quadriva lent, No Preserve, IM 02/01/2016 Seasonal Influenza, Split, I IV3, With Preserve, Inj 01/24/2014,12/13/2012,12/08/2010,04/06,12/23/2008 Seasonal Influenza, Trivalen t, Adjuvanted, 65+ yrs 01/17/2019 TDAP (age 10 and older)(Boostrix) 11/13/2012 Zoster Vaccine Recombinant (Shingrix) 08/20/2020 ,05/15/2020 documented as of this encounter Social History Tobacco Use Types Packs/Day Years Used Date Smoking Tobacco: Former Cigarettes 0.5 1 0 09/04/2013 - 09/04/2014 Smokeless Tobacco: Former Alcohol Use Standard Drinks/Week Comments Yes 21 (1 standard drink = 0.6 oz pu re alcohol) daily 3 beers PHQ-2 Answer Date Recorded PHQ Adult Total Score 0 03/06/2023 Hunger Vital Sign Answer Date Recorded Within the past 12 months, y ou worried that your food would run out before you got the money to buy more. Never true 03/06/20 23 Within the past 12 months, t he food you bought just didn't last and you didn't have money to get more. Never true 03/06/2023 Sex and Gender Information Value Date Recorded Sex Assigned at Not on file Gender Identity Not on file Sexual Orientation Not on file Job Start Date Occupation Industry Not on file Not on file Not on file documented as of this encounter Last Filed Vital Signs Vital Sign Reading Time Taken Comments Blood Pressure 104/54 05/17/2023 9:48 AM EST Pulse 63 05/17/2023 9:48 AM EST Temperature 36.8 C (98.2 F) 05/17/2023 9:48 AM ES T Respiratory Rate 16 05/17/2023 9:48 AM EST Oxygen Saturation - - Inhaled Oxygen Concentration - - Weight 75.3 kg (166 lb) 05/17/2023 9:48 AM EST Height - - Body Mass Index 25.6 08/03/2022 8:35 AM EDT documented in this [...] as of this encounter Progress Notes * Katie III, Piotr Agarwal MD - 05/17/2023 10:26 AM EST Subjective: Sim Bain is a 82 year old male. Chief Complaint Patient presents with Re-Check HPI: Follow-up COPD hypertension history of CVA atherosclerotic cardiovascular disease last took nitroglycerin about 5 months ago can have some dyspnea on exertion episodes of thick mucus he takes Mucinex for maybe 3 or 4 days that resolves no bleeding urine or bowels was intolerant of Stiolto currently on Spiriva rarely needs nebulizer treatment no swelling of his ankles PMH: Patient Active Problem List Diagnosis Code HTN, goal below 140/90 I10 Cerebrovascular disease, arteriosclerotic, post-stroke I67.2, Z86.73 Aortocoronary bypass status Z95.1 Dyslipidemia, goal LDL below 70 E78.5 Unspecified pleural effusion J90 Incidental lung nodule R91.1 Aortic valve stenosis I35.0 AAA (abdominal aortic aneurysm) ([facility]) I71.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 N40.1, N13.8 Gastroesophageal reflux disease without esophagitis K21.9 COPD, group C, by GOLD 2017 classification ([facility]) J44.9 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 Carotid stenosis, non-symptomatic, bilateral I65.23 Chronic obstructive pulmonary disease with (acute) exacerbation ([facility]) J44.1 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 100 Tab 3 Spacer/Aero-Holding Chambers Device Use with inhaler. 1 Each 0 OptiChamber Kaleigh USE WITH INHALER 1 Each 0 Vitamin C 500 MG Oral Capsule Take [...] a Tablet before bedtime. 40 Tablet 0 Omeprazole 40 MG Oral Capsule Delayed Release (PriLOSEC) TAKE ONE CAPSULE BY MOUTH EVERY DAY 30 MINUTES TO 1 HOUR BEFORE BREAKFAST 100 Capsule 3 Rosuvastatin Calcium 40 MG Oral Tablet (Crestor) TAKE ONE TABLET BY MOUTH EVERY DAY 100 Tablet 3 Furosemide 20 MG Oral Tablet (Lasix) TAKE ONE TABLET BY MOUTH DAILY 100 Tablet 3 Levalbuterol Tartrate 45 MCG/ACT Inhalation Aerosol (Xopenex HFA) Inhale 1 Puff by mouth every 4 hours as needed for Wheezing. 45 g 12 Spiriva Respimat 2.5 MCG/ACT Inhalation Aerosol Solution (Tiotropium [place] Monohydrate) Inhale 2 Puffs by mouth in the morning. 4 g 11 Levalbuterol HCl 1.25 MG/3ML Inhalation Nebulization Solution Inhale 3 mL via nebulizer every 6 hours as needed for Wheezing or Shortness of Breath. 450 mL 0 Nitroglycerin 0.4 MG Sublingual Tablet Sublingual (Nitrostat) dissolve 1 tablet under tongue if needed for chest pain. May repeat 3 times. If chest pain continues, call 911 25 Tablet 0 Spironolactone 25 MG Oral Tablet (Aldactone) TAKE ONE - HALF TABLET BY MOUTH EVERY DAY 50 Tablet 2 Metoprolol Tartrate 25 MG Oral Tablet (Lopressor) TAKE ONE TABLET BY MOUTH EVERY 12 HOURS 200 Tablet 3 Nystatin 721418 UNIT/ML Mouth/Throat Suspension take 5 mL orally four times daily; swish and swallow for 7 days 70 mL 0 Albuterol Sulfate HFA 108 (90 Base) MCG/ACT Inhalation Aerosol Solution Inhale 2 Puffs by mouth every 6 hours as needed. guaiFENesin ER 600 MG Oral Tablet Extended Release 12 Hour (Mucinex) Take 1 Tablet by mouth as needed for Cough. Nystatin 891672 UNIT/ML Mouth/Throat Suspension Take 5 mL by mouth in the morning and 5 mL at noon and 5 mL in the evening and 5 mL before bedtime. swish and swallow 5 mL by mouth four times daily for 7 days. 70 mL 0 Triamcinolone Acetonide 0.5 % External Cream (Aristocort) Apply topically to affected area 2 times a day. 15 g 1 LORazepam 0.5 MG Oral Tablet (Ativan) take 1 tablet by mouth 3 times a day as needed for anxiety 40Tablet 0 Abrysvo 120 MCG/0.5ML Intramuscular Solution Reconstituted (RSV Pre-Fusion F A&B Vac Rcmb) Inject 0.5 mL into a large muscle once for 1 dose. 1 Each 0 No current facility-administered medications for this visit. [...] last 8 weeks 2004 Coronary atherosclerosis of [place] coronary artery 50% of one vessel. Esophageal reflux GERD (gastroesophageal reflux disease) 11/28/2012 HTN, goal below 140/90 seems resolved Left main coronary artery disease 12/09/2012 Sprain and strain of other specified sites of shoulder and upper arm Past Surgical History: Procedure Laterality Date CABG, ARTERIAL, SINGLE 12/04/2012 CORONARY ARTERY BYPASS GRAFT USING ARTERY 1 GRAFT performed by Hola Powell MD at [place] [facility] HEMORRHOIDECTOMY,EXTERNAL, 2 + COLUMNS Hemorrhoidectomy INSERT IA PERCUT DEVICE 12/04/2012 INSERT INTRA AORTIC BALLOON ASSIST DEVICE PERCUTANEOUS performed by Osmin Castillo MD at [facility]ARDIAC LABS [facility] REPAIR INITIAL INGUINAL HERNIA REDUCIBLE AGE 5 OR MORE Inguianl hernia Repair, age 5+ yr THROMBOENDARECTOMY W/PATCH,NECK INCISION 2004 Objective: The patient is a 82 year old male BP 104/54 | Pulse 63 | Temp 36.8 C (98.2 F) | Resp 16 | Wt 75.3 kg (166 lb) | BMI 25.60 kg/m | BSA 1.89 m General: alert, healthy, and no distress Eye Exam: PERRLA, extraocular movements intact, conjunctiva are pink and non- injected, sclera clear Oropharynx: no exudate, no erythema, lips, buccal mucosa, and tongue normal, and mucous membranes are moist Heart: regular rate & rhythm, no murmur, and no gallops Lungs: lungs clear to auscultation Extremities: no edema, no clubbing, no cyanosis ASSESSMENT: L40.9 Psoriasis (primary encounter diagnosis) F41.1 Anxiety state J44.1 Chronic obstructive pulmonary disease with (acute) exacerbation (HCC) I25.118 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 Piotr Wilson III, MD documented in this encounter Plan of Treatment Upcoming Encounters Date Type Department Care Team (Late st Contact Info) Description 07/31/2023 9:00 AM EDT Imaging Vascular Lab, [address] [place] [address] 07/31/2023 10:00 AM EDT Imaging Vascular Lab, [address] [place] [address] 08/02/2023 8:50 AM EDT Office Visit Vascular Surgery, [facility] [address] [address] Piotr Lopez MD [address] [place] [address] 08/23/2023 10:20 AM EDT Office Visit Dermatology [facility] [address] [place] [address] Claudia Jensen PA-C [address] [facility] [place] [phone] 11/15/2023 10:00 AM EDT Office Visit Family Practice [facility] [address] [place] [address] Piotr Wilson III, MD [address] [facility] [place] [address] 02/19/2024 1:30 PM EST Cardiac Studies Cardiac Studies, [facility] [address] [facility] [place] [address] Scheduled Referrals Name Type Priority Associated Diagnoses Orde r Schedule DERMATOLOGY REFERRAL OP Referral Within 10 days (routine) Psoriasis Ordered: 05/17/2023 Health Maintenance Due Date Last Done Comments Alpha-1 Antitrypsin 1960 DTaP,Tdap,and Td Vaccines (2 - Td or Tdap) 11/13/2022 11/13/2012 COVID-19 Vaccine ( season) 2022 03/16/2021, 07/21/2020, 06/24/2020, Additional history exists GFR 05/25/2023 05/24/2022, 09/18, 10/14/2020, Additional history exists Depression Screening 03/06/2024 03/06/2023 O2 ASSESSMENT COMPLETED IN PAST YEAR FOR COPD 03/22/2024 03/22/2023 Albumin/Creatinine Ratio 10/14/2024 10/14/2021 MENINGOCOCCAL (MENACTRA/MENVEO) Aged Out 10/14/2015, 10/14/2015 No longer eligibl e based on patient's age to complete this topic Pneumococcal Vaccine: 65+ Years Completed 10/14/2015, 12/13/2012 Zoster Vaccines Completed 08/20/2020, 05/15/2020 Influenza Vaccine (FLU shot) Completed , 01/26/2021, 12/09/2019, Additional history exists GARDASIL-HPV IMMUNIZATION SERIES Aged Out No longer eligible based on patient's age to complete this topic Hepatitis B Aged Out No longer eligi ble based on patient's age to complete this topic documented as of this encounter Medical Devices Implanted Type Area Dock Attendant Device Identifier Shelf Expiration Date Model / Serial / Lot Sut Steel 6 [id number] - [id number] Implanted:Qty: 6 on 12/04/2012 at [place] [facility] N/A: Chest DO NOT USE 10/17/2017 [id number] / / [id number] Graft Marker Coronary - [id number] Implanted:Qty: 1 on 12/04/2012 at OR [facility] N/A: Aorta VM CARDIO VASCULAR 12/16/2014 [id number] / / [id number] [employer] Micronester Embolization Coil Implanted:Qty: 2 on 10/09/2015 by Diego Muir MD at RADIOLOGY [facility] 08/03/2020 [employer] MICRONESTER EMBOLIZATION COIL / [id number] / [id number] Description:[employer] Roberto roNester Embolization Coil [id number] documented as of this encounter Visit Diagnoses Diagnosis Psoriasis- Primary Other psoriasis Anxiety state Anxiety state, unspecified Chronic obstructive pulmonary disease with (acute) exacerbation (HCC) 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, unspecified whether [place] or transplanted heart (HCC) Hx of myocardial infarction Old myocardial infarction Need for RSV vaccination Need for prophylactic vaccination and inoculation against respiratory syncytial virus documented in this encounter Advance Directives Documents on File Type Date Recorded Patient Backwinder Expl anation Advance Directives and Living Will 03/10/2023 ADVANCE DIRECTIVE / LIVING WILL Power of Primary Clinician 03/10/2023 POWER OF A [facility] Latest Code Status on File Code Status Date Activated Date Inactivated Comments Full Code 10/08/2015 11:08 PM 10/14/2015 9:01 PM Question Answer Comments Discussion of Advance Direct josiah occurred with: Not Discussed Does the patient have a Living Will? No Does the patient have Health Care Power of Primary Clinician? No Code Status History Code Status Date [...] the patient have Health Care Power of Primary Clinician? No Healthcare Agents on File Name Relationship Healthcare Agent Relationshi p Communication Piotr Curry Niece/Nephew Health Care Repr esentative (appointed verbally by patient or by statute hierarchy) Care Teams Slasher Machine Operator Relationship Specialty Start Date End Date Piotr Wilson III, MD [address] [place] [address] PCP - General Family Medicine 12/04/17 documented as of this encounter"
--- OUTSIDE RECORDS SUMMARY | 2023-06-23 13:01 | External Medical Summary | Summary of Care ---
Author Name Unknown Organization [facility] Address [address] [facility] [place] [place] [address] Phone [phone] Care Team Providers Care Wireless Cellular Technician Name Role Phone Katie NEVAREZ MD, John E Primary Care Provider [phone] Reason for Visit * Reason Comments Medication Refill Encounter Details Date Type Department Care Team (Late st Contact Info) Description 05/29/[address] [facility] [address] [facility] [place] [address] Juan Mcqueen III, MD [facility] [address] COPD exacerbation (HCC) Allergies Active Allergy Reactions Criticality Noted Date Comments Morphine And Related Nausea/vomiting,Oth er (Please comment) 12/31/2012 Hallucinations Naproxen 02/19/2019 Remdesivir 05/12/2020 Shortness of breath, hallucinations, confusion. Had to have epi-pen administered. 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 45 g 12 10/19/2022 Active Spiriva Respimat 2.5 MCG/ACT Inhalation Aerosol Solution (Tiotropium [place] Monohydrate) Inhale 2 Puffs by mouth in the morning. 4 g 11 10/19/2022 Active Nitroglycerin 0.4 MG Sublingual Tablet Sublingual [...] HOURS 200 Tablet 3 01/18/2023 4 Active Nystatin 644345 UNIT/ML Mouth/Throat Suspension take 5 mL orally [...] as needed for Cough. 0 Active Nystatin 830037 UNIT/ML Mouth/Throat Suspension Take 5 mL by [...] for anxiety 40 Tablet 0 05/17/2023 Active Levalbuterol HCl 1.25 MG/3ML Inhalation Nebulization SolutionIndications :COPD exacerbation (HCC) Inhale 3 mL via nebulizer every 6 hours as needed for Wheezing or Shortness of Breath. 450 mL 1 05/31/2023 Active Levalbuterol HCl 1.25 MG/3ML Inhalation Nebulization SolutionIndications :COPD exacerbation (HCC) Inhale 3 mL via nebulizer every 6 hours as needed for Wheezing or Shortness of Breath. 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 [...] as of this encounter (statuses as of 05/31/2023) Resolved Problems Problem Noted Date Diagnosed Date Resolved Date Anxiety state 03/02/2018 10/14/2020 COPD, moderate 03/02/2018 05/04/2022 Overview: Per COPD GOLD Classification Tobacco abuse 01/29/2015 02/01/2016 Atherosclerosis of [place] co ronary artery of [place] heart without angina pectoris 04/04/2013 Pleural effusion [...] as of this encounter (statuses as of 05/31/2023) Immunizations Name Administration Dates Next Due COVID-19 [...] encounter Miscellaneous Notes * Telephone Encounter - Shahnaz Contreras [facility] - 05/31/2023 3:33 PM EDT Signed Prescriptions: Disp Refills Levalbuterol HCl 1.25 MG/3ML Inhalation Ne*450 mL 1 Sig: Inhale 3 mL via nebulizer every 6 hours as needed for Wheezing or Shortness of Breath. Authorizing Provider: JUAN MCQUEEN III User: SHAHNAZ CONTRERAS * Telephone Encounter - Shahnaz Contreras [facility] - 05/31/2023 3:33 PM EDT Signed Prescriptions: Disp Refills Levalbuterol HCl 1.25 MG/3ML Inhalation Ne*450 mL 1 Sig: Inhale 3 mL via nebulizer every 6 hours as needed for Wheezing or Shortness of Breath. Authorizing Provider: JUAN MCQUEEN III User: SHAHNAZ CONTRERAS * Telephone Encounter - Elodia Laughlin [facility] - 05/31/2023 3:27 PM EDT Did you pend patient's preferred pharmacy and medication before forwarding?yes Pharmacy: [email or web address] Pending Prescriptions: Disp Refills Levalbuterol HCl 1.25 MG/3ML Inhalation N*450 mL 0 Sig: Inhale 3 mL via nebulizer every 6 hours as needed for Wheezing or Shortness of Breath. Last Visit: 05/17/2023 (in office), 04/21/2020 (telemedicine) Next Visit: 11/15/2023 If no future appointments scheduled, and last appointment is greater than a year ago, please schedule patient for a follow-up appointment Last date the medication was ordered: 11/03/22 Is this request for a controlled substance?No [...] 11/29/2012 12:43 PM * Telephone Encounter - Brynn Queen [facility]Ph[facility] - 05/29/2023 1:05 PM EDTPending Prescriptions: Disp Refills Albuterol Sulfate HFA 108 (90 Base) MCG/AC*72 g 0 Sig: INHALE 2PUFFS BY MOUTH IN THE MORNING AND 2 PUFFS AT NOON AND 2 PUFFS IN THE EVENING AND 2 PUFFS BEFORE BEDTIME ONCE FEEL BETTER NEEDED Levalbuterol HCl 1.25 MG/3ML Inhalation Ne*450 mL 0 Sig: Inhale 3 mLvia nebulizer every 6 hours as needed for Wheezing or Shortness of Breath.---- documented in this encounter Plan of Treatment Upcoming Encounters Date Type Department Care Team (Late st Contact Info) Description 07/31/2023 9:00 AM EDT Imaging Vascular Lab, [facility] 2nd [facility] [place] [address] [facility] [place] [address] 07/31/2023 10:00 AM EDT Imaging Vascular Lab, [facility] 2nd [facility] [place] [address] [facility] [place] [address] 08/02/2023 8:50 AM EDT Office Visit Vascular Surgery, [address] [place] [address] Juan Lopez MD [address] [place] [address] 08/23/2023 10:20 AM EDT Office Visit Dermatology [facility] [address] [place] [address] Claudia Jensen PA-C 200 [facility] [place] [phone] 11/15/2023 10:00 AM EDT Office Visit Family Practice [facility] [address] [place] [address] Juan Mcqueen III, MD 200 [facility] [place] [address] 02/19/2024 1:30 PM EST Cardiac Studies Cardiac Studies, [facility] [address] [facility] [place] [address] Health Maintenance Due Date Last Done Comments [...] this encounter Medical Devices Implanted Type Area Dough Mixer Device Identifier Shelf Expiration Date Model / Serial / Lot Sut Steel 6 [id number] - [id number] Implanted:Qty: 6 on 12/04/2012 at OR [facility] N/A: Chest DO NOT USE 10/17/2017 [id number] / / [id number] Graft Marker Coronary - [id number] Implanted:Qty: 1 on 12/04/2012 at OR [facility] N/A: Aorta VM CARDIO VASCULAR 12/16/2014 [id number] / / [id number] [employer] Micronester Embolization Coil Implanted:Qty: 2 on 10/09/2015 by Diego Muir MD at RADIOLOGY [facility] 08/03/2020 [employer] MEDICA L MICRONESTER EMBOLIZATION COIL / [id number] / [id number] Description:[employer] Roberto roNester Embolization Coil [id number] documented as of this encounter Visit Diagnoses Diagnosis COPD exacerbation (HCC) Obstructive chronic bronchitis with exacerbation documented in this encounter Advance Directives Documents on File Type Date Recorded 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 No Does the patient have Health Care Power of Ball Assembler? No Code Status History Code Status Date [...] the patient have Health Care Power of Ball Assembler? No Healthcare Agents on File Name Relationship Healthcare Agent Relationshi p Communication Juan Curry Niece/Nephew Health Care Repr esentative (appointed verbally by patient or by statute hierarchy) Care Teams Wireless Cellular Technician Relationship Specialty Start Date End Date Juan Mcqueen III, MD [address] [place] [address] PCP - General Family Medicine 12/04/17 documented as of this encounter
--- OUTSIDE RECORDS SUMMARY | 2023-06-23 13:01 | External Medical Summary | Summary of Care ---
Author Name Unknown Organization [facility] Address [address] [facility] [place] [address] Phone [phone] Care Team Providers Care Coordinator Integrated Marketing Name Role Phone Katie NEVAREZ MD, John E Primary Care Provider [phone] Encounter Details Date Type Department Care Team (Late st Contact Info) Description 06/12/2023 Orders Only Family Practice [facility] [address] [facility] [place] [address] Piotr Wilson III, MD [address] [facility] [place] [address] Allergies Active Allergy Reactions Criticality Noted Date Comments Morphine And Related Nausea/vomiting,Oth er (Please comment) 12/31/2012 Hallucinations Naproxen 02/19/2019 Remdesivir 05/12/2020 Shortness of breath, hallucinations, confusion. Had to have epi-pen administered. documented as of this encounter (statuses as of 06/12/2023) Medications Medication Sig Dispensed Refills Start Date [...] HOUR BEFORE BREAKFAST 100 Capsule 3 08/03/2022 08/29/2023 Active Rosuvastatin Calcium 40 MG Oral Tablet (Crestor)Indications :Dyslipidemia, goal LDL below 70 TAKE ONE TABLET BY MOUTH EVERY DAY 100 Tablet 3 06/14/2022 08/25/2023 Active Furosemide 20 MG Oral Tablet (Lasix)Indications:H TN, goal below 140/90 TAKE ONE TABLET BY MOUTH DAILY 100 Tablet 3 09/26/2022 09/26/2023 Active Levalbuterol Tartrate 45 MCG/ACT Inhalation Aerosol (Xopenex HFA)Indications:COPD exacerbation (HCC) Inhale 1 Puff by mouth every 4 hours as needed for Wheezing. 45 g 12 10/19/2022 Active Spiriva Respimat 2.5 MCG/ACT Inhalation Aerosol Solution (Tiotropium [place] Monohydrate) Inhale 2 Puffs by mouth in [...] EVERY 12 HOURS 200 Tablet 3 01/18/2023 01/18/2024 Active Nystatin 369419 UNIT/ML Mouth/Throat Suspension take 5 mL orally [...] as needed for Cough. 0 Active Nystatin 068993 UNIT/ML Mouth/Throat Suspension Take 5 mL by [...] 05/17/2023 Active LORazepam 0.5 MG Oral Tablet (Ativan)Indications: Anxiety state take 1 tablet by mouth 3 times a day as needed for anxiety 40 Tablet 0 05/17/2023 Active Levalbuterol HCl 1.25 MG/3ML Inhalation Nebulization SolutionIndications: COPD exacerbation (HCC) Inhale 3 mL via nebulizer every 6 hours as needed for Wheezing or Shortness of Breath. 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 [...] as of this encounter (statuses as of 06/12/2023) Resolved Problems Problem Noted Date Diagnosed Date Resolved Date Anxiety state 03/02/2018 10/14/2020 COPD, moderate 03/02/2018 05/04/2022 Overview: Per COPD GOLD Classification Tobacco abuse 01/29/2015 02/01/2016 Atherosclerosis of [place] co ronary artery of [place] heart without angina pectoris 04/04/2013 Pleural effusion [...] as of this encounter (statuses as of 06/12/2023) Immunizations Name Administration Dates Next Due COVID-19 [...] 07/31/2023 9:00 AM EDT Imaging Vascular Lab, [address] [place] [address] 07/31/2023 10:00 AM EDT Imaging Vascular Lab, [address] [place] [address] 08/02/2023 8:50 AM EDT Office Visit [address] Surgery, [address] [place] [address] Piotr Lopez MD [address] [place] [address] 08/23/2023 10:20 AM EDT Office Visit Dermatology [facility] [address] [facility] [place] [address] Claudia Jensen PA-C [address] [facility] [place] [phone] 11/15/2023 10:00 AM EDT Office Visit Family Practice [facility] [address] [facility] [place] [address] Piotr Wilson III, MD [address] [facility] [place] [address] 02/19/2024 1:30 PM EST Cardiac Studies Cardiac Studies, [facility] [address] [place] [address] Health Maintenance Due Date Last Done Comments Alpha-1 Antitrypsin 1960 DTaP,Tdap,and Td Vaccines (2 - Td or Tdap) 11/13/2022 11/13/2012 COVID-19 Vaccine (2022- season) 2022 03/16/2021, 07/21/2020, 06/24/2020, Additional history exists GFR 05/25/2023 03/02/2023, 09/2022, 10/14/2021, Additional history exists Depression Screening 03/06/2024 03/06/2023 [...] this encounter Medical Devices Implanted Type Area Senior Net Developer Device Identifier Shelf Expiration Date Model / Serial / Lot Sut Steel 6 M654g - [id number] Implanted:Qty: 6 on 12/04/2012 at OR [facility] N/A: Chest DO NOT USE 10/17/2017 [id number] / / [id number] Graft Marker Coronary - [id number] Implanted:Qty: 1 on 12/04/2012 at OR [facility] N/A: Aorta VM CARDIO VASCULAR 12/16/2014 [id number] / / [id number] [employer] Micronester Embolization Coil Implanted:Qty: 2 on 10/09/2015 by Diego Muir MD at RADIOLOGY [facility] 08/03/2020 [employer] MED[employer] L MICRONESTER EMBOLIZATION COIL / [id number] / [id number] Description:[employer] Roberto roNester Embolization Coil [id number] documented as of this encounter Procedures Procedure Name Priority Date/Time Associated Diagnosis Comments CHEMISTRY-OUTSIDE Routine 03/02/2023 documented in this encounter Results * (ABNORMAL) CHEMISTRY-OUTSIDE (03/02/2023) Not all results display below - see scan for full detail OUTSIDE LAB (SEE SCANNED REPORT) CREATININE-OUTSID E LAB 1.01 0.6 - 1.9 OUTSIDE LAB (SEE SCANNED REPORT) EGFR-OUTSIDE LAB 81.0 OUT SIDE LAB (SEE SCANNED REPORT) POTASSIUM-OUTSIDE LAB 4.1 3.5 - 5.1 OUTSIDE LAB (SEE SCANNED REPORT) GLUCOSE-OUTSIDE LAB 78 70 - 99 OUTSIDE LAB (SEE SCANNED REPORT) HOURS FASTING OUTSID E LAB (SEE SCANNED REPORT) TRIGLYCERIDES-OUT SIDE LAB 52 150 OUTSIDE LAB (SEE SCANNED REPORT) CHOLESTEROL-OUTSI DE LAB 119 200 OUTSIDE LAB (SEE SCANNED REPORT) HDL-OUTSIDE LAB 55 40 - 60 OUTS PAULETTE LAB (SEE SCANNED REPORT) CHOL/HDL RATIO-OUTSIDE LAB 2.2 5 OUTSIDE LA B (SEE SCANNED REPORT) LDL (CALCULATED)-OUTS PAULETTE LAB 54 100 OUTSIDE LAB (SEE SCANNED REPORT) LDL (DIRECT MEASURE)-OUTSIDE LAB OUTSIDE LAB (SEE SCANNED REPORT) HEMOGLOBIN, P4D-JGXUTIY LAB OUTSIDE LAB (SEE SCANNED REPORT) PHOSPHORUS-OUTSID E LAB OUTSIDE LAB (SEE SCANNED REPORT) PTH-OUTSIDE LAB OUTS PAULETTE LAB (SEE SCANNED REPORT) MICROALBUMIN RATIO-OUTSIDE LAB OUTSIDE LA B (SEE SCANNED REPORT) PROTEIN, UA-OUTSIDE LAB OUTSIDE LAB (SEE SCANNED REPORT) HGB 13.7(A) 14.0 - 18.0 OUTSIDE LAB (SEE SCANNED REPORT) 03/02/2023 Carla Scherer MD LABORATORY OUTSIDE LAB (SEE SCANNED REPORT) documented in this encounter Advance Directives Documents on File Type Date 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 No Does the patient have Health Care Power of Sas Programmer Analyst? No Code Status History Code Status Date [...] the patient have Health Care Power of Sas Programmer Analyst? No Healthcare Agents on File Name Relationship Healthcare Agent Relationshi p Communication Piotr Smshobha Niece/Nephew Health Care Repr esentative (appointed verbally by patient or by statute hierarchy) Care Teams Coordinator Integrated Marketing Relationship Specialty Start Date End Date Piotr Wilson III, MD [address] [place] [address] PCP - General Family Medicine 12/04/17 documented as of this encounter
--- OUTSIDE RECORDS SUMMARY | 2023-06-23 13:01 | External Medical Summary | Summary of Care ---
Author Name Unknown Organization [facility] [address] [address] Phone [phone] Care Team Providers Care Robotics Technologist Name Role Phone Katie NEVAREZ MD, John E Primary Care Provider [phone] Reason for Visit * Reason Onset Date Comments Health Maintenance 06/08/2023 Encounter Details Date Type Department Care Team (Late st Contact Info) Description 06/08/2023 Telephone Family Practice [facility] 200 [facility] [place] [address] Piotr Wilson III, MD [address] [facility] [address] Health Maintenance Allergies Active Allergy Reactions Criticality Noted Date Comments Morphine And Related Nausea/vomiting,Oth er (Please comment) 12/31/2012 Hallucinations Naproxen 02/19/2019 Remdesivir 05/12/2020 Shortness of breath, hallucinations, confusion. Had to have epi-pen administered. documented as of this encounter (statuses as of 06/08/2023) Medications Medication Sig Dispensed Refills Start Date [...] 45 MCG/ACT Inhalation Aerosol (Xopenex HFA)Indications:COPD exacerbation ([facility]) Inhale 1 Puff by mouth every 4 hours as needed for Wheezing. 45 g 12 10/19/2022 Active Spiriva Respimat 2.5 MCG/ACT Inhalation Aerosol Solution (Tiotropium [place] Monohydrate) Inhale 2 Puffs by mouth in [...] 200 Tablet 3 01/18/2023 01/18/2024 Active Nystatin 711470 UNIT/ML Mouth/Throat Suspension take 5 mL orally [...] as needed for Cough. 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 [...] as of this encounter (statuses as of 06/08/2023) Resolved Problems Problem Noted Date Diagnosed Date Resolved Date Anxiety state 03/02/2018 10/14/2020 COPD, moderate 03/02/2018 05/04/2022 Overview: Per COPD GOLD Classification Tobacco abuse 01/29/2015 02/01/2016 Atherosclerosis of [place] co ronary artery of [place] heart without angina pectoris 04/04/2013 Pleural effusion [...] as of this encounter (statuses as of 06/08/2023) Immunizations Name Administration Dates Next Due COVID-19 mRNA, LNP-s, No Pre serve, 2-Dose Series ([facility]) 03/16/2021,07/21/2020,06/24/2020,06/02 HIB PRP-OMP, 3 dose (Pedvax) 10/14/2015 [...] encounter Miscellaneous Notes * Telephone Encounter - Elodia Baca LPN - 06/08/2023 9:13 AM EDT Care Gaps Comprehensive Care Outreach Last Office/Telemedicine Visit: 05/17/2023 (in office), 04/21/2020 (telemedicine) Next Office Visit: 11/15/2023 Hemoglobin AIC Results: Lab Results Component Value Date/Time HEMOGLOBIN A1C - [facility] 5.8 11/29/2012 12:43 PM HEMOGLOBIN A1C - [facility] 6.0 11/28/2012 08:59 PM BP Readings from Last 1 Encounters: 05/17/23 104/54 Reviewed Health Maintenance below: Health Maintenance Topic Date Due Alpha-1 Antitrypsin Never done DTaP,Tdap,and Td Vaccines (2 - Td or Tdap) 11/13/2022 COVID-19 Vaccine ( season) 2022 GFR 05/25/2023 Labs requested from [facility] Care Gap Outreach Action Taken: Outside records requested documented in this encounter Plan of Treatment Upcoming Encounters Date Type Department Care Team (Late st Contact Info) Description 07/31/2023 9:00 AM EDT Imaging Vascular Lab, [facility] 2nd [facility], [address] [place] [address] 07/31/2023 10:00 AM EDT Imaging Vascular Lab, [facility] [address] [place] [address] 08/02/2023 8:50 AM EDT Office Visit Vascular Surgery, [address] [place] [address] Piotr Lopez MD [address] [place] [address] 08/23/2023 10:20 AM EDT Office Visit Dermatology [facility] [address] [place] [address] Claudia Jensen PA-C 200 [facility] [place] [phone] 11/15/2023 10:00 AM EDT Office Visit Family Practice [facility] [address] [place] [address] Piotr Wilson III, MD [address] [place] [address] 02/19/2024 1:30 PM EST Cardiac Studies Cardiac Studies, [facility] [address] [facility] [place] [address] Health Maintenance Due Date Last Done Comments [...] this encounter Medical Devices Implanted Type Area Data Warehouse Manager Device Identifier Shelf Expiration Date Model / Serial / Lot Sut Steel 6 M654g - [id number] Implanted:Qty: 6 on 12/04/2012 at OR [facility] N/A: Chest DO NOT USE 10/17/2017 [id number] / / [id number] Graft Marker Coronary - [id number] Implanted:Qty: 1 on 12/04/2012 at OR [facility] N/A: Aorta VM CARDIO VASCULAR 12/16/2014 [id number] / / [id number] [employer] Micronester Embolization Coil Implanted:Qty: 2 on 10/09/2015 by Diego Muir MD at RADIOLOGY [facility] 08/03/2020 [employer] MED[employer] L MICRONESTER EMBOLIZATION COIL / [id number] / [id number] Description:Music Messenger (MM) Roberto roNester Embolization Coil [id number] documented as of this encounter Advance Directives Documents on File Type Date Recorded 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 No Does the patient have Health Care Power of Audio Video Tech? No Code Status History Code Status Date [...] the patient have Health Care Power of Audio Video Tech? No Healthcare Agents on File Name Relationship Healthcare Agent Relationshi p Communication Piotr Curry Niece/Nephew Health Care Repr esentative (appointed verbally by patient or by statute hierarchy) Care Teams Robotics Technologist Relationship Specialty Start Date End Date Piotr Wilson III, MD [address] [place] [address] PCP - General Family Medicine 12/04/17 documented as of this encounter
--- OUTSIDE RECORDS SUMMARY | 2023-06-23 13:02 | External Medical Summary | Summary of Care ---
Author Name Unknown Organization [facility] Address [address] [place] [address] Phone [phone] Care Team Providers Care Analyst Geochemical Prospecting Name Role Phone Katie NEVAREZ MD, Piotr Agarwal Primary Care Provider [phone] Encounter Details Date Type Department Care Team (Late st Contact Info) Description 03/16/2023 9:30 AM EST Home Visit Care Coordination and Integration [address], [place] [id number] Therese Cervantes, [facility] Chief Operator [address], [place] [id number] Allergies Active Allergy Reactions Criticality Noted Date Comments Morphine And Related Nausea/vomiting,Oth er (Please comment) 12/31/2012 Hallucinations Naproxen 02/19/2019 Remdesivir 05/12/2020 Shortness of breath, hallucinations, confusion. Had to have epi-pen administered. documented as of this encounter (statuses as of 03/16/2023) Medications Medication Sig Dispensed Refills Start Date [...] 4 Active Furosemide 20 MG Oral Tablet (Lasix)Indications:H TN, goal below 140/90 TAKE ONE TABLET BY MOUTH DAILY 100 Tablet 3 09/26/2022 4 Active Levalbuterol Tartrate 45 MCG/ACT Inhalation Aerosol (Xopenex HFA)Indications:COPD exacerbation (HCC) Inhale 1 Puff by mouth every 4 hours as needed for Wheezing. 45 g 12 10/19/2022 Active Spiriva Respimat 2.5 MCG/ACT Inhalation Aerosol Solution (Tiotropium [place] Monohydrate) Inhale 2 Puffs by mouth in [...] HOURS 200 Tablet 3 01/18/2023 4 Active Amoxicillin-Pot Clavulanate 875-125 MG Oral Tablet (Augmentin) take 1 tablet by mouth twice daily with meals 18 Tablet 0 03/03/2023 Active Additional Information Patient not taking.Reported on 03/16/2023 Nystatin 650513 UNIT/ML Mouth/Throat Suspension swish and swallow 5 mL by mouth four times daily for 7 days 70 mL 0 03/03/2023 Active Nitroglycerin 0.4 MG/HR Transdermal Patch 24 Hour (Nitro-Dur) Place 1 patch transdermal every morning. Remove patch at bedtime each night. Allow nitrate-free interval of approx. 10-12 hrs per 24-hour period 30 Patch 0 03/04/2023 Active Amoxicillin-Pot Clavulanate 875-125 MG Oral Tablet (Augmentin) take 1 tablet orally twice daily with meals 18 Tablet 0 03/04/2023 Active Additional Information Patient not taking.Reported on 03/16/2023 Nystatin 177998 UNIT/ML Mouth/Throat Suspension take 5 mL orally four times daily; swish and swallow for 7 days 70 mL 0 03/04/2023 Active Albuterol Sulfate HFA 108 (90 Base) MCG/ACT Inhalation Aerosol Solution Inhale 2 Puffs by mouth every 6 hours as needed. 0 Active Nitroglycerin 0.4 MG/HR Transdermal Patch 24 Hour (Nitro-Dur) Place 1 Patch topically on the skin in the morning. 0 Active documented as of this encounter (statuses as of 03/16/2023) Active Problems Problem Noted Date Diagnosed Date [...] as of this encounter (statuses as of 03/16/2023) Resolved Problems Problem Noted Date Diagnosed Date [...] as of this encounter (statuses as of 03/16/2023) Immunizations Name Administration Dates Next Due COVID-19 [...] Sign Reading Time Taken Comments Blood Pressure 120/58 03/16/2023 9:38 AM EST Pulse 76 03/16/2023 9:38 AM EST Temperature 36.6 C (97.9 F) 03/16/2023 9:38 AM ES T Respiratory Rate - - Oxygen Saturation 93% 03/16/2023 9:38 AM EST Inhaled Oxygen Concentration - - Weight 72.6 kg (160 lb) 03/16/2023 9:38 AM EST Height - - Body Mass Index 24.68 08/03/2022 8:35 AM EDT documented in this [...] as of this encounter Progress Notes * Therese Cervantes, [facility] Chief Operator - 03/16/2023 10:10 AM EST Telemedicine visit: No [facility] Chief Operator (MEÑO) documentation: MEÑO completed home visit with patient. Reviewed medications and completed home safety assessment. Patient is very aware of his needs and does well being mindful of his issues and caring for himself. Is very aware of what he needs to do for his safety and wellbeing. Does have swallowing issues and chokes and is making adjustments to his food and making sure he is cutting things up small and chewing up things well before swallowing. Is having some diarrhea in the morning after he eats. Is not sure what is causing it but is watching it. Only has it in the morning. Notices it after he eats the instant oatmeal. Will call his doctor if it gets worse and it continues. Therese Cervantes- [facility] Support Services/[employer] [facility] [employer] [facility] [email or web address] documented in this encounter Plan of Treatment Upcoming Encounters Date Type Department Care Team (Late st Contact Info) Description 03/24/2023 8:30 AM EST Office Visit Cardiology, [facility] [address] [place] [address] Osmin Bennett, [address] [place] [address] 05/17/2023 10:00 AM EST Office Visit Family Practice [facility] [address] [facility] [place] [address] Piotr Wilson III, MD [address] [facility] [address] Health Maintenance Due Date Last Done Comments Alpha-1 Antitrypsin 1960 DTaP,Tdap,and Td Vaccines (2 - Td or Tdap) 11/13/2022 11/13/2012 COVID-19 Vaccine ( - 2022- season) 2022 03/16/2021, 07/21/2020, 06/24/2020, Additional history exists GFR 05/25/2023 05/24/2022, 09/18, 10/14/2020, Additional history exists Depression Screening 03/06/2024 03/06/2023 O2 ASSESSMENT COMPLETED IN PAST YEAR FOR COPD 03/10/2024 03/10/2023 Albumin/Creatinine Ratio 10/14/2024 10/14/2021 MENINGOCOCCAL (MENACTRA/MENVEO) Aged [...] this encounter Medical Devices Implanted Type Area Boat Joiner Device Identifier Shelf Expiration Date Model / Serial / Lot Graft Marker Coronary - [id number] Implanted:Qty: 1 on 12/04/2012 at [place] [facility] [place] N/A: Aorta VM CARDIO VASCULAR 12/16/2014 [id number] / / [id number] [employer] Micronester Embolization Coil Implanted:Qty: 2 on 10/09/2015 by Diego Muir MD at [place] [facility] [place] 08/03/2020 COOK MEDICA L MICRONESTER EMBOLIZATION COIL / [id number] / [id number] Description:[employer] Roberto roNester Embolization Coil [id number] documented as of this encounter Advance Directives Documents on File Type Date Recorded Patient Filter Press Pumper Expl anation Advance Directives and Living Will 03/10/2023 ADVANCE DIRECTIVE / LIVING WILL Power of Global Compensation Analyst 03/10/2023 [facility] Latest Code Status on File Code Status Date Activated Date Inactivated Comments Full Code 10/08/2015 11:08 PM 10/14/2015 9:01 PM Question Answer Comments Discussion of Advance Direct josiah occurred with: Not Discussed Does the patient have a Living Will? No Does the patient have Health Care Power of Global Compensation Analyst? No Code Status History Code Status [...] the patient have Health Care Power of Global Compensation Analyst? No Healthcare Agents on File Name Relationship Healthcare Agent Relationshi p Communication Piotr shobha Niece/Nephew Health Care Repr esentative (appointed verbally by patient or by statute hierarchy) Care Teams Analyst Geochemical Prospecting Relationship Specialty Start Date End Date Piotr Wilson III, MD [address] [place] [address] PCP - General Family Medicine 12/04/17 documented as of this encounter
--- OUTSIDE RECORDS SUMMARY | 2023-06-23 13:02 | External Medical Summary | Summary of Care ---
Author Name Unknown Organization [facility] Address [address] [place] [address] Phone [phone] Care Team Providers Care Manager Wound Name Role Phone Katie NEVAREZ MD, John E Primary Care Provider [phone] Reason for Visit * Reason Onset Date Comments Referral 05/17/2023 Encounter Details Date Type Department Care Team (Late st Contact Info) Description 05/17/2023 Telephone Family Practice [facility] [address] [place] [address] Piotr Wilson III, MD [address] [place] [address] Referral Allergies Active Allergy Reactions Criticality Noted Date Comments Morphine And Related Nausea/vomiting,Oth er (Please comment) 12/31/2012 Hallucinations Naproxen 02/19/2019 Remdesivir 05/12/2020 Shortness of breath, hallucinations, confusion. Had to have epi-pen administered. documented as of this encounter (statuses as of 05/17/2023) Medications Medication Sig Dispensed Refills Start Date [...] USE WITH INHALER 1 Each 0 01/31/2022 05/17/2023 Active Vitamin C 500 MG Oral Capsule [...] Respimat 2.5 MCG/ACT Inhalation Aerosol Solution (Tiotropium [place] Monohydrate) Inhale 2 Puffs by mouth in [...] 200 Tablet 3 01/18/2023 01/18/2024 Active Nystatin 699511 UNIT/ML Mouth/Throat Suspension take 5 mL orally [...] as needed for Cough. 0 Active Nystatin 360791 UNIT/ML Mouth/Throat Suspension Take 5 mL by [...] for anxiety 40 Tablet 0 05/17/2023 Active Abrysvo 120 MCG/0.5ML Intramuscular Solution Reconstituted (RSV Pre-Fusion F A&B Vac Rcmb) Inject 0.5 mL into a large muscle once for 1 dose. 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 [...] as of this encounter (statuses as of 05/17/2023) Resolved Problems Problem Noted Date Diagnosed Date Resolved Date Anxiety state 03/02/2018 10/14/2020 COPD, moderate 03/02/2018 05/04/2022 Overview: Per COPD GOLD Classification Tobacco abuse 01/29/2015 02/01/2016 Atherosclerosis of [place] co ronary artery of [place] heart without angina pectoris 04/04/2013 Pleural effusion [...] as of this encounter (statuses as of 05/17/2023) Immunizations Name Administration Dates Next Due COVID-19 [...] encounter Miscellaneous Notes * Telephone Encounter - Shantel Fisher OSA - 05/17/2023 10:39 AM EST Request Summary [[id number]] Procedure: DERMATOLOGY REFERRAL OP Status: Needs Scheduling (Oglq-[id number] Pending) Requested appt date: Authorizing: Piotr Wilson III, MD in [facility] Referral: [id number] (Authorized) Priority: Within 10 days (routine) Diagnosis: Psoriasis [L40.9] Order Specific Questions Referral Priority Within 10 days (routine) Where should this appointment be scheduled? [facility] Are you referring the patient for Mohs Surgery and have a current positive skin cancer biopsy result? Yes Request History Action Date and Time User Details Request Created 05/17/2023 10:17 Piotr Wilson III, MD Appointment Encounter, Details Workqueue Summary Current Workqueues Entry Current Tab MOHS SURGERY RFL ORDERS [[id number]] 05/17/2023 10:17 Active Details documented in this encounter Plan of Treatment Upcoming Encounters Date Type Department Care Team (Late st Contact Info) Description 07/31/2023 9:00 AM EDT Imaging Vascular Lab, [address] [address] 07/31/2023 10:00 AM EDT Imaging Vascular Lab, [address] [place] [address] 08/02/2023 8:50 AM EDT Office Visit Vascular Surgery, [address] [place] [address] Piotr Lopez MD [address] [place] [address] 11/15/2023 10:00 AM EDT Office Visit Family Practice [address] [place] [address] Piotr Wilson III, MD [facility] [address] 02/19/2024 1:30 PM EST Cardiac Studies Cardiac Studies, [address] [place] [address] Health Maintenance Due Date Last Done Comments [...] this encounter Medical Devices Implanted Type Area Mounter Automatic Device Identifier Shelf Expiration Date Model / Serial / Lot Sut Steel 6 M654g - [id number] Implanted:Qty: 6 on 12/04/2012 at [place] [facility] [place] N/A: Chest DO NOT USE 10/17/2017 [id number] / / [id number] Graft Marker Coronary - [id number] Implanted:Qty: 1 on 12/04/2012 at [place] [facility] [place] N/A: Aorta VM CARDIO VASCULAR 12/16/2014 [id number] / / [id number] [employer] Micronester Embolization Coil Implanted:Qty: 2 on 10/09/2015 by Diego Muir MD at RAD[facility]OLOGY [facility] [place] 08/03/2020 [employer] MEDICA L MICRONESTER EMBOLIZATION COIL / [id number] / [id number] Description:[employer] Roberto roNester Embolization Coil [id number] documented as of this encounter Advance Directives Documents on File Type Date Recorded Patient Hospitality Housekeeper Expl anation Advance Directives and Living Will 03/10/2023 ADVANCE DIRECTIVE / LIVING WILL Power of Pantry Goods Maker 03/10/2023 [facility] Latest Code Status on File Code Status Date Activated Date Inactivated Comments Full Code 10/08/2015 11:08 PM 10/14/2015 9:01 PM Question Answer Comments Discussion of Advance Direct josiah occurred with: Not Discussed Does the patient have a Living Will? No Does the patient have Health Care Power of Pantry Goods Maker? No Code Status History Code Status [...] the patient have Health Care Power of Pantry Goods Maker? No Healthcare Agents on File Name Relationship Healthcare Agent Relationshi p Communication Piotr shobha Niece/Nephew Health Care Repr esentative (appointed verbally by patient or by statute hierarchy) Care Teams Manager Wound Relationship Specialty Start Date End Date Piotr Wilson III, MD 200 [place] [address] PCP - General Family Medicine 12/04/17 documented as of this encounter
--- OUTSIDE RECORDS SUMMARY | 2023-06-23 13:02 | External Medical Summary | Summary of Care ---
Author Name Unknown Organization [facility] Address [address] [place] [address] Phone [phone] Care Team Providers Care Open Soaper Tender Name Role Phone Katie NEVAREZ MD, John E Primary Care Provider [phone] Reason for Visit * Reason Onset Date Comments Referral 05/17/2023 Encounter Details Date Type Department Care Team (Late st Contact Info) Description 05/17/2023 Telephone Family Practice [facility] [address] [place] [address] Piotr Wilson III, MD [address] [place] [address] Referral Allergies Active Allergy Reactions Criticality Noted [...] Respimat 2.5 MCG/ACT Inhalation Aerosol Solution (Tiotropium [place] Monohydrate) Inhale 2 Puffs by mouth in [...] 200 Tablet 3 01/18/2023 01/18/2024 Active Nystatin 184626 UNIT/ML Mouth/Throat Suspension take 5 mL orally [...] as needed for Cough. 0 Active Nystatin 119839 UNIT/ML Mouth/Throat Suspension Take 5 mL by [...] for 1 dose. 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 * Telephone Encounter - Shantel Fisher OSA - 05/17/2023 10:39 AM EST Request Summary [[id number]] Procedure: DERMATOLOGY REFERRAL OP Status: Needs Scheduling (Vfrx-[id number] Pending) Requested appt date: Authorizing: Piotr Wilson III, MD in [facility] Referral: [id number] (Authorized) Priority: Within 10 days (routine) Diagnosis: [...] 07/31/2023 9:00 AM EDT Imaging Vascular Lab, [address] [address] 07/31/2023 10:00 AM EDT Imaging Vascular Lab, [address] [place] [address] 08/02/2023 8:50 AM EDT Office Visit Vascular Surgery, [address] [place] [address] Piotr Lopez MD [address] [place] [address] 11/15/2023 10:00 AM EDT Office [address] [place] [address] Piotr Wilson III, MD 200 [facility] [place] [address] 02/19/2024 1:30 PM EST Cardiac Studies Cardiac Studies, [address] [place] [address] Health Maintenance Due Date Last Done Comments Alpha-1 Antitrypsin 1960 DTaP,Tdap,and Td Vaccines (2 - Td or Tdap) 11/13/2022 11/13/2012 COVID-19 Vaccine (5 - season) 2022 03/16/2021, 07/21/2020, 06/24/2020, Additional [...] this encounter Medical Devices Implanted Type Area Hr Specialist Device Identifier Shelf Expiration Date Model / Serial / Lot Sut Steel 6 M654g - [id number] Implanted:Qty: 6 [place] 12/04/[place] [facility] [place]: Chest DO NOT USE 10/17/2017 [id number] / / [id number] Graft Marker Coronary - [id number] Implanted:Qty: 1 on 12/04/2012 [place] [facility] [place] [facility] [place]A: Aorta VM CARDIO VASCULAR 12/16/2014 [id number] / / [id number] [employer] Micronester Embolization Coil Implanted:Qty: 2 on 10/09/2015 by Diego Muir [place] [facility] [place] [facility] [place] C[employer] MEDICA L MICRONESTER EMBOLIZATION COIL / [id number] / [id number] Description:[facility] roNester Embolization Coil [id number] documented as of this encounter Advance Directives Documents on File Type Date Recorded Patient Cooker Sulfate Expl anation Advance Directives and Living Will 03/10/2023 ADVANCE DIRECTIVE / LIVING WILL Power of Zinc Miner 03/10/2023 [facility] Latest Code Status on File Code Status Date Activated Date Inactivated Comments Full Code 10/08/2015 11:08 PM 10/14/2015 9:01 PM Question Answer Comments Discussion of Advance Direct josiah occurred with: Not Discussed Does the patient have a Living Will? No Does the patient have Health Care Power of Zinc Miner? No Code Status History Code Status Date [...] the patient have Health Care Power of Zinc Miner? No Healthcare Agents on File Name Relationship Healthcare Agent Relationshi p Communication Piotr Curry Niece/Nephew Health Care Repr esentative (appointed verbally by patient or by statute hierarchy) Care Teams Open Soaper Tender Relationship Specialty Start Date End Date Piotr Wilson III, MD 200 [facility] [place] [address] PCP - General Family Medicine 12/04/17 documented as of this encounter
--- OUTSIDE RECORDS SUMMARY | 2023-06-23 13:02 | External Medical Summary | Summary of Care ---
Author Name Unknown Organization [facility] Address [address] [place] [address] Phone [phone] Care Team Providers Care Fire Prevention Captain Name Role Phone Katie NEVAREZ MD, Piotr Agarwal Primary Care Provider [phone] Reason for Visit * Reason Onset Date Comments case management 03/31/2023 Encounter Details Date Type Department Care Team (Late st Contact Info) Description 03/31/2023 Recreation Aide Telephone Care Coordination and Integration [address] [place], [place] [id number] Chari Hope, ILYA [address] [place], [place] [phone] case management Allergies Active Allergy Reactions Criticality Noted Date Comments Morphine And Related Nausea/vomiting,Oth er (Please comment) 12/31/2012 Hallucinations Naproxen 02/19/2019 Remdesivir 05/12/2020 Shortness of breath, hallucinations, confusion. Had to have epi-pen administered. documented as of this encounter (statuses as of 03/31/2023) Medications Medication Sig Dispensed Refills Start Date [...] Respimat 2.5 MCG/ACT Inhalation Aerosol Solution (Tiotropium [place] Monohydrate) Inhale 2 Puffs by mouth in [...] 200 Tablet 3 01/18/2023 01/18/2024 Active Nystatin 202119 UNIT/ML Mouth/Throat Suspension swish and swallow 5 mL by mouth four times daily for 7 days 70 mL 0 03/03/2023 Active Nystatin 818758 UNIT/ML Mouth/Throat Suspension take 5 mL orally four times daily; swish and swallow for 7 days 70 mL 0 03/04/2023 Active Albuterol Sulfate HFA 108 (90 Base) MCG/ACT Inhalation Aerosol Solution Inhale 2 Puffs by mouth every 6 hours as needed. 0 Active documented as of this encounter (statuses as of 03/31/2023) Active Problems Problem Noted Date Diagnosed Date [...] 08/12/2014 Unspecified pleural effusion 08/06/2014 Atherosclerosis of [place] co ronary artery of [place] heart without angina pectoris 04/04/2013 Dyslipidemia, goal LDL below 70 01/18/2013 Aortocoronary bypass status 01/07/2013 Cerebrovascular disease, arteriosclerotic, post- stroke 09/04/2008 Overview: Added per CVA protocol #8 HTN, goal below 140/90 Overview: seems resolved documented as of this encounter (statuses as of 03/31/2023) Resolved Problems Problem Noted Date Diagnosed Date [...] as of this encounter (statuses as of 03/31/2023) Immunizations Name Administration Dates Next Due COVID-19 mRNA, LNP-s, No Pre serve, 2-Dose Series (Skulpt) 03/16/2021,07/21/2020,06/24/2020,06/02 HIB PRP-OMP, 3 dose (Pedvax) 10/14/2015 [...] Miscellaneous Notes * Telephone Encounter - Chari Hope RN - 03/31/2023 6:36 AM EST Please discharge the patient from [facility] [place] Device(s)/IVR to be discontinued: Post Discharge IVR calls due to completion. Thank you. documented in this encounter Plan of Treatment Upcoming Encounters Date Type Department Care Team (Late st Contact Info) Description 05/17/2023 10:00 AM EST Office Visit Family Practice [facility] [address] [facility] [place] [address] Piotr Wilson III, MD 200 [facility] COUNT INCLUDES THE [facility] [place] [address] 02/19/2024 1:30 PM EST Cardiac Studies Cardiac Studies, [facility] [address] [facility] [place] [address] Health Maintenance Due Date Last Done Comments [...] this encounter Medical Devices Implanted Type Area Veterinary Epidemiologist Device Identifier Shelf Expiration Date Model / Serial / Lot Graft Marker Coronary - [id number] Implanted:Qty: 1 on 12/04/2012 [place] [facility] [place]A: Aorta VM CARDIO VASCULAR 12/16/2014 [id number] / / [id number] [employer] Micronester Embolization Coil Implanted:Qty: 2 on 10/09/2015 by Diego Muir MD at [place] [facility] [place] 08/03/2020 [employer] MEDICA L MICRONESTER EMBOLIZATION COIL / [id number] / [id number] Description:[employer] Roberto roNester Embolization Coil [id number] documented as of this encounter Advance Directives Documents on File Type Date Recorded 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 No Does the patient have Health Care Power of Sock Lining Examiner? No Code Status History Code Status Date [...] the patient have Health Care Power of Sock Lining Examiner? No Healthcare Agents on File Name Relationship Healthcare Agent Relationshi p Communication Piotr Curry Niece/Nephew Health Care Repr esentative (appointed verbally by patient or by statute hierarchy) Care Teams Fire Prevention Captain Relationship Specialty Start Date End Date Piotr Wilson III, MD [address] [place] [address] PCP - General Family Medicine 12/04/17 documented as of this encounter
--- OUTSIDE RECORDS SUMMARY | 2023-06-23 13:02 | External Medical Summary | Summary of Care ---
Author Name Unknown Organization [facility] Address [address] [place] [address] Phone [phone] Care Team Providers Care Recycling Operator Name Role Phone Katie NEVAREZ MD, Piotr Agarwal Primary Care Provider [phone] Reason for Referral * Precert (Within 10 days (routine)) - Authorized Specialty Diagnoses / Procedures Referred By Contac t Referred To Contact Cardiac Studies Diagnoses Nonrheumatic aortic valve stenosis Procedures ECHO, COMPLETE (2D), TRANS-THORACIC Osmin Bennett DO [address] [place] [address] Referral ID Status Reason Start Date Expiration Date V isits Requested Visits Authorized [id number] Authorized Precert 02/19/2024 999 999 Reason for Visit * Reason Comments Follow Up Encounter Details Date Type Department Care Team (Late st Contact Info) Description 03/24/2023 8:30 AM EST Office Visit Cardiology, [facility] [address] [place] [address] Osmin Bennett DO [address] [place] [address] Stable angina*; Nonrheumatic aortic valve stenosis; HTN, goal below 140/90; Dyslipidemia, goal LDL below 70 Allergies Active Allergy Reactions Criticality Noted Date Comments Morphine And Related Nausea/vomiting,Oth er (Please comment) 12/31/2012 Hallucinations Naproxen 02/19/2019 Remdesivir 05/12/2020 Shortness of breath, hallucinations, confusion. Had to have epi-pen administered. documented as of this encounter (statuses as of 03/24/2023) Medications Medication Sig Dispensed Refills Start Date End Date Status ASPIRIN 81 MG PO TABSIndications:Ca rotid artery stenosis, infarct within 8 weeks 1 TABLET DAILY 30 0 8 Active Cyanocobalamin 1000 MCG Oral Tablet (CYANOCOBALAMIN) Take 1 Tab by mouth daily. 100 Tab 3 0 Active Spacer/Aero-Holdin g Chambers DeviceIndications: COPD exacerbation (HCC) Use with inhaler. 1 Each 0 2 Active Triamcinolone Acetonide 0.5 % External Cream [...] before bedtime. 40 Tablet 0 3 Active Omeprazole 40 MG Oral Capsule Delayed Release (PriLOSEC)Indicati ons:GERD (gastroesophageal reflux disease) TAKE ONE CAPSULE BY MOUTH EVERY DAY 30 MINUTES TO 1 HOUR BEFORE BREAKFAST 100 Capsule 3 3 024 Active Rosuvastatin Calcium 40 MG Oral Tablet (Crestor)Indicatio ns:Dyslipidemia, goal LDL below 70 TAKE ONE TABLET BY MOUTH EVERY DAY 100 Tablet 3 3 024 Active Furosemide 20 MG Oral Tablet (Lasix)Indications :HTN, goal below 140/90 TAKE ONE TABLET BY MOUTH DAILY 100 Tablet 3 3 024 Active Levalbuterol Tartrate 45 MCG/ACT Inhalation Aerosol (Xopenex HFA)Indications:CO PD exacerbation (HCC) Inhale 1 Puff by mouth every 4 hours as needed for Wheezing. 45 g 12 3 Active Spiriva Respimat 2.5 MCG/ACT Inhalation Aerosol Solution (Tiotropium [place] Monohydrate) Inhale 2 Puffs by mouth in the morning. 4 g 11 3 Active Levalbuterol HCl 1.25 MG/3ML Inhalation Nebulization SolutionIndication s:COPD exacerbation (HCC) Inhale 3 mL via nebulizer every 6 hours as needed for Wheezing or Shortness of Breath. 450 mL 0 3 Active Nitroglycerin 0.4 MG Sublingual Tablet Sublingual (Nitrostat)Indicat ions:Other chest pain dissolve 1 tablet under tongue if needed for chest pain. May repeat 3 times. If chest pain continues, call 911 25 Tablet 0 3 Active Spironolactone 25 MG Oral Tablet (Aldactone) TAKE ONE - HALF TABLET BY MOUTH EVERY DAY 50 Tablet 2 3 Active Metoprolol Tartrate 25 MG Oral Tablet (Lopressor)Indicat ions:HTN, goal below 140/90 TAKE ONE TABLET BY MOUTH EVERY 12 HOURS 200 Tablet 3 3 024 Active Nystatin 370564 UNIT/ML Mouth/Throat Suspension swish and swallow 5 mL by mouth four times daily for 7 days 70 mL 0 3 Active Nystatin 546803 UNIT/ML Mouth/Throat Suspension take 5 mL orally four times daily; swish and swallow for 7 days 70 mL 0 3 Active Albuterol Sulfate HFA 108 (90 Base) MCG/ACT Inhalation Aerosol Solution Inhale 2 Puffs by mouth every 6 hours as needed. 0 Active Amoxicillin-Pot Clavulanate 875-125 MG Oral Tablet (Augmentin) take 1 tablet by mouth twice daily with meals 18 Tablet 0 3 024 Discontinued(Ct dication List Clean Up) Nitroglycerin 0.4 MG/HR Transdermal Patch 24 Hour (Nitro-Dur) Place 1 patch transdermal every morning. Remove patch at bedtime each night. Allow nitrate-free interval of approx. 10-12 hrs per 24-hour period 30 Patch 0 3 024 Discontinued Amoxicillin-Pot Clavulanate 875-125 MG Oral Tablet (Augmentin) take 1 tablet orally twice daily with meals 18 Tablet 0 3 024 Discontinued(Me dication List Clean Up) Nitroglycerin 0.4 MG/HR Transdermal Patch 24 Hour (Nitro-Dur) Place 1 Patch topically on the skin in the morning. 0 024 Discontinued(Me dication List Clean Up) documented as of this encounter (statuses as of 03/24/2023) Active Problems Problem Noted Date Diagnosed Date [...] 08/12/2014 Unspecified pleural effusion 08/06/2014 Atherosclerosis of [place] co ronary artery of [place] heart without angina pectoris 04/04/2013 Dyslipidemia, goal LDL below 70 01/18/2013 Aortocoronary bypass status 01/07/2013 Cerebrovascular disease, arteriosclerotic, post- stroke 09/04/2008 Overview: Added per CVA protocol #8 HTN, goal below 140/90 Overview: seems resolved documented as of this encounter (statuses as of 03/24/2023) Resolved Problems Problem Noted Date Diagnosed Date [...] as of this encounter (statuses as of 03/24/2023) Immunizations Name Administration Dates Next Due COVID-19 mRNA, LNP-s, No Pre serve, 2-Dose Series ([employer]) 03/16/2021,07/21/2020,06/24/2020,06/02 HIB PRP-OMP, 3 dose (Pedvax) 10/14/2015 [...] 09/04/2014 Smokeless Tobacco: Former Tobacco Cessation:Counseling Given: No Alcohol Use Standard Drinks/Week Comments Yes 21 [...] Sign Reading Time Taken Comments Blood Pressure 122/60 03/24/2023 8:35 AM EST Pulse 60 03/24/2023 8:35 AM EST Temperature - - Respiratory Rate 18 03/24/2023 8:35 AM EST Oxygen Saturation - - Inhaled Oxygen Concentration - - Weight 74.8 kg (164 lb 14.4 oz) 03/24/2023 8:35 AM EST Height - - Body Mass Index 25.43 08/03/2022 8:35 AM EDT documented in this [...] as of this encounter Progress Notes * Osmin Bennett, DO - 03/24/2023 8:55 AM EST 03/24/2023 Cardiology Follow Up CHIEF COMPLAINT: Follow up, history of coronary heart disease, CABG, aortic stenosis, hypertension,dyslipidemia, carotid disease, abdominal aortic aneurysm SUBJECTIVE: Sim Bain is a 82 year old year old male who returns today in routine cardiology follow-up. He presents today feeling relatively well. He had been hospitalized at [facility] in February, with a COPD exacerbation as well as angina. He underwent cardiac catheterization on 03/02/[address] Singleton with findings of severe underlying [place] vessel coronary heart disease including 100% mid left main occlusion. His bypass grafts were patent. Ongoing medication therapy recommended. He had been prepared for discharge during hospitalization, but had a breakthrough episode of anginaafter getting up and going for a walk which was associated with severe systolic hypertension. I hadseen him at the bedside after that event, and his blood pressure had been as high as the 170s to 180s. He remained in the hospital and a topical nitroglycerin patch was added to his regimen. He subsequently was discharged the next day. Since then he would noted dizziness on the nitroglycerin patch and symptoms suggestive of low blood pressure. He stopped the patch 2 days ago with noted improvement in his symptoms. At present he feels well from an angina and from a dizziness standpoint. An echocardiogram was performed last week in advance of today's visit, with findings of stable moderate aortic stenosis. He describes a stable degree of shortness of breath with exertion. He was a reformed smoker having quit cigarettes at the time his bypass surgery in 2012. It was felt that his shortness of breath is likely multifactorial related to his COPD as well as his cardiac condition. 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, h/o left carotid endarterectomy 2004 in [place] Asymptomatic 3.4 centimeter abdominal aortic aneurysm Dyslipidemia COPD, former smoker , with history of bronchitis episodes Low back pain, sciatica Extensive ROS: All systems reviewed & are unremarkable except as noted in HPI & below Cardiovascular (chest pain/palpitations/fluttering/diaphoresis/dyspnea on exertion/paroxysmally nocturnal dyspnea):Negative Review of patient's allergies indicates: Allergen Reactions Morphine And Related Nausea/vomiting and Other (Please comment) Hallucinations Naproxen Remdesivir Shortness of breath, hallucinations, confusion. Had to have epi-pen administered. Current Outpatient Medications Medication Sig Dispense Refill ASPIRIN 81 MG PO TABS 1 TABLET DAILY 30 0 Cyanocobalamin 1000 MCG Oral Tablet (CYANOCOBALAMIN) Take 1 Tab by mouth daily. 100 Tab 3 Spacer/Aero-Holding Chambers Device Use with inhaler. 1 Each 0 Triamcinolone Acetonide 0.5 % [...] Respimat 2.5 MCG/ACT Inhalation Aerosol Solution (Tiotropium [place] Monohydrate) Inhale 2 Puffs by mouth in [...] EVERY 12 HOURS 200 Tablet 3 Nystatin 692230 UNIT/ML Mouth/Throat Suspension swish and swallow 5 mL by mouth four times daily for 7 days 70 mL 0 Nitroglycerin 0.4 MG/HR Transdermal Patch 24 Hour (Nitro-Dur) Place 1 patch transdermal every morning. Remove patch at bedtime each night. Allow nitrate- free interval of approx. 10-12 hrs per 24-hourperiod 30 Patch 0 Nystatin 351060 UNIT/ML Mouth/Throat Suspension take 5 mL orally four times daily; swish and swallow for 7 days 70 mL 0 Albuterol Sulfate HFA 108 (90 Base) MCG/ACT Inhalation Aerosol Solution Inhale 2 Puffs by mouth every 6 hours as needed. No current facility-administered medications for this visit. OBJECTIVE/PHYSICAL EXAMINATION: BP 122/60 (BP Site: Left Arm, BP Position: Sitting, BP Cuff Size: Regular) | Pulse 60 | Resp 18 | Wt 74.8 kg (164 lb 14.4 oz) | BMI 25.43 kg/m | BSA 1.89 m BP Readings from Last 4 Encounters: 03/24/23 122/60 03/22/23 112/50 03/16/23 120/58 03/10/23 108/58 General: no acute distress and stated age Eyes: conjunctiva are pink and non-injected, sclera clear Neck: normal jugular venous pulse, no hepatojugular reflux Chest: normal shape and normal respiratory effort Lungs: clear to auscultation , no rales rhonchi or wheezing Cardiac Exam: - regular heart sounds, II/ SM Abdomen: abdomen soft, non-tender, no abnormal masses and no hepatosplenomegaly Musculoskeletal: no gait disturbance, no weakness Extremities: no edema and no cyanosis, prominent varicose veins Neuro: grossly normal exam Psych: appropriate affect and insight. Data: Summary of ttecho performed 03/14/23: The left ventricular cavity size is normal. The LV wall thickness is mildly increased (concentric). The left ventricular wall motion is normal. The qualitative LV ejection fraction is 60-64% (normal). The aortic valve has three leaflets. The aortic valve is moderately calcified. Moderate aortic valve stenosis is present. There is mild mitral annular calcification. Mild mitral regurgitation is present. Compared to last available study changes are noted as follows: Aortic valve velocities have increased slightly but aortic stenosis remains moderate ASSESSMENT / PLAN: 82 year old year old male Atherosclerosis of [place] coronary artery with stable exertional angina -Stable cardiac signs and symptoms. -Remain off of nitroglycerin patch. -SL nitroglycerin on an as needed basis. Continue same medications which have been reviewed and updated today. Nonrheumatic aortic valve stenosis -stable findings on echo 01/2022, repeat echo in 1 year. Natural history of discussed with patient. Cerebrovascular disease, arteriosclerotic, post-stroke -carotid duplex performed 06/2022 demonstrated chronic occlusion of the right carotid artery and theleft carotid artery. Retrograde flow within the left external carotid to the left internal carotid artery - Keep planned vascular follow up HTN, goal below 140/90 -controlled on current medications with noted plan to stop the nitroglycerin patch due to signes and symptoms of orthostatic hypotension in the setting of severe bilateral carotid occlusion and moderate . Dyslipidemia, goal LDL below 70 -continue rosuvastatin Abdominal aortic aneurysm (AAA) without rupture (HCC) -3.6 centimeter abdominal aortic aneurysm, follow up with vascular surgery DISPOSITION: Follow Up: Return in about 6 months (around 09/22/2023) for Clinic Visit. | For: Clinic Visit | Check-out note: Follow-up with Dr. Bennett or AP in 6 months. Echocardiogram at a 1 year interval in February, . Osmin Bennett, DO Cardiology, [address] [address] This chart was completed in part utilizing [employer] Speech Voice Recognition Software. Grammatical errors, random word insertions, prounoun errors, and incomplete sentences are an occasional consequence of this system due to software limitations, ambient noise, and hardware issues. Any formal questions or concerns about the content, text, or information contained within the body of this dictation should be directly addressed to the provider for clarification. documented in this encounter Nursing Notes * Clarisa Montoya RN - 03/24/2023 8:38 AM EST Examination Room: 12 Name: Sim Bain Date of : (1940). Reason for Visit: Follow up Interim Hospitalization(s): [facility] Problems/Concerns: Would like to discuss Nitro patch today, noting lightheaded/visual change with using. Feeling relatively well since hospital discharge. Chest Pain/SOB: Denies [facility] Discussed: Yes [facility] is a way you can talk to your provider online through e-mail. Would you like to sign up? I can activate it for you? DECLINES Patient was instructed to not get up on the exam table until directed and assisted by their provider; patient is to remain seated in the chair/ wheelchair/ exam table for fall prevention and safety reasons. Patient is aware to have assistance to step down off exam table with personnel. Patient voiced full comprehension of instructions. documented in this encounter Plan of Treatment Upcoming Encounters Date Type Department Care Team (Late st Contact Info) Description 05/17/2023 10:00 AM EST Office Visit [facility] [address] [place] [address] Piotr Wilson III, MD [address] [place] [address] Scheduled Orders Name Type Priority Associated Diagnoses Orde r Schedule ECHO, COMPLETE (2D), TRANS-THORACIC Echocardiology Routine Nonrheumatic aortic valve stenosis Expected: 02/19/2024 (Approximate), Expires: 09/21/2024 Health Maintenance Due Date Last Done Comments [...] this encounter Medical Devices Implanted Type Area Handicrafts Teacher Device Identifier Shelf Expiration Date Model / Serial / Lot Graft Marker Coronary - [id number] Implanted:Qty: 1 on 12/04/2012 [place] [facility] [place]A: Aorta VM CARDIO VASCULAR 12/16/2014 [id number] / / [id number] Medical Micronester Embolization Coil Implanted:Qty: 2 on 10/09/2015 by Diego Muir MD at [place] [facility] 08/03/2020 Ahonya [employer] MICRONESTER EMBOLIZATION COIL / [id number] / [id number] Description:DEXMA Roberto roNester Embolization Coil [id number] documented as of this encounter Visit Diagnoses Diagnosis Stable angina- Primary Other and unspecified angina pectoris Nonrheumatic aortic valve stenosis Aortic valve disorders HTN, goal below 140/90 Unspecified essential hypertension Dyslipidemia, goal LDL below 70 Other and unspecified hyperlipidemia documented in this encounter Advance Directives Documents on File Type Date Recorded Patient Sample Puller Expl anation Advance Directives and Living Will 03/10/2023 ADVANCE DIRECTIVE / LIVING WILL Power of Produce Sorter 03/10/2023 [facility] Latest Code Status on File Code Status Date Activated Date Inactivated Comments Full Code 10/08/2015 11:08 PM 10/14/2015 9:01 PM Question Answer Comments Discussion of Advance Direct josiah occurred with: Not Discussed Does the patient have a Living Will? No Does the patient have Health Care Power of Produce Sorter? No Code Status History Code Status Date [...] the patient have Health Care Power of Produce Sorter? No Healthcare Agents on File Name Relationship Healthcare Agent Relationshi p Communication Piotr Percyshobha Niece/Nephew Health Care Repr esentative (appointed verbally by patient or by statute hierarchy) Care Teams Recycling Operator Relationship Specialty Start Date End Date Piotr Wilson III, MD [address] [facility] [place] [address] PCP - General Family Medicine 12/04/17 documented as of this encounter"
--- OUTSIDE RECORDS SUMMARY | 2023-06-23 13:02 | External Medical Summary | Summary of Care ---
Author Name Unknown Organization [facility] Address [address] [place] [address] Phone [phone] Care Team Providers Care Cost And Risk Analysis Manager Name Role Phone Katie NEVAREZ MD, Piotr Agarwal Primary Care Provider [phone] Reason for Visit * Reason Onset Date Comments case management 03/31/2023 Encounter Details Date Type Department Care Team (Late st Contact Info) Description 03/31/2023 Desk Editor Telephone Care Coordination and Integration [address], [place] [phone] Chari Hope, ILYA [address], [place] [phone] case management Allergies Active Allergy Reactions Criticality [...] Respimat 2.5 MCG/ACT Inhalation Aerosol Solution (Tiotropium [place] Monohydrate) Inhale 2 Puffs by mouth in [...] 200 Tablet 3 01/18/2023 01/18/2024 Active Nystatin 362948 UNIT/ML Mouth/Throat Suspension swish and swallow 5 mL by mouth four times daily for 7 days 70 mL 0 03/03/2023 Active Nystatin 947434 UNIT/ML Mouth/Throat Suspension take 5 mL orally [...] 08/12/2014 Unspecified pleural effusion 08/06/2014 Atherosclerosis of [place] co ronary artery of [place] heart without angina pectoris 04/04/2013 Dyslipidemia, goal [...] mRNA, LNP-s, No Pre serve, 2-Dose Series ([employer]) 03/16/2021,07/21/2020,06/24/2020,06/02 HIB PRP-OMP, 3 dose (Pedvax) 10/14/2015 [...] discharge the patient from [facility] [place] Device(s)/IVR to be discontinued: Post Discharge IVR calls due to completion. Thank you. documented in this encounter Plan of Treatment Upcoming Encounters Date Type Department Care Team (Late st Contact Info) Description 05/17/2023 10:00 AM EST Office Visit Family Practice [facility] [address] [facility] [place] [address] Piotr Wilson III, MD [address] [facility] [place] [address] 02/19/2024 1:30 PM EST Cardiac Studies Cardiac Studies, [facility] [address] [place] [address] Health Maintenance Due Date Last Done Comments [...] this encounter Medical Devices Implanted Type Area Pharmacist Per Diem Device Identifier Shelf Expiration Date Model / Serial / Lot Graft Marker Coronary - [id number] [place]ed:Q[place] 1 [place] 12[place]04[place] [facility] [place]: Aorta VM CARDIO VASCULAR 12/16/2014 [id number] / / [id number] [employer] Micronester Embolization Coil Implanted:Qty: 2 on 10/09/2015 [place] Muir [place] [facility] [place]03[place] [employer] MICRONESTER EMBOLIZATION COIL / [id number] / [id number] Description:[employer] Roberto roNester Embolization Coil [id number] documented as of this encounter Advance Directives Documents on File Type Date Recorded Patient Maid Housekeeper Expl anation Advance Directives and Living Will 03/10/2023 ADVANCE DIRECTIVE / LIVING WILL Power of Bicycle Subassembler 03/10/2023 [facility] Latest Code Status on File Code Status Date Activated Date Inactivated Comments Full Code 10/08/2015 11:08 PM 10/14/2015 9:01 PM Question Answer Comments Discussion of Advance Direct josiah occurred with: Not Discussed Does the patient have a Living Will? No Does the patient have Health Care Power of Bicycle Subassembler? No Code Status History Code Status Date [...] the patient have Health Care Power of Bicycle Subassembler? No Healthcare Agents on File Name Relationship Healthcare Agent Relationshi p Communication Piotr Curry Niece/Nephew Health Care Repr esentative (appointed verbally by patient or by statute hierarchy) Care Teams Cost And Risk Analysis Manager Relationship Specialty Start Date End Date Piotr Wilson III, MD [address] [place] [address] PCP - General Family Medicine 12/04/17 documented as of this encounter
--- OUTSIDE RECORDS SUMMARY | 2023-06-23 13:02 | External Medical Summary | Summary of Care ---
Author Name Unknown Organization [facility] Address [address] [place] [address] Phone [phone] Care Team Providers Care Wall Attendant Name Role Phone Katie NEVAREZ MD, Piotr Agarwal Primary Care Provider [phone] Encounter Details Date Type Department Care Team (Late st Contact Info) Description 03/16/2023 9:30 AM EST Home Visit Care Coordination and Integration [address], [place] [id number] Therese Cervantes, Community Health Thermostat Repairer [address], [place] [id number] Allergies Active Allergy Reactions Criticality Noted Date [...] Respimat 2.5 MCG/ACT Inhalation Aerosol Solution (Tiotropium [place] Monohydrate) Inhale 2 Puffs by mouth in [...] Information Patient not taking.Reported on 03/16/2023 Nystatin 928837 UNIT/ML Mouth/Throat Suspension swish and swallow 5 [...] Information Patient not taking.Reported on 03/16/2023 Nystatin 322495 UNIT/ML Mouth/Throat Suspension take 5 mL orally [...] 08/12/2014 Unspecified pleural effusion 08/06/2014 Atherosclerosis of [place] co ronary artery of [place] heart without angina pectoris 04/04/2013 Dyslipidemia, goal [...] Progress Notes * Therese Cervantes, Community Health Thermostat Repairer - 03/16/2023 10:10 AM EST Telemedicine visit: No Community Health Thermostat Repairer (MEÑO) documentation: MEÑO completed home visit with [...] gets worse and it continues. Therese Cervantes- [facility] Support Services/[employer] [facility] [employer] Health Plan [email or web address] documented in this encounter Plan of Treatment Upcoming Encounters Date Type Department Care Team (Late st Contact Info) Description 03/24/2023 8:30 AM EST Office Visit Cardiology, [facility] [address] [place] [address] Osmin Bennett, [address] [place] [address] 05/17/2023 10:00 AM EST Office Visit Family Practice [facility] [address] [facility] [place] [address] Piotr Wilson III, MD [address] [facility] [address] Health Maintenance Due Date Last Done Comments [...] this encounter Medical Devices Implanted Type Area Psychological Examiner Device Identifier Shelf Expiration Date Model / Serial / Lot Graft Marker Coronary - [id number] Implanted:Qty: 1 on 12/04/2012 at OR [facility] [place] N/A: Aorta VM CARDIO VASCULAR 12/16/2014 [id number] / / [id number] [employer] Micronester Embolization Coil Implanted:Qty: 2 on 10/09/2015 by Diego Muir MD at RADIOLOGY [facility] [place] 08/03/2020 [employer] MICRONESTER EMBOLIZATION COIL / [id number] / [id number] Description:[employer] Roberto roNester Embolization Coil [id number] documented as of this encounter Advance Directives Documents on File Type Date Recorded Patient 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 No Does the patient have Health Care Power of Reed Or Wind Instrument Repairer? No Code Status History Code Status Date [...] the patient have Health Care Power of Reed Or Wind Instrument Repairer? No Healthcare Agents on File Name Relationship Healthcare Agent Relationshi p Communication Piotr shobha Niece/Nephew Health Care Repr esentative (appointed verbally by patient or by statute hierarchy) Care Teams Wall Attendant Relationship Specialty Start Date End Date Piotr Wilson III, MD [address] [place] [address] PCP - General Family Medicine 12/04/17 documented as of this encounter
--- OUTSIDE RECORDS SUMMARY | 2023-06-23 13:03 | External Medical Summary | Summary of Care ---
Author Name Unknown Organization [facility] Address [address] [place] [address] Phone [phone] Care Team Providers Care Spinner Hand Name Role Phone Katie NEVAREZ MD, Piotr Agarwal Primary Care Provider [phone] Reason for Visit * Reason Comments Outpatient Testing Encounter Details Date Type Department Care Team (Late st Contact Info) Description 03/10/2023 7:10 AM EST Laboratory Laboratory [facility] [address] [place] [address] [facility] [address] [place] [address] Elevated hemoglobin A1c Allergies Active Allergy Reactions Criticality Noted Date Comments Morphine And Related Nausea/vomiting,Oth er (Please comment) 12/31/2012 Hallucinations Naproxen 02/19/2019 Remdesivir 05/12/2020 Shortness of breath, hallucinations, confusion. Had to have epi-pen administered. documented as of this encounter (statuses as of 03/10/2023) Medications Medication Sig Dispensed Refills Start Date [...] Respimat 2.5 MCG/ACT Inhalation Aerosol Solution (Tiotropium [place] Monohydrate) Inhale 2 Puffs by mouth in [...] 4 Active predniSONE 10 MG Oral Tablet (Deltasone)Indicatio ns:COPD exacerbation (HCC) Take 5 tablets by mouth for 3 days, 4 tabs for 3 days, 3 tabs for 3 days, 2 tabs for 3 days 1 tab for 3 days 45 Tablet 3 03/01/2023 Active Additional Information Patient not taking.Reported on 03/06/2023 Amoxicillin-Pot Clavulanate 875-125 MG Oral Tablet (Augmentin) take 1 tablet by mouth twice daily with meals 18 Tablet 0 03/03/2023 Active predniSONE 20 MG Oral Tablet (Deltasone) take 1 tablet by mouth daily 3 Tablet 0 03/03/2023 Active Nystatin 454214 UNIT/ML Mouth/Throat Suspension swish and swallow 5 [...] with meals 18 Tablet 0 03/04/2023 Active Nystatin 872084 UNIT/ML Mouth/Throat Suspension take 5 mL orally four times daily; swish and swallow for 7 days 70 mL 0 03/04/2023 Active predniSONE 20 MG Oral Tablet (Deltasone) take 1 tblet (20 mg) orally daily 3 Tablet 0 03/04/2023 Active Albuterol Sulfate HFA 108 (90 Base) MCG/ACT Inhalation Aerosol Solution Inhale 2 Puffs by mouth every 6 hours as needed. 0 Active Nitroglycerin 0.4 MG/HR Transdermal Patch 24 Hour (Nitro-Dur) Place 1 Patch topically on the skin in the morning. 0 Active documented as of this encounter (statuses as of 03/10/2023) Active Problems Problem Noted Date Diagnosed Date [...] 08/12/2014 Unspecified pleural effusion 08/06/2014 Atherosclerosis of [place] co ronary artery of [place] heart without angina pectoris 04/04/2013 Dyslipidemia, goal LDL below 70 01/18/2013 Aortocoronary bypass status 01/07/2013 Cerebrovascular disease, arteriosclerotic, post- stroke 09/04/2008 Overview: Added per CVA protocol #8 HTN, goal below 140/90 Overview: seems resolved documented as of this encounter (statuses as of 03/10/2023) Resolved Problems Problem Noted Date Diagnosed Date [...] as of this encounter (statuses as of 03/10/2023) Immunizations Name Administration Dates Next Due COVID-19 mRNA, LNP-s, No Pre serve, 2-Dose Series (Buttercoin) 03/16/2021,07/21/2020,06/24/2020,06/02 HIB PRP-OMP, 3 dose (Pedvax) 10/14/2015 [...] Care Team (Late st Contact Info) Description 03/10/2023 11:00 AM EST Office Visit Family Practice [facility] [place] [address] [place], [place] [address] Piotr Wilson III, MD 200 [facility] [place] [address] 03/14/2023 8:30 AM EST Cardiac Studies Cardiac Studies, [facility] [address] [place] [address] 03/16/2023 9:30 AM EST Home Visit Care Coordination and Integration [address] [place] [address] Therese Cervantes, Community Health Popcorn Vendor [address] [place] [address] 03/24/2023 8:30 AM EST Office Visit Cardiology, [facility] [address] [place] [address] Osmin Bennett, [address] [place] [address] 05/17/2023 10:00 AM EST Office Visit Family Practice [facility] 200 [facility] [place] [address] Piotr Wilson III, MD [address] [place] [address] Pending Results Name Type Priority Associated Diagnoses Date /Time GLUCOSE, FASTING PLASMA Lab STAT Elevated hemoglobin A1c 03/10/2023 7:02 AM EST Health Maintenance Due Date Last Done Comments Alpha-1 Antitrypsin 1960 DTaP,Tdap,and Td Vaccines (2 - Td or Tdap) 11/13/2022 11/13/2012 COVID-19 Vaccine (2022- season) 2022 03/16/2021, 07/21/2020, 06/24/2020, Additional history exists Influenza Vaccine (FLU shot) (#1) 2022 01/26/2021, 12/09/2019, 01/17/2019, Additional history exists GFR 05/25/2023 05/24/2022, 09/18, 10/14/2020, Additional history exists O2 ASSESSMENT COMPLETED IN PAST YEAR FOR COPD 08/04/2023 08/03/2022 Depression Screening 03/06/2024 03/06/2023 Albumin/Creatinine Ratio 10/14/2024 10/14/2021 MENINGOCOCCAL (MENACTRA/MENVEO) Aged [...] this encounter Medical Devices Implanted Type Area Margin Clerk Device Identifier Shelf Expiration Date Model / Serial / Lot Graft Marker Coronary - [id number] Implanted:Qty: 1 on 12/04/2012 [place] [facility] [place]A: Aorta VM CARDIO VASCULAR 12/16/2014 [id number] / / [id number] [employer] Micronester Embolization Coil Implanted:Qty: 2 on 10/09/2015 by Dieog Muir MD [place] [facility] [place]/03/2020 [employer] MICRONESTER EMBOLIZATION COIL / [id number] / [id number] Description:[employer] Roberto roNester Embolization Coil [id number] documented as of this encounter Visit Diagnoses Diagnosis Elevated hemoglobin A1c Other abnormal blood chemistry documented in this encounter Advance Directives Latest Code Status on File Code Status Date Activated Date Inactivated Comments Full Code 10/08/2015 11:08 PM 10/14/2015 9:01 PM Question Answer Comments Discussion of Advance Direct josiah occurred with: Not Discussed Does the patient have a Living Will? No Does the patient have Health Care Power of Pharmacy Tech? No Code Status History Code Status [...] the patient have Health Care Power of Pharmacy Tech? No Healthcare Agents on File Name Relationship Healthcare Agent Relationshi p Communication Piotr Curry Niece/Nephew Health Care Repr esentative (appointed verbally by patient or by statute hierarchy) Care Teams Spinner Hand Relationship Specialty Start Date End Date Piotr Wilson III, MD [address] [place] [address] PCP - General Family Medicine 12/04/17 documented as of this encounter
--- OUTSIDE RECORDS SUMMARY | 2023-06-23 13:03 | External Medical Summary ---
Author Name Unknown Address Unknown Organization K09:[facility] [place] [address] Laboratory Report Ordering Provider Test Date Status RICHAR MARTINEZ III 03/10/2023 07:02:40 Final Based on guidelines from [place] [employer]:
70-99 mg/dL Normal
100-125 mg/dL Pre-diabetes
>125 mg/dL Diabetes, diagnosis requires two abnormal diabetes diagnostic test results Observation Date Value Abnormality Reference (Units ) Status Fasting glucose [Moles/volume] in Serum or Plasma 03/10/2023 07:02:40 102 Above high normal 70-99 (mg/dL) Final Performing Location [facility] [place] [address]
--- OUTSIDE RECORDS SUMMARY | 2023-06-23 13:03 | External Medical Summary | Summary of Care ---
Author Name Unknown Organization [facility] Address [address] [place] [address] Phone [phone] Care Team Providers Care Cardiac/Vascular Sonographer Name Role Phone Katie NEVAREZ MD, Piotr Agarwal Primary Care Provider [phone] Encounter Details Date Type Department Care Team (Late st Contact Info) Description 03/02/2023 Result Scan Unspecified Department <No scans attached> Allergies Active Allergy Reactions Criticality Noted Date Comments Morphine And Related Nausea/vomiting,Oth er (Please comment) 12/31/2012 Hallucinations Naproxen 02/19/2019 Remdesivir 05/12/2020 Shortness of breath, hallucinations, confusion. Had to have epi-pen administered. documented as of this encounter (statuses as of 03/02/2023) Medications Medication Sig Dispensed Refills Start Date [...] Respimat 2.5 MCG/ACT Inhalation Aerosol Solution (Tiotropium [place] Monohydrate) Inhale 2 Puffs by mouth in [...] HOURS 200 Tablet 3 01/18/2023 01/18/2024 Active predniSONE 10 MG Oral Tablet (Deltasone)Indicatio ns:COPD exacerbation (HCC) Take 5 tablets by mouth for 3 days, 4 tabs for 3 days, 3 tabs for 3 days, 2 tabs for 3 days 1 tab for 3 days 45 Tablet 3 03/01/2023 Active documented as of this encounter (statuses as of 03/02/2023) Active Problems Problem Noted Date Diagnosed Date [...] 08/12/2014 Unspecified pleural effusion 08/06/2014 Atherosclerosis of [place] co ronary artery of [place] heart without angina pectoris 04/04/2013 Dyslipidemia, goal LDL below 70 01/18/2013 Aortocoronary bypass status 01/07/2013 Cerebrovascular disease, arteriosclerotic, post- stroke 09/04/2008 Overview: Added per CVA protocol #8 HTN, goal below 140/90 Overview: seems resolved documented as of this encounter (statuses as of 03/02/2023) Resolved Problems Problem Noted Date Diagnosed Date [...] as of this encounter (statuses as of 03/02/2023) Immunizations Name Administration Dates Next Due COVID-19 mRNA, LNP-s, No Pre serve, 2-Dose Series ([employer]) 03/16/2021,07/21/2020,06/24/2020,06/02 HIB PRP-OMP, 3 dose (Pedvax) 10/14/2015 [...] 8:30 AM EST Cardiac Studies Cardiac Studies, [address] [place] [address] 03/24/2023 8:30 AM EST Office Visit Cardiology, [facility] [address] [place] [address] Osmin Bennett DO [address] [place] [address] 05/17/2023 10:00 AM EST Office Visit [facility] [place] [address] Piotr Wilson III, MD 200 [facility] [place] [address] Health Maintenance Due Date Last Done Comments [...] this encounter Medical Devices Implanted Type Area Rose Grower Device Identifier Shelf Expiration Date Model / Serial / Lot Graft Marker Coronary - [id number] Implanted:Qty: 1 on 12/04/2012 [place] [facility] [place]A: Aorta VM CARDIO VASCULAR 12/16/2014 [id number] / / [id number] [employer] Micronester Embolization Coil Implanted:Qty: 2 on 10/09/2015 by Diego Muir MD at [place] [facility] [place]/03/2020 [employer] MICRONESTER EMBOLIZATION COIL / [id number] / [id number] Description:[employer] Roberto roNester Embolization Coil [id number] documented as of this encounter Procedures Procedure Name Priority Date/Time Associated Diagnosis Comments OUTSIDE LAB RESULTS 03/02/2023 documented in this encounter Results * OUTSIDE LAB RESULTS (03/02/2023) 03/02/2023 No Physician Data Unknown LABORATORY documented in this encounter Advance Directives Latest Code Status on File Code Status Date Activated Date Inactivated Comments Full Code 10/08/2015 11:08 PM 10/14/2015 9:01 PM Question Answer Comments Discussion of Advance Direct josiah occurred with: Not Discussed Does the patient have a Living Will? No Does the patient have Health Care Power of Photoengraving Supervisor? No Code Status History Code Status [...] the patient have Health Care Power of Photoengraving Supervisor? No Care Teams Cardiac/Vascular Sonographer Relationship Specialty Start Date End Date Piotr Wilson III, MD 200 [facility] [place] [address] PCP - General Family Medicine 12/04/17 documented as of this encounter
--- OUTSIDE RECORDS SUMMARY | 2023-06-23 13:03 | External Medical Summary | Summary of Care ---
Author Name Unknown Organization [facility] Address [address] [facility] [address] Phone [phone] Care Team Providers Care Managed Care Coordinator Name Role Phone Katie NEVAREZ MD, Piotr Agarwal Primary Care Provider [phone] Reason for Visit * Reason Onset Date Comments Hospital Follow-Up 03/10/2023 Encounter Details Date Type Department Care Team (Late st Contact Info) Description 03/10/2023 11:00 AM EST Office Visit [facility] [address] [facility] [place] [address] Piotr Wilson III, MD [address] [place] [address] Hospital discharge follow-up*; Bronchitis, complicated; NSTEMI (non-ST elevated myocardial infarction) (HCC); Prediabetes; Need for prophylactic vaccination and inoculation against influenza Allergies Active Allergy Reactions Criticality Noted Date Comments Morphine And Related Nausea/vomiting,Oth er (Please comment) 12/31/2012 Hallucinations Naproxen 02/19/2019 Remdesivir 05/12/2020 Shortness of breath, hallucinations, confusion. Had to have epi-pen administered. documented as of this encounter (statuses as of 03/14/2023) Medications Medication Sig Dispensed Refills Start Date [...] s:COPD, group C, by GOLD 2017 classification ([facility]),COPD exacerbation (HCC) Inhale via nebulizer. 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 45 g 12 10/19/2022 Active Spiriva Respimat 2.5 MCG/ACT Inhalation Aerosol Solution (Tiotropium [place] Monohydrate) Inhale 2 Puffs by mouth in [...] EVERY 12 HOURS 200 Tablet 3 01/18/2023 01/18/20 24 Active Amoxicillin-Pot Clavulanate 875-125 MG Oral Tablet (Augmentin) take 1 tablet by mouth twice daily with meals 18 Tablet 0 03/03/2023 Active Nystatin 068010 UNIT/ML Mouth/Throat Suspension swish and swallow 5 [...] meals 18 Tablet 0 03/04/2023 Active Nystatin 601095 UNIT/ML Mouth/Throat Suspension take 5 mL orally four times daily; swish and swallow for 7 days 70 mL 0 03/04/2023 Active Albuterol Sulfate HFA 108 (90 Base) MCG/ACT Inhalation Aerosol Solution Inhale 2 Puffs by mouth every 6 hours as needed. 0 Active Nitroglycerin 0.4 MG/HR Transdermal Patch 24 Hour (Nitro-Dur) Place 1 Patch topically on the skin in the morning. 0 Active Doxycycline Hyclate 100 MG Oral Capsule Take one capsule by mouth twice daily 20 Capsule 0 05/24/2022 03/10/20 23 Discontinu ed(End of Procedure) predniSONE 10 MG Oral Tablet (Deltasone)Indicati ons:COPD exacerbation (HCC) Take 5 tablets by mouth for 3 days, 4 tabs for 3 days, 3 tabs for 3 days, 2 tabs for 3 days 1 tab for 3 days 45 Tablet 3 03/01/2023 03/10/20 Discontinu ed(Medicat ion List Clean Up) predniSONE 20 MG Oral Tablet (Deltasone) take 1 tablet by mouth daily 3 Tablet 0 03/03/2023 03/10/20 Discontinu ed(End of Procedure) predniSONE 20 MG Oral Tablet (Deltasone) take 1 tblet (20 mg) orally daily 3 Tablet 0 03/04/2023 03/10/20 Discontinu ed(End of Procedure) documented as of this encounter (statuses as of 03/14/2023) Active Problems Problem Noted Date Diagnosed Date [...] 08/12/2014 Unspecified pleural effusion 08/06/2014 Atherosclerosis of [place] co ronary artery of [place] heart without angina pectoris 04/04/2013 Dyslipidemia, goal LDL below 70 01/18/2013 Aortocoronary bypass status 01/07/2013 Cerebrovascular disease, arteriosclerotic, post- stroke 09/04/2008 Overview: Added per CVA protocol #8 HTN, goal below 140/90 Overview: seems resolved documented as of this encounter (statuses as of 03/14/2023) Resolved Problems Problem Noted Date Diagnosed Date [...] as of this encounter (statuses as of 03/14/2023) Immunizations Name Administration Dates Next Due COVID-19 mRNA, LNP-s, No Pre serve, 2-Dose Series (Big Stage) 03/16/2021,07/21/2020,06/24/2020,06/02 HIB PRP-OMP, 3 dose (Pedvax) 10/14/2015 [...] Sign Reading Time Taken Comments Blood Pressure 108/58 03/10/2023 11:04 AM EST Pulse 76 03/10/2023 11:04 AM EST Temperature 36.1 C (96.9 F) 03/10/2023 11:[address] Respiratory Rate 16 03/10/2023 11:04 AM EST Oxygen Saturation 95% 03/10/2023 11:04 AM EST Inhaled Oxygen Concentration - - Weight 75.3 kg (166 lb) 03/10/2023 11:04 AM EST Height - - Body Mass [...] Notes * Piotr Wilson III, MD - 03/10/2023 11:20 AM EST Subjective: Sim Bain is a 82 year old male. Chief Complaint Patient presents with Hospital Follow-Up HPI: Hospital discharge follow-up complicated bronchitis non ST-elevation CT thrush says all was respiratory issues have resolved no pain or problems with swallowing mouth throat has had no chest discomforts denies lightheaded or dizziness no shortness a breath no swelling of his ankles no change in bowels melena or gross bleeding no dysuria or hematuria PMH: Patient Active Problem List Diagnosis Code HTN, goal below 140/90 I10 Cerebrovascular disease, arteriosclerotic, post-stroke I67.2, Z86.73 Aortocoronary bypass status Z95.1 Dyslipidemia, goal LDL below 70 E78.5 Atherosclerosis of [place] coronary artery of [place] heart without angina pectoris I25.10 Unspecified pleural effusion J90 Incidental lung nodule R91.1 Aortic valve stenosis I35.0 AAA (abdominal aortic aneurysm) ([facility]) I71.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 N40.1, N13.8 Gastroesophageal reflux disease without esophagitis K21.9 COPD, group C, by GOLD 2017 classification ([facility]) J44.9 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 Remove patch at bedtime each night. Allow nitrate- free interval of approx. 10-12 hrs per 24-hourperiod 30 Patch 0 Amoxicillin-Pot Clavulanate 875-125 MG Oral Tablet (Augmentin) take 1 tablet orally twice daily with meals 18 Tablet 0 Nystatin 500912 UNIT/ML Mouth/Throat Suspension take 5 mL orally four times daily; swish and swallow for 7 days 70 mL 0 Albuterol Sulfate HFA 108 (90 Base) MCG/ACT Inhalation Aerosol Solution Inhale 2 Puffs by mouth every 6 hours as needed. Nitroglycerin 0.4 MG/HR Transdermal Patch 24 Hour (Nitro-Dur) Place 1 Patch topically on the skin in the morning. No current facility-administered medications for this visit. [...] last 8 weeks 2004 Coronary atherosclerosis of [place] coronary artery 50% of one vessel. Esophageal reflux GERD (gastroesophageal reflux disease) 11/28/2012 HTN, goal below 140/90 seems resolved Left main coronary artery disease 12/09/2012 Sprain and strain of other specified sites of shoulder and upper arm Past Surgical History: Procedure Laterality Date CABG, ARTERIAL, SINGLE 12/04/2012 CORONARY ARTERY BYPASS GRAFT USING ARTERY 1 GRAFT performed by Hola Powell MD at OR [facility] HEMORRHOIDECTOMY,EXTERNAL, 2 + COLUMNS Hemorrhoidectomy INSERT IA PERCUT DEVICE 12/04/2012 INSERT INTRA AORTIC BALLOON ASSIST DEVICE PERCUTANEOUS performed by Osmin Castillo MD at CARDIAC LABS [facility] REPAIR INITIAL INGUINAL HERNIA REDUCIBLE AGE 5 OR MORE Inguianl hernia Repair, age 5+ yr THROMBOENDARECTOMY W/PATCH,NECK INCISION 2004 Objective: The patient is a 82 year old male BP 108/58 | Pulse 76 | Temp 36.1 C (96.9 F) (Tympanic) | Resp 16 | Wt 75.3 kg (166 lb) | SpO2 95% | BMI 25.60 kg/m | BSA 1.89 m General: alert, healthy, and no distress Eye Exam: PERRLA, extraocular movements intact, conjunctiva are pink and non- injected, sclera clear Oropharynx: no exudate, no erythema, lips, buccal mucosa, and tongue normal, and mucous membranes are moist Heart: regular rate & rhythm, grade 2/6 murmur, and no gallops Lungs: lungs clear to auscultation Extremities: no edema, no clubbing, no cyanosis ASSESSMENT: Z09 Hospital discharge follow-up (primary encounter diagnosis) J40 Bronchitis, complicated I21.4 NSTEMI (non-ST elevated myocardial infarction) ([facility]) R73.03 Prediabetes Z23 Need for prophylactic vaccination and inoculation against influenza PLAN: Flu vaccine given check A1c before follow-up appointment fasting sugar today 1 O2 has made significant lifestyle changes RSV vaccine discussed will get after the holidays call if problems Follow up as scheduled. Piotr Wilson III, MD documented in this encounter Nursing Notes * Alyson Mcgee LPN - 03/10/2023 11:04 AM EST Sim Bain presents for hospital follow up. Medications & HM reviewed. documented in this encounter Plan of Treatment Upcoming Encounters Date Type Department Care Team (Late st Contact Info) Description 03/16/2023 9:30 AM EST Home Visit [facility] [address] [place] [address] Therese Cervantes, Community Health Satellite Installer [address] [place] [address] 03/24/2023 8:30 AM EST Office Visit Cardiology, [facility] [address] [place] [address] Osmin Bennett, [address] [place] [address] 05/17/2023 10:00 AM EST Office Visit [facility] [address] [place] [address] Piotr Wilson III, MD [address] [facility] [place] [address] Scheduled Orders Name Type Priority Associated Diagnoses Orde r Schedule HEMOGLOBIN A1C Lab Routine Prediabetes Expected: 03/10/2023 (Approximate), Expires: 03/09/2024 Health Maintenance Due Date Last Done Comments [...] this encounter Medical Devices Implanted Type Area Telephone Technician Device Identifier Shelf Expiration Date Model / Serial / Lot Graft Marker Coronary - [id number] Implanted:Qty: 1 on 12/04/2012 at OR [facility] N/A: Aorta VM CARDIO VASCULAR 12/16/2014 [id number] / / [id number] [employer] Micronester Embolization Coil Implanted:Qty: 2 on 10/09/2015 by Diego Muir MD at RADIOLOGY [facility] 08/03/2020 [employer] PATTIA L MICRONESTER EMBOLIZATION COIL / [id number] / [id number] Description:[employer] Roberto roNester Embolization Coil [id number] documented as of this encounter Visit Diagnoses Diagnosis Hospital discharge follow-up- Primary Other follow-up examination Bronchitis, complicated Bronchitis, not specified as acute or chronic NSTEMI (non-ST elevated myocardial infarction) (HCC) Acute myocardial infarction, subendocardial infarction, episode of care unspecified Prediabetes Other abnormal glucose Need for prophylactic vaccination and inoculation against influenza documented in this encounter Advance Directives Latest Code Status on File Code Status Date Activated Date Inactivated Comments Full Code 10/08/2015 11:08 PM 10/14/2015 9:01 PM Question Answer Comments Discussion of Advance Direct josiah occurred with: Not Discussed Does the patient have a Living Will? No Does the patient have Health Care Power of Media Marketing Specialist? No Code Status History Code Status [...] the patient have Health Care Power of Media Marketing Specialist? No Healthcare Agents on File Name Relationship Healthcare Agent Relationshi p Communication Piotr Curry Niece/Nephew Health Care Repr esentative (appointed verbally by patient or by statute hierarchy) Care Teams Managed Care Coordinator Relationship Specialty Start Date End Date Piotr Wilson III, MD [address] [facility] [place] [address] PCP - General Family Medicine 12/04/17 documented as of this encounter"
[2023-06-23] MEDS: ACETAMINOPHEN 500 MG TAB PO PRN (14:22)
[2023-06-23] MEDS: LORazepam 0.5 MG TAB PO PRN (14:23)
--- NOTE | 2023-06-23 14:45 | Ultrasound Report ---
Ultrasound-guided cholecystostomy tube placement INDICATION: Acute cholecystitis; nonsurgical candidate PROCEDURE: Procedure and risks were explained to the patient along side the attending surgeon. Inform ed consent was obtained. A final timeout was completed. The abdomen was prepped and draped in sterile fashion. 1% buffered lidocaine was utilized for skin anesthesia. The patient received 25 mcg fentany l IV. Utilizing ultrasound guidance, an 18-gauge 10 cm Chiba needle was advanced through a small anterior w edge of liver into the gallbladder. Ultrasound images were obtained. A 0.035 Amplatz wire was introdu christine and exchanged for an 8 Hungarian locking pigtail catheter. Approximately 20 mL of purulent-appearing gallbladder fluid was sent to the lab for analysis. The cholecystostomy tube was placed to gravity b ag drainage and sutured to the skin with 2-0 silk. The patient tolerated the procedure well. Vital si gns OB monitored postprocedure. IMPRESSION: Ultrasound-guided cholecystostomy tube placement as above. Performed, dictated, and signed by Carlton Rivero PA-C; to be co-signed by Dr. Santiago Kirk. Electronically signed by: Santiago Kirk M.D. 06/23/2023 3:29 PM
--- NOTE | 2023-06-23 15:24 | CT Scan Report ---
CT OF THE ABDOMEN AND PELVIS WITHOUT CONTRAST CLINICAL HISTORY: Abdominal pain. COMPARISON STUDY: CTA of the abdomen and pelvis June 23, 2023. TECHNIQUE: Axial images of the abdomen and pelvis were obtained without IV contrast. Images were revi ewed in the axial, sagittal, and coronal planes. Automated exposure control was utilized for the you dy. A dose lowering technique was utilized adhering to the principles of ALARA. FINDINGS: Mild interlobular septal thickening within the lower lungs is noted. There is a trace right pleural effusion. Subpleural opacities represent atelectasis. No pneumatosis, free air or portal david ous gas is present. Interval placement of a percutaneous cholecystostomy tube is noted. The tube is w ell-positioned within the gallbladder. Gallbladder is partially decompressed. Pericholecystic strandi ng is again noted, extending into the right paracolic gutter. No hematoma is present. Unenhanced imag es of the liver, adrenal glands, kidneys and pancreas are unremarkable. Endovascular coils within the spleen are incidentally noted. Splenomegaly is unchanged. There is no evidence for a bowel obstructi on. 3.7 cm infrarenal abdominal aortic aneurysm is again noted. No evidence for rupture. There is ext ensive colonic diverticulosis without evidence for acute diverticulitis. Excreted contrast within the collecting systems, ureters and bladder from recent contrast-enhanced CT is present. IMPRESSION: 1. Appropriately positioned percutaneous cholecystostomy tube. No hematoma. Interval decrease in gall bladder distention. Persistent pericholecystic stranding. No unexpected findings following tube place ment. 2. No bowel obstruction. Extensive sigmoid diverticulosis. No evidence for acute diverticulitis. 3. Trace right pleural effusion. Subpleural opacities consistent with atelectasis. ACT 112: Negative or not required by law. Electronically signed by: Santiago Kirk M.D. 06/23/2023 3:23 PM
[2023-06-23] MEDS: NSS + 20MEQ KCL 20 MEQ/1,000 ML BAG IV SCH (17:22)
[2023-06-23] MEDS: METOPROLOL TARTRATE 25 MG TAB PO SCH (22:23)
[2023-06-24 05:37] LABS: Basophils # (auto) 0.09 K/uL (0.00-0.20); Basophils % (auto) 0.6 %; Eosinophils # (auto) 0.15 K/uL (0.00-0.50); Hematocrit (blood only) 41.8 % (42.0-52.0); Hemoglobin 13.5 g/dl (14.0-18.0); Immature Granulocytes # (auto) 0.07 K/uL (0.01-0.20); Immature Granulocytes % (auto) 0.5 %; Lymphocytes # (auto) 3.22 K/uL (1.20-3.40); Lymphocytes % (auto) 21.1 %; Mean Corpuscular Hemoglobin 28.7 pg (25.0-34.0); Mean Corpuscular Hgb Conc 32.3 g/dL (32.0-36.0); Mean Corpuscular Volume 88.9 fL (80.0-100.0); Monocytes # (auto) 1.74 K/uL (0.11-0.59); Monocytes % (auto) 11.4 %; Neutrophils # (auto) 9.96 K/uL (1.40-6.50); Neutrophils % (auto) 65.4 %; Platelet Count 112 K/uL (130-400); RDW Standard Deviation 48.7 fL (36.4-46.3); White Blood Count 15.23 K/ul (4.8-10.8)
[2023-06-24 05:55] LABS: Albumin Globulin Ratio 1.1 (0.9-2); Albumin Level 3.5 gm/dl (3.4-5.0); BUN Creatinine Ratio 11.9 (10-20); Bilirubin,Total 2.8 mg/dl (0.2-1.0); Calcium 8.7 mg/dl (8.6-10.3); Creatinine Clr Calc Pharmacy 42.5 ml/min; Est GFR (African American) 57.6 ml/min; Est GFR (Non-African American) 49.7 ml/min; Globulin 3.1 gm/dl (2.5-4.0); Magnesium 2.2 mg/dl (1.7-2.4); Potassium 4.3 mmol/L (3.5-5.1); Total Protein 6.6 gm/dl (6.0-8.3)
--- NOTE | 2023-06-24 06:48 | Electrocardiogram Report ---
Test Reason : Blood Pressure : / mmHG Vent. Rate : 087 BPM Atrial Rate : 087 BPM P-R Int : 210 ms QRS Dur : 088 ms QT Int : 384 ms P-R-T Axes : 079 033 081 degrees QTc Int : 462 ms Sinus rhythm with 1st degree A-V block Left ventricular hypertrophy with repolarization abnormality Abnormal ECG When compared with ECG of 04-MAR-2023 04:38, MS interval has increased Vent. rate has increased BY 29 BPM Criteria for Septal infarct are no longer Present Confirmed by Reagan Leal ([id number]) on 06/24/2023 6:48:32 AM Referred By: Piotr Wilson Confirmed By:Reagan Leal
--- NOTE | 2023-06-24 06:50 | Electrocardiogram Report ---
Test Reason : Blood Pressure : / mmHG Vent. Rate : 069 BPM Atrial Rate : 069 BPM P-R Int : 172 ms QRS Dur : 088 ms QT Int : 416 ms P-R-T Axes : 054 -13 062 degrees QTc Int : 445 ms Normal sinus rhythm Septal infarct , age undetermined Abnormal ECG When compared with ECG of 23-JUN-2023 00:56, Septal infarct is now Present Confirmed by Reagan Leal ([id number]) on 06/24/2023 6:49:38 AM Referred By: Piotr Wilson Confirmed By:Reagan eLal
[2023-06-24] MEDS: THIAMINE HCL 100 MG TAB PO SCH (08:42)
--- NOTE | 2023-06-24 14:36 | Hospitalist Progress Note ---
Date of Service June 24, 2023 Assessment & Plan (1) Sepsis: Plan: Sepsis Acute cholecystitis Transaminitis Cholelithiasis --CT ABD:Cholelithiasis. Mild pericholecystic fat stranding raises concern for acute cholecystitis. Atherosclerotic changes of the vasculature. Distal abdominal aortic aneurysm measuring 3.4 cm in diameter. No aortic dissection. --Gall Bladder USD:Findings suggestive of acute cholecystitis. Mild dilatation of the common bile duct. This could be correlated with obstructive liver function tests. --S/P ultrasound-guided gallbladder catheter placement by IR on 06/23/2023 --Blood cultures negative to date --Gallbladder fluid culture growing gram-negative bacilli --Continue IV Zosyn, IV fluids --pain control --Appreciate surgery input --LFTs better today --Started on liquid diet Hypomagnesemia Replete electrolytes as needed Monitor Abdominal aortic aneurysm CT as above Monitor Left hydrocele -Scrotal ultrasound: No acute sonographic abnormality is seen involving the testes or scrotum.. Moderate to large left-sided hydrocele. Follow-up as outpatient Hyperlipidemia Hold statin due to transaminitis Resume statin as able Hypertension Continue metoprolol Monitor BP CAD S/P CABG/stent Valvular heart disease (moderate , mild MR, TTE 2022) Monitor volume status closely Continue aspirin, metoprolol Resume statin as able Appreciate cardiology input H/O CVA, PVD S/P surgery Continue aspirin Resume statin as able COPD Continue home inhalers Monitor Prediabetes Last HbA1c 6.4 Possible alcohol abuse Past tobacco abuse Continue thiamine, folic acid Monitor for withdrawal DVT Px: Heparin SQ Code Status Full code Admission and Anticipated Discharge Date Admission Date: June 23, 2023 Subjective Patient is seen and examined at bedside Abdominal plain is slightly better when compared to yesterday Reports nausea but no vomiting today Discussed with surgery today Denies any chest pain, dyspnea, dizziness Review of Systems Review of Systems: All systems reviewed & are unremarkable except as noted in Subjective Physical Exam Physical Exam: Physical Exam: Vitals signs as noted above General Appearance:Moderately built and nourished, mild distress Head: normocephalic, Atraumatic Eyes: normal inspection, EOMI Neck: supple, Trachea midline Respiratory/Chest: Normal breath sounds, CTA, No accessory muscle use Cardiovascular: S1, S2, + murmur Abdomen/GI:Soft, +diffuse tender, +gall bladder catheter, Bowel sounds present Extremities/Musculoskeletal:normal inspection, no edema Neurologic/Psych:AAOX3, grossly no focal neurological deficits Skin: normal color, warm Results & Data Results & Data Vital Signs (Past 12 Hours) Vital Signs Temp Pulse Pulse Resp BP Pulse Ox O2 Del Method 06/24/23 12:02 37.7 C H 74 20 102/61 93 Nasal Cannula 06/24/23 11:00 Nasal Cannula 06/24/23 10:57 62 06/24/23 07:48 36.6 C 61 18 103/47 L 93 Nasal Cannula 06/24/23 04:00 36.4 C L 79 20 119/65 90 Nasal Cannula O2 Flow Rate 06/24/23 12:02 3 06/24/23 11:00 3 06/24/23 10:57 06/24/23 07:48 3 06/24/23 04:00 2 Laboratory Results Short CBC 06/24/23 Range/Units 05:05 WBC 15.23 H (4.8-10.8) K/ul Hgb 13.5 L (14.0-18.0) g/dl Hct 41.8 L (42.0-52.0) % Plt Count 112 L (130-400) K/uL BMP 06/24/23 05:05 Sodium 137 Potassium 4.3 Chloride 106 Carbon Dioxide 24 BUN 16 Creatinine 1.34 D Glucose 91 Calcium 8.7 Liver Function 06/24/23 Range/Units 05:05 Total Bilirubin 2.8 H D (0.2-1.0) mg/dl AST 172 H (13-39) U/L ALT 165 H (7-52) U/L Alkaline Phosphatase 165 H (34-104) U/L Albumin 3.5 (3.4-5.0) gm/dl
[2023-06-24] MEDS: SODIUM CHLORIDE 0.9% 1,000 ML IV ONE (14:45)
--- NOTE | 2023-06-24 15:46 | Surgery Progress Note ---
Date of Service June 24, 2023 Assessment & Plan (1) Cholecystitis: Plan: s/p perc drain placement. Slowly improving. OK to advance diet as tolerated. Continue antibiotics. Will follow. Admission and Anticipated Discharge Date Admission Date: June 23, 2023 Subjective Overall somewhat better. Pain has moved from epigastric to more in right upper quadrant at drain entry site. Still comes in a sharp wave. Trying full liquids and so far, no nausea or increased pain. Physical Exam Constitutional: WD/WN, vitals as above Neck: trachea midline, no thyromegaly Respiratory: normal respiratory effort, lungs clear to auscultation Cardiovascular: RRR, no murmur, no edema Gastrointestinal (Abdomen): Inspection/Auscultation: abdomen normal to inspection, normal bowel sounds and + abdominal surgical drain present (bilious) Percussion/Palpation: + abdomen tender (mild in RUQ) and abdomen soft; no guarding Neurologic: plantar reflexes intact bilaterally and awake; no focal motor deficits Psychiatric: A+Ox3, euthymic affect Results & Data Vital Signs (Past 12 Hours) Vital Signs Temp Pulse Pulse Resp BP BP Pulse Ox 06/24/23 14:43 36.8 C 76 20 117/60 93 06/24/23 12:02 37.7 C H 74 20 102/61 93 06/24/23 11:00 06/24/23 10:57 62 06/24/23 07:48 36.6 C 61 18 103/47 L 93 06/24/23 04:00 36.4 C L 79 20 119/65 90 O2 Del Method O2 Flow Rate 06/24/23 14:43 Nasal Cannula 3 06/24/23 12:02 Nasal Cannula 3 06/24/23 11:00 Nasal Cannula 3 06/24/23 10:57 06/24/23 07:48 Nasal Cannula 3 06/24/23 04:00 Nasal Cannula 2 Laboratory Results 06/24/23 Range/Units 05:05 WBC 15.23 H (4.8-10.8) K/ul RBC 4.70 (4.70-6.10) M/uL Hgb 13.5 L (14.0-18.0) g/dl Hct 41.8 L (42.0-52.0) % MCV 88.9 (80.0-100.0) fL MCH 28.7 (25.0-34.0) pg MCHC 32.3 (32.0-36.0) g/dL RDW Std Deviation 48.7 H (36.4-46.3) fL RDW Coeff of Stefano 15.0 H (11.5-14.5) % Plt Count 112 L (130-400) K/uL MPV 10.0 (9.4-12.4) fL Immature Gran % (Auto) 0.5 % Neut % (Auto) 65.4 % Lymph % (Auto) 21.1 % [place] % (Auto) 11.4 % Eos % (Auto) 1.0 % Baso % (Auto) 0.6 % Neut # (Auto) 9.96 H (1.40-6.50) K/uL Lymph # (Auto) 3.22 (1.20-3.40) K/uL [place] # (Auto) 1.74 H (0.11-0.59) K/uL Eos # (Auto) 0.15 (0.00-0.50) K/uL Baso # (Auto) 0.09 (0.00-0.20) K/uL Immature Gran # (Auto) 0.07 (0.01-0.20) K/uL Sodium 137 (136-145) mmol/L Potassium 4.3 (3.5-5.1) mmol/L Chloride 106 (98-107) mmol/L Carbon Dioxide 24 (21-32) mmol/L Anion Gap 7 (3-11) BUN 16 (6-23) mg/dl Creatinine 1.34 D (0.6-1.4) mg/dl Est Cr Clr Drug Dosing 42.5 ml/min Est GFR ( Amer) 57.6 ml/min Est GFR (Non-Af Amer) 49.7 ml/min BUN/Creatinine Ratio 11.9 (10-20) Glucose 91 (70-99(Fasting)) mg/dl Calcium 8.7 (8.6-10.3) mg/dl Magnesium 2.2 (1.7-2.4) mg/dl Total Bilirubin 2.8 H D (0.2-1.0) mg/dl AST 172 H (13-39) U/L ALT 165 H (7-52) U/L Alkaline Phosphatase 165 H (34-104) U/L Total Protein 6.6 (6.0-8.3) gm/dl Albumin 3.5 (3.4-5.0) gm/dl Globulin 3.1 (2.5-4.0) gm/dl Albumin/Globulin Ratio 1.1 (0.9-2)
[2023-06-24] MEDS: PROMETHAZINE HCL 6.25 MG in SODIUM CHLORIDE 0.9% 50 ML IV PRN (18:07)
[2023-06-24] MEDS: HEPARIN SOD 5,000 UNIT/0.5 ML VIAL SQ SCH (20:06)
[2023-06-24] MEDS: IPRATROPIUM BROMIDE NEB SOLN 0.02% 0.5MG/2.5ML VIAL INH PRN (21:26)
[2023-06-25 05:26] LABS: Hematocrit (blood only) 37.3 % (42.0-52.0); Hemoglobin 12.4 g/dl (14.0-18.0); Mean Corpuscular Hgb Conc 33.2 g/dL (32.0-36.0); Mean Corpuscular Volume 87.4 fL (80.0-100.0); Mean Platelet Volume 10.4 fL (9.4-12.4); Platelet Count 119 K/uL (130-400); RDW Standard Deviation 48.3 fL (36.4-46.3); Red Blood Count 4.27 M/uL (4.70-6.10)
[2023-06-25 06:32] LABS: Albumin Level 3.3 gm/dl (3.4-5.0); BUN Creatinine Ratio 17.9 (10-20); Bilirubin,Total 1.3 mg/dl (0.2-1.0); Calcium 8.6 mg/dl (8.6-10.3); Creatinine Clr Calc Pharmacy 53.8 ml/min; Est GFR (African American) 76.4 ml/min; Globulin 3.2 gm/dl (2.5-4.0); Potassium 3.9 mmol/L (3.5-5.1); Total Protein 6.5 gm/dl (6.0-8.3)
--- NOTE | 2023-06-25 10:24 | Surgery Progress Note ---
Date of Service June 25, 2023 Assessment & Plan (1) Cholecystitis: Plan: s/p perc drain placement. Tolerating diet. While his blood work is slowly improving with decrease in liver function tests and decreased leukocytosis, and he continues to have persistent symptoms of severe intermittent pain. The risks and benefits of proceeding to surgery to remove his gallbladder can be discussed with him by his primary surgeon when they return tomorrow. Currently, there are no new recommendations. Continue antibiotics. Continue monitoring of blood work. Admission and Anticipated Discharge Date Admission Date: June 23, 2023 Subjective He is still having episodes of sharp pain in the right upper quadrant. He notes last night was "miserable". He has just received pain medication. He is tolerating a diet with no increase in nausea or vomiting. Physical Exam Constitutional: WD/WN, vitals as above Respiratory: normal respiratory effort, lungs clear to auscultation Cardiovascular: RRR, no murmur, no edema Gastrointestinal (Abdomen): Inspection/Auscultation: abdomen normal to inspection, normal bowel sounds and + abdominal surgical drain present (bilious) Percussion/Palpation: + abdomen tender (mild in RUQ) and abdomen soft; no guarding Neurologic: plantar reflexes intact bilaterally and awake; no focal motor deficits Psychiatric: A+Ox3, euthymic affect Results & Data Vital Signs (Past 12 Hours) Vital Signs Temp Pulse Pulse Resp BP Pulse Ox O2 Del Method 06/25/23 08:32 36.6 C 78 16 128/68 94 Nasal Cannula 06/25/23 07:49 Nasal Cannula 06/25/23 07:35 73 06/25/23 04:37 123/69 06/25/23 03:09 37.2 C 83 20 115/71 95 Nasal Cannula 06/25/23 02:46 Nasal Cannula 06/24/23 23:28 37.2 C 86 20 114/56 L 91 Nasal Cannula 06/24/23 22:47 83 O2 Flow Rate 06/25/23 08:32 3 06/25/23 07:49 3 06/25/23 07:35 06/25/23 04:37 06/25/23 03:09 3 06/25/23 02:46 3 06/24/23 23:28 3 06/24/23 22:47
--- NOTE | 2023-06-25 15:51 | Hospitalist Progress Note ---
Date of Service June 25, 2023 Assessment & Plan (1) Sepsis: Plan: Sepsis Acute cholecystitis Transaminitis Cholelithiasis --CT ABD:Cholelithiasis. Mild pericholecystic fat stranding raises concern for acute cholecystitis. Atherosclerotic changes of the vasculature. Distal abdominal aortic aneurysm measuring 3.4 cm in diameter. No aortic dissection. --Gall Bladder USD:Findings suggestive of acute cholecystitis. Mild dilatation of the common bile duct. This could be correlated with obstructive liver function tests. --S/P ultrasound-guided gallbladder catheter placement by IR on 06/23/2023 --Blood cultures negative to date --Gallbladder fluid culture growing Klebsiella --Continue IV Zosyn, IV fluids --pain control --Appreciate surgery input --LFTs trending down --Started on liquid diet Continue current management Surgery following Hypomagnesemia Replete electrolytes as needed Monitor Abdominal aortic aneurysm CT as above Monitor Left hydrocele -Scrotal ultrasound: No acute sonographic abnormality is seen involving the testes or scrotum.. Moderate to large left-sided hydrocele. Follow-up as outpatient Hyperlipidemia Hold statin due to transaminitis Resume statin as able Hypertension Continue metoprolol Monitor BP CAD S/P CABG/stent Valvular heart disease (moderate , mild MR, TTE 2022) Monitor volume status closely Continue aspirin, metoprolol Resume statin as able Appreciate cardiology input H/O CVA, PVD S/P surgery Continue aspirin Resume statin as able COPD Continue home inhalers Monitor Prediabetes Last HbA1c 6.4 Possible alcohol abuse Past tobacco abuse Continue thiamine, folic acid Monitor for withdrawal DVT Px: Heparin SQ Code Status Full code Admission and Anticipated Discharge Date Admission Date: June 23, 2023 Subjective Patient is seen and examined at bedside Still has abdominal pain, better when compared to yesterday Tolerating liquid diet No new complaints Discussed with patient's family at bedside Denies any nausea, vomiting, chest pain, dyspnea, dizziness LFTs improving Review of Systems Review of Systems: All systems reviewed & are unremarkable except as noted in Subjective Physical Exam Physical Exam: Physical Exam: Vitals signs as noted above General Appearance:Moderately built and nourished, mild distress Head: normocephalic, Atraumatic Eyes: normal inspection, EOMI Neck: supple, Trachea midline Respiratory/Chest: Normal breath sounds, CTA, No accessory muscle use Cardiovascular: S1, S2, + murmur Abdomen/GI:Soft, + tender, +gall bladder catheter, Bowel sounds present Extremities/Musculoskeletal:normal inspection, no edema Neurologic/Psych:AAOX3, grossly no focal neurological deficits Skin: normal color, warm Results & Data Results & Data Vital Signs (Past 12 Hours) Vital Signs Temp Pulse Pulse Resp BP Pulse Ox O2 Del Method 06/25/23 11:47 36.6 C 72 16 126/57 L 96 Nasal Cannula 06/25/23 08:32 36.6 C 78 16 128/68 94 Nasal Cannula 06/25/23 07:49 Nasal Cannula 06/25/23 07:35 73 06/25/23 04:37 123/69 O2 Flow Rate 06/25/23 11:47 3 06/25/23 08:32 3 06/25/23 07:49 3 06/25/23 07:35 06/25/23 04:37 Laboratory Results Short CBC 06/25/23 Range/Units 04:47 WBC 12.20 H (4.8-10.8) K/ul Hgb 12.4 L (14.0-18.0) g/dl Hct 37.3 L (42.0-52.0) % Plt Count 119 L (130-400) K/uL BMP 06/25/23 04:47 Sodium 135 L Potassium 3.9 Chloride 106 Carbon Dioxide 23 BUN 19 Creatinine 1.06 Glucose 86 Calcium 8.6 Liver Function 06/25/23 Range/Units 04:47 Total Bilirubin 1.3 H D (0.2-1.0) mg/dl AST 70 H (13-39) U/L ALT 102 H (7-52) U/L Alkaline Phosphatase 126 H (34-104) U/L Albumin 3.3 L (3.4-5.0) gm/dl
[2023-06-25 21:59] LABS: Appearance Urine Clear (Clear); Bacteria Urine Automated Negative (Negative); Blood Urine Negative (Negative); Color Urine Dark Yellow; Epithelial Cell Urine Auto 20-30 /lpf (0-5); Glucose Urine UA Negative (Negative); Ketones Urine Trace (Negative); Leukocyte Esterase Urine Trace (Negative); Nitrite Urine Negative (Negative); Protein Urine 1+ (Negative); Specific Gravity Urine 1.024 (1.000-1.030); Urobilinogen Urine Negative (Negative); pH Urine 5.5 (4.5-7.5)
[2023-06-25 22:07] LABS: Bilirubin Urine 1+ (Negative)
[2023-06-25 22:16] LABS: RBC Urine Automated 0-4 /hpf (0-4)
[2023-06-26 05:03] LABS: Hematocrit (blood only) 37.5 % (42.0-52.0); Mean Corpuscular Hemoglobin 28.5 pg (25.0-34.0); Mean Corpuscular Volume 89.1 fL (80.0-100.0); Mean Platelet Volume 9.4 fL (9.4-12.4); Platelet Count 117 K/uL (130-400); RDW Coefficient of Variation 14.7 % (11.5-14.5); RDW Standard Deviation 48.5 fL (36.4-46.3); Red Blood Count 4.21 M/uL (4.70-6.10); White Blood Count 10.57 K/ul (4.8-10.8)
[2023-06-26 05:21] LABS: Albumin Level 3.2 gm/dl (3.4-5.0); BUN Creatinine Ratio 12.1 (10-20); Bilirubin,Total 0.9 mg/dl (0.2-1.0); Calcium 8.6 mg/dl (8.6-10.3); Creatinine Clr Calc Pharmacy 53.3 ml/min; Est GFR (African American) 75.6 ml/min; Est GFR (Non-African American) 65.2 ml/min; Globulin 3.1 gm/dl (2.5-4.0); Potassium 3.9 mmol/L (3.5-5.1); Total Protein 6.3 gm/dl (6.0-8.3)
--- NOTE | 2023-06-26 08:46 | Urology Consultation ---
Date of Consultation June 26, 2023 Assessment & Plan (1) Urinary retention: (2) Left hydrocele: 82 yo/M admitted for sepsis secondary to acute cholecystitis Urology consulted for urinary retention, hydrocele Eaton catheter in place and draining appropriately Urine culture is pending--follow culture He remains on IV Zosyn for acute cholecystitis Recommend maintain catheter for 7-10 days Recommend starting Tamsulosin Recommend normalizing bowels Regarding left hydrocele, we discussed supportive care and expectant management We discussed it can fluctuate in size and may be bothersome when increased in size Can consider surgical intervention in the future if persistently bothersome, but this is nonurgent and his other acute issues should take precedence Will arrange outpatient follow-up with our service for voiding trial and further management will sign off, please contact our service if any further issues or concerns History of Present Illness Reason for Consultation: Urinary retention, hydrocele Attending Physician: Srinivas Mendoza MD History of Present Illness This is an 82-year-old male with medical history significant for CAD status post CABG/stent, CVA, PVD, AAA, hypertension, hyperlipidemia, COPD, GERD, past tobacco use who was admitted on 06/23/2023 for sepsis secondary to acute cholecystitis. Due to recent MD and cardiac history, a percutaneous cholecystostomy tube was inserted and he has been on IV Zosyn during hospitalization. Urology is consulted for urinary retention and hydrocele. Overnight patient was bladder scanned for >1225 mL, straight catheterized for 1325 mL Patient unable to void this morning and bladder scanned for 600 mL, Eaton catheter was placed by nursing Patient seen and examined at bedside this morning. He arouses easily to speech. He reports he has been feeling better since his drain placement. He is tolerating Eaton catheter. Eaton is draining clear yellow urine at this time. He reports some bothersome LUTS over the last few months including nocturia x 4, weak stream and urgency with occasional incontinence/dribbling. He was not on any BPH/urinary medications prior to admission. He has had some left scrotal discomfort and swelling. Denies family history of malignancy. Chart review- Labs today: creatinine 1.07, WBC 10.57, hemoglobin 12.0 Blood cultures showing no growth Urinalysis 06/25/2023 showed 1+ protein, trace LE, 20-30 epithelials, negative bacteria Urine culture pending Ultrasound scrotum 06/23/23 showed moderate to large left-sided hydrocele Allergies Allergy/AdvReac Type Severity Reaction Status Date / Time remdesivir Allergy Severe hypotension, Verified 03/02/23 00:57 diaphoretic naproxen Allergy Unknown Unverified 03/02/23 00:57 morphine AdvReac Severe HALLUCINATI Verified 03/02/23 00:57 ONS Home Medications Medication Instructions Recorded Confirmed Type albuterol sulfate 90 mcg/actuation 2 puff inhalation Q6 PRN Shortness 01/18/19 06/23/23 History aerosol inhaler (ProAir HFA) Of Breath Or Wheezing aspirin 81 mg tablet,delayed 81 mg PO QAM 01/18/19 06/23/23 History release furosemide 20 mg tablet 20 mg PO QAM 01/18/19 06/23/23 History metoprolol tartrate 25 mg tablet 25 mg PO Q12 01/18/19 06/23/23 History omeprazole 40 mg capsule,delayed 40 mg PO DAILYBB 01/18/19 06/23/23 History release rosuvastatin 40 mg tablet (Crestor) 40 mg PO QAM 01/18/19 06/23/23 History spironolactone 25 mg tablet 12.5 mg PO QAM 01/18/19 06/23/23 History triamcinolone acetonide 0.5 % 1 applic topical BID PRN flare ups 01/18/19 06/23/23 History topical cream cyanocobalamin (vitamin B-12) 1,000 mcg PO DAILY 04/11/20 06/23/23 History 1,000 mcg tablet (Vitamin B-12) cyclobenzaprine 10 mg tablet 5 mg PO BID Spasms 02/11/22 06/23/23 History tiotropium bromide 2.5 2 puff inhalation QAM 02/11/22 06/23/23 History mcg/actuation mist for inhalation (Spiriva Respimat) ascorbic acid (vitamin C) 500 mg 500 mg PO QPM 03/02/23 06/23/23 History tablet (Vitamin C) levalbuterol HCl 1.25 mg/3 mL 1.25 mg inhalation .Q6HR PRN 03/02/23 06/23/23 History solution for nebulization Shortness Of Breath Or Wheezing levalbuterol tartrate 45 1 puff inhalation Q4 PRN Shortness 03/02/23 06/23/23 History mcg/actuation aerosol inhaler Of Breath Or Wheezing (Xopenex HFA) lorazepam 0.5 mg tablet 0.5 mg PO TID PRN Anxiety 06/23/23 06/23/23 History nitroglycerin 0.4 mg sublingual 0.4 mg sublingual .Q 5 MIN PRN 06/23/23 06/23/23 History tablet Chest Pain zinc acetate 50 mg (zinc) capsule 50 mg PO QAM 06/23/23 06/23/23 History Patient History Medical History Hypoxia BPH (benign prostatic hyperplasia) H/O: CVA (cerebrovascular accident) Aortic stenosis CAD (coronary artery disease) Hypersensitivity reaction Hypoxia Anxiety Alcohol use Pneumonia due to COVID-19 virus Hypoxia COVID-19 Ischemic stroke Gastroesophageal reflux disease Dyslipidemia Coronary artery disease involving coronary bypass graft Carotid artery stenosis Benign hypertension Aortic valve stenosis Surgical History Hx of cardiac catheterization History of carotid endarterectomy History of repair of inguinal hernia Family History Other Heart disease Stroke Social History Smoking Status: Unknown if ever smoked Tobacco Type: Cigarettes Second Hand Exposure: No; Do You Dip or Chew Tobacco: No; Tobacco Cessation Education Requested by Patient: No Hx Alcohol Use: Yes Alcohol type: beer Hx Substance Use: No Preferred Language: Syriac Communication Ability: Effective 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 Beliefs That Will Affect Care: None marital status: Current Living Situation: Alone Other Information That Helps Us Care for You: No Feels Safe at Home: Yes Assistive Devices: Denture - Upper, Denture - Lower and Glasses Review of Systems Review of Systems: ROS was performed with pertinent positives noted as above; all other systems negative Physical Exam Constitutional: well developed and well nourished; no acute distress Respiratory: normal respiratory effort; no respiratory distress and no labored breathing Gastrointestinal (Abdomen): Inspection/Auscultation: abdomen normal to inspection Musculoskeletal: Head/Neck/Chest: normocephalic Neurologic: moves all extremities and awake Psychiatric: Orientation: alert and oriented x 3 Genitourinary: Eaton patent and draining clear yellow urine Left hydrocele noted Results & Data Vital Signs (Past 12 Hours) Vital Signs Temp Pulse Pulse Resp BP BP Pulse Ox 06/26/23 07:36 36.3 C L 75 16 112/64 94 06/26/23 07:00 76 06/26/23 03:52 61 20 105/63 96 06/26/23 02:57 06/25/23 23:07 36.3 C L 89 20 106/62 93 06/25/23 21:59 83 O2 Del Method O2 Flow Rate 06/26/23 07:36 Nasal Cannula 3 06/26/23 07:00 06/26/23 03:52 Nasal Cannula 3 06/26/23 02:57 Nasal Cannula 3 06/25/23 23:07 Nasal Cannula 3 06/25/23 21:59 PG Care Time/CCT Total # of Minutes Spent Total Time Spent with Patient: Total time spent is greater than 50% in coordination of care (as documented) at patient's floor/unit and/or counseling patient: Coding Level of Care Code 60018 INT INP/OBS CARE 2/55MIN Diagnoses Urinary retention R33.9 Left hydrocele N43.3
--- NOTE | 2023-06-26 08:59 | Surgery Progress Note ---
Date of Service June 26, 2023 Assessment & Plan (1) Cholecystitis: Plan: Patient here with cholecystitis Decision made to treat with perc shavon drain given cardiac history. This was placed on 06/22 by IR WBC 10.5, LFTs downtrending- Tb 0.9, AST 36, ALT 68, AlkP 106. Vital signs are stable Abdomen soft, with TTP in the RUQ. Patient reports RUQ pain improving from admission IR drain with bilious output, 225cc documented over last 12 hours Would continue IV abx for now. Adv diet as tolerates Likely consider cholecystectomy as an outpt electively. Will discuss w/ surgeon Admission and Anticipated Discharge Date Admission Date: June 23, 2023 Supervising Physician Co-Signing Physician Notes Discussed with the PA Subjective Patient reports he is doing okay. Still has some abdominal pain that comes/goes and is intermittent, but states it is better than his admission. No worsening symptoms with eating food. Denies nausea. Physical Exam Physical Exam: awake, sitting at edge of bedside eating breakfast Gastrointestinal (Abdomen): Percussion/Palpation: + abdomen tender (discomfort to palpation in the RUQ) and abdomen soft + IR drain, bilious output 225cc documen markel over last 12 hours Results & Data Vital Signs (Past 12 Hours) Vital Signs Temp Pulse Pulse Resp BP BP Pulse Ox 06/26/23 07:36 97.3 F L 75 16 112/64 94 06/26/23 07:00 76 06/26/23 03:52 61 20 105/63 96 06/26/23 02:57 06/25/23 23:07 97.3 F L 89 20 106/62 93 06/25/23 21:59 83 O2 Del Method O2 Flow Rate 06/26/23 07:36 Nasal Cannula 3 06/26/23 07:00 06/26/23 03:52 Nasal Cannula 3 06/26/23 02:57 Nasal Cannula 3 06/25/23 23:07 Nasal Cannula 3 06/25/23 21:59 PG Care Time/CCT Total # of Minutes Spent Total Time Spent with Patient: Total time spent is greater than 50% in coordination of care (as documented) at patient's floor/unit and/or counseling patient: Coding Level of Care Code 90342 SUB INP/OBS CARE 04/13MIN Diagnoses Cholecystitis K81.9
[2023-06-26] MEDS: oxyCODONE HCL IR 5 MG TAB (IMMEDIATE RELEASE) PO PRN (12:23)
--- NOTE | 2023-06-26 16:40 | Hospitalist Progress Note ---
Date of Service June 26, 2023 Assessment & Plan (1) Sepsis: Plan: Sepsis Acute cholecystitis Transaminitis Cholelithiasis --CT ABD:Cholelithiasis. Mild pericholecystic fat stranding raises concern for acute cholecystitis. Atherosclerotic changes of the vasculature. Distal abdominal aortic aneurysm measuring 3.4 cm in diameter. No aortic dissection. --Gall Bladder USD:Findings suggestive of acute cholecystitis. Mild dilatation of the common bile duct. This could be correlated with obstructive liver function tests. --S/P ultrasound-guided gallbladder catheter placement by IR on 06/23/2023 --Blood cultures negative to date --Gallbladder fluid culture growing Klebsiella --Continue IV Zosyn, IV fluids --pain control --Appreciate surgery input --LFTs trending down Advance to low-fat diet Likely plan for cholecystectomy as outpatient Lymphocytosis in Elderly Incidental finding ? Secondary to infection Peripheral smear reviewed Flow cytometry pending Hypomagnesemia Replete electrolytes as needed Monitor Abdominal aortic aneurysm CT as above Monitor Left hydrocele -Scrotal ultrasound: No acute sonographic abnormality is seen involving the testes or scrotum.. Moderate to large left-sided hydrocele. Follow-up as outpatient Hyperlipidemia Hold statin due to transaminitis Resume statin as able Hypertension Continue metoprolol Monitor BP CAD S/P CABG/stent Valvular heart disease (moderate , mild MR, TTE 2022) Monitor volume status closely Continue aspirin, metoprolol Resume statin as able Appreciate cardiology input H/O CVA, PVD S/P surgery Continue aspirin Resume statin as able COPD Continue home inhalers Monitor Prediabetes Last HbA1c 6.4 Possible alcohol abuse Past tobacco abuse Continue thiamine, folic acid Monitor for withdrawal DVT Px: Heparin SQ Code Status Full code Admission and Anticipated Discharge Date Admission Date: June 23, 2023 Subjective Patient is seen and examined at bedside Abdominal pain much improved Tolerating current diet No new complaints Sitting in chair during my encounter Denies any nausea, vomiting, chest pain, dyspnea, dizziness Review of Systems Review of Systems: All systems reviewed & are unremarkable except as noted in Subjective Physical Exam Physical Exam: Physical Exam: Vitals signs as noted above General Appearance:Moderately built and nourished, mild distress Head: normocephalic, Atraumatic Eyes: normal inspection, EOMI Neck: supple, Trachea midline Respiratory/Chest: Normal breath sounds, CTA, No accessory muscle use Cardiovascular: S1, S2, + murmur Abdomen/GI:Soft, + tender, +gall bladder catheter, Bowel sounds present Extremities/Musculoskeletal:normal inspection, no edema Neurologic/Psych:AAOX3, grossly no focal neurological deficits Skin: normal color, warm Results & Data Results & Data Vital Signs (Past 12 Hours) Vital Signs Temp Pulse Pulse Resp BP Pulse Ox O2 Del Method 06/26/23 15:28 36.6 C 67 16 115/57 L 97 Room Air 06/26/23 14:46 64 06/26/23 10:37 Nasal Cannula 06/26/23 07:36 36.3 C L 75 16 112/64 94 Nasal Cannula 06/26/23 07:00 76 O2 Flow Rate 06/26/23 15:28 06/26/23 14:46 06/26/23 10:37 3 06/26/23 07:36 3 06/26/23 07:00 Laboratory Results Short CBC 06/26/23 Range/Units 04:48 WBC 10.57 (4.8-10.8) K/ul Hgb 12.0 L (14.0-18.0) g/dl Hct 37.5 L (42.0-52.0) % Plt Count 117 L (130-400) K/uL BMP 06/26/23 04:48 Sodium 136 Potassium 3.9 Chloride 105 Carbon Dioxide 27 BUN 13 Creatinine 1.07 Glucose 91 Calcium 8.6 Liver Function 06/26/23 Range/Units 04:48 Total Bilirubin 0.9 (0.2-1.0) mg/dl AST 36 (13-39) U/L ALT 68 H (7-52) U/L Alkaline Phosphatase 106 H (34-104) U/L Albumin 3.2 L (3.4-5.0) gm/dl Urine 06/25/23 Range/Units 21:45 Urine Color Dark Yellow Urine Appearance Clear (Clear) Urine pH 5.5 (4.5-7.5) Ur Specific [place] 1.024 (1.000-1.030) Urine Protein 1+ H (Negative) Urine Glucose (UA) Negative (Negative)
[2023-06-27 05:58] LABS: Hematocrit (blood only) 36.6 % (42.0-52.0); Hemoglobin 11.9 g/dl (14.0-18.0); Mean Corpuscular Hemoglobin 28.7 pg (25.0-34.0); Mean Corpuscular Hgb Conc 32.5 g/dL (32.0-36.0); Mean Corpuscular Volume 88.2 fL (80.0-100.0); Mean Platelet Volume 10.1 fL (9.4-12.4); Platelet Count 130 K/uL (130-400); RDW Coefficient of Variation 14.8 % (11.5-14.5); RDW Standard Deviation 48.1 fL (36.4-46.3); Red Blood Count 4.15 M/uL (4.70-6.10)
[2023-06-27 06:12] LABS: Albumin Globulin Ratio 1.1 (0.9-2); Albumin Level 3.2 gm/dl (3.4-5.0); BUN Creatinine Ratio 8.8 (10-20); Bilirubin,Total 0.7 mg/dl (0.2-1.0); Calcium 8.4 mg/dl (8.6-10.3); Creatinine Clr Calc Pharmacy 55.9 ml/min; Est GFR (African American) 80.1 ml/min; Est GFR (Non-African American) 69.1 ml/min; Magnesium 1.9 mg/dl (1.7-2.4); Potassium 3.7 mmol/L (3.5-5.1); Total Protein 6.2 gm/dl (6.0-8.3)
--- NOTE | 2023-06-27 08:45 | Surgery Progress Note ---
Date of Service June 27, 2023 Assessment & Plan (1) Cholecystitis: Plan: Patient here w/ cholecystitis managed via percutaneous cholecystostomy tube placed by IR on 06/22 WBC 9.3, LFTs unremarkable. Vitals are stable No abdominal complaints this AM. 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 Actually from that standpoint, sooner surgery is better than later out of concern for worsening stenosis in addition to intermediate accountant indwelling catheters and increased risk of transmitting infection. There is question with regards to the integrity of his previously diagnosed [place] as well. After discussing this with the patient, he does mention he would prefer to have the gallbladder removed as soon as possible with concerns of managing the bag at home. Subjective Patient reports feeling well. Abdominal pain continues to improve. Tolerating advancement in diet. No nausea. Physical Exam Physical Exam: awake/alert, no distress Gastrointestinal (Abdomen): Inspection/Auscultation: abdomen not distended Percussion/Palpation: + abdomen tender (mild RUQ ttp, improved from yesterday) and abdomen soft IR drain with bilious output, 200cc documented over last 24 hrs Results & Data Vital Signs (Past 12 Hours) Vital Signs Temp Pulse Pulse Resp BP Pulse Ox O2 Del Method 06/27/23 08:07 97.5 F L 68 16 115/72 94 Nasal Cannula 06/27/23 07:36 Nasal Cannula 06/27/23 07:05 67 06/27/23 04:00 97.7 F 73 18 111/65 93 Nasal Cannula 06/27/23 03:25 Nasal Cannula 06/26/23 22:40 98.1 F 78 18 112/67 91 Nasal Cannula 06/26/23 21:59 70 O2 Flow Rate 06/27/23 08:07 2 06/27/23 07:36 2 06/27/23 07:05 06/27/23 04:00 2 06/27/23 03:25 2 06/26/23 22:40 2 06/26/23 21:59 PG Care Time/CCT Total # of Minutes Spent Total Time Spent with Patient: Total time spent is greater than 50% in coordination of care (as documented) at patient's floor/unit and/or counseling patient: Coding Level of Care Code 59237 SUB INP/OBS CARE Diagnoses Cholecystitis K81.9
--- NOTE | 2023-06-27 17:07 | Hospitalist Progress Note ---
Date of Service June 27, 2023 Assessment & Plan (1) Sepsis: Plan: Sepsis Acute cholecystitis Transaminitis Cholelithiasis --CT ABD:Cholelithiasis. Mild pericholecystic fat stranding raises concern for acute cholecystitis. Atherosclerotic changes of the vasculature. Distal abdominal aortic aneurysm measuring 3.4 cm in diameter. No aortic dissection. --Gall Bladder USD:Findings suggestive of acute cholecystitis. Mild dilatation of the common bile duct. This could be correlated with obstructive liver function tests. --S/P ultrasound-guided gallbladder catheter placement by IR on 06/23/2023 --Blood cultures negative to date --Gallbladder fluid culture growing Klebsiella --Continue IV Zosyn, IV fluids --pain control --Appreciate surgery input --LFTs trending down Tolerating low-fat diet Eventually will need cholecystectomy although needs caution with analgesics given his cardiac history Lymphocytosis in Elderly Incidental finding ? Secondary to infection Peripheral smear reviewed Flow cytometry/FISH pending Urinary retention Continue [place] catheter for now Avoid tamsulosin given hemodynamics with moderate aortic stenosis Appreciate urology input Voiding trial as able Hypomagnesemia Replete electrolytes as needed Monitor Abdominal aortic aneurysm CT as above Monitor Left hydrocele -Scrotal ultrasound: No acute sonographic abnormality is seen involving the testes or scrotum.. Moderate to large left-sided hydrocele. Follow-up as outpatient Hyperlipidemia Hold statin due to transaminitis Resume statin as able Hypertension Continue metoprolol Monitor BP CAD S/P CABG/stent Valvular heart disease (moderate , mild MR, TTE 2022) Monitor volume status closely Continue aspirin, metoprolol Resume statin as able Appreciate cardiology input H/O CVA, PVD S/P surgery Continue aspirin Resume statin as able COPD Continue home inhalers Monitor Prediabetes Last HbA1c 6.4 Possible alcohol abuse Past tobacco abuse Continue thiamine, folic acid Monitor for withdrawal DVT Px: Heparin SQ Code Status Full code Admission and Anticipated Discharge Date Admission Date: June 23, 2023 Subjective Patient is seen and examined at bedside Abdominal pain is controlled Tolerating current diet Denies any nausea, vomiting, chest pain, dyspnea, dizziness Reports heartburn today Review of Systems Review of Systems: All systems reviewed & are unremarkable except as noted in Subjective Physical Exam Physical Exam: Physical Exam: Vitals signs as noted above General Appearance:Moderately built and nourished, mild distress Head: normocephalic, Atraumatic Eyes: normal inspection, EOMI Neck: supple, Trachea midline Respiratory/Chest: Normal breath sounds, CTA, No accessory muscle use Cardiovascular: S1, S2, + murmur Abdomen/GI:Soft, +mild tender, +gall bladder catheter, Bowel sounds present Extremities/Musculoskeletal:normal inspection, no edema Neurologic/Psych:AAOX3, grossly no focal neurological deficits Skin: normal color, warm Results & Data Results & Data Vital Signs (Past 12 Hours) Vital Signs Temp Pulse Pulse Resp BP Pulse Ox O2 Del Method 06/27/23 15:46 36.2 C L 73 18 127/69 92 Nasal Cannula 06/27/23 15:11 67 06/27/23 12:18 36.2 C L 74 16 128/66 93 Nasal Cannula 06/27/23 08:07 36.4 C L 68 16 115/72 94 Nasal Cannula 06/27/23 07:36 Nasal Cannula 06/27/23 07:05 67 O2 Flow Rate 06/27/23 15:46 2 06/27/23 15:11 06/27/23 12:18 2 06/27/23 08:07 2 06/27/23 07:36 2 06/27/23 07:05 Laboratory Results Short CBC 06/27/23 Range/Units 05:29 WBC 9.30 (4.8-10.8) K/ul Hgb 11.9 L (14.0-18.0) g/dl Hct 36.6 L (42.0-52.0) % Plt Count 130 (130-400) K/uL BMP 06/27/23 05:29 Sodium 137 Potassium 3.7 Chloride 105 Carbon Dioxide 28 BUN 9 Creatinine 1.02 Glucose 138 H Calcium 8.4 L Liver Function 06/27/23 Range/Units 05:29 Total Bilirubin 0.7 (0.2-1.0) mg/dl AST 25 (13-39) U/L ALT 51 (7-52) U/L Alkaline Phosphatase 112 H (34-104) U/L Albumin 3.2 L (3.4-5.0) gm/dl
[2023-06-28 06:17] LABS: Albumin Level 3.5 gm/dl (3.4-5.0); Bilirubin,Total 0.7 mg/dl (0.2-1.0); Calcium 8.9 mg/dl (8.6-10.3); Creatinine Clr Calc Pharmacy 63.3 ml/min; Est GFR (African American) 93.2 ml/min; Est GFR (Non-African American) 80.4 ml/min; Globulin 3.4 gm/dl (2.5-4.0); Potassium 3.7 mmol/L (3.5-5.1); Total Protein 6.9 gm/dl (6.0-8.3)
[2023-06-28 06:28] LABS: Hematocrit (blood only) 40.9 % (42.0-52.0); Hemoglobin 13.5 g/dl (14.0-18.0); Mean Corpuscular Hemoglobin 28.6 pg (25.0-34.0); Mean Corpuscular Volume 86.7 fL (80.0-100.0); Mean Platelet Volume 9.8 fL (9.4-12.4); Platelet Count 146 K/uL (130-400); RDW Coefficient of Variation 14.4 % (11.5-14.5); RDW Standard Deviation 46.5 fL (36.4-46.3); Red Blood Count 4.72 M/uL (4.70-6.10); White Blood Count 10.44 K/ul (4.8-10.8)
[2023-06-28] MEDS ORDERED: fentaNYL citrate PF 100 MCG/2 ML VIAL ONE ×2 (10:56→12:21)
[2023-06-28] MEDS ORDERED: LIDOCAINE 2% 2 ML VIAL/AMP(20MG/ML) INFIL ONE (11:07)
[2023-06-28] MEDS ORDERED: PROPOFOL IV EMULSION 10 MG/ML 20 ML VIAL IV ONE (11:07)
[2023-06-28] MEDS ORDERED: ONDANSETRON INJ 2 MG/ML 2 ML VIAL ONE (11:07)
[2023-06-28] MEDS ORDERED: GLYCOPYRROLATE 0.2 MG/ML VIAL ONE (11:07)
[2023-06-28] MEDS ORDERED: DEXAMETHASONE SOD INJ 4 MG/ML VIAL ONE (11:07)
[2023-06-28] MEDS ORDERED: ROCURONIUM BROMIDE 10 MG/ML 5 ML VIAL IV ONE ×2 (11:07→13:12)
--- NOTE | 2023-06-28 11:33 | History & Physical Bridge Note ---
Date of Service June 28, 2023 History & Physical Bridge Note I have examined the patient, reviewed the History & Physical and in the interval since the performance of the History & Physical I have noted the following changes of clinical significance: no changes noted. After cardiology review of patient's cardiac imaging and discussion with delivery room supervisor, sooner surgery recommended. Patient will undergo laparoscopic cholecystectomy today, possible open and all other indicated procedures. Consent has been obtained.
[2023-06-28] MEDS ORDERED: ESMOLOL HCL INJ 10 MG/ML 10ML VIAL IV ONE (12:27)
[2023-06-28] MEDS: BUPIVACAINE/EPINEPHRINE 0.5% MPF 1:200,000 30 ML VIAL ONE (12:40)
[2023-06-28] MEDS ORDERED: SUGAMMADEX SODIUM 200 MG/2 ML VIAL IV ONE (13:58)
[2023-06-28] MEDS: TISSEEL FIBRIN SEALANT 10ML TOP ONE (14:02)
--- NOTE | 2023-06-28 14:22 | Operative Report ---
PG Post Operative Report Pre & Post Diagnosis Operation Date: 06/28/23 07:40 Pre-Op Diagnosis: Cholecystitis Post-Op Diagnosis: Cholecystitis I identified the patient and participated in the time-out.: Yes Procedure Operation Date: 06/28/23 07:40 Actual Procedures p Laparoscopic Cholecystectomy(Not Applicable) - Natalie Brooks DO Surgeon Natalie Brooks DO Brand Lead JEANETTE Yoder Estimated Blood Loss 15 Findings Consistent with Post-Op Diagnosis Specimens Glalbladder Anesthesia Type General Complications None Indications Acute cholecystitis Description of Procedure Patient was brought back to the operating room and placed on the operating room table in supine position. He was connected to cardiac and oxygen monitoring. Supplemental O2 was provided and SCDs were applied to bilateral lower extremities. The patient was administered general anesthesia and a secure airway was established. The abdomen was prepped and draped in typical sterile fashion and a timeout was conducted. Local anesthetic was injected into the skin and subcutaneous tissues at the superior umbilical fold and a small stab incision was made with an 11 blade. The fascia was elevated with a towel clamp and a Veress needle was used to access the intraperitoneal space. Pneumoperitoneum was established local pressure 15 mmHg. Once this pressure was reached, a 5 mm trocar was inserted using direct visualization with a 5 mm laparoscope and Visiport. After injecting local anesthetic into the subcutaneous tissue and skin at the epigastric area, an 11 mm trocar was inserted under direct visualization. 2 additional 5 mm trocars were inserted along the right subcostal margin using the same techniques. The gallbladder was grasped and retracted superiorly. A second. The case around the gallbladder was dissected away using alternating cautery and blunt dissection. The infundibulum in the area of the cystic triangle was dissected. The cystic duct appeared enlarged so care was taken to dissect the entire aspect of the gallbladder wall to the liver bed to be sure that there were no other pink structures involved. The cystic artery was ligated with 2 proximal 5 mm clips, 1 distally and transected. The entire gallbladder was removed away from the liver bed to be able to fully inspect the suspected cystic duct because it was enlarged. Once the gallbladder was completely removed from the liver bed, and the duct was confirmed to be the only structure involved with the inferior aspect of the gallbladder, this was ligated using 2 10 mm clips proximally, was partially cut and 2 additional clips were placed over the second half of the duct and distally. The duct was then transected. The gallbladder was placed in an Endo Catch bag and removed. This was placed in a label container for pathology for further analysis. The right upper quadrant was copiously irrigated and suctioned. The area was thoroughly inspected for bleeding. There was not much in the way of active bleeding at this point. A small amount of oozing at the liver bed was cauterized. Tisseel was used to coat the liver bed as well as the ductal stump. Instruments, trocars were presacral removed. Pneumoperitoneum was evacuated. The fascial opening at the epigastric trocar site was closed with 0 Vicryl suture. Additional local anesthetic was injected into the skin and subcutaneous tissue at all 4 incision sites. The other incision sites were closed with 4-0 Vicryl suture. Bacitracin and gauze were used to dress the drain insertion site. Dermabond was used at the other incision sites. The patient tolerated the procedure well. He was awakened from anesthesia and a secure airway was removed. He was transferred to recovery in stable condition. I attest to the content of the Intraoperative Record and any orders documented therein. Any exceptions are noted below.
--- NOTE | 2023-06-28 14:33 | Hospitalist Progress Note ---
Date of Service June 28, 2023 Assessment & Plan (1) Sepsis: Plan: Mr. Bain is an 82 year old gentlemen with history of severe aortic stenosis, NSTEMI 2/2 severe CAD with history of remote CABG in 2012 who is admitted for concerns of cholecystitis. Perc-drain placed on 06/23 with notable improvement in symptoms; however, given concern of patient's tenuous cardiac status, age, and living situation, it was determined that lap shavon sooner than later would be safest option. Patient to undergo lap shavon 06/27. Course complicated by urinary retention for which urology evaluated and recommended tamsulosin and fagan for 7-10 days. Tamsulosin held given patient's need for preload iso aortic stenosis, therefore this held and fagan maintained with plans for optimizing bowel regimen. urine culture + Klebsiella. #Sepsis, improving #Acute cholecystitis with cholelithiasis #Transaminitis --CT ABD:Cholelithiasis. Mild pericholecystic fat stranding raises concern for acute cholecystitis. Atherosclerotic changes of the vasculature. Distal abdominal aortic aneurysm measuring 3.4 cm in diameter. No aortic dissection. --Gall Bladder USD:Findings suggestive of acute cholecystitis. Mild dilatation of the common bile duct. This could be correlated with obstructive liver function tests. --S/P ultrasound-guided gallbladder catheter placement by IR on 06/23/2023 --Blood cultures negative to date --Gallbladder fluid culture growing Klebsiella --Continue IV Zosyn, IV fluids --pain control --Appreciate surgery input --LFTs trending down -Lap shavon 06/27, follow post-op course closely #Lymphocytosis in Elderly Incidental finding ? Secondary to infection Peripheral smear reviewed Flow cytometry/FISH pending Repeat CBC with diff #Urinary retention #Acute cystitis Continue Fagan catheter for now Avoid tamsulosin given hemodynamics with moderate aortic stenosis Appreciate urology input -7-10 days voiding trial as able UA with klebsiella, on Zosyn as above #Hypomagnesemia Replete electrolytes as needed Monitor #Abdominal aortic aneurysm CT as above Monitor #Left hydrocele -Scrotal ultrasound: No acute sonographic abnormality is seen involving the testes or scrotum.. Moderate to large left-sided hydrocele. Follow-up as outpatient #Hyperlipidemia Hold statin due to transaminitis Resume statin as able #Hypertension Continue metoprolol Monitor BP #CAD S/P CABG/stent #Valvular heart disease (moderate , mild MR, TTE 2022) Monitor volume status closely Continue aspirin, metoprolol Resume statin as able Appreciate cardiology input #H/O CVA, PVD S/P surgery Continue aspirin Resume statin as able #COPD Continue home inhalers Monitor #Prediabetes Last HbA1c 6.4 #Possible alcohol abuse Past tobacco abuse Continue thiamine, folic acid Monitor for withdrawal DVT Px: Heparin SQ,scd Code Status Full code Admission and Anticipated Discharge Date Admission Date: June 23, 2023 Subjective Patient is seen and examined at bedside this morning prior to procedure Denies any acute concerns at this time, plan for lap shavon today Physical Exam Constitutional: WD/WN, vitals as above Respiratory: normal respiratory effort, lungs clear to auscultation Cardiovascular: RRR, no murmur, no edema Results & Data Results & Data Vital Signs (Past 12 Hours) Vital Signs Temp Pulse Pulse Resp BP Pulse Ox O2 Del Method 06/28/23 10:49 36.6 C 77 24 134/68 93 Nasal Cannula 06/28/23 08:00 Nasal Cannula 06/28/23 07:59 86 06/28/23 07:52 36.3 C L 74 18 128/73 93 Nasal Cannula 06/28/23 03:23 36.5 C 65 16 137/68 94 Nasal Cannula O2 Flow Rate 06/28/23 10:49 2 06/28/23 08:00 2 06/28/23 07:59 06/28/23 07:52 2 06/28/23 03:23 2 Laboratory Results Short CBC 06/28/23 Range/Units 05:29 WBC 10.44 (4.8-10.8) K/ul Hgb 13.5 L (14.0-18.0) g/dl Hct 40.9 L (42.0-52.0) % Plt Count 146 (130-400) K/uL BMP 06/28/23 05:29 Sodium 138 Potassium 3.7 Chloride 104 Carbon Dioxide 27 BUN 9 Creatinine 0.90 Glucose 91 Calcium 8.9 Liver Function 06/28/23 Range/Units 05:29 Total Bilirubin 0.7 (0.2-1.0) mg/dl AST 24 (13-39) U/L ALT 45 (7-52) U/L Alkaline Phosphatase 123 H (34-104) U/L Albumin 3.5 (3.4-5.0) gm/dl Medications Administered Home Medications Medication Instructions Recorded Confirmed Last Taken albuterol sulfate 90 mcg/actuation 2 puff inhalation Q6 PRN Shortness 01/18/19 06/23/23 03/01/23 aerosol inhaler (ProAir HFA) Of Breath Or Wheezing aspirin 81 mg tablet,delayed 81 mg PO QAM 01/18/19 06/23/23 01/18/19 release furosemide 20 mg tablet 20 mg PO QAM 01/18/19 06/23/23 01/18/19 metoprolol tartrate 25 mg tablet 25 mg PO Q12 01/18/19 06/23/23 01/18/19 omeprazole 40 mg capsule,delayed 40 mg PO DAILYBB 01/18/19 06/23/23 01/18/19 release rosuvastatin 40 mg tablet (Crestor) 40 mg PO QAM 01/18/19 06/23/23 01/18/19 spironolactone 25 mg tablet 12.5 mg PO QAM 01/18/19 06/23/23 01/18/19 triamcinolone acetonide 0.5 % 1 applic topical BID PRN flare ups 01/18/19 06/23/23 01/17/19 topical cream cyanocobalamin (vitamin B-12) 1,000 mcg PO DAILY 04/11/20 06/23/23 Unknown 1,000 mcg tablet (Vitamin B-12) cyclobenzaprine 10 mg tablet 5 mg PO BID Spasms 02/11/22 06/23/23 Unknown tiotropium bromide 2.5 2 puff inhalation QAM 02/11/22 06/23/23 Unknown mcg/actuation mist for inhalation (Spiriva Respimat) ascorbic acid (vitamin C) 500 mg 500 mg PO QPM 03/02/23 06/23/23 Unknown tablet (Vitamin C) levalbuterol HCl 1.25 mg/3 mL 1.25 mg inhalation .Q6HR PRN 03/02/23 06/23/23 Unknown solution for nebulization Shortness Of Breath Or Wheezing levalbuterol tartrate 45 1 puff inhalation Q4 PRN Shortness 03/02/23 06/23/23 Unknown mcg/actuation aerosol inhaler Of Breath Or Wheezing (Xopenex HFA) lorazepam 0.5 mg tablet 0.5 mg PO TID PRN Anxiety 06/23/23 06/23/23 Unknown nitroglycerin 0.4 mg sublingual 0.4 mg sublingual .Q 5 MIN PRN 06/23/23 06/23/23 Unknown tablet Chest Pain zinc acetate 50 mg (zinc) capsule 50 mg PO QAM 06/23/23 06/23/23 Unknown Active Medications Generic Name Dose Route Start Last Admin Trade Name Freq PRN Reason Stop Dose Admin Acetaminophen 500 mg 06/23/23 04:58 06/27/23 15:24 Acetaminophen 500 Mg Tab PO 07/23/23 04:57 500 mg Q6H PRN Administration fever/pain Aspirin 81 mg 06/23/23 09:00 06/27/23 08:32 Aspirin 81 Mg Ectab PO 07/23/23 08:59 81 mg QAM MAYITO Administration Cyclobenzaprine HCl 5 mg 06/23/23 09:00 06/27/23 20:07 Cyclobenzaprine Hcl 5 Mg Tab PO 07/23/23 08:59 5 mg BID MAYITO Administration Folic Acid 1 mg 06/23/23 09:00 06/27/23 08:31 Folic Acid 1 Mg Tab PO 07/23/23 08:59 1 mg QAM MAYITO Administration Heparin Sodium (Porcine) 5,000 units 06/24/23 21:00 06/27/23 20:08 Heparin Sod 5,000 Unit/0.5 Ml Vial SQ 07/24/23 20:59 5,000 units Q12 MAYITO Administration Hydromorphone HCl 0.5 mg 06/23/23 12:19 06/28/23 09:35 Hydromorphone Inj 0.5 Mg/0.5 Ml Syr IV 07/07/23 05:00 0.5 mg Q3H PRN Administration Pain Piperacillin Sod/Tazobactam 100 mls @ 25 mls/hr 06/23/23 12:00 06/28/23 09:02 Sod 4.5 gm/ Dextrose IV 07/03/23 11:59 Infused Q8H MAYITO Infusion Protocol Promethazine HCl 6.25 mg/ 50.25 mls @ 201 mls/hr 06/23/23 04:58 06/24/23 18:25 Sodium Chloride IV 07/23/23 04:57 Infused Q6H PRN Infusion Nausea And Vomiting Ipratropium [place] 0.5 mg 06/23/23 04:58 06/24/23 21:26 Ipratropium [place] Neb Soln 0.02% 0.5mg/2.5ml Vial INH 07/23/23 04:57 0.5 mg Q4H PRN Administration sob wheeze Levalbuterol HCl 1.25 mg 06/23/23 04:58 06/24/23 21:26 Levalbuterol 1.25 Mg/3 Ml Neb NEB 07/23/23 04:57 1.25 mg Q4H PRN Administration sob wheeze Lorazepam 0.5 mg 06/23/23 04:58 06/26/23 22:49 Lorazepam 0.5 Mg Tab PO 07/23/23 04:57 0.5 mg TID PRN Administration Anxiety Metoprolol Tartrate 25 mg 06/23/23 21:00 06/27/23 20:06 Metoprolol Tartrate 25 Mg Tab PO 07/23/23 20:59 25 mg BID MAYITO Administration Multivitamins 1 tab 06/23/23 09:00 06/27/23 08:31 Multivitamin Tab PO 07/23/23 08:59 1 tab QAM MAYITO Administration Oxycodone HCl 5 mg 06/26/23 11:58 06/28/23 05:54 Oxycodone Hcl Ir 5 Mg Tab (Immediate Release) PO 07/07/23 05:03 5 mg Q6H PRN Administration Pain Pantoprazole Sodium 40 mg 06/23/23 06:30 06/28/23 05:51 Pantoprazole 40 Mg Tab PO 07/23/23 06:29 Not Given DAILYBB MAYITO Rosuvastatin Calcium 40 mg 06/23/23 09:00 06/23/23 09:13 Rosuvastatin Calcium 20 Mg Tab PO 07/23/23 08:59 Not Given QAM MAYITO Thiamine HCl 100 mg 06/24/23 09:00 06/27/23 08:31 Thiamine Hcl 100 Mg Tab PO 07/24/23 08:59 100 mg QAM MAYITO Administration Umeclidinium [place] 1 puffs 06/23/23 09:00 06/27/23 08:32 Umeclidinium [place] 62.5mcg/Blister 7 Puffs/Inhaler INH 07/23/23 08:59 1 puffs QAM MAYITO Administration
--- NOTE | 2023-06-28 14:58 | Anesthesiology Progress Note ---
Date of Service June 28, 2023 Anesthesia Post Procedure Vital Signs Vital Signs: Temp Pulse Pulse Pulse Resp BP BP 06/28/23 14:50 90 22 128/61 06/28/23 14:40 85 15 129/57 L 06/28/23 14:30 91 H 17 126/63 06/28/23 14:21 36.5 C 84 18 130/63 06/28/23 10:49 36.6 C 77 24 134/68 06/28/23 08:00 06/28/23 07:59 86 06/28/23 07:52 36.3 C L 74 18 128/73 06/28/23 03:23 36.5 C 65 16 137/68 06/27/23 22:22 36.3 C L 88 18 107/64 06/27/23 22:04 06/27/23 21:58 85 06/27/23 19:46 36.3 C L 95 H 18 115/66 06/27/23 15:46 36.2 C L 73 18 127/69 06/27/23 15:11 67 Pulse Ox O2 Del Method O2 Flow Rate 06/28/23 14:50 92 Nasal Cannula 2 06/28/23 14:40 98 Oxymask 7 06/28/23 14:30 98 Oxymask 7 06/28/23 14:21 99 Oxymask 7 06/28/23 10:49 93 Nasal Cannula 2 06/28/23 08:00 Nasal Cannula 2 06/28/23 07:59 06/28/23 07:52 93 Nasal Cannula 2 06/28/23 03:23 94 Nasal Cannula 2 06/27/23 22:22 92 Nasal Cannula 2 06/27/23 22:04 Nasal Cannula 2 06/27/23 21:58 06/27/23 19:46 91 Nasal Cannula 2 06/27/23 15:46 92 Nasal Cannula 2 06/27/23 15:11 Pain Intensity Chest: Pain Intensity: 4 Right Lower Chest: Pain Intensity: 8 Transfer of Care Handoff Completed per policy Notes Mental Status: alert / awake / arousable Patient Amnestic to Procedure: Yes Nausea / Vomiting: adequately controlled Pain: adequately controlled Airway Patency, RR, SpO2: stable & adequate BP & HR: stable & adequate Hydration State: stable & adequate Anesthetic Complications: no major complications apparent and Pt Satisfied with anesthetic care
[2023-06-28] MEDS ORDERED: Nursing to Pharmacy Communication SCH (15:45)
[2023-06-28] MEDS: LACTATED RINGER'S 1,000 ML IV SCH ×2 (16:13→16:30)
[2023-06-28] MEDS: BACITRACIN OINT 14 GM TUBE ONE (16:30)
[2023-06-28 18:43] LABS: Albumin Level 3.4 gm/dl (3.4-5.0); Bilirubin Direct 0.3 mg/dl (0-0.2); Bilirubin,Total 0.7 mg/dl (0.2-1.0); Total Protein 6.9 gm/dl (6.0-8.3)
[2023-06-28] MEDS: oxyCODONE HCL IR 5 MG TAB (IMMEDIATE RELEASE) PO PRN (21:04)
[2023-06-29] MEDS: FAMOTIDINE 10 MG TABLET PO PRN (01:18)
[2023-06-29 05:21] LABS: Hematocrit (blood only) 39.6 % (42.0-52.0); Hemoglobin 13.2 g/dl (14.0-18.0); Mean Corpuscular Hemoglobin 28.6 pg (25.0-34.0); Mean Corpuscular Hgb Conc 33.3 g/dL (32.0-36.0); Mean Corpuscular Volume 85.7 fL (80.0-100.0); Mean Platelet Volume 9.9 fL (9.4-12.4); Platelet Count 166 K/uL (130-400); RDW Coefficient of Variation 14.6 % (11.5-14.5); RDW Standard Deviation 45.7 fL (36.4-46.3); Red Blood Count 4.62 M/uL (4.70-6.10); White Blood Count 17.05 K/ul (4.8-10.8)
[2023-06-29 05:36] LABS: Albumin Level 3.2 gm/dl (3.4-5.0); BUN Creatinine Ratio 8.6 (10-20); Bilirubin Direct 0.2 mg/dl (0-0.2); Bilirubin,Total 0.6 mg/dl (0.2-1.0); Calcium 8.7 mg/dl (8.6-10.3); Creatinine Clr Calc Pharmacy 61.3 ml/min; Est GFR (African American) 89.5 ml/min; Est GFR (Non-African American) 77.3 ml/min; Globulin 3.3 gm/dl (2.5-4.0); Magnesium 1.9 mg/dl (1.7-2.4); Phosphorus 2.9 mg/dl (2.5-4.9); Potassium 3.9 mmol/L (3.5-5.1); Total Protein 6.5 gm/dl (6.0-8.3)
[2023-06-29 06:37] LABS: Basophils # (auto) 0.08 K/uL (0.00-0.20); Basophils % (auto) 0.5 %; Eosinophils # (auto) 0.06 K/uL (0.00-0.50); Eosinophils % (auto) 0.4 %; Immature Granulocytes # (auto) 0.07 K/uL (0.01-0.20); Immature Granulocytes % (auto) 0.4 %; Lymphocytes # (auto) 4.06 K/uL (1.20-3.40); Lymphocytes % (auto) 23.8 %; Monocytes % (auto) 7.6 %; Neutrophils # (auto) 11.48 K/uL (1.40-6.50); Neutrophils % (auto) 67.3 %
--- NOTE | 2023-06-29 08:09 | Surgery Progress Note ---
<Statement entered by Natalie Brooks, - 06/29/23 20:58> This patient was seen and examined with the surgical PA, I agree with this plan Date of Service June 29, 2023 Assessment & Plan (1) Cholecystitis: Plan: POD#1 Lap shavon WBC 17, Hbg 13, LFts okay at Tb 0.6, AST 40, ALT 42, alkp 124 Patient's vitals are stable He reports improvement in abdominal pain overall, mild tenderness expected can incisionally R shoulder pain likely from diaphragm intraop gas, will monitor and should improve with time On clears, if does well for bfast may have regular diet for lunch Continue IV abx/zosyn today and will re-check WBC/labs tomorrow Recommend OOB as tolerates, with assistance as feeling a little "woozy". Cont to monitor vitals Admission and Anticipated Discharge Date Admission Date: June 23, 2023 Subjective Patient reports his abdominal pain is improved. He says he had some mild nausea that has now passed. He states he feels some R shoulder pain. Also feels slightly "woozy" when he moves his head, but feels fine at rest when he is still. + flatus. Physical Exam Physical Exam: awake/alert, no distress. sitting up in chair Respiratory: normal respiratory effort on 2 liter Gastrointestinal (Abdomen): Inspection/Auscultation: + abdominal surgical incision (c/d/i with skin glue, some umbilical ecchymosis ) Percussion/Palpation: + abdomen tender (expected can incisional discomfort ) and abdomen soft antibiotic ointment and gauze dressing to old drain site Results & Data Vital Signs (Past 12 Hours) Vital Signs Temp Pulse Pulse Resp BP BP Pulse Ox 06/29/23 07:45 68 06/29/23 07:37 97.5 F L 81 20 133/67 94 06/29/23 03:32 97.3 F L 72 16 118/62 95 06/28/23 22:41 97.9 F 92 H 18 120/66 95 06/28/23 21:49 87 06/28/23 20:59 97.3 F L 06/28/23 20:56 96 H 130/62 O2 Del Method O2 Flow Rate 06/29/23 07:45 06/29/23 07:37 Nasal Cannula 2 06/29/23 03:32 Nasal Cannula 3 06/28/23 22:41 Nasal Cannula 3 06/28/23 21:49 06/28/23 20:59 06/28/23 20:56 PG Care Time/CCT Total # of Minutes Spent Total Time Spent with Patient: Total time spent is greater than 50% in coordination of care (as documented) at patient's floor/unit and/or counseling patient: Coding Level of Care Code 65352 Post Operative Follow-Up Diagnoses Cholecystitis K81.9
[2023-06-29] MEDS: ACETAMINOPHEN 1,000 MG/100 ML VIAL IV STA (08:42)
[2023-06-29] MEDS: LIDOCAINE 5% 1 PATCH TD SCH (09:48)
[2023-06-29] MEDS ORDERED: oxyCODONE HCL IR 5 MG TAB (IMMEDIATE RELEASE) PO PRN (15:31)
--- NOTE | 2023-06-29 16:18 | Hospitalist Progress Note ---
Date of Service June 29, 2023 Assessment & Plan (1) Sepsis: Plan: Mr. Bani is an 82 year old gentlemen with history of severe aortic stenosis, NSTEMI 2/2 severe CAD with history of remote CABG in 2012 who is admitted for concerns of cholecystitis. Perc-drain placed on 06/23 with notable improvement in symptoms; however, given concern of patient's tenuous cardiac status, age, and living situation, it was determined that lap shavon sooner than later would be safest option. Course complicated by urinary retention for which urology evaluated and recommended tamsulosin and fagan for 7-10 days. Tamsulosin held given patient's need for preload iso aortic stenosis, therefore this held and fagan maintained with plans for optimizing bowel regimen. urine culture + Klebsiella. Patient now s/p lap shavon on 06/27. Patient doing well with some postoperative pain, but otherwise denies any acute concerns. #Sepsis, improving #Acute cholecystitis with cholelithiasis s/p lap shavon 06/27 #Transaminitis --CT ABD:Cholelithiasis. Mild pericholecystic fat stranding raises concern for acute cholecystitis. Atherosclerotic changes of the vasculature. Distal abdominal aortic aneurysm measuring 3.4 cm in diameter. No aortic dissection. --Gall Bladder USD:Findings suggestive of acute cholecystitis. Mild dilatation of the common bile duct. This could be correlated with obstructive liver function tests. --S/P ultrasound-guided gallbladder catheter placement by IR on 06/23/2023 --Blood cultures negative to date --Gallbladder fluid culture growing Klebsiella --Continue IV Zosyn, IV fluids --pain control --LFTs trending down -Lap shavon 06/27, doing well surgery following -advance diet to regular Hgb stable #Leukocytosis, post op #Lymphocytosis in Elderly Incidental finding ? Secondary to infection Peripheral smear reviewed Flow cytometry/FISH pending Repeat CBC with diff #Urinary retention #Acute cystitis Continue Fagan catheter for now Avoid tamsulosin given hemodynamics with moderate aortic stenosis Appreciate urology input -7-10 days voiding trial as able UA with klebsiella, on Zosyn as above, will narrow contingent on abx recommendations s/p shavon #Hypomagnesemia Replete electrolytes as needed Monitor #Abdominal aortic aneurysm CT as above Monitor #Left hydrocele -Scrotal ultrasound: No acute sonographic abnormality is seen involving the testes or scrotum.. Moderate to large left-sided hydrocele. Follow-up as outpatient #Hyperlipidemia Hold statin due to transaminitis Resume statin as able #Hypertension Continue metoprolol Monitor BP #CAD S/P CABG/stent #Valvular heart disease (moderate , mild MR, TTE 2022) Monitor volume status closely Continue aspirin, metoprolol Resume statin as able Appreciate cardiology input #H/O CVA, PVD S/P surgery Continue aspirin Resume statin as able #COPD Continue home inhalers Monitor #Prediabetes Last HbA1c 6.4 #Possible alcohol abuse Past tobacco abuse Continue thiamine, folic acid Monitor for withdrawal DVT Px Heparin SQ,scd Code Status Full code Admission and Anticipated Discharge Date Admission Date: June 23, 2023 Subjective POD 1 mamadou sands Reports right shoulder discomfort, but other kirby states his pain is present, but improved and different than prior pre-op pain Tolerating diet thus far and denies any nausea Physical Exam Constitutional: WD/WN, vitals as above Respiratory: normal respiratory effort, lungs clear to auscultation Cardiovascular: RRR, no murmur, no edema Gastrointestinal (Abdomen): dry bandage RUQ, area of prior drain exposed, no signs of superimposed infection or bleeding Results & Data Results & Data Vital Signs (Past 12 Hours) Vital Signs Temp Pulse Pulse Resp BP Pulse Ox O2 Del Method 06/29/23 15:31 36.5 C 99 H 20 150/71 H 94 Room Air 06/29/23 15:14 80 06/29/23 15:08 92 H 22 96 Nasal Cannula 06/29/23 11:20 36.3 C L 65 20 108/62 92 Nasal Cannula 06/29/23 09:18 Nasal Cannula 06/29/23 07:45 68 06/29/23 07:37 36.4 C L 81 20 133/67 94 Nasal Cannula O2 Flow Rate 06/29/23 15:31 06/29/23 15:14 06/29/23 15:08 2 06/29/23 11:20 2 06/29/23 09:18 2 06/29/23 07:45 06/29/23 07:37 2 Laboratory Results Short CBC 06/29/23 Range/Units 04:29 WBC 17.05 H (4.8-10.8) K/ul Hgb 13.2 L (14.0-18.0) g/dl Hct 39.6 L (42.0-52.0) % Plt Count 166 (130-400) K/uL BMP 06/29/23 04:29 Sodium 137 Potassium 3.9 Chloride 105 Carbon Dioxide 27 BUN 8 Creatinine 0.93 Glucose 105 H Calcium 8.7 Liver Function 06/28/23 06/29/23 Range/Units 18:09 04:29 Total Bilirubin 0.7 0.6 (0.2-1.0) mg/dl Direct Bilirubin 0.3 H 0.2 (0-0.2) mg/dl AST 51 H 40 H (13-39) U/L ALT 55 H 47 (7-52) U/L Alkaline Phosphatase 125 H 124 H (34-104) U/L Albumin 3.4 3.2 L (3.4-5.0) gm/dl
[2023-06-29] MEDS: guaiFENesin 600 MG TABCR PO SCH (20:40)
[2023-06-29] MEDS: oxyCODONE HCL IR 5 MG TAB (IMMEDIATE RELEASE) PO PRN (20:40)
[2023-06-30 06:10] LABS: Hematocrit (blood only) 36.9 % (42.0-52.0); Hemoglobin 12.3 g/dl (14.0-18.0); Mean Corpuscular Hemoglobin 28.8 pg (25.0-34.0); Mean Corpuscular Hgb Conc 33.3 g/dL (32.0-36.0); Mean Corpuscular Volume 86.4 fL (80.0-100.0); Mean Platelet Volume 9.6 fL (9.4-12.4); Platelet Count 165 K/uL (130-400); RDW Coefficient of Variation 15.1 % (11.5-14.5); Red Blood Count 4.27 M/uL (4.70-6.10); White Blood Count 14.83 K/ul (4.8-10.8)
[2023-06-30 06:34] LABS: Albumin Level 3.2 gm/dl (3.4-5.0); BUN Creatinine Ratio 7.5 (10-20); Bilirubin,Total 0.8 mg/dl (0.2-1.0); Calcium 8.8 mg/dl (8.6-10.3); Creatinine Clr Calc Pharmacy 53.8 ml/min; Est GFR (African American) 76.4 ml/min; Globulin 3.2 gm/dl (2.5-4.0); Magnesium 1.8 mg/dl (1.7-2.4); Phosphorus 3.1 mg/dl (2.5-4.9); Potassium 3.9 mmol/L (3.5-5.1); Total Protein 6.4 gm/dl (6.0-8.3)
[2023-06-30 08:14] LABS: Basophils # (auto) 0.07 K/uL (0.00-0.20); Basophils % (auto) 0.5 %; Eosinophils # (auto) 0.25 K/uL (0.00-0.50); Eosinophils % (auto) 1.7 %; Immature Granulocytes # (auto) 0.06 K/uL (0.01-0.20); Immature Granulocytes % (auto) 0.4 %; Lymphocytes % (auto) 37.8 %; Monocytes # (auto) 1.56 K/uL (0.11-0.59); Monocytes % (auto) 10.5 %; Neutrophils # (auto) 7.29 K/uL (1.40-6.50); Neutrophils % (auto) 49.1 %
--- NOTE | 2023-06-30 08:50 | Surgery Progress Note ---
<Statement entered by Natalie Brooks, DO - 06/30/23 13:09> I agree with this plan Date of Service June 30, 2023 Assessment & Plan (1) Cholecystitis: Plan: POD#2 Lap shavon WBC 14, (17) Hbg 12, LFTs ok Patient's vitals are stable; he remains on 2L nasal cannula He reports improvement in abdominal pain overall, some tenderness expected can incisionally Tolerating advancement in diet without issue Remains on zosyn for now Pt worked with PT who is recommending rehab, he is dispo pending placement Encourage ambulation and pulmonary toileting Will need f/u in the office with Dr. Brooks within 2 weeks Admission and Anticipated Discharge Date Admission Date: June 23, 2023 Subjective Patient states he is feeling well this AM. Pain controlled. Diet tolerated. No nausea/vomiting. + flatus and BM's. Physical Exam Physical Exam: awake/alert, no distress. sitting up in chair Respiratory: normal respiratory effort Gastrointestinal (Abdomen): Inspection/Auscultation: + abdominal surgical incision (c/d/i with skin glue, some umbilical ecchymosis ); abdomen not distended Percussion/Palpation: + abdomen tender (expected can incisional discomfort ) and abdomen soft Results & Data Vital Signs (Past 12 Hours) Vital Signs Temp Pulse Pulse Resp BP Pulse Ox O2 Del Method 06/30/23 07:25 97.9 F 71 20 117/65 93 Nasal Cannula 06/30/23 07:16 61 06/30/23 04:41 66 111/65 06/30/23 03:30 98.1 F 70 16 94/52 L 94 Nasal Cannula 06/29/23 22:42 98.2 F 92 H 18 132/68 93 Nasal Cannula 06/29/23 21:53 90 O2 Flow Rate 06/30/23 07:25 2 06/30/23 07:16 06/30/23 04:41 06/30/23 03:30 2 06/29/23 22:42 2 06/29/23 21:53 PG Care Time/CCT Total # of Minutes Spent Total Time Spent with Patient: Total time spent is greater than 50% in coordination of care (as documented) at patient's floor/unit and/or counseling patient: Coding Level of Care Code 77665 Post Operative Follow-Up Diagnoses Cholecystitis K81.9
--- NOTE | 2023-06-30 12:13 | Hospitalist Progress Note ---
Date of Service June 30, 2023 Assessment & Plan (1) Sepsis: Plan: Mr. Bain is an 82 year old gentlemen with history of severe aortic stenosis, NSTEMI 2/2 severe CAD with history of remote CABG in 2012 who is admitted for concerns of cholecystitis. Perc-drain placed on 06/23 with notable improvement in symptoms; however, given concern of patient's tenuous cardiac status, age, and living situation, it was determined that lap shavon sooner than later would be safest option. Course complicated by urinary retention for which urology evaluated and recommended tamsulosin and fagan for 7-10 days. Tamsulosin held given patient's need for preload iso aortic stenosis, therefore this held and fagan maintained with plans for optimizing bowel regimen. urine culture + Klebsiella. Patient now s/p lap shavon on 06/27. Patient doing well with some postoperative pain, but otherwise denies any acute concerns. He denies any new symptoms and reports feeling markedly improved. #Sepsis, improving #Acute cholecystitis with cholelithiasis s/p lap shavon 06/27 #Transaminitis --CT ABD:Cholelithiasis. Mild pericholecystic fat stranding raises concern for acute cholecystitis. Atherosclerotic changes of the vasculature. Distal abdominal aortic aneurysm measuring 3.4 cm in diameter. No aortic dissection. --Gall Bladder USD:Findings suggestive of acute cholecystitis. Mild dilatation of the common bile duct. This could be correlated with obstructive liver function tests. --S/P ultrasound-guided gallbladder catheter placement by IR on 06/23/2023 --Blood cultures negative to date --Gallbladder fluid culture growing Klebsiella --Discontinue IV Zosyn, transition to CTX in interim for UTI below --pain control --LFTs trending down -Lap shavon 06/27, doing well surgery following -advance diet to regular Hgb stable Plan for OP follow up in [address] Halley Rendon #Leukocytosis, post op #Lymphocytosis in Elderly Incidental finding ? Secondary to infection Peripheral smear reviewed Flow cytometry/FISH pending Repeat CBC with diff WBC down from 17-14 #Urinary retention #Acute cystitis Continue Fagan catheter for now Avoid tamsulosin given hemodynamics with moderate aortic stenosis Appreciate urology input -7-10 days voiding trial as able UA with klebsiella, on Zosyn as above, will narrow contingent on abx recommendations s/p shavon -Transition to CTX for 4 more days (po upon dispo) #Hypomagnesemia Replete electrolytes as needed Monitor #Abdominal aortic aneurysm CT as above Monitor #Left hydrocele -Scrotal ultrasound: No acute sonographic abnormality is seen involving the testes or scrotum.. Moderate to large left-sided hydrocele. Follow-up as outpatient #Hyperlipidemia Hold statin due to transaminitis Resume statin as able #Hypertension Continue metoprolol Monitor BP #CAD S/P CABG/stent #Valvular heart disease (moderate , mild MR, TTE 2022) Monitor volume status closely Continue aspirin, metoprolol Resume statin as able Appreciate cardiology input #H/O CVA, PVD S/P surgery Continue aspirin Resume statin as able #COPD Continue home inhalers Monitor #Prediabetes Last HbA1c 6.4 #Possible alcohol abuse Past tobacco abuse Continue thiamine, folic acid Monitor for withdrawal DVT Px Heparin SQ,scd Code Status Full code Admission and Anticipated Discharge Date Admission Date: June 23, 2023 Subjective Patient evaluated at bedside Reports feeling much better, especially in comparison to yesterday Notes shoulder pain is near resolved. Reports mild pain but well controlled with pain regimen BM yesterday Physical Exam Constitutional: WD/WN, vitals as above Respiratory: normal respiratory effort, lungs clear to auscultation Cardiovascular: RRR, no murmur, no edema Results & Data Results & Data Vital Signs (Past 12 Hours) Vital Signs Temp Pulse Pulse Resp BP Pulse Ox O2 Del Method 06/30/23 11:38 36.5 C 74 18 108/65 93 Room Air 06/30/23 07:25 36.6 C 71 20 117/65 93 Nasal Cannula 06/30/23 07:20 Nasal Cannula 06/30/23 07:16 61 06/30/23 04:41 66 111/65 06/30/23 03:30 36.7 C 70 16 94/52 L 94 Nasal Cannula O2 Flow Rate 06/30/23 11:38 06/30/23 07:25 2 06/30/23 07:20 2 06/30/23 07:16 06/30/23 04:41 06/30/23 03:30 2 Laboratory Results Short CBC 06/30/23 Range/Units 05:34 WBC 14.83 H (4.8-10.8) K/ul Hgb 12.3 L (14.0-18.0) g/dl Hct 36.9 L (42.0-52.0) % Plt Count 165 (130-400) K/uL BMP 06/30/23 05:34 Sodium 135 L Potassium 3.9 Chloride 101 Carbon Dioxide 29 BUN 8 Creatinine 1.06 Glucose 91 Calcium 8.8 Liver Function 06/30/23 Range/Units 05:34 Total Bilirubin 0.8 (0.2-1.0) mg/dl AST 24 (13-39) U/L ALT 36 (7-52) U/L Alkaline Phosphatase 113 H (34-104) U/L Albumin 3.2 L (3.4-5.0) gm/dl Medications Administered Home Medications Medication Instructions Recorded Confirmed Last Taken albuterol sulfate 90 mcg/actuation 2 puff inhalation Q6 PRN Shortness 01/18/19 06/23/23 03/01/23 aerosol inhaler (ProAir HFA) Of Breath Or Wheezing aspirin 81 mg tablet,delayed 81 mg PO QAM 01/18/19 06/23/23 01/18/19 release furosemide 20 mg tablet 20 mg PO QAM 01/18/19 06/23/23 01/18/19 metoprolol tartrate 25 mg tablet 25 mg PO Q12 01/18/19 06/23/23 01/18/19 omeprazole 40 mg capsule,delayed 40 mg PO DAILYBB 01/18/19 06/23/23 01/18/19 release rosuvastatin 40 mg tablet (Crestor) 40 mg PO QAM 01/18/19 06/23/23 01/18/19 spironolactone 25 mg tablet 12.5 mg PO QAM 01/18/19 06/23/23 01/18/19 triamcinolone acetonide 0.5 % 1 applic topical BID PRN flare ups 01/18/19 06/23/23 01/17/19 topical cream cyanocobalamin (vitamin B-12) 1,000 mcg PO DAILY 04/11/20 06/23/23 Unknown 1,000 mcg tablet (Vitamin B-12) cyclobenzaprine 10 mg tablet 5 mg PO BID Spasms 02/11/22 06/23/23 Unknown tiotropium bromide 2.5 2 puff inhalation QAM 02/11/22 06/23/23 Unknown mcg/actuation mist for inhalation (Spiriva Respimat) ascorbic acid (vitamin C) 500 mg 500 mg PO QPM 03/02/23 06/23/23 Unknown tablet (Vitamin C) levalbuterol HCl 1.25 mg/3 mL 1.25 mg inhalation .Q6HR PRN 03/02/23 06/23/23 Unknown solution for nebulization Shortness Of Breath Or Wheezing levalbuterol tartrate 45 1 puff inhalation Q4 PRN Shortness 03/02/23 06/23/23 Unknown mcg/actuation aerosol inhaler Of Breath Or Wheezing (Xopenex HFA) lorazepam 0.5 mg tablet 0.5 mg PO TID PRN Anxiety 06/23/23 06/23/23 Unknown nitroglycerin 0.4 mg sublingual 0.4 mg sublingual .Q 5 MIN PRN 06/23/23 06/23/23 Unknown tablet Chest Pain zinc acetate 50 mg (zinc) capsule 50 mg PO QAM 06/23/23 06/23/23 Unknown Active Medications Generic Name Dose Route Start Last Admin Trade Name Freq PRN Reason Stop Dose Admin Acetaminophen 500 mg 06/23/23 04:58 06/29/23 06:06 Acetaminophen 500 Mg Tab PO 07/23/23 04:57 500 mg Q6H PRN Administration fever/pain Aspirin 81 mg 06/23/23 09:00 06/30/23 08:21 Aspirin 81 Mg Ectab PO 07/23/23 08:59 81 mg QAM MAYITO Administration Cyclobenzaprine HCl 5 mg 06/23/23 09:00 06/30/23 08:21 Cyclobenzaprine Hcl 5 Mg Tab PO 07/23/23 08:59 5 mg BID MAYITO Administration Famotidine 10 mg 06/27/23 12:44 06/30/23 08:20 Famotidine 10 Mg Tablet PO 07/27/23 12:44 10 mg BID PRN Administration Heartburn Folic Acid 1 mg 06/23/23 09:00 06/30/23 08:21 Folic Acid 1 Mg Tab PO 07/23/23 08:59 1 mg QAM MAYITO Administration Guaifenesin 600 mg 06/29/23 21:00 06/30/23 08:20 Guaifenesin 600 Mg Tabcr PO 07/29/23 20:59 600 mg Q12 MAYITO Administration Heparin Sodium (Porcine) 5,000 units 06/24/23 21:00 06/30/23 08:22 Heparin Sod 5,000 Unit/0.5 Ml Vial SQ 07/24/23 20:59 5,000 units Q12 MAYITO Administration Hydromorphone HCl 0.5 mg 06/23/23 12:19 06/29/23 17:52 Hydromorphone Inj 0.5 Mg/0.5 Ml Syr IV 07/07/23 05:00 0.5 mg Q3H PRN Administration Pain Piperacillin Sod/Tazobactam 100 mls @ 25 mls/hr 06/23/23 12:00 06/30/23 08:21 Sod 4.5 gm/ Dextrose IV 07/03/23 11:59 23 mls/hr Q8H MAYITO Administration Protocol Promethazine HCl 6.25 mg/ 50.25 mls @ 201 mls/hr 06/23/23 04:58 06/24/23 18:25 Sodium Chloride IV 07/23/23 04:57 Infused Q6H PRN Infusion Nausea And Vomiting Ipratropium Balmorhea 0.5 mg 06/23/23 04:58 06/29/23 15:08 Ipratropium [place] Neb Soln 0.02% 0.5mg/2.5ml Vial INH 07/23/23 04:57 0.5 mg Q4H PRN Administration sob wheeze Levalbuterol HCl 1.25 mg 06/23/23 04:58 06/29/23 15:08 Levalbuterol 1.25 Mg/3 Ml Neb NEB 07/23/23 04:57 1.25 mg Q4H PRN Administration sob wheeze Lidocaine 1 patch 06/29/23 09:00 06/30/23 08:22 Lidocaine 5% 1 Patch TD 07/29/23 08:59 1 patch QAM MAYITO Administration Lorazepam 0.5 mg 06/23/23 04:58 06/29/23 20:40 Lorazepam 0.5 Mg Tab PO 07/23/23 04:57 0.5 mg TID PRN Administration Anxiety Metoprolol Tartrate 25 mg 06/23/23 21:00 06/30/23 08:21 Metoprolol Tartrate 25 Mg Tab PO 07/23/23 20:59 25 mg BID MAYITO Administration Miscellaneous 1 each 06/29/23 21:00 06/29/23 20:44 Remove Lidoderm Patch N/A 07/29/23 20:59 1 each DAILY@2100 MAYITO Administration Multivitamins 1 tab 06/23/23 09:00 06/30/23 08:21 Multivitamin Tab PO 07/23/23 08:59 1 tab QAM MAYITO Administration Oxycodone HCl 10 mg 06/29/23 15:30 06/30/23 08:20 Oxycodone Hcl Ir 5 Mg Tab (Immediate Release) PO 07/13/23 15:29 10 mg Q4H PRN Administration Severe Pain (Scale 7, 8, 9,10) Pantoprazole Sodium 40 mg 06/23/23 06:30 06/30/23 05:45 Pantoprazole 40 Mg Tab PO 07/23/23 06:29 40 mg DAILYBB MAYITO Administration Rosuvastatin Calcium 40 mg 06/23/23 09:00 06/23/23 09:13 Rosuvastatin Calcium 20 Mg Tab PO 07/23/23 08:59 Not Given QAM MAYITO Thiamine HCl 100 mg 06/24/23 09:00 06/30/23 08:22 Thiamine Hcl 100 Mg Tab PO 07/24/23 08:59 100 mg QAM MAYITO Administration Umeclidinium [place] 1 puffs 06/23/23 09:00 06/30/23 08:23 Umeclidinium [place] 62.5mcg/Blister 7 Puffs/Inhaler INH 07/23/23 08:59 1 puffs QAM MAYITO Administration
[2023-06-30] MEDS: cefTRIAXone SODIUM 2,000 MG in DEXTROSE 5 % MINI-B 50 ML IV SCH (15:42)
[2023-06-30] MEDS: MELATONIN 3 MG TAB PO PRN (23:26)
--- NOTE | 2023-07-01 05:58 | Surgery Progress Note ---
Date of Service July 01, 2023 Assessment & Plan (1) Cholecystitis: Plan: Patient is status post laparoscopic cholecystectomy on 06/28/2023 (postop day #3) Continue analgesics as needed Continue antiemetics as needed Continue diet as tolerated Mobilize as ablepatient is to work with PT with potential rehab placement Continue antibiotics in form of Rocephin while hospitalized Subcutaneous heparin is in place for DVT prevention Admission and Anticipated Discharge Date Admission Date: June 23, 2023 Supervising Physician Co-Signing Physician Notes pnt S&E, agree w/ above. s/p lap shavon, doing well, wbc downtrending, pain improved, tolerating diet. cont abx til wbc normal Subjective Patient is resting comfortably in bed. He denies any nausea or vomiting. He notes that his abdomenal pain has markedly improved since his surgery. He notes he is currently tolerating solid food. I discussed with night shift manager nurse attending the patient who did not report any issues. Physical Exam Gastrointestinal (Abdomen): Abdomen has slight distention but is overall soft with appropriate tenderness near surgical incisions. All of his surgical incisions are clean, dry, and intact. Bowel sounds are present. Results & Data Vital Signs (Past 12 Hours) Vital Signs Temp Pulse Pulse Resp BP Pulse Ox O2 Del Method 07/01/23 03:32 36.6 C 68 18 119/59 L 96 Nasal Cannula 06/30/23 23:09 86 06/30/23 23:00 36.6 C 79 18 107/60 93 Nasal Cannula 06/30/23 22:10 Nasal Cannula 06/30/23 21:45 88 17 94 Nasal Cannula 06/30/23 19:00 36.5 C 84 18 113/63 94 Nasal Cannula O2 Flow Rate 07/01/23 03:32 3 06/30/23 23:09 06/30/23 23:00 3 06/30/23 22:10 2 06/30/23 21:45 2 06/30/23 19:00 2 PG Care Time/CCT Total # of Minutes Spent Total Time Spent with Patient: Total time spent is greater than 50% in coordination of care (as documented) at patient's floor/unit and/or counseling patient: Coding Level of Care Code 50395 Post Operative Follow-Up Diagnoses Cholecystitis K81.9
--- NOTE | 2023-07-01 14:04 | Hospitalist Progress Note ---
Date of Service July 01, 2023 Assessment & Plan (1) Sepsis: Plan: Mr. Bain is an 82 year old gentlemen with history of severe aortic stenosis, NSTEMI 2/2 severe CAD with history of remote CABG in 2012 who is admitted for concerns of cholecystitis. Perc-drain placed on 06/23 with notable improvement in symptoms; however, given concern of patient's tenuous cardiac status, age, and living situation, it was determined that lap shavon sooner than later would be safest option. Course complicated by urinary retention for which urology evaluated and recommended tamsulosin and fagan for 7-10 days. Tamsulosin held given patient's need for preload iso aortic stenosis, therefore this held and fagan maintained with plans for optimizing bowel regimen. urine culture + Klebsiella. Patient now s/p lap shavon on 06/27. Patient doing well with some postoperative pain, but otherwise denies any acute concerns. He denies any new symptoms and reports feeling markedly improved. Patient with continued O2 requirement s/p procedure. Potentially related to post op atelectasis, insufficiency, or volume. Will get CXR. New skin irritation from barrier cream consistent with a contact dermatitis, discontinue all silicone based products. #Contact dermatitis of perineum -erythema and chaffing after application of silicone barrier ointment -Discontinue silicone based barrier creams -Add hydrocortisone in interim given acute discomfort #Sepsis, resolved #Acute cholecystitis with cholelithiasis s/p lap shavon 06/27 #Transaminitis --CT ABD:Cholelithiasis. Mild pericholecystic fat stranding raises concern for acute cholecystitis. Atherosclerotic changes of the vasculature. Distal abdominal aortic aneurysm measuring 3.4 cm in diameter. No aortic dissection. --Gall Bladder USD:Findings suggestive of acute cholecystitis. Mild dilatation of the common bile duct. This could be correlated with obstructive liver function tests. --S/P ultrasound-guided gallbladder catheter placement by IR on 06/23/2023 --Blood cultures negative to date --Gallbladder fluid culture growing Klebsiella --Discontinue IV Zosyn, transitioned to CTX in interim for UTI below --pain control --LFTs trending down, CMP in am -Lap shavon 06/27, doing well surgery following -Continue regular diet, Incentive spirometry Hgb stable Plan for OP follow up in [address] Halley Rendon #Acute hypoxic respiratory insufficiency s/p post op #COPD Continue home inhalers and neb treatments Encourage IS and mucinex Add flutter valve CXR Resume home lasix #Leukocytosis, post op #Lymphocytosis in Elderly Incidental finding ? Secondary to infection Peripheral smear reviewed Flow cytometry/FISH pending Repeat CBC with diff WBC down from 17-14 Repeat CBC in am #Urinary retention #Acute cystitis Continue Fagan catheter for now Avoid tamsulosin given hemodynamics with moderate aortic stenosis Appreciate urology input -7-10 days voiding trial as able UA with klebsiella, on Zosyn as above, will narrow contingent on abx recommendations s/p shavon -Transition to CTX EOT 07/02 (po upon dispo) #Hypomagnesemia Replete electrolytes as needed Monitor #Abdominal aortic aneurysm CT as above Monitor #Left hydrocele -Scrotal ultrasound: No acute sonographic abnormality is seen involving the testes or scrotum.. Moderate to large left-sided hydrocele. Follow-up as outpatient #Hyperlipidemia Hold statin due to transaminitis Resume statin as able #Hypertension Continue metoprolol Monitor BP #CAD S/P CABG/stent #Valvular heart disease (moderate , mild MR, TTE 2022) Monitor volume status closely Continue aspirin, metoprolol Resume statin as able Appreciate cardiology input #H/O CVA, PVD S/P surgery Continue aspirin Resume statin as able #Prediabetes Last HbA1c 6.4 #Possible alcohol abuse Past tobacco abuse Continue thiamine, folic acid Monitor for withdrawal DVT Px Heparin SQ,scd Code Status Full code Admission and Anticipated Discharge Date Admission Date: June 23, 2023 Subjective NAEO Evaluated patient in bedside chair--coughing, but reports thats at baseline with his COPD Reports some RUQ soreness, but not pain--worries about bearing down too hard with coughing, but otherwise stable Notes erythema of scrotum/buttocks after application of barrier cream with silicone base Still on 3L, but denies SOB Physical Exam Constitutional: WD/WN, vitals as above Respiratory: rhonchi, cleared with cough Cardiovascular: RRR, no murmur, no edema Skin: erythema in inguinal area and posterior scrotum up to perineum consistent with barrier cream placement Results & Data Results & Data Vital Signs (Past 12 Hours) Vital Signs Temp Pulse Pulse Resp BP BP Pulse Ox 07/01/23 13:14 36.5 C 78 18 113/64 96 04/13/24 08:45 07/01/23 08:08 36.3 C L 71 20 119/64 94 07/01/23 07:43 65 07/01/23 03:32 36.6 C 68 18 119/59 L 96 O2 Del Method O2 Flow Rate 07/01/23 13:14 Nasal Cannula 3 07/01/23 08:45 Nasal Cannula 2 07/01/23 08:08 Nasal Cannula 2 07/01/23 07:43 07/01/23 03:32 Nasal Cannula 3 Medications Administered Home Medications Medication Instructions Recorded Confirmed Last Taken albuterol sulfate 90 mcg/actuation 2 puff inhalation Q6 PRN Shortness 01/18/19 06/23/23 03/01/23 aerosol inhaler (ProAir HFA) Of Breath Or Wheezing aspirin 81 mg tablet,delayed 81 mg PO QAM 01/18/19 06/23/23 01/18/19 release furosemide 20 mg tablet 20 mg PO QAM 01/18/19 06/23/23 01/18/19 metoprolol tartrate 25 mg tablet 25 mg PO Q12 01/18/19 06/23/23 01/18/19 omeprazole 40 mg capsule,delayed 40 mg PO DAILYBB 01/18/19 06/23/23 01/18/19 release rosuvastatin 40 mg tablet (Crestor) 40 mg PO QAM 01/18/19 06/23/23 01/18/19 spironolactone 25 mg tablet 12.5 mg PO QAM 01/18/19 06/23/23 01/18/19 triamcinolone acetonide 0.5 % 1 applic topical BID PRN flare ups 01/18/19 06/23/23 01/17/19 topical cream cyanocobalamin (vitamin B-12) 1,000 mcg PO DAILY 04/11/20 06/23/23 Unknown 1,000 mcg tablet (Vitamin B-12) cyclobenzaprine 10 mg tablet 5 mg PO BID Spasms 02/11/22 06/23/23 Unknown tiotropium bromide 2.5 2 puff inhalation QAM 02/11/22 06/23/23 Unknown mcg/actuation mist for inhalation (Spiriva Respimat) ascorbic acid (vitamin C) 500 mg 500 mg PO QPM 03/02/23 06/23/23 Unknown tablet (Vitamin C) levalbuterol HCl 1.25 mg/3 mL 1.25 mg inhalation .Q6HR PRN 03/02/23 06/23/23 Unknown solution for nebulization Shortness Of Breath Or Wheezing levalbuterol tartrate 45 1 puff inhalation Q4 PRN Shortness 03/02/23 06/23/23 Unknown mcg/actuation aerosol inhaler Of Breath Or Wheezing (Xopenex HFA) lorazepam 0.5 mg tablet 0.5 mg PO TID PRN Anxiety 06/23/23 06/23/23 Unknown nitroglycerin 0.4 mg sublingual 0.4 mg sublingual .Q 5 MIN PRN 06/23/23 06/23/23 Unknown tablet Chest Pain zinc acetate 50 mg (zinc) capsule 50 mg PO QAM 06/23/23 06/23/23 Unknown Active Medications Generic Name Dose Route Start Last Admin Trade Name Freq PRN Reason Stop Dose Admin Acetaminophen 500 mg 06/23/23 04:58 06/29/23 06:06 Acetaminophen 500 Mg Tab PO 07/23/23 04:57 500 mg Q6H PRN Administration fever/pain Aspirin 81 mg 06/23/23 09:00 07/01/23 08:37 Aspirin 81 Mg Ectab PO 07/23/23 08:59 81 mg QAM MAYITO Administration Cyclobenzaprine HCl 5 mg 06/23/23 09:00 07/01/23 08:37 Cyclobenzaprine Hcl 5 Mg Tab PO 07/23/23 08:59 5 mg BID MAYITO Administration Famotidine 10 mg 06/27/23 12:44 06/30/23 08:20 Famotidine 10 Mg Tablet PO 07/27/23 12:44 10 mg BID PRN Administration Heartburn Folic Acid 1 mg 06/23/23 09:00 07/01/23 08:36 Folic Acid 1 Mg Tab PO 07/23/23 08:59 1 mg QAM MAYITO Administration Guaifenesin 600 mg 06/29/23 21:00 07/01/23 08:37 Guaifenesin 600 Mg Tabcr PO 07/29/23 20:59 600 mg Q12 MAYITO Administration Heparin Sodium (Porcine) 5,000 units 06/24/23 21:00 07/01/23 08:37 Heparin Sod 5,000 Unit/0.5 Ml Vial SQ 07/24/23 20:59 5,000 units Q12 MAYITO Administration Hydromorphone HCl 0.5 mg 06/23/23 12:19 06/30/23 20:17 Hydromorphone Inj 0.5 Mg/0.5 Ml Syr IV 07/07/23 05:00 0.5 mg Q3H PRN Administration Pain Promethazine HCl 6.25 mg/ 50.25 mls @ 201 mls/hr 06/23/23 04:58 06/24/23 18:25 Sodium Chloride IV 07/23/23 04:57 Infused Q6H PRN Infusion Nausea And Vomiting Ceftriaxone Sodium 2,000 mg/ 50 mls @ 100 mls/hr 06/30/23 16:00 06/30/23 16:22 Dextrose IV 07/04/23 15:59 Infused Q24H MAYITO Infusion Protocol Ipratropium [place] 0.5 mg 06/23/23 04:58 06/30/23 21:44 Ipratropium [place] Neb Soln 0.02% 0.5mg/2.5ml Vial INH 07/23/23 04:57 0.5 mg Q4H PRN Administration sob wheeze Levalbuterol HCl 1.25 mg 06/23/23 04:58 06/30/23 21:44 Levalbuterol 1.25 Mg/3 Ml Neb NEB 07/23/23 04:57 1.25 mg Q4H PRN Administration sob wheeze Lidocaine 1 patch 06/29/23 09:00 07/01/23 08:37 Lidocaine 5% 1 Patch TD 07/29/23 08:59 1 patch QAM MAYITO Administration Lorazepam 0.5 mg 06/23/23 04:58 06/29/23 20:40 Lorazepam 0.5 Mg Tab PO 07/23/23 04:57 0.5 mg TID PRN Administration Anxiety Melatonin 3 mg 06/30/23 23:16 06/30/23 23:26 Melatonin 3 Mg Tab PO 07/30/23 23:15 3 mg HS PRN Administration Sleep Metoprolol Tartrate 25 mg 06/23/23 21:00 07/01/23 08:37 Metoprolol Tartrate 25 Mg Tab PO 07/23/23 20:59 25 mg BID MAYITO Administration Miscellaneous 1 each 06/29/23 21:00 06/30/23 20:18 Remove Lidoderm Patch N/A 07/29/23 20:59 1 each DAILY@2100 MAYITO Administration Multivitamins 1 tab 06/23/23 09:00 07/01/23 08:36 Multivitamin Tab PO 07/23/23 08:59 1 tab QAM MAYITO Administration Oxycodone HCl 10 mg 06/29/23 15:30 06/30/23 23:26 Oxycodone Hcl Ir 5 Mg Tab (Immediate Release) PO 07/13/23 15:29 10 mg Q4H PRN Administration Severe Pain (Scale 7, 8, 9,10) Pantoprazole Sodium 40 mg 06/23/23 06:30 07/01/23 05:27 Pantoprazole 40 Mg Tab PO 07/23/23 06:29 40 mg DAILYBB MAYITO Administration Rosuvastatin Calcium 40 mg 06/23/23 09:00 06/23/23 09:13 Rosuvastatin Calcium 20 Mg Tab PO 07/23/23 08:59 Not Given QAM MAYITO Thiamine HCl 100 mg 06/24/23 09:00 07/01/23 08:36 Thiamine Hcl 100 Mg Tab PO 07/24/23 08:59 100 mg QAM MAYITO Administration Umeclidinium [place] 1 puffs 06/23/23 09:00 07/01/23 08:38 Umeclidinium [place] 62.5mcg/Blister 7 Puffs/Inhaler INH 07/23/23 08:59 1 puffs QAM MAYITO Administration
[2023-07-01] MEDS: FUROSEMIDE 20 MG TAB PO SCH (14:44)
[2023-07-01] MEDS: HYDROCORTISONE 1% OINT 30 GM TUBE EXT PRN (14:45)
--- NOTE | 2023-07-01 15:03 | XRay Report ---
XR chest 1V portable HISTORY: 82 years-old Male hypoxia acute hypoxia COMPARISON: 06/23/2023 TECHNIQUE: AP view of the chest FINDINGS: Cardiac silhouette is enlarged. Median sternotomy. Emphysema with chronic interstitial coarsening. Pr obable trace pleural effusions. No pneumothorax. Pulmonary vascular congestion. Left upper quadrant s urgical coils. Chronic blunting of the costophrenic angles. Mild subsegmental bibasilar opacities. IMPRESSION: 1. Cardiomegaly with pulmonary vascular congestion. 2. Probable trace pleural effusions with mild bibasilar atelectasis. 3. Emphysema. ACT 112: Negative or not required by law. The above report was generated using voice recognition software. It may contain grammatical, syntax o r spelling errors. Electronically signed by: Paco Cerna M.D. 07/01/2023 3:01 PM
--- NOTE | 2023-07-02 05:31 | Surgery Progress Note ---
Date of Service July 02, 2023 Assessment & Plan (1) Cholecystitis: Plan: Patient is status post laparoscopic cholecystectomy on 06/28/2023 (postop day #4) Continue analgesics as needed Continue antiemetics as needed Continue diet as tolerated Continue to mobilize as ablepatient is to work with PT with potential rehab placement Antibiotics in form of Rocephin are to continue while hospitalized Subcutaneous heparin is in place for DVT prevention Admission and Anticipated Discharge Date Admission Date: June 23, 2023 Supervising Physician Co-Signing Physician Notes pnt S&E, agree w/ above. s/p lap shavon, doing well. incisions w/ bruising, no infx. tolerating diet. d/c to SNF, f/u w/ Dr. Brooks in 2 weeks. wound care instructions and activity restrictions reviewed. Subjective Patient is resting comfortably in bed. He notes some tenderness in the right upper quadrant of his abdomen but notes that this is markedly improved since his surgery. He notes that he is tolerating solid food without any nausea or vomiting and oral intake does not exacerbate any abdominal pain. He notes that his bowels have moved since surgery. Results & Data Vital Signs (Past 12 Hours) Vital Signs Temp Pulse Pulse Resp BP Pulse Ox O2 Del Method 07/02/23 04:00 36.5 C 76 18 111/65 94 Nasal Cannula 07/01/23 23:46 36.5 C 75 18 107/61 94 Nasal Cannula 07/01/23 22:42 81 07/01/23 22:09 Nasal Cannula 07/01/23 19:00 36.8 C 85 18 108/66 94 Nasal Cannula O2 Flow Rate 07/02/23 04:00 2 07/01/23 23:46 2 07/01/23 22:42 07/01/23 22:09 2 07/01/23 19:00 2 PG Care Time/CCT Total # of Minutes Spent Total Time Spent with Patient: Total time spent is greater than 50% in coordination of care (as documented) at patient's floor/unit and/or counseling patient: Coding Level of Care Code 38328 Post Operative Follow-Up Diagnoses Cholecystitis K81.9
[2023-07-02 08:48] LABS: Hematocrit (blood only) 39.3 % (42.0-52.0); Hemoglobin 12.7 g/dl (14.0-18.0); Mean Corpuscular Hemoglobin 28.6 pg (25.0-34.0); Mean Corpuscular Hgb Conc 32.3 g/dL (32.0-36.0); Mean Corpuscular Volume 88.5 fL (80.0-100.0); Mean Platelet Volume 9.4 fL (9.4-12.4); Platelet Count 250 K/uL (130-400); RDW Standard Deviation 48.8 fL (36.4-46.3); Red Blood Count 4.44 M/uL (4.70-6.10); White Blood Count 12.37 K/ul (4.8-10.8)
[2023-07-02 09:01] LABS: BUN Creatinine Ratio 13.1 (10-20); Calcium 9.3 mg/dl (8.6-10.3); Creatinine Clr Calc Pharmacy 67.9 ml/min; Est GFR (African American) 95.8 ml/min; Est GFR (Non-African American) 82.7 ml/min; Potassium 3.9 mmol/L (3.5-5.1)
--- NOTE | 2023-07-02 10:43 | Discharge Summary ---
Discharge Summary Date of Service July 02, 2023 Notes For Next Care Provider Void trial 07/01 prior to rehab Medication Changes From Visit -Allergic reaction to silicone base barrier cream in perineium, continue hydrocortisone cream prn for soothing up until 07/06 -Holding spironolactone as pressures < 120 and afterload reduction limited 2/2 aortic stenosis Admission HPI Per Admitting Provider History obtained from patient and records. Medical history significant for CAD status post CABG/stent, valvular heart disease (moderate , mild MR, TTE 2022), CVA, PVD status post surgery, AAA, hypertension, hyperlipidemia, COPD, GERD, past tobacco abuse. Last confinement February 2023 for NSTEMI. Medical management recommended. 2 days ago patient noted achy epigastric pain somewhat burning not related to food intake. No fever, no chills, Usual SOB and cough symptoms from COPD as per patient. Patient woke up last night with worsening epigastric discomfort associated with nausea and emesis. IV Zosyn administered at the ER. 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 Admission Exam Per Admitting Provider GENERAL: Slightly anxious, pleasant, no respiratory distress SKIN: Normal color, warm HEENT: alopecia, bespectacled, pink palpebral conjunctivae, no ptosis, dry buccal mucosa NECK : Supple, no tenderness CHEST : Decreased breath sounds, expiratory wheezes, no tenderness HEART : Tachycardic, systolic murmur ABDOMEN: Some distention, right upper quadrant tenderness EXTREMITIES : No LE swelling/tenderness, no other conspicuous deformities noted NEUROLOGIC : Coherent, no facial asymmetry, no other gross focality Principal Dx & Hospital Course #1 = Principal Diagnosis (1) Sepsis: Mr. Bain is an 82 year old gentlemen with history of severe aortic stenosis, NSTEMI 2/2 severe CAD with history of remote CABG in 2012 who is admitted for concerns of cholecystitis. Perc-drain placed on 06/23 with notable improvement in symptoms; however, given concern of patient's tenuous cardiac status, age, and living situation, it was determined that lap shavon sooner than later would be safest option. Course complicated by urinary retention for which urology evaluated and recommended tamsulosin and fagan for 7-10 days. Tamsulosin held given patient's need for preload iso aortic stenosis, therefore this held and fagan maintained with plans for optimizing bowel regimen. urine culture + Klebsiella. Patient now s/p lap shavon on 06/27. Patient doing well with some postoperative pain, but otherwise denies any acute concerns. He denies any new symptoms and reports feeling markedly improved. Patient with continued O2 requirement s/p procedure. Potentially related to post op atelectasis, insufficiency, or volume. CXR with trace effusion and atelectasis. New skin irritation from barrier cream consistent with a contact dermatitis, discontinue all silicone based products. #Contact dermatitis of perineum -erythema and chaffing after application of silicone barrier ointment -Discontinue silicone based barrier creams -Continue hydrocortisone in interim given acute discomfort #Sepsis, resolved #Acute cholecystitis with cholelithiasis s/p lap shavon 06/27 #Transaminitis --CT ABD:Cholelithiasis. Mild pericholecystic fat stranding raises concern for acute cholecystitis. Atherosclerotic changes of the vasculature. Distal abdominal aortic aneurysm measuring 3.4 cm in diameter. No aortic dissection. --Gall Bladder USD:Findings suggestive of acute cholecystitis. Mild dilatation of the common bile duct. This could be correlated with obstructive liver function tests. --S/P ultrasound-guided gallbladder catheter placement by IR on 06/23/2023 --Blood cultures negative to date --Gallbladder fluid culture growing Klebsiella --Discontinue IV Zosyn, transitioned to CTX in interim for UTI below: completed course of abx --pain control --LFTs trending down, CMP in am -Lap shavon 06/27, doing well surgery following -Continue regular diet, Incentive spirometry Hgb stable Plan for OP follow up in [address] Halley Rendon #Acute hypoxic respiratory insufficiency s/p post op *improve #COPD Continue home inhalers and neb treatments Encourage IS and Mucinex Resumed home lasix #Leukocytosis, post op #Lymphocytosis in Elderly Incidental finding ? Secondary to infection Peripheral smear reviewed Flow cytometry/FISH pending Repeat CBC with diff WBC down from 17-14 downtrending #Urinary retention #Acute cystitis Continue Fagan catheter for now Avoid tamsulosin given hemodynamics with moderate aortic stenosis Appreciate urology input -7-10 days voiding trial as able UA with klebsiella, on Zosyn as above, will narrow contingent on abx recommendat ions s/p shavon -Completed course #Hypomagnesemia Replete electrolytes as needed Monitor #Abdominal aortic aneurysm CT as above Monitor #Left hydrocele -Scrotal ultrasound: No acute sonographic abnormality is seen involving the testes or scrotum.. Moderate to large left-sided hydrocele. Follow-up as outpatient #Hyperlipidemia Hold statin due to transaminitis Resume statin as able #Hypertension Continue metoprolol Monitor BP #CAD S/P CABG/stent #Valvular heart disease (moderate , mild MR, TTE 2022) Monitor volume status closely Continue aspirin, metoprolol Resume statin Appreciate cardiology input #H/O CVA, PVD S/P surgery Continue aspirin Resume statin #Prediabetes Last HbA1c 6.4 #Possible alcohol abuse Past tobacco abuse Discharge Exam Constitutional WD/WN, vitals as above Respiratory normal respiratory effort, lungs clear to auscultation Cardiovascular RRR, no murmur, no edema Updated Medication List Medication Instructions Recorded Confirmed Type albuterol sulfate 90 mcg/actuation 2 puff inhalation Q6 PRN Shortness 01/18/19 06/23/23 History aerosol inhaler (ProAir HFA) Of Breath Or Wheezing aspirin 81 mg tablet,delayed 81 mg PO QAM 01/18/19 06/23/23 History release furosemide 20 mg tablet 20 mg PO QAM 01/18/19 06/23/23 History metoprolol tartrate 25 mg tablet 25 mg PO Q12 01/18/19 06/23/23 History omeprazole 40 mg capsule,delayed 40 mg PO DAILYBB 01/18/19 06/23/23 History release rosuvastatin 40 mg tablet (Crestor) 40 mg PO QAM 01/18/19 06/23/23 History spironolactone 25 mg tablet 12.5 mg PO QAM 01/18/19 06/23/23 History triamcinolone acetonide 0.5 % 1 applic topical BID PRN flare ups 01/18/19 06/23/23 History topical cream cyanocobalamin (vitamin B-12) 1,000 mcg PO DAILY 04/11/20 06/23/23 History 1,000 mcg tablet (Vitamin B-12) cyclobenzaprine 10 mg tablet 5 mg PO BID Spasms 02/11/22 06/23/23 History tiotropium bromide 2.5 2 puff inhalation QAM 02/11/22 06/23/23 History mcg/actuation mist for inhalation (Spiriva Respimat) ascorbic acid (vitamin C) 500 mg 500 mg PO QPM 03/02/23 06/23/23 History tablet (Vitamin C) levalbuterol HCl 1.25 mg/3 mL 1.25 mg inhalation .Q6HR PRN 03/02/23 06/23/23 History solution for nebulization Shortness Of Breath Or Wheezing levalbuterol tartrate 45 1 puff inhalation Q4 PRN Shortness 03/02/23 06/23/23 History mcg/actuation aerosol inhaler Of Breath Or Wheezing (Xopenex HFA) lorazepam 0.5 mg tablet 0.5 mg PO TID PRN Anxiety 06/23/23 06/23/23 History nitroglycerin 0.4 mg sublingual 0.4 mg sublingual .Q 5 MIN PRN 06/23/23 06/23/23 History tablet Chest Pain zinc acetate 50 mg (zinc) capsule 50 mg PO QAM 06/23/23 06/23/23 History guaifenesin 600 mg tablet, 600 mg PO Q12 #60 tabs 07/02/23 Rx extended release 12 hr (Mucinex) hydrocortisone 1 % topical ointment 1 applic EXT Q4H PRN skin 07/02/23 Rx irritation 5 days #30 grams lidocaine 5 % topical patch 1 patch transdermal QAM #30 ea 07/02/23 Rx oxycodone 5 mg tablet 5 mg PO Q4H PRN pain #15 tabs 07/02/23 Rx Hospital Stay Data Consultations 06/23/23 03:58 ED Decision to Admit Stat 06/23/23 06:30 Consult Cardiology Routine 06/26/23 06:30 Consult Urology Routine Procedures Performed Operation Date: 06/28/23 07:40 Actual Procedures p Laparoscopic Cholecystectomy(Not Applicable) - Natalie Brooks DO Diagnostic Imagining Performed 06/23/23 01:15 CT angio abdomen pelvis w con Stat CT angio chest dissec wo/w con Stat 06/23/23 03:37 US gallbladder Stat 06/23/23 06:07 US scrotum/testicle Urgent 06/23/23 09:15 IR gallbladder cath placmnt US Stat 06/23/23 13:53 CT abd pelvis wo con Urgent Pending Results Patient Have Any Pending Studies at Discharge: Yes Discharge Instructions Given to Patient (Per Discharging Provider) You have skin glue over your incisions called dermabond. you may shower with this on. It will tend to dissolve and fall off within a couple weeks. Do not pick at the skin glue You may place antibiotic ointment over the site where your drain previously was daily until healed Total Time Total Time Spent Total Time Spent (In Minutes): 35
== END 2023-07-02 13:00 | DRG 854 ==
LOC: ED 00:48 → SUATTDRO 04:57 → EDINP 04:57 → 2W 21:38